=== PATIENT | female | born 1985 | race Caucasian/White ===

== ENCOUNTER 2023-06-02 03:29 | Emergency (ER) | payer OTHER, SELFPAY ==
[2023-06-02 03:35] VITALS: BP 127/88; PULSE 92; TEMP 36.4; O2SAT 99; BMI 33.3
--- NOTE | 2023-06-02 03:47 | ED_ITS ---
HPI HPI - General Adult General Chief complaint: Nausea/Vomiting/Diarrhea Stated complaint: VOMITING FLANK PAIN Time Seen by Provider: 06/02/23 03:42 Source: patient Mode of arrival: walk-in Limitations: no limitations History of Present Illness HPI narrative: Patient presents with flu-like illness that started about 30 hours ago. She developed nausea and vomiting followed by fatigue and muscle aches. Last emesis was around 7am but she has been dry heaving since - until about 3 hours ago when she was able to keep down crackers. Still feels achy and fatigued. No fever at home. No URI symptoms such as nasal congestion, ear pain, sore throat or cough. No chest pain or shortness of breath. She still has some nausea. She had some flank pain and abdominal cramping during the nausea and vomiting but non now. No urinary symptoms such as dysuria, urgency, frequency, hematuria or foul-smelling or discolored urine. She took some tylenol and ibuprofen earlier. Related Data Previous Rx's ?Medication ?Instructions ?Recorded ondansetron 4 mg disintegrating 4 mg PO Q6H PRN nausea and 06/02/23 tablet vomiting #14 tabs Allergies Allergy/AdvReac Type Severity Reaction Status Date / Time Unable to Assess Allergy Verified 06/02/23 03:40 Opioid HPI Opioid Management Most Recent Opioid Data: No Data to Display Exam Narrative Exam Narrative: Nurses notes and vital signs reviewed and patient is not hypoxic. afebrile General: Well-appearing and in no apparent distress. Skin: Warm, dry, no pallor noted. No rash. Head: Normocephalic, atraumatic. Neck: Supple, non-tender. No cervical lymphadenopathy. No meningismus. Eye: Pupils are equal, round and EOMI. No scleral icterus. Ears, Nose, Mouth, and Throat: TM are clear, no posterior oropharynx erythema or nasal mucosal hypertrophy, uvula is mid-line Oral mucosa is Slightly dry Cardiovascular: Regular Rate and Rhythm without murmur, gallop or rub. Respiratory: No accessory muscle use or respiratory distress. Lungs are clear to auscultation, no wheezing, rales or rhonchi Back: No CVA tenderness Musculoskeletal: normal ROM, no calf or popliteal tenderness, no lower extremity edema/swelling GI: Abdomen is soft, non-distended. Normal bowel sounds. No tenderness to palpation. No rebound, guarding, or rigidity noted. Neurological: A&O x4. No cranial nerve dysfunction observed. No truncal ataxia. Moves all extremities. Sensation intact. Psychiatric: Cooperative and interactive. Normal mood and affect. Constitutional Vital Signs, click to edit/add: Last Vital Signs Temp 97.5 F L 06/02/23 03:35 Pulse 92 H 06/02/23 03:35 Resp 20 06/02/23 03:35 BP 127/88 06/02/23 03:35 Pulse Ox 99 06/02/23 03:35 O2 Del Method Room Air 06/02/23 03:35 Course Vital Signs Vital signs: Vital Signs Temperature 97.5 F L 06/02/23 03:35 Pulse Rate 92 H 06/02/23 03:35 Respiratory Rate 20 06/02/23 03:35 Blood Pressure 127/88 06/02/23 03:35 Pulse Oximetry 99 06/02/23 03:35 Oxygen Delivery Method Room Air 06/02/23 03:35 Temperature 97.5 F L 06/02/23 03:35 Pulse Rate 92 H 06/02/23 03:35 Respiratory Rate 20 06/02/23 03:35 Blood Pressure 127/88 06/02/23 03:35 Pulse Oximetry 99 06/02/23 03:35 Oxygen Delivery Method Room Air 06/02/23 03:35 Medical Decision Making MDM Narrative Medical decision making narrative: Patient still with some residual nausea. She was given oral dissolvable Zofran. She was swabbed for both influenza and COVID. She did not want a wait for the results and we will call her if either of those are positive. She was discharged home with a prescription for Zofran oral dissolvable tablet And a work excuse to be off for the next 2 days. Patient advised to rest, stay at home, practice social distancing, take Motrin and Tylenol for pain and fever if not allergic, stay well hydrated with Gatorade or similar drinks if vomiting or eat as tolerated if not and take any meds as prescribed. Reviewed reasons to return including rapid increase in respiratory rate, shortness of breath, confusion, inability to keep down sips of swallowed liquids for more than 24 hours. Asked patient to encourage any ill contacts to stay home and practice similar advice. Discharge Plan Discharge Stand Alone Forms: Portal Instructions Chief Complaint: Nausea/Vomiting/Diarrhea Clinical Impression: Viral illness Patient Disposition: Home, Self-Care Time of Disposition Decision: 03:54 Prescriptions / Home Meds: New ondansetron 4 mg tablet,disintegrating 4 mg PO Q6H PRN (Reason: nausea and vomiting) Qty: 14 0RF Print Language: Zambian Instructions: Viral Syndrome (ED) Referrals: Physician,Non-Staff, MD [Primary Care Provider] - 1 week
[2023-06-02 04:04] LABS: Influenza Virus A Antigen Negative; Influenza Virus B Antigen Negative; Internal Control Within Normal Limits; SARS-CoV-2 Ag NEGATIVE (NEGATIVE)
[2023-06-02] MEDS: ONDANSETRON 4 MG RAPDIS TABLET SL (04:05)
[2023-06-02 04:08] VITALS: BP 131/79; PULSE 88; O2SAT 98
== END 2023-06-02 04:08 | disposition home or self-care (01) ==
PROVIDERS: Emergency Provider Emergency Medicine
DX: B34.9 Viral infection, unspecified (principal)
CPT/HCPCS: 87804; 87811; 99283

== ENCOUNTER 2023-07-29 18:40 | Emergency (ER) | payer OTHER, SELFPAY ==
[2023-07-29 19:02] VITALS: BP 154/87; PULSE 84; TEMP 37; O2SAT 100; BMI 31.9
--- NOTE | 2023-07-29 19:41 | PC.NURSE ---
pt felt lightheaded earlier today. pt states has had a period since may, heavy bleeding started tuesday. pt did not pass out, pt states eased herself to a sitting position
--- NOTE | 2023-07-29 19:44 | XR_ITS ---
The [address] [address] Patient Name: DEB WOODS MRN: [id number] date: 1985 Sex: F Assigned Patient Location: ER Current Patient Location: Accession/Order Number: [id number] Exam Date: 07/29/2023 20:22 Report Date: 07/29/2023 21:18 At the request of: CHRISTINA EVANS Procedure: XR chest 1V EXAM: XR chest 1V HISTORY: near syncope COMPARISON: None FINDINGS/IMPRESSION: 1. No pneumothorax. No pleural effusion. 2. Heart size and mediastinal contours are normal. 3. No acute osseous abnormality. 4. Upper abdominal bowel gas pattern is nonspecific. 5. Mild patchy atelectasis at the bilateral lung base. Lungs are otherwise clear. Electronically authenticated by: JUAN DANIEL ZAVALA Date: 07/29/2023 21:18
--- NOTE | 2023-07-29 19:47 | ECG_ITS ---
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
--- NOTE | 2023-07-29 19:51 | ED.GENADUL1 ---
HPI HPI - General Adult General Chief complaint: Syncope Stated complaint: Syncope Time Seen by Provider: 07/29/23 19:38 Source: patient Mode of arrival: walk-in Limitations: no limitations History of Present Illness HPI narrative: Patient is a 38-year-old female with a history of diabetes who presents to the ER with concerns of near syncopal episode x 2. Patient states Has been homeless in the recent months, off her medications. Patient states she has had a tubal ligation my tubes were removed. But has been experiencing heavier than normal periods for the past several months. Patient describes 8 to 12 days of heavy bleeding with frequent tampon changes. She denies bleeding at current time. States she was at home and felt some discomfort in the left side of her abdomen when she became really warm and nauseous, describing a near syncopal episode. Patient states she then went to work was eating some meat and cheese when she began to feel a similar sensation in the right side with a warm sensation At which patient laid down on the ground, and woke up by the trash can. Patient denies any vomiting or diarrhea. She denies any dysuria. She is sexually active and has taken home test which were negative to err on the side of caution. Patient denies any chest pain or shortness of breath. She denies any recent surgeries or long travels or flights. She denies any prior history of PE or DVT. 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 First episode occurred around 3 PM today Location: Denies head Radiation: Reports non-radiation Severity: moderate Quality: Denies burning Relieving factors: Reports none Exacerbating factors: Reports none Related Data Previous Rx's ?Medication ?Instructions ?Recorded ondansetron 4 mg disintegrating 4 mg PO Q6H PRN nausea and 06/02/23 tablet vomiting #14 tabs cephalexin 500 mg capsule 500 mg PO BID 7 days #14 caps 07/29/23 ferrous sulfate 325 mg (65 mg 325 mg PO DAILY #30 tabs 07/29/23 iron) tablet (iron) Allergies Allergy/AdvReac Type Severity Reaction Status Date / Time empagliflozin Allergy Nausea Verified 07/29/23 19:09 [From Jardiance] sitagliptin [From Januvia] Allergy Rash Verified 07/29/23 19:09 Opioid HPI Opioid Management Most Recent Opioid Data: No Data to Display Review of Systems ROS Constitutional Denies: fever or chills Eyes Reports: blurry vision (Preceding Near syncopal episodes, now resolved); Denies: change in vision Ears, nose, mouth, and throat Denies: throat pain Cardiovascular Denies: chest pain Respiratory Denies: shortness of breath or cough Gastrointestinal Denies: abdominal pain, nausea or vomiting Musculoskeletal Denies: back pain, neck pain or extremity pain Integumentary/Breast Denies: rash Neurological Denies: headache Psychiatric Denies: anxiety Hematologic/Lymphatic Denies: easy bruising Allergic/Immunologic Denies: hives Exam Narrative Exam Narrative: Nurses notes and vital signs reviewed and patient is not hypoxic. General: The patient appears well and in no apparent distress. Patient is resting comfortably on cart. Skin: Warm, dry, no pallor noted. Head: Normocephalic, atraumatic Neck: Supple, trachea mid-line, no tenderness, no lymphadenopathy Eye: Pupils are equal, round and reactive to light, EOMI Ears, Nose, Mouth, and Throat: TM are clear, normal light reflex, oral mucosa is moist, no posterior oropharynx erythema or hypertrophy, uvula is mid-line Cardiovascular: Regular Rate and Rhythm Respiratory: Patient is in no distress, no accessory muscle use, lungs are clear to auscultation, no wheezing, rales or rhonchi. Chest Wall: no tenderness Back: non-tender, no CVA tenderness Musculoskeletal: normal ROM, no tenderness, no swelling GI: Normal bowel sounds, no tenderness to palpation, no masses appreciated. No rebound, guarding, or rigidity noted. Neurological: A&O x4 Psychiatric: Cooperative Constitutional Vital Signs, click to edit/add: Last Vital Signs Temp 98.6 F 07/29/23 19:02 Pulse 80 07/29/23 19:52 Resp 17 07/29/23 19:52 BP 123/61 07/29/23 20:04 Pulse Ox 100 07/29/23 19:02 Course Vital Signs Vital signs: Vital Signs Temperature 98.6 F 07/29/23 19:02 Pulse Rate 84 07/29/23 19:02 Respiratory Rate 16 07/29/23 19:02 Blood Pressure 154/87 H 07/29/23 19:02 Pulse Oximetry 100 07/29/23 19:02 Temperature 98.6 F 07/29/23 19:02 Pulse Rate 80 07/29/23 19:52 Respiratory Rate 17 07/29/23 19:52 Blood Pressure 123/61 07/29/23 20:04 Pulse Oximetry 100 07/29/23 19:02 Medical Decision Making MDM Narrative Medical decision making narrative: Patient without any chest pain or shortness of breath.She describes 2 episodes of near syncopal behavior and believes she may have passed out during the second 1 while attempting to lay down on the floor at work. Patient admits to eating what she can. But has been off her diabetic medication for some time during period of homelessness. Patient has a verbalized plan to get back on her medications. Consistent with patient's intermittent heavy periods, she is anemic. We will start her on iron supplement. She will need to follow-up with director of billing to discuss treatment options. She may return to the ER if symptoms worsen. Patient noted for a urinary tract infection, culture pending will be prophylactically started on Keflex. was negative. Patient without chest pain or shortness of breath. Recommend to increase p.o. fluids, iron rich foods and establishing care with her family doctor. The patient is to followup with primary care physician in next 2-3 days or to return to the emergency department should any of the signs or symptoms worsen or new symptoms develop. Patient had questions answered. The patient agrees with the following Diagnosis and Treatment plan and the patient will be discharged home. Lab Data Labs: Lab Results 07/29/23 07/29/23 Range/Units 19:56 20:04 WBC 10.7 (4.0-11.0) 10^3/uL RBC 4.09 L (4.20-5.40) 10^6/uL Hgb 8.9 L (12.0-16.0) g/dL Hct 30.6 L (36.0-48.0) % MCV 74.8 L (81.0-99.0) fL MCH 21.8 L (26.7-34.0) pg MCHC 29.1 L (29.9-35.2) g/dL RDW 17.6 H (11.0-15.0) % Plt Count 345 (150-450) 10^3/uL MPV 8.8 L (9.5-13.5) fL Neut % (Auto) 69.1 (43.0-75.0) % Lymph % (Auto) 21.9 (20.5-60.0) % [place] % (Auto) 7.1 (1.7-12.0) % Eos % (Auto) 1.1 (0.9-7.0) % Baso % (Auto) 0.4 (0.2-2.0) % Neut # (Auto) 7.4 H (1.4-6.5) 10^3/uL Lymph # (Auto) 2.4 (1.2-3.8) 10^3/uL [place] # (Auto) 0.8 (0.3-0.8) 10^3/uL Eos # (Auto) 0.1 (0.0-0.7) 10^3/uL Baso # (Auto) 0.0 (0.0-0.1) 10^3/uL Abs Immat Gran (auto) 0.04 H (0.00-0.03) 10^3/uL Imm/Tot Granulo (auto) 0.4 (0.0-0.5) % PT 11.5 (9.0-11.6) sec INR 1.09 APTT 27.3 (22.3-36.2) sec Sodium 138 (136-145) mmol/L Potassium 4.0 (3.5-5.1) mmol/L Chloride 104 (98-107) mmol/L Carbon Dioxide 26.9 (21.0-32.0) mmol/L Anion Gap 11.1 BUN 11.0 (7.0-18.0) mg/dL Creatinine 0.75 (0.55-1.02) mg/dL Est GFR ( Amer) >60 (>=60) Est GFR (Non-Af Amer) >60 (>=60) BUN/Creatinine Ratio 14.7 Glucose 102 (74-106) mg/dL Calcium 8.9 (8.5-10.1) mg/dL Total Bilirubin 0.4 (0.2-1.0) mg/dL AST 7 L (15-37) U/L ALT 13 L (14-59) U/L Alkaline Phosphatase 61 (46-116) U/L Troponin I High Sens <4.0 L (4.0-51.3) pg/mL Total Protein 7.4 (6.4-8.2) g/dL Albumin 3.4 (3.4-5.0) g/dL Globulin 4.0 g/dL Albumin/Globulin Ratio 0.9 Serum HCG, Qual Negative (NEGATIVE) Urine Color Yellow (YELLOW) Urine Clarity Clear (CLEAR) Urine pH 6.0 (5.0-9.0) Ur Specific Miranda >=1.030 A (1.005-1.025) Urine Protein Negative (NEG/TRACE) mg/dL Urine Glucose (UA) Negative (NEGATIVE) mg/dL Urine Ketones Negative (NEGATIVE) mg/dL Urine Occult Blood Moderate A (NEGATIVE) Urine Nitrite Positive A (NEGATIVE) Urine Bilirubin Negative (NEGATIVE) Urine Urobilinogen 0.2 (0.2-1.0) EU/dL Ur Leukocyte Esterase Trace A (NEGATIVE) Urine RBC None seen (0-2) #/HPF Urine WBC 5-10 A (NONE SEEN) #/HPF Ur Squamous Epith Cells Rare (NONE/RARE) #/LPF Urine Crystals None seen (None Seen) #/HPF Urine Bacteria Large A (NONE SEEN) #/HPF Urine Casts None seen (NONE SEEN) #/LPF Urine Mucus Moderate A (NONE SEEN) Ur Culture Indicated? Yes Acetone, Qual Negative (NEGATIVE) Imaging Data Chest x-ray: My impression: No acute infiltrate, no cardiomegaly ECG Data Attestation: I personally reviewed and interpreted this ECG as follows: Interpretation: EKG interpretation: Emergency Department physician interpretation, normal sinus [id number], no ectopy, no ST segment elevation, normal axis. Discharge Plan Discharge Stand Alone Forms: Portal Instructions Chief Complaint: Syncope Clinical Impression: Anemia, Menometrorrhagia, Urinary tract infection, Near syncope Patient Disposition: Home, Self-Care Time of Disposition Decision: 20:40 Condition: Good Prescriptions / Home Meds: New cephalexin 500 mg capsule 500 mg PO BID 7 Days Qty: 14 0RF ferrous sulfate [iron] 325 mg (65 mg iron) tablet 325 mg PO DAILY Qty: 30 0RF No Action ondansetron 4 mg tablet,disintegrating 4 mg PO Q6H PRN (Reason: nausea and vomiting) Qty: 14 0RF Print Language: Romansh Instructions: Urinary Tract Infection in Women (DC), Menorrhagia (ED), Anemia (ED) Referrals: Chetan Valdes, [Physician] - As soon as possible Royer Ley MD [Physician] - As soon as possible Roverto Bustillos MD [Physician] - As soon as possible
[2023-07-29 19:52] VITALS: PULSE 80
[2023-07-29 20:04] VITALS: BP 123/61
[2023-07-29 20:08] LABS: Basophils Percent Auto 0.4 % (0.2-2.0); Eosinophils Absolute Auto 0.1 10^3/uL (0.0-0.7); Eosinophils Percent Auto 1.1 % (0.9-7.0); Hematocrit 30.6 % (36.0-48.0); Hemoglobin 8.9 g/dL (12.0-16.0); Immature Granulocytes Abs Auto 0.04 10^3/uL (0.00-0.03); Immature Granulocytes Pct Auto 0.4 % (0.0-0.5); Lymphocytes Absolute Auto 2.4 10^3/uL (1.2-3.8); Lymphocytes Percent Auto 21.9 % (20.5-60.0); Mean Corpuscular HGB Conc 29.1 g/dL (29.9-35.2); Mean Corpuscular Hemoglobin 21.8 pg (26.7-34.0); Mean Corpuscular Volume 74.8 fL (81.0-99.0); Mean Platelet Volume 8.8 fL (9.5-13.5); Monocytes Absolute Auto 0.8 10^3/uL (0.3-0.8); Monocytes Percent Auto 7.1 % (1.7-12.0); Neutrophils Absolute Auto 7.4 10^3/uL (1.4-6.5); Neutrophils Percent Auto 69.1 % (43.0-75.0); Platelet Count 345 10^3/uL (150-450); Red Blood Count 4.09 10^6/uL (4.20-5.40); Red Cell Distribution Width 17.6 % (11.0-15.0); White Blood Count 10.7 10^3/uL (4.0-11.0)
[2023-07-29 20:08] LABS: Bilirubin Urine NEGATIVE (NEGATIVE); Blood Urine MODERATE (NEGATIVE); Clarity Urine CLEAR (CLEAR); Color Urine YELLOW (YELLOW); Glucose Urine UA NEGATIVE (NEGATIVE); Ketones Urine NEGATIVE (NEGATIVE); Leukocyte Esterase Urine TRACE (NEGATIVE); Nitrite Urine POSITIVE (NEGATIVE); Protein Urine NEGATIVE (NEG/TRACE); Specific Gravity Urine >=1.030 (1.005-1.025); Urobilinogen Urine 0.2 EU/dL (0.2-1.0)
[2023-07-29] MEDS: ONDANSETRON PF 4 MG/2 ML VIAL IV (20:09)
[2023-07-29] MEDS: 0.9 % SODIUM CHLORIDE 1,000 ML 999 ML IV (20:09)
[2023-07-29 20:13] LABS: Urine Microscopic Indicated YES
[2023-07-29 20:17] LABS: HCG Qualitative NEGATIVE (NEGATIVE)
[2023-07-29 20:22] LABS: INR 1.09; Partial Thromboplastin Time 27.3 sec (22.3-36.2); Prothrombin Time 11.5 sec (9.0-11.6)
[2023-07-29 20:23] LABS: Acetone NEGATIVE (NEGATIVE)
[2023-07-29 20:24] LABS: Bacteria Urine LARGE #/HPF (NONE SEEN); Cast Seen? NONE SEEN #/LPF (NONE SEEN); Crystals Seen? None Seen #/HPF (None Seen); Mucus Urine MODERATE (NONE SEEN); RBC Urine NONE SEEN #/HPF (0-2); Squamous Epithelial Cell Urine RARE #/LPF (NONE/RARE); Urine Culture Indicated YES
[2023-07-29 20:25] LABS: Alanine Aminotransferase 13 U/L (14-59); Albumin Globulin Ratio 0.9; Albumin Level 3.4 g/dL (3.4-5.0); Alkaline Phosphatase 61 U/L (46-116); Anion Gap 11.1; Aspartate Amino Transferase 7 U/L (15-37); BUN Creatinine Ratio 14.7; Bilirubin Total 0.4 mg/dL (0.2-1.0); Calcium 8.9 mg/dL (8.5-10.1); Carbon Dioxide 26.9 mmol/L (21.0-32.0); Chloride 104 mmol/L (98-107); Estimated GFR (African America >60 (>=60); Estimated GFR (Non-African Ame >60 (>=60); Glucose 102 mg/dL (74-106); Sodium 138 mmol/L (136-145); Total Protein 7.4 g/dL (6.4-8.2)
[2023-07-29 20:28] LABS: Troponin I High Sensitivity <4.0 pg/mL (4.0-51.3)
[2023-07-29 20:30] VITALS: BP 122/59; PULSE 72; O2SAT 100
[2023-07-29] MEDS: CEPHALEXIN 500 MG CAPSULE PO (20:54)
== END 2023-07-29 21:07 | disposition home or self-care (01) ==
PROVIDERS: Personal Emergency Response Attendant; Emergency Provider Emergency Medicine
DX: R55 Syncope and collapse (principal); N39.0 Urinary tract infection, site not specified; N92.1 Excessive and frequent menstruation with irregular cycle; D64.9 Anemia, unspecified; E11.9 Type 2 diabetes mellitus without complications
CPT/HCPCS: 36415; 71045; 80053; 81001; 82009; 84484; 84703; 85025; 85610; 85730; 87086; 87150; 87186; 93005; 96361; 96374; 99285

== ENCOUNTER 2023-09-06 17:24 | Emergency (ER) | payer OTHER, SELFPAY ==
--- NOTE | 2023-09-06 | US_ITS ---
The [address] [address] Patient Name: DEB WOODS MRN: [id number] date: 1985 Sex: F Assigned Patient Location: ER Current Patient Location: ED.MAIN Accession/Order Number: [id number] Exam Date: 09/06/2023 17:55 Report Date: 09/06/2023 19:32 At the request of: LEIGHTON LION Procedure: US venous doppler UE RT ULTRASOUND OF THE UPPER EXTREMITY VENOUS RIGHT HISTORY: Extremity edema and pain. COMPARISON: None. TECHNIQUE: Multiple sonographic images are performed of the extremity venous system with both color Doppler and grayscale Doppler. Doppler spectral analysis and color flow were performed of the extremity. FINDINGS: There is no evidence of thrombus within the visualized veins. There is adequate phasic and spontaneous flow. There is adequate compression. There is adequate augmentation. No evidence of DVT within the visualized veins of the visualized extremity. US/US venous doppler UE RT IMPRESSION: No evidence of DVT within visualized veins. Electronically authenticated by: REYNALDO YOUSIF Date: 09/06/2023 19:32
[2023-09-06 17:34] VITALS: BP 120/62; PULSE 77; TEMP 36.8; O2SAT 97; BMI 31.0
--- NOTE | 2023-09-06 18:45 | XR_ITS ---
The [address] [address] Patient Name: DEB WOODS MRN: [id number] date: 1985 Sex: F Assigned Patient Location: ER Current Patient Location: ER Accession/Order Number: [id number] Exam Date: 09/06/2023 18:40 Report Date: 09/06/2023 20:01 At the request of: LEIGHTON LION Procedure: XR shoulder RT min 2V EXAM: XR shoulder RT min 2V HISTORY: Injury COMPARISON: None. TECHNIQUE: AP internal, external rotation Y-view right shoulder. FINDINGS: No fracture or dislocation. Minimal spurring AC joint. No soft tissue calcification. Visualized right clavicle, ribs and lung unremarkable. XR/XR shoulder RT min 2V IMPRESSION: Negative for fracture or dislocation right shoulder. Electronically authenticated by: MARCIAL HOFFMAN Date: 09/06/2023 20:01
--- NOTE | 2023-09-06 20:14 | ED.GENADUL1 ---
HPI HPI - General Adult General Chief complaint: Extremity Injury, Upper Stated complaint: UE INJURY Time Seen by Provider: 09/06/23 17:38 Source: patient Mode of arrival: walk-in Limitations: no limitations History of Present Illness HPI narrative: Patient is a 38-year-old female presents to the emergency department for the evaluation of right shoulder pain with radiation into the right arm. She states she ran her right shoulder into a door frame several days ago and has bruising to the right shoulder. She states she now has pain radiating into her right arm. She was concerned because she has a history of anemia and is worried she has a blood clot in her arm. No medications taken prior to arrival. She has no concern for Related Data Previous Rx's ?Medication ?Instructions ?Recorded ferrous sulfate 325 mg (65 mg 325 mg PO DAILY #30 tabs 07/29/23 iron) tablet (iron) hydrocodone 5 mg-acetaminophen 325 1 tab PO Q6H PRN pain 3 days #12 09/06/23 mg tablet tabs ketorolac 10 mg tablet 10 mg PO TID PRN pain #10 tabs 09/06/23 methocarbamol 750 mg tablet 750 mg PO TID PRN pain #20 tabs 09/06/23 Allergies Allergy/AdvReac Type Severity Reaction Status Date / Time empagliflozin Allergy Nausea Verified 07/29/23 19:09 [From Jardiance] sitagliptin [From Januvia] Allergy Rash Verified 07/29/23 19:09 Opioid HPI Opioid Management Most Recent Opioid Data: No Data to Display Review of Systems ROS Constitutional Denies: fever or chills Ears, nose, mouth, and throat Denies: throat pain or nasal congestion Cardiovascular Denies: chest pain Respiratory Denies: shortness of breath Gastrointestinal Denies: abdominal pain, nausea or vomiting Genitourinary Denies: painful urination Musculoskeletal Reports: extremity pain; Denies: back pain or neck pain Integumentary/Breast Denies: rash Hematologic/Lymphatic Denies: easy bruising or easy bleeding Exam Narrative Exam Narrative: Gen.: Awake, alert, in no distress Head: Normocephalic, atraumatic ENT: Moist mucous membranes, C-spine nontender Respiratory: No respiratory distress Extremities: Pain with range of motion at the right shoulder. Normal composite mechanic strength in the right hand with 2+ right radial pulse. Well-healing ecchymosis at the proximal humerus just distal to the glenohumeral joint Psych: Normal mood and affect Neuro: No focal neuro deficit Skin: Warm, dry, intact Constitutional Vital Signs, click to edit/add: Last Vital Signs Temp 98.3 F 09/06/23 17:34 Pulse 77 09/06/23 17:34 Resp 18 09/06/23 17:34 BP 120/62 09/06/23 17:34 Pulse Ox 97 09/06/23 17:34 O2 Del Method Room Air 09/06/23 17:34 Course Vital Signs Vital signs: Vital Signs Temperature 98.3 F 09/06/23 17:34 Pulse Rate 77 09/06/23 17:34 Respiratory Rate 18 09/06/23 17:34 Blood Pressure 120/62 09/06/23 17:34 Pulse Oximetry 97 09/06/23 17:34 Oxygen Delivery Method Room Air 09/06/23 17:34 Temperature 98.3 F 09/06/23 17:34 Pulse Rate 77 09/06/23 17:34 Respiratory Rate 18 09/06/23 17:34 Blood Pressure 120/62 09/06/23 17:34 Pulse Oximetry 97 09/06/23 17:34 Oxygen Delivery Method Room Air 09/06/23 17:34 Medical Decision Making MDM Narrative Medical decision making narrative: X-rays of the right shoulder and ultrasound of the right upper extremity were provided in the lobby, the studies are unremarkable and the patient is treated for shoulder contusion with radicular pain of the right arm. She is placed in a sling and is neurovascularly intact. Work note provided and a short course of analgesics, muscle relaxants and NSAIDs given for home. Rest, ice, gentle stretching. Follow-up with PCP in return to the ER if symptoms change or worsen. She is neurovascularly intact at discharge, sling 3 to 5 days only Medical Records Medical records reviewed: Yes I reviewed the patient's medical records Imaging Data XR shoulder: Attestation: I have reviewed the pertinent imaging results. Radiologist's impression: ITS Impressions Venous Doppler Study 09/06/23 00:00 IMPRESSION: No evidence of DVT within visualized veins. Electronically authenticated by: REYNALDO YOUSIF Date: 09/06/2023 19:32 Shoulder X-Ray 09/06/23 18:45 IMPRESSION: Negative for fracture or dislocation right shoulder. Electronically authenticated by: MARCIAL HOFFMAN Date: 09/06/2023 20:01 Discharge Plan Discharge Stand Alone Forms: Portal Instructions Chief Complaint: Extremity Injury, Upper Clinical Impression: Contusion of right shoulder, Radicular pain in right arm Patient Disposition: Home, Self-Care Time of Disposition Decision: 20:11 Condition: Good Prescriptions / Home Meds: New hydrocodone-acetaminophen 5-325 mg tablet 1 tab PO Q6H PRN (Reason: pain) 3 Days Qty: 12 0RF Rx Instructions: DX: M25.521 ketorolac 10 mg tablet 10 mg PO TID PRN (Reason: pain) Qty: 10 0RF methocarbamol 750 mg tablet 750 mg PO TID PRN (Reason: pain) Qty: 20 0RF No Action ferrous sulfate [iron] 325 mg (65 mg iron) tablet 325 mg PO DAILY Qty: 30 0RF Print Language: South African Instructions: Contusion in Adults (ED) Referrals: Physician,Non-Staff, MD [Primary Care Provider] - 1 week
--- NOTE | 2023-09-06 20:15 | PC.NURSE ---
sling placed. Pt given ice pack
== END 2023-09-06 20:17 | disposition home or self-care (01) ==
PROVIDERS: Emergency Provider Emergency Medicine
DX: S40.011A Contusion of right shoulder, initial encounter (principal); M79.601 Pain in right arm; W22.09XA Striking against other stationary object, initial encounter
CPT/HCPCS: 73030; 93971; 99284

== ENCOUNTER 2023-09-11 21:30 | Emergency (ER) | payer OTHER, SELFPAY ==
[2023-09-11 21:33] VITALS: BP 140/71; PULSE 76; TEMP 36.4; O2SAT 100; BMI 32.0
--- NOTE | 2023-09-11 21:47 | XR_ITS ---
The [address] [address] Patient Name: DEB WOODS MRN: [id number] date: 1985 Sex: F Assigned Patient Location: ER Current Patient Location: ER Accession/Order Number: [id number] Exam Date: 09/11/2023 22:47 Report Date: 09/11/2023 22:33 At the request of: EVELYNE MARKER Procedure: XR hand RT min 3V EXAM: XR hand RT min 3V, XR wrist RT 2V HISTORY: The patient is a 38-year-old female, hand injury COMPARISON: None. FINDINGS: The lateral view of the right wrist demonstrates a small cortical fracture fragment dorsal to the mid carpal row. This is the typical appearance of a triquetral avulsion fracture. I cannot determine from these radiographs if this is an acute or chronic fracture, and this should be correlated with tenderness at this site. 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 No other acute or ununited fractures are seen within the right hand and wrist. The widths and alignment of all the joints are maintained. XR/XR hand RT min 3V IMPRESSION: Triquetral avulsion fracture, age indeterminate. Electronically authenticated by: HILDA BULLARD Date: 09/11/2023 22:33
--- NOTE | 2023-09-11 21:47 | ED_ITS ---
HPI HPI - Extremity Injury (Upper) General Chief Complaint: Extremity Injury, Upper Stated Complaint: UPPER EXTREMITY INJURY Time Seen by Provider: 09/11/23 21:37 Source: patient Mode of arrival: walk-in History of Present Illness HPI narrative: This 38-year-old female who is right-hand dominant presents for evaluation of her right hand and wrist injury. The patient was seen here several days ago with right shoulder pain after striking her shoulder on something. She was placed in a splint and discharged home. She works at [employer]. She states she was changing something out earlier today and was bent down and lost her balance. She was wearing a wrist splint at the time and her second third fourth and fifth fingers were bent back when she lost her balance. She has pain in these fingers and metacarpals. The pain radiates into her wrist and forearm. Related Data Previous Rx's ?Medication ?Instructions ?Recorded ferrous sulfate 325 mg (65 mg 325 mg PO DAILY #30 tabs 07/29/23 iron) tablet (iron) hydrocodone 5 mg-acetaminophen 325 1 tab PO Q6H PRN pain 3 days #12 09/06/23 mg tablet tabs ketorolac 10 mg tablet 10 mg PO TID PRN pain #10 tabs 09/06/23 methocarbamol 750 mg tablet 750 mg PO TID PRN pain #20 tabs 09/06/23 Allergies Allergy/AdvReac Type Severity Reaction Status Date / Time empagliflozin Allergy Nausea Verified 07/29/23 19:09 [From Jardiance] sitagliptin [From Januvia] Allergy Rash Verified 07/29/23 19:09 Opioid HPI Opioid Management Most Recent Pain and Opioid Data: Last Pain Scale 9 09/11/23 22:28 Last ED Pain Assessment 09/06/23 20:15 Review of Systems ROS Status of ROS 10 or more systems reviewed and unremark able except as noted in h istory and below Exam Narrative Exam Narrative: Vital signs and Nursing Notes reviewed: Patient is afebrile with a normal pulse, normal blood pressure, she is not hypoxic with pulse ox of 100% on room air General: Awake, alert, oriented, no acute distress, lying comfortably on the stretcher HEENT: Normocephalic atraumatic, mucous membranes are moist and pink, eyes are clear, normal conjunctiva, vision is grossly intact Chest: Lungs are clear to auscultation with good air entry, there is no wheezing rhonchi or rales appreciated no accessory muscle use, patient is speaking in complete sentences-no chest wall tenderness to palpation CVS: Regular rate and rhythm S1-S2, no murmurs rubs or gallops, pulses are brisk and equal bilaterally ABD: Soft, nondistended, nontender, no rebound guarding or rigidity, bowel sounds are normal, no pulsatile masses appreciated Extremities: There is a resolving bruise on the right proximal humerus, there is tenderness to the right hand at the distal metacarpal of the index long ring and fifth finger. Patient resists his attempts to make a fist or approximate thumb and all fingers. There is no notable swelling, bruising or other abnormality. Fingers are warm and sensate. Capillary refill is less than 2 seconds. Radial pulses brisk. Patient winces with supination of the right hand. Skin: Normal in appearance without rash,pallor, petechiae or purpura Neuro: No focal deficits Constitutional Vital Signs, click to edit/add: Last Vital Signs Temp 97.6 F 09/11/23 21:33 Pulse 76 09/11/23 21:33 Resp 14 09/11/23 21:33 BP 140/71 09/11/23 21:33 Pulse Ox 100 09/11/23 21:33 Course Vital Signs Vital signs: Vital Signs Temperature 97.6 F 09/11/23 21:33 Pulse Rate 76 09/11/23 21:33 Respiratory Rate 09/11/23 21:33 Blood Pressure 140/71 09/11/23 21:33 Pulse Oximetry 100 09/11/23 21:33 Temperature 97.6 F 09/11/23 21:33 Pulse Rate 76 09/11/23 21:33 Respiratory Rate 09/11/23 21:33 Blood Pressure 140/71 09/11/23 21:33 Pulse Oximetry 100 09/11/23 21:33 MDM - Extremity Injury (Upper) MDM Narrative Medical decision making narrative: This 38-year-old female who is right-hand dominant presents for evaluation of a right hand and wrist injury. The patient states that her hand was hyperflexed when she was changing something out at her job, she slipped and fell onto the hand while she was wearing a wrist splint. She is tender across her distal metacarpals from the index, long, ring and fifth finger. I do not appreciate any bony deformity. She winced in pain with supination of the hand. 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 The results of the x-ray were discussed with the patient and she was placed in a hand splint and will be referred to [facility] for further evaluation and treatment. Procedure note: The right hand was placed in a volar splint with slight wrist extension to immobilize the hand and possible triquetral fracture. She will be referred to [facility]. Medical Records Medical records narrative: [place] [address] XRay Report Signed Patient: DEB WOODS MR#: [id number] : 1985 Acct:[id number] Age/Sex: 38 / F ADM Date: 09/11/23 Loc: ER Attending Dr: Ordering Physician: Evelyne Thornton Date of Service: 09/11/23 Procedure(s): XR wrist RT 2V Accession Number(s): [id number] cc: Evelyne Thornton; Physician,Non-Staff M.D.~ The [address] [address] Patient Name: DEB WOODS MRN: [id number] date: 1985 Sex: F Assigned Patient Location: ER Current Patient Location: ER Accession/Order Number: [id number] Exam Date: 09/11/2023 22:47 Report Date: 09/11/2023 22:33 At the request of: EVELYNE THORNTON Procedure: XR wrist RT 2V EXAM: XR hand RT min 3V, XR wrist RT 2V HISTORY: The patient is a 38-year-old female, hand injury COMPARISON: None. FINDINGS: The lateral view of the right wrist demonstrates a small cortical fracture fragment dorsal to the mid carpal row. This is the typical appearance of a triquetral avulsion fracture. I cannot determine from these radiographs if this is an acute or chronic fracture, and this should be correlated with tenderness at this site. 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 No other acute or ununited fractures are seen within the right hand and wrist. The widths and alignment of all the joints are maintained. XR/XR wrist RT 2V IMPRESSION: Triquetral avulsion fracture, age indeterminate. Discharge Plan Discharge Stand Alone Forms: Portal Instructions Chief Complaint: Extremity Injury, Upper Clinical Impression: Triquetral chip fracture Patient Disposition: Home, Self-Care Time of Disposition Decision: 23:01 Condition: Good Prescriptions / Home Meds: No Action hydrocodone-acetaminophen 5-325 mg tablet 1 tab PO Q6H PRN (Reason: pain) 3 Days Qty: 12 0RF Rx Instructions: DX: M25.521 ketorolac 10 mg tablet 10 mg PO TID PRN (Reason: pain) Qty: 10 0RF methocarbamol 750 mg tablet 750 mg PO TID PRN (Reason: pain) Qty: 20 0RF ferrous sulfate [iron] 325 mg (65 mg iron) tablet 325 mg PO DAILY Qty: 30 0RF Print Language: Syrian Instructions: Wrist Fracture in Adults (ED) Referrals: Physician,Non-Staff, MD [Primary Care Provider] - 1 week
--- NOTE | 2023-09-11 21:47 | XR_ITS ---
The [address] [address] Patient Name: DEB WOODS MRN: [id number] date: 1985 Sex: F Assigned Patient Location: ER Current Patient Location: ER Accession/Order Number: [id number] Exam Date: 09/11/2023 22:47 Report Date: 09/11/2023 22:33 At the request of: EVELYNE MARKER Procedure: XR wrist RT 2V EXAM: XR hand RT min 3V, XR wrist RT 2V HISTORY: The patient is a 38-year-old female, hand injury COMPARISON: None. FINDINGS: The lateral view of the right wrist demonstrates a small cortical fracture fragment dorsal to the mid carpal row. This is the typical appearance of a triquetral avulsion fracture. I cannot determine from these radiographs if this is an acute or chronic fracture, and this should be correlated with tenderness at this site. 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 No other acute or ununited fractures are seen within the right hand and wrist. The widths and alignment of all the joints are maintained. XR/XR wrist RT 2V IMPRESSION: Triquetral avulsion fracture, age indeterminate. Electronically authenticated by: HILDA BULLARD Date: 09/11/2023 22:33
[2023-09-11] MEDS: ACETAMINOPHEN 325 MG TABLET 650 MG PO (22:28)
[2023-09-11] MEDS: HYDROCODONE/ACET 5-325 MG TABLET 2 TAB PO (23:13)
[2023-09-11 23:20] VITALS: BP 134/88; PULSE 88; O2SAT 98
== END 2023-09-11 23:20 | disposition home or self-care (01) ==
PROVIDERS: Emergency Provider Emergency Medicine
DX: S62.111A Displaced fracture of triquetrum [cuneiform] bone, right wrist, initial encounter for closed fracture (principal); W19.XXXA Unspecified fall, initial encounter
CPT/HCPCS: 29125; 73100; 73130; 99283

== ENCOUNTER 2023-10-03 21:11 | Outpatient (REF) | payer OTHER, SELFPAY ==
--- OUTSIDE RECORDS SUMMARY | 2023-10-03 21:28 | XMS_ITS | CCD ---
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 [facility] Care Team Providers Care Performance Improvement Specialist Name Role Phone Patricia Pollock Primary Care Physician [phone] Srikanth WALTON Primary Care Physician NONE, XXXX Primary Care Physician Susieab tia BORJA, GENERIC Primary Care Physician Unavailab FUENTES Pollard Attending Unavailable Aditi Vargas Attending Unavailable Winsome Andino Attending Unavailable Adrian Potter Attending Unavailable Allergies Allergy Classification Reported Allergen(s) Allergy Type Date of Onset Reaction(s) Facility (9 sources) empagliflozin; Translations: [empagliflozin] Drug Allergy Nausea (finding) [facility] (9 sources) glipiZIDE; Translations: [glipizide] Drug Allergy Diarrhea (finding) [facility] (9 sources) SITagliptin; Translations: [sitagliptin] Drug Allergy Mycosis (disorder) [facility] Medications Current Medications Medication Drug Class(es) Dates Sig (Normalized) Sig (Original) acetaminophen 325 mg / HYDROcodone bitartrate 5 mg oral tablet (8 sources) Opioid Agonist Start: 09-06-2021 take 1 tablet by mouth every four hours for pain [place] 325 mg-5 mg oral tablet 1 tab(s), Oral, q4hr for pain, 3 tab(s), Refill(s) 0, [facility], 162, cm, 09/06/21 16:13:00 EDT, Height/Length Dosing, 95, kg, 09/06/21 16:13:00 EDT, Weight Dosing Start Date: 09/06/21 Status: Ordered acetaminophen 325 mg / oxyCODONE hydrochloride 5 mg oral tablet (3 sources) Opioid Agonist Start: 07-27-2022 take 1 tablet by mouth every four hours for pain acetaminophen-ox ycodone 325 mg-5 mg Tab 1 tab(s), Oral, q4hr for pain, 8 tab(s), Refill(s) 0, [facility], 162, cm, 07/27/22 22:23:00 EDT, Height/Length Dosing, 91.6, kg, 07/27/22 22:23:00 EDT, Weight Dosing Start Date: 07/27/22 Status: Ordered brompheniramine maleate 0.4 mg/ml / dextromethorphan hydrobromide 2 mg/ml / pseudoephedrine hydrochloride 6 mg/ml oral solution (6 sources) alpha-Adrenergic Agonist, Uncompetitive Z-yibwsx-U-aspartat e Receptor Antagonist, Sigma-1 Agonist Start: 10-29-2021 take 5 mL by mouth four times daily Bromfed DM oral syrup 5 mL, Oral, QID for cold symptoms, 200 mL, Refill(s) 0, [facility], 163, cm, 10/29/21 18:48:00 EDT, Height/Length Dosing, 93, kg, 10/29/21 18:48:00 EDT, Weight Dosing Start Date: 10/29/21 Status: Ordered 12 hr buPROPion hydrochloride 150 mg extended release oral tablet (8 sources) Aminoketone Start: 01-30-2020 take 1 tablet by mouth twice daily Wellbutrin SR 150 mg Tab-ER 150 mg = 1 tab(s), Oral, BID, # 30 tab(s), Refills(s) 5, Pharmacy: [facility], 163, cm, 01/30/20 10:40:00 EST, Height/Length Dosing, 105, kg, 01/30/20 10:40:00 EST, Weight Dosing Start Date: 01/30/20 Status: Ordered cephalexin 500 mg oral capsule (1 source) Cephalosporin Antibacterial Start: 12-19-2022 End: 12-26-2022 take 1 capsule by mouth every six hours Keflex 500 mg Cap 500 mg = 1 cap(s), Oral, q6hr, X 7 day(s), # 28 cap(s), Refills(s) 0, Pharmacy: [facility], 162, cm, 12/19/22 7:51:00 EDT, Height/Length Dosing, 85, kg, 12/19/22 7:51:00 EDT, Weight Dosing Start Date: 12/19/22 Stop Date: 12/26/22 Status: Ordered esomeprazole 20 mg delayed release oral capsule (8 sources) Proton Pump Inhibitor Start: 01-30-2020 take 1 capsule by mouth once daily Nexium 20 mg Cap-DR 20 mg = 1 cap(s), Oral, Daily, # 30 cap(s), Refills(s) 5, Pharmacy: [facility], 163, cm, 01/30/20 10:40:00 EST, Height/Length Dosing, 105, kg, 01/30/20 10:40:00 EST, Weight Dosing Start Date: 01/30/20 Status: Ordered fexofenadine hydrochloride 180 mg oral tablet (16 sources) Histamine-1 Receptor Antagonist Start: 01-30-2020 take 1 tablet by mouth once daily fexofenadine 180 mg Tab 180 mg = 1 tab(s), Oral, Daily, # 30 tab(s), Refills(s) 0 Start Date: 06/22/20 Status: Ordered FLUoxetine 40 mg oral capsule (8 sources) Serotonin Reuptake Inhibitor Start: 01-30-2020 take 1 capsule by mouth twice daily FLUoxetine 40 mg Cap 40 mg = 1 cap(s), Oral, BID, # 30 cap(s), Refills(s) 5, Pharmacy: [facility], 163, cm, 01/30/20 10:40:00 EST, Height/Length Dosing, 105, kg, 01/30/20 10:40:00 EST, Weight Dosing Start Date: 01/30/20 Status: Ordered fluticasone propionate 0.05 mg/actuat metered dose nasal spray (3 sources) Corticosteroid Start: 01-30-2020 fluticasone 0.05 mg/inh Nasal [place] 100 mcg, 2 spray(s), Nasal, Daily Allergy symptoms, 16 gm, Refill(s) 5, [facility], 163, cm, 01/30/20 10:40:00 EST, Height/Length Dosing, 105, kg, 01/30/20 10:40:00 EST, Weight Dosing Start Date: 01/30/20 Status: Ordered fluticasone 0.05 mg/inh Nasal [place] (5 sources) Start: 01-30-2020 fluticasone 0.05 mg/inh Nasal [place] 100 mcg, 2 spray(s), Nasal, Daily Allergy symptoms, 16 gm, Refill(s) 5, [facility], 163, cm, 01/30/20 10:40:00 EST, Height/Length Dosing, 105, kg, 01/30/20 10:40:00 EST, Weight Dosing Start Date: 01/30/20 Status: Ordered Hydrocortisone (8 sources) Corticosteroid Start: 03-05-2020 apply 30 g rectal route twice daily Proctosol HC 2.5% Cream See Instructions, 30 gm, Refill(s) 0, Rectal BID, [facility], 163, cm, 03/05/20 10:32:00 EST, Height/Length Dosing, 107.6, kg, 03/05/20 10:32:00 EST, Weight Dosing Start Date: 03/05/20 Status: Ordered metFORMIN hydrochloride 1000 mg oral tablet (8 sources) Biguanide Start: 06-22-2020 take 1 tablet by mouth twice daily METFORMIN 1000MG TAB TAKE 1 TABLET BY MOUTH TWICE DAILY Start Date: 06/22/20 Status: Ordered methylPREDNISolone 4 mg oral tablet (2 sources) Corticosteroid Start: 03-27-2023 End: 04-02-2023 Medrol 4 mg Tab = 1 packet(s), Oral, As Directed, as directed on package labeling, X 6 day(s), # 21 tab(s), Refills(s) 0, Pharmacy: [facility], 162, cm, 03/27/23 18:39:00 EST, Height/Length Dosing, 85, kg, 03/27/23 18:39:00 EST, Weight Dosing Start Date: 03/27/23 Stop Date: 04/02/23 Status: Ordered Start: 10-29-2021 End: 11-04-2021 Medrol 4 mg Tab = 1 packet(s ), Oral, As Directed, as directed on package labeling, X 6 day(s), # 21 tab(s), Refills(s) 0, Pharmacy: [facility], 163, cm, 10/29/21 18:48:00 EDT, Height/Length Dosing, 93, kg, 10/29/21 18:48:00 EDT, Weight Dosing Start Date: 10/29/21 Stop Date: 11/04/21 Status: Ordered naproxen 500 mg oral tablet (2 sources) Nonsteroidal Anti-inflammatory Drug Start: 12-19-2022 take 1 tablet by mouth twice daily as needed for pain naproxen 500 mg Tab 500 mg = 1 tab(s), Oral, BID, PRN for pain, # 20 tab(s), Refills(s) 0, Pharmacy: [facility], 162, cm, 12/19/22 7:51:00 EDT, Height/Length Dosing, 85, kg, 12/19/22 7:51:00 EDT, Weight Dosing Start Date: 12/19/22 Status: Ordered nystatin [id number] unt/ml topical cream (3 sources) Polyene Antifungal Start: 03-05-2020 Nystatin Topical Cream 100,000 units/g Cream 1 deb, Topical, BID, 30 gram, Refill(s) 0, [facility], 163, cm, 03/05/20 10:32:00 EST, Height/Length Dosing, 107.6, kg, 03/05/20 10:32:00 EST, Weight Dosing Start Date: 03/05/20 Status: Ordered traMADol hydrochloride 50 mg oral tablet (1 source) Opioid Agonist Start: 03-27-2023 End: 03-30-2023 traMADOL 50 mg Tab 50 mg = 1 tab(s), Oral, q4hr, PRN Pain 8-10, X 3 day(s), # 18 tab(s), Refills(s) 0, Pharmacy: [facility], 162, cm, 03/27/23 18:39:00 EST, Height/Length Dosing, 85, kg, 03/27/23 18:39:00 EST, Weight Dosing Start Date: 03/27/23 Stop Date: 03/30/23 Status: Ordered Zofran ODT 4 mg Tab-Dis (6 sources) Start: 10-29-2021 take 1 tablet by mouth every eight hours as needed for nausea Zofran ODT 4 mg Tab-Dis 4 mg = 1 tab(s), Oral, q8hr, PRN Nausea/Vomiting, # 12 tab(s), Refills(s) 0, Pharmacy: [facility], 163, cm, 10/29/21 18:48:00 EDT, Height/Length Dosing, 93, kg, 10/29/21 18:48:00 EDT, Weight Dosing Start Date: 10/29/21 Status: Ordered Completed/Discontinued Medications Medication Drug Class(es) Dates Sig (Normalized) Sig (Original) fluconazole 150 mg oral tablet (8 sources) Azole Antifungal Start: 03-05-2020 Diflucan 150 mg Tab 150 mg = 1 tab(s), Oral, Once, Take one tablet and repeat in 72 hours if s/s remain, # 2 tab(s), Refills(s) 0, Pharmacy: [facility], 163, cm, 03/05/20 10:32:00 EST, Height/Length Dosing, 107.6, kg, 03/05/20 10:32:00 EST, Weight Dosing Start Date: 03/05/20 Status: Ordered Vitamin D3 400 intl units oral capsule (8 sources) Start: 09-04-2018 take 1 capsule by mouth once daily Vitamin D3 400 intl units oral capsule 400 [employer]i t = 1 cap(s), Oral, Daily, # 100 cap(s), Refills(s) 0, other reason (Rx) Start Date: 09/04/18 Status: Ordered Problems Active Problems Problem Classification Problem Date Documented Date Episodic/Chronic Abdominal pain (1 source) Abdominal pain; Translations: [Unspecified abdominal pain] Onset: 12-19-2022 Episodic Anxiety disorders (8 sources) Generalized anxiety disorder 08-23-2018 Chronic Asthma (8 sources) Asthma 08-16-2013 Chronic Disorders of lipid metabolism (8 sources) 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 Fracture of upper limb (1 source) Closed fracture of styloid process of ulna; Translations: [Displaced fracture of unspecified ulna styloid process, initial encounter for closed fracture] Onset: 07-27-2022 Episodic Mood disorders (16 sources) Depressive disorder; Translations: [Mild major depression] Resolved: 08-23-2018 11-30-2018 Chronic Nutritional deficiencies (8 sources) Vitamin D deficiency 08-23-2018 Chronic Osteoarthritis (8 sources) Arthritis 08-16-2013 Chronic Other connective tissue disease (1 source) Pain in upper limb; Translations: [Pain in arm, unspecified] Onset: 03-27-2023 Episodic Other female genital disorders (8 sources) Abnormal uterine bleeding 08-20-2019 Chronic Other injuries and conditions due to external causes (1 source) Traumatic AND/OR non-traumatic injury; Translations: [Other injury of unspecified body region, initial encounter] Onset: 02-01-2022 Episodic Other nutritional; endocrine; and metabolic disorders (8 sources) Obesity 08-23-2018 Chronic Other upper respiratory infections (1 source) Acute upper respiratory infection; Translations: [Acute upper respiratory infection, unspecified] Onset: 10-29-2021 Episodic Sprains and strains (2 sources) Sprain of wrist 08-05-2022 Episodic Superficial injury; contusion (3 sources) Contusion of elbow; Translations: [Contusion of unspecified elbow, initial encounter] Onset: 09-06-2021 Episodic Urinary tract infections (1 source) Urinary tract infectious disease; Translations: [Urinary tract infection, site not specified] Onset: 12-19-2022 Episodic Viral infection (8 sources) Disease caused by 2019-nCoV 01-30-2020 Past or Other Problems Problem Classification Problem Date Documented Da te Episodic/Chronic Other connective tissue disease (8 sources) Plantar fasciitis Onset: 02-13-2013 05-11-2013 Episodic Unclassified (20 sources) Onset: 11-08-2001 Resolved: 06-18-2009 05-08-2019 Results Test Name Value Interpretation Reference Range Facility C Urineon 03-29-2023 Bacteria identified Cx Nom (U) Microbiology PROCEDURE: Urine Culture [R1] SOURCE: U CleanCatch BODY SITE: COLLECTED DATE/TIME: 03/27/2023 19:37 EST RECEIVED DATE/TIME: 03/27/2023 20:21 EST START DATE/TIME: 03/27/2023 20:21 EST FREE TEXT SOURCE: Adrian Potter DO, DO, Kevin M. FINAL REPORTS Final Report [] Verified Date/Time: 03/29/2023 10:28 EST 50,000 cfu/ml Escherichia coli 3,000 cfu/ml Mixed skin contaminants SUSCEPTIBILITY RESULTS LEGEND: S=Susceptible, N/R=Not Reported, Blank=Data not available, or drug not advisable or tested, I=Intermediate, ESBL=Extended spectrum beta-lactamase, R=Resistant, TFG=Thymidine-depende nt strain, MAURICE=Beta-lactamase positive, EVA=mcg/m;(mg/L), S*=Predicted susceptible interp, R*=Predicted resistant interp EC Antibiotic EVA Dilutn EVA Interp Amikacin <=16 S Ampicillin >16 R Ampicillin/ >16/8 R Sulbactam Aztreonam <=4 S Cefazolin <=2 S Cefepime <=2 S Cefoxitin <=8 S Ceftazidime <=1 S Ceftazidime/ <=8 S Avibactam Ceftriaxone <=1 S Ciprofloxacin <=1 S Ertapenem <=0.5 S Gentamicin <=4 S Levofloxacin <=2 S Meropenem <=1 S Nitrofurantoin <=32 S Piperacillin/ <=16 S Tazobactam Tetracycline <=4 S Tigecycline <=2 S Tobramycin <=4 S Trimethoprim/ <=2/38 S Sulfa Performing Locations R1: This test was performed at: [facility], [address] [place] [address], [address] , , [facility] Comment on above: Performed By: #### 1 [id number], [id number] ####[id number] [place] [address] CT Head or Brain w/o Contras ton 03-28-2023 CT Head or Brain w/o Contrast Exam Date/Time: 03/27/2023 18:55 EST Reason for Exam: Neuro deficit, acute, stroke suspected Report IMPRESSION: No acute intracranial process. COMMUNICATION: Communicated by statrad radiologist Dr. Hinton with: Dr. Potter on 03/27/2023 at 1909. EXAMINATION: CT Head or Brain w/o Contrast HISTORY: Neuro deficit, acute, stroke suspected. Rapid response stroke. Right arm symptoms with numbness. TECHNIQUE: Serial axial images without IV contrast were obtained from the vertex to the foramen magnum, with sagittal and coronal reconstructions. All CT scans at this facility use dose modulation, iterative reconstruction, and/or weight based dosing when appropriate to reduce radiation dose to as low as reasonably achievable. COMPARISON: 08/21/2016. RESULT: Acute change: No evidence of an acute infarct or other acute parenchymal process. Hemorrhage: No evidence of acute intracranial hemorrhage. Mass Lesion / Mass Effect: There is no evidence of an intracranial mass or extraaxial fluid collection. No significant mass effect. Chronic change: None apparent. Parenchyma: There is no significant volume loss. Ventricles: The ventricles are within normal limits of size and configuration for age. Paranasal sinuses and skull base: The visualized paranasal sinuses are grossly clear. Mastoid air cells clear. The skull base is unremarkable. Soft tissues unremarkable. Report Ordering Provider: Adrian Potter FINAL REPORT Dictated: 03/28/2023 8:27 am Johnny Singh MD Signed (Electronic Signature): 03/28/2023 8:27 am Signed by: Johnny Singh MD Transcribed by: SIERRA Technologist: CRISTOFER Normal [facility] Discharge Instructionson Discharge Instructions [id number]# 1.00TIFF Normal [facility] ED Note-Physicianon 03-28-19 ED Note-Physician Basic Information Time Seen: Adrian Potter DO 03/27/2023 18:44 Chief Complaint pt states 1030 this am right arm went limp, then at 1130 shooting pain and numbness started. nauseated and dizzy t/o the day today History of Present Illness 38-year-old female to the emergency department with chief complaint of right arm going limp . Patient reports that sometime this morning she developed severe pain in her arm and then reports that she could not move her arm. She denies any vision changes, numbness, weakness, tingling. She denies any fever, sweats, chills. There is no injury. She denies any difficulty walking or speaking. She reports that she felt a little nauseous at one point today however this resolved. Review of Systems A 10 point review of systems is negative except as noted above. Medical and Surgical History: Reviewed and noted Social history: Lives at home Tobacco: Denies Physical Exam Vitals & Measurements T: 36.8 ?C(Oral) HR: 61(Monitored) RR: 15 BP: 140/86 SpO2: 100% HT: 162 cm WT: 85 kg BMI: 32.39 VITALS: I have reviewed the triage vital signs. GENERAL: Well developed, well appearing adult in no acute distress. NEURO: Alert and oriented. Moves all extremities. Face is symmetric and expressive. She will not move the right arm but is holding it with increased tone to her body. Otherwise no focal deficits. Her NIH score is a 2 for the arm however there is not a objective deficit. EYES: PERRL. No scleral icterus or conjunctival injection. No discharge. HENT: Normocephalic, atraumatic. Hearing is grossly intact. Nares grossly patent and without discharge. Mucous membranes moist. NECK: No JVD. Patient moves neck without restriction. CARDIO: Rhythm regular. Normal rate. No murmur, rub, or gallop. Pulses equal bilaterally in the upper and lower extremity. No lower extremity edema. PULM: Lungs clear to auscultation in all fr[place]. No wheezes, rales, or rhonchi. No conversational dyspnea. No splinting, stridor, or accessory muscle use. GI/: Abdomen is soft and non-tender. Normoactive bowel sounds. EXTREMITIES: Symmetric muscle bulk. No joint swelling. No clubbing, cyanosis, or deformity. SKIN: Warm and dry. Normal turgor. No rash or lesions appreciated. PSYCH: Mood, affect, and interaction is appropriate to the setting. Medical Decision Making 38-year-old female to the emergency department with chief complaint of arm pain. Vital stable, the patient is afebrile. Stroke alert was called in triage as she was saying that her arm was limp. CT head is negative. Glucose is normal. Upon my evaluation of the patient she does not have motor weakness. She is holding her arm with increased tone to her body. She has full strength in the arm. She is reporting pain down the arm and that is why she will not move it. This does not appear to be a stroke. Will treat her pain, obtain basic labs. Patient agrees with this plan. Lab work reviewed and noted. There are no major abnormalities. Her urine does look infected however she denies any symptoms and does not want to be treated. Will allow urine culture. her symptoms near completely resolved after pain treatment. She feels much improved. She would like to be discharged home which I believe is reasonable. She is given a short course of tramadol. She is instructed follow-up with her orthopedic doctor whom she follows with for her previous injuries in this arm. Patient was discharged home. Assessment/Plan Arm pain (M79.603: Pain in arm, unspecified) Ordered: tramadol, 50 mg = 1 tab(s), Oral, q4hr, PRN Pain 8-10, X 3 day(s), # 18 tab(s), Refills(s) 0, [facility], 162, cm, 03/27/23 18:39:00 EST, Height/Length Dosing, 85, kg, 03/27/23 18:39:00 EST, Weight Dosing Orders: methylPREDNISolone, = 1 packet(s), Oral, As Directed, as directed on package labeling, X 6 day(s), # 21 tab(s), Refills(s) 0, [facility], 162, cm, 03/27/23 18:39:00 EST, Height/Length Dosing, 85, kg, 03/27/23 18:39:00 EST, Weight Dosing morphine, 4 mg = 1 mL, Injection, IV Push, Once, Stop date 03/27/23 19:05:00 EST, STAT, Start date 03/27/23 19:05:00 EST, 03/27/23 19:05:00 EST ondansetron, 4 mg = 2 mL, Injection, IV Push, Once, Stop date 03/27/23 19:05:00 EST, STAT, Start date 03/27/23 19:05:00 EST, 03/27/23 19:05:00 EST tramadol, 50 mg = 1 tab(s), Tab, Oral, Once, Stop date 03/27/23 21:08:00 EST, STAT, Start date 03/27/23 21:08:00 EST, 03/27/23 21:08:00 EST Basic Metabolic Panel Beta hCG Qual CBC w/ Auto Diff [place] Stroke Scale CT Head or Brain w/o Contrast eGFR PT & PTT Routine Capillary Glucose POC Saline Lock Insert Stroke Quality Measures Troponin 0 Hr. UA With Cult Reflex Urine Culture XR Chest Single View Medications Administered Given morphine 4 mg/mL Inj, 4 mg, IV Push traMADOL 50 mg Tab, 50 mg, Oral Zofran 4 mg/2 mL Injection, 4 mg, IV Push Disposition Plan Patient Discharge Condition Stable Discharge Disposition Home Discha (more content not included)... Normal [facility] Comment on above: Result Comment: Elec tronically Signed By: Adrian Potter DO\.br\Date and Time Signed: 03/28/23 03:33 EST XR Chest Single Viewon 03-28 XR Chest Single View Exam Date/Time: 03/27/2023 20:12 EST Reason for Exam: Chest pain Report IMPRESSION: No acute findings by portable radiography. EXAMINATION: XR Chest Single View Clinical History: Chest pain Comparison: 06/22/2020. RESULT: No consolidation. No pleural effusion. No pneumothorax. Normal cardiomediastinal silhouette. No acute osseous findings. Ordering Provider: Adrian Potter FINAL REPORT Dictated: 03/28/2023 8:38 am Johnny Singh MD Signed (Electronic Signature): 03/28/2023 8:38 am Signed by: Johnny Singh MD Transcribed by: SIERRA Technologist: CRISTOFER Technical Comments Radiation Dose: Ka,r in mGy = na DAP = na Normal [facility] B hCG [place] 03-27-2023 Beta HCG ( test) Ql Negative Normal [facility] Comment on above: Performed By: #### 2 [id number] ####[facility] [id number] [place] [address] BMPon 03-27-2023 Anion gap [Moles/Vol] 10 mmol/L Normal 6-16 [facility] Comment on above: Performed By: #### 2 [id number], [id number], [id number], [id number], [id number] ####[facility] [address] [place] [address] BUN/Creat Ratio 20 No Units Normal 10-20 [facility] Comment on above: Performed By: #### 2 [id number], [id number], [id number], [id number], [id number] ####[facility] [address] [place] [address] Calcium [Mass/Vol] 9.1 mg/dL Normal 8.9-11.1 [facility] Comment on above: Performed By: #### 2 775409, [id number], [id number], [id number], [id number] ####[facility] [address] [place] [address] Chloride [Moles/Vol] 105 mmol/L Normal 101-111 [facility] Comment on above: Performed By: #### 2 [id number], [id number], [id number], [id number], [id number] ####[facility] [address] [place] [address] CO2 [Moles/Vol] 28 mmol/L Normal 21-31 [facility] Comment on above: Performed By: #### 2 118195, [id number], [id number], [id number], [id number] ####[facility] [address] [place] [address] Creatinine [Mass/Vol] 0.8 mg/dL Normal 0.5-1.3 [facility] Comment on above: Performed By: #### 2 284078, [id number], [id number], [id number], [id number] ####[facility] [address] [place] [address] Glucose [Mass/Vol] 106 mg/dL Normal 55-199 [facility] Comment on above: Performed By: #### 2 348975, [id number], [id number], [id number], [id number] ####[facility] [address] [place] [address] Potassium [Moles/Vol] 3.6 mmol/L Normal 3.5-5.3 [facility] Comment on above: Performed By: #### 2 964228, [id number], [id number], 3546072, [id number] ####[facility] [address] [place] [address] Sodium [Moles/Vol] 139 mmol/L Normal 135-145 [facility] Comment on above: Performed By: #### 2 447119, [id number], [id number], 2051517, [id number] ####[address] [address] Urea nitrogen [Mass/Vol] 16 mg/dL Normal 5-21 [facility] Comment on above: Performed By: #### 2 887286, [id number], [id number], 5196469, [id number] ####[address] [address] CBC w/ Auto Diffon 4 Basophil Absolute 0.1 E9/L Normal 0.0-0.2 [facility] Comment on above: Performed By: #### 2 632751, [id number], [id number], [id number], [id number] ####[address] [place] [address] Basophils/100 WBC (Bld) 0.6 % Normal 0.0-2.0 [facility] Comment on above: Performed By: #### 2 198124, [id number], [id number], 2358573, [id number] ####[address] [place] [address] Eos Absolute 0.2 E9/L Normal 0.0-0.5 [facility] Comment on above: Performed By: #### 2 525303, [id number], [id number], 0008115, [id number] ####[address] [place] [address] Eosinophils/100 WBC (Bld) 1.8 % Normal 0.0-8.0 [facility] Comment on above: Performed By: #### 2 945677, [id number], [id number], [id number], [id number] ####[address] [place] [address] Erythrocyte distribution width (RBC) [Ratio] 17.0 % High 10.9-14.2 [facility] Comment on above: Performed By: #### 2 102887, [id number], [id number], 0615429, [id number] ####[address] [address] Hematocrit (Bld) [Volume fraction] 34.0 % Normal 34.0-46.0 [facility] Comment on above: Performed By: #### 2 537407, [id number], [id number], [id number], [id number] ####[address] [address] Hemoglobin (Bld) [Mass/Vol] 10.9 g/dL Low 12.0-16.0 [facility] Comment on above: Performed By: #### 2 466689, [id number], [id number], 3075900, [id number] ####[address] [address] Lymph Absolute 3.1 E9/L Normal 1.0-4.0 [facility] Comment on above: Performed By: #### 2 446940, [id number], 01650938, 9813566, [id number] ####[address] [place] [address] Lymphocytes/100 WBC (Bld) 36.1 % Normal 14.0-50.0 [facility] Comment on above: Performed By: #### 2 629413, 14704381, 58490100, 9372366, 95036397 ####[address] [address] MCH (RBC) [Entitic mass] 26.1 pg Low 27.0-34.0 [facility] Comment on above: Performed By: #### 2 401739, 70663001, 12217292, 7392762, 50002788 ####[facility] [address] [place] [address] MCHC (RBC) [Mass/Vol] 32.1 g/dL Normal 31.4-36.0 [facility] Comment on above: Performed By: #### 2 408386, [id number], 29756028, 6408012, 03025903 ####[address] [place] [address] MCV (RBC) [Entitic vol] 81.3 fL Normal 80.0-100.0 [facility] Comment on above: Performed By: #### 2 674483, 85364274, 73239117, 8544292, 65915897 ####[facility] [address] [place] [address] [place] Absolute 0.8 E9/L Normal 0.2-1.0 [facility] Comment on above: Performed By: #### 2 343967, 33987991, 49856805, 4001175, 36273130 ####[address] [place] [address] Monocytes/100 WBC (Bld) 8.7 % Normal 4.0-14.0 [facility] Comment on above: Performed By: #### 2 117125, 01933964, 26487185, 2757986, 78537762 ####[facility] [address] [place] [address] Neutro Absolute 4.6 E9/L Normal 2.0-7.5 [facility] Comment on above: Performed By: #### 2 050289, 24557066, 97748936, 9184217, 62918163 ####[facility] [address] [place] [address] Neutro Auto 52.8 % Normal 36.0-75.0 [facility] Comment on above: Performed By: #### 2 896274, 03842130, 49603104, 2015340, 10100167 ####[facility] [address] [place] [address] Platelet 333.0 E9/L Normal 150.0-500.0 [facility] Comment on above: Performed By: #### 2 367721, 61441859, 02028567, 7344443, 01052466 ####[facility] [address] [place] [address] Platelet mean volume (Bld) [Entitic vol] 7.0 fL Normal 6.4-10.8 [facility] Comment on above: Performed By: #### 2 705729, 46538861, 03085426, 8452401, 33187377 ####[facility] [address] [place] [address] RBC 4.2 E12/L Low 4.3-5.9 [facility] Comment on above: Performed By: #### 2 948305, 92256836, 08907095, 5609306, 14757406 ####[facility] [address] [place] [address] WBC 8.7 E9/L Normal 4.0-11.0 [facility] Comment on above: Performed By: #### 2 847786, 44503827, 41769650, 5691894, 98757360 ####[facility] [address] [place] [address] CHEMISTRYOrdered By: SYSTEM SYSTEM on 03-27-2023 Anion gap [Moles/Vol] 10 mmol/L Normal 6 - 16 mEq/L R emisol Chem Calcium [Mass/Vol] 9.1 mg/dL Normal 8.9 - 11. 1 mg/dL Remisol Chem Chloride [Moles/Vol] 105 mmol/L Normal 101 - 1 11 mmol/L Remisol Chem CO2 [Moles/Vol] 28 mmol/L Normal 21 - 31 mmol/L Remisol Chem Creatinine [Mass/Vol] 0.8 mg/dL Normal 0.5 - 1.3 mg/dL Remisol Chem eGFR 96 mL/min/1.73 m2 Normal >=59mL/min /1 .73 m2 Remisol Chem Glucose [Mass/Vol] 106 mg/dL Normal 55 - 199 mg/dL Remisol Chem Potassium [Moles/Vol] 3.6 mmol/L Normal 3.5 - 5.3 mmol/L Remisol Chem Sodium [Moles/Vol] 139 mmol/L Normal 135 - 145 mmol/L Remisol Chem Troponin pg/mL Low 10.10 - 27.10 pg/mL Remisol Chem Comment on above: Interpretive Data: T he 95% CI (Confidence Interval) PPV (Positive Predictive Value) for myocardial infarction in females is 38 pg/mL, in males 51 pg/mL. The results should be used in conjunction with clinical conditions of myocardial infarction. (Access High Sensitivity Troponin I Instructions For Use, Chriss Humphreys, September 2017) Urea nitrogen [Mass/Vol] 16 mg/dL Normal 5 - 21 mg/dL Remisol Chem Urea nitrogen/Creatinine [Mass ratio] 20 mg/mg Normal 10 - 20 Remisol Chem CHEMISTRYOrdered By: Lab ROP User on 03-27-2023 Glucose [Mass/Vol] 120 mg/dL High 55 - 99 mg/dL [facility] POC Subsection POC Device SN [id number] Invalid Interpretation Code [facility] POC Subsection POC User ID [id number] 1 Invalid Interpretation Code [facility] POC Subsection POC Username HERMANN VALENZUELA Invalid Interpretation Code [facility] POC Subsection COAGULATIONOrdered By: Jose Diallo on 03-27-2023 aPTT Coag (PPP) [Time] 34.7 s Normal 25.1 - 36.5 second(s) [facility] Auto Coag Comment on above: Interpretive Data: P arameter 15 days - 4 weeks 1 - 5 months 6 - 11 months 1 - 5 years 6 - 10 years 11 - 17 years PTT Mean: 35.4 (27.6-45.6) Mean: 33.5 (24.8-40.7) Mean: 32.4 (25.1-40.7) Mean: 31.6 (24.0-39.2) Mean: 31.6 (26.9-38.7) Mean: 31.0 (24.6-38.4) Pediatric Reference ranges were obtained from a study by rekha Moore alAnselmo prepared from 1437 samples obtained at 7 different centers using the same coagulation reagent and instrumentation as [facility]. Currently there are no coagulation studies available worldwide for children to 14 days, and no normal ranges. Heparin therapeutic range (represented by Anti-Factor Xa activity of 0.2 - 0.4 U/mL) corresponds to PTT of 56.6 - 109.0 sec. INR Coag (PPP) [Relative time] 1.1 {INR} Invalid Interpretation Code [facility] Auto [facility]ag Comment on above: Interpretive Data: I NR results are specifically intended to assess patients stabilized on long-term Anticoagulation therapy suggested INR s Less Intensive Anticoagulation 2.0 3.0 Conventional Range 3.0 4.5 PT Coag (PPP) [Time] 12.4 s Normal 9.4 - 1 2.5 second(s) [facility] Comment on above: Interpretive Data: 1 5 days - 4 weeks 1 - 5 months 6 -11 months 1 5 years 6 10 years 11 -17 years Mean: 11.2 (9.5 12.6) Mean: 11.0 (9.7 12.8) Mean: 11.0 (9.8 13.0) Mean: 11.3 (9.9 13.4) Mean: 11.7 (10.0 14.6) Mean: 11.8 (10.0 - 14.1) Pediatric Reference ranges were obtained from a study by rekha Moore alAnselmo prepared from 1437 samples obtained at 7 different centers using the same coagulation reagent and instrumentation as [facility]. Currently there are no coagulation studies available worldwide for children to 14 days, and no normal ranges. Capillary Glucose POCon 03-01 Glucose [Mass/Vol] 120 mg/dL High 55-99 [facility] Comment on above: Performed By: #### 2 [id number] ####[facility] [address] [place] [address] Consent for Treatmenton 03-01 Consent for Treatment [id number] .00TIFF Normal [facility] ED Clinical Summaryon 2023 ED Clinical Summary [id number] ED Clinical Summary Person Information Name: DEB WOODS/Will Age: 38 Years : 1985 Sex: Female Language: [place] PCP: MELA BORJA Marital Status: Single Visit Id: Visit Reason: Dizziness; Nausea; Paresthesia; RIGHT ARM NUMBNESS AND PAIN, NAUSEA Speciality: Acuity: 3 Enc Type: Emergency Med Service: Emergency Arrival: 03/27/2023 18:27:29 Discharge: 03/27/2023 21:28:19 LOS: 000 03:01 Checkin: 03/27/2023 18:27:29 Checkout: 03/27/2023 21:28:19 Dispo Type: Home (Routine DC) EVENTS: Event Name Event Status Request Date/Time Start Date/Time Complete Date/Time Arrive Complete 03/27/2023 18:27:29 03/27/2023 18:27:29 03/27/2023 18:27:29 Document Home Meds Request 03/27/2023 18:27:29 Triage Complete 03/27/2023 18:27:29 03/27/2023 18:39:24 03/27/2023 18:39:24 Registration Complete 03/27/2023 18:32:24 03/27/2023 18:32:24 03/27/2023 18:32:24 Reg Complete Request 03/27/2023 18:32:24 Reg Bed Request Complete 03/27/2023 18:32:24 03/27/2023 18:32:24 03/27/2023 18:32:24 EKG Complete 03/27/2023 18:39:15 03/27/2023 19:06:44 Bed Assign Complete 03/27/2023 18:39:40 03/27/2023 18:39:40 03/27/2023 18:39:40 Dr Exam Complete 03/27/2023 18:39:40 03/27/2023 18:44:43 03/27/2023 18:44:43 RN Exam Complete 03/27/2023 18:39:40 03/27/2023 19:04:47 03/27/2023 19:04:47 Registration Request 03/27/2023 18:44:43 NPO Request 03/27/2023 18:45:25 Pending Labs Complete 03/27/2023 18:45:25 03/27/2023 19:59:38 Lab Complete 03/27/2023 18:45:25 03/27/2023 19:59:38 Urine Collect Complete 03/27/2023 18:45:25 03/27/2023 19:59:38 Patient Care Request 03/27/2023 18:45:25 X-Ray Complete 03/27/2023 18:45:25 03/27/2023 19:02:24 03/27/2023 20:12:23 RT Request 03/27/2023 18:45:25 CT Complete 03/27/2023 18:45:25 03/27/2023 18:50:53 03/27/2023 18:55:43 Pending Labs Complete 03/27/2023 18:45:35 03/27/2023 19:25:14 Pending Labs Complete 03/27/2023 18:46:52 03/27/2023 18:46:52 03/27/2023 18:46:53 Pending Labs Complete 03/27/2023 18:59:08 03/27/2023 18:59:08 03/27/2023 19:22:01 Lab Complete 03/27/2023 18:59:08 03/27/2023 18:59:08 03/27/2023 19:22:01 RR Stroke Request 03/27/2023 19:04:47 Meds Admin Complete 03/27/2023 19:05:32 03/27/2023 19:11:36 RR Stroke Request 03/27/2023 19:15:59 Pending Labs Inlab 03/27/2023 19:45:17 03/27/2023 19:45:17 Lab Inlab 03/27/2023 19:45:17 03/27/2023 19:45:17 Wet Read Request 03/27/2023 20:12:23 Meds Admin Complete 03/27/2023 21:08:54 03/27/2023 21:21:50 Discharge Complete 03/27/2023 21:10:39 03/27/2023 21:28:23 03/27/2023 21:28:23 Transfer Complete 03/27/2023 21:28:23 03/27/2023 21:28:23 03/27/2023 21:28:23 ADDRESS: [address] [place] [address] [place] [id number] PHYS DOC NOTES: MEDICAL INFORMATION: Prescriptions Given: New Medications [facility] 1986, [address] [facility] [place], [place] [id number], [phone] methylPREDNISolone (Medrol 4 mg Tab) 1 Packets By Mouth As Directed for 6 Days. as directed on package labeling. Refills: 0. tramadol (traMADOL 50 mg Tab) 1 Tablets By Mouth every 4 hours as needed Pain 8-10 for 3 Days. Refills: 0. Medications to Continue with No Changes Other Medications acetaminophen-hydroco done ([place] 325 mg-5 mg oral tablet) 1 Tablets By Mouth every 4 hours as needed for pain. Refills: 0. acetaminophen-oxycodo ne (acetaminophen-oxycod one 325 mg-5 mg Tab) 1 Tablets By Mouth every 4 hours as needed for pain. Refills: 0. brompheniramine/dextr omethorphan/PSE (Bromfed DM oral syrup) 5 Milliliter By Mouth 4 times a day as needed for cold symptoms. Refills: 0. buPROPion (Wellbutrin SR 150 mg Tab-ER) 1 Tablets By Mouth 2 times a day. Refills: 5. cholecalciferol (Vitamin D3 400 intl units oral capsule) 1 Capsules By Mouth every day. Refills: 0. esomeprazole (Nexium 20 mg Cap-DR) 1 Capsules By Mouth every day. Refills: 5. fexofenadine (Abi 24 Hour Allergy oral tablet) 1 Tablets By Mouth every day. Refills: 5. fexofenadine (fexofenadine 180 mg Tab) 1 Tablets By Mouth every day. fluconazole (Diflucan 150 mg Tab) 1 Tablets By Mouth Once. Take one tablet and repeat in 72 hours if s/s remain. Refills: 0. fluoxetine (FLUoxetine 40 mg Cap) 1 Capsules By Mouth 2 times a day. Refills: 5. fluticasone nasal (fluticasone 0.05 mg/inh Nasal [place]) 2 Sprays Nasal Inhalation every day as needed Allergy symptoms. Refills: 5. hydrocortisone topical (Proctosol HC 2.5% Cream) Rectal BID. Refills: 0. Misc Prescription (METFORMIN 1000MG TAB) TAKE 1 TABLET BY MOUTH TWICE DAILY. naproxen (naproxen 500 mg Tab) 1 Tablets By Mouth 2 times a day as needed for pain. Refills: 0. nystatin topical (Nystatin Topical Cream 100,000 units/g Cream) 1 Application Topical 2 times a day. Refills: 0. ondansetron (Zofran ODT 4 mg Tab-Dis) 1 Tablets By Mouth every 8 hours as needed Nausea/Vomiting. Refills: 0. PATIENT EDUCATION INFORMATION: Instructions: Musculoskeletal Pain Follow up: With (more content not included)... Normal [facility] ED Patient Education Noteon 03-27-2023 ED Patient Education Note Orthopedics Musculoskeletal Pain Musculoskeletal pain refers to aches and pains in your bones, joints, muscles, and the tissues that surround them. This pain can occur in any part of the body. It can last for a short time (acute) or a long time (chronic). A physical exam, lab tests, and imaging studies may be done to find the cause of your musculoskeletal pain. Follow these instructions at home: Lifestyle ? Try to control or lower your stress levels. Stress increases muscle tension and can worsen musculoskeletal pain. It is important to recognize when you are anxious or stressed and learn ways to manage it. This may include: ? Meditation or yoga. ? Cognitive or behavioral therapy. ? Acupuncture or massage therapy. ? You may continue all activities unless the activities cause more pain. When the pain gets better, slowly resume your normal activities. Gradually increase the intensity and duration of your activities or exercise. Managing pain, stiffness, and swelling ? Treatment may include medicines for pain and inflammation that are taken by mouth or applied to the skin. Take cybn-ids-xqwfgod and prescription medicines only as told by your health care provider. ? When your pain is severe, bed rest may be helpful. Lie or sit in any position that is comfortable, but get out of bed and walk around at least every couple of hours. ? If directed, apply heat to the affected area as often as told by your health care provider. Use the heat source that your health care provider recommends, such as a moist heat pack or a heating pad. ? Place a towel between your skin and the heat source. ? Leave the heat on for 20?30 minutes. ? Remove the heat if your skin turns bright red. This is especially important if you are unable to feel pain, heat, or cold. You may have a greater risk of getting burned. ? If directed, put ice on the painful area. To do this: ? Put ice in a plastic bag. ? Place a towel between your skin and the bag. ? Leave the ice on for 20 minutes, 2?3 times a day. ? Remove the ice if your skin turns bright red. This is very important. If you cannot feel pain, heat, or cold, you have a greater risk of damage to the area. General instructions ? Your health care provider may recommend that you see a physical therapist. This person can help you come up with a safe exercise program. ? If told by your health care provider, do physical therapy exercises to improve movement and strength in the affected area. ? Keep all follow-up visits. This is important. This includes any physical therapy visits. Contact a health care provider if: ? Your pain gets worse. ? Medicines do not help ease your pain. ? You cannot use the part of your body that hurts, such as your arm, leg, or neck. ? You have trouble sleeping. ? You have trouble doing your normal activities. Get help right away if: ? You have a new injury and your pain is worse or different. ? You feel numb or you have tingling in the painful area. Summary ? Musculoskeletal pain refers to aches and pains in your bones, joints, muscles, and the tissues that surround them. ? This pain can occur in any part of the body. ? Your health care provider may recommend that you see a physical therapist. This person can help you come up with a safe exercise program. Do any exercises as told by your physical therapist. ? Lower your stress level. Stress can worsen musculoskeletal pain. Ways to lower stress may include meditation, yoga, cognitive or behavioral therapy, acupuncture, and massage therapy. This information is not intended to replace advice given to you by your health care provider. Make sure you discuss any questions you have with your health care provider. Document Revised: 06/19/2020 Document Reviewed: 05/28/2020 Elsevier Patient Education ? 2022 [employer] Normal [facility] ED Patient Summaryon 024 ED Patient Summary [facility] [address], [place] [address] Patient Discharge Instructions Person Information Name: DEB WOODS Age: 38 Years Arrival Date: 03/27/2023 18:27:29 Discharge Diagnosis: Arm pain Primary Care Physician: HUONG, GENERIC Provider Information Primary Provider: Adrian Potter DO [employer] Equipment Technician:[facility] The exam and treatment you received in the Emergency Department were for an urgent problem and are not intended as complete care. It is important that you follow up with a doctor, nurse practitioner, or physician?s processing assistant for ongoing care. If your symptoms become worse or you do not improve as expected and you are unable to reach your usual health care provider, you should return to the Emergency Department. We are available 24 hours a day. DEB WOODS has been given the following list of patient education materials, prescriptions and follow-up instructions: Follow-up Instructions: With: Address: When: [address] [place] [address] Business (1) In 3 days 03/30/2023 Comments: Call the office of your primary care doctor to arrange for follow-up within the above-stated timeframe. Follow-up with your primary care doctor about this ED visit. You should review your labs, imaging, and diagnoses from this ED visit with your primary care physician. There are occasionally non-emergent findings that require additional follow-up after your ED visit. If you were prescribed medications you should discuss possible side-effects and drug interactions with your pharmacist. Call 911 or go to the nearest Emergency Department if you develop any new or worsening symptoms. In the event that this physician does not participate in your insurance network, please consult with your insurance company to find a nearby participating provider. Patient Education Materials: Musculoskeletal Pain A MESSAGE TO ALL PATIENTS REGARDING OPIOIDS PRESCRIPTION OPIOIDS: WHAT YOU NEED TO KNOW Prescription opioids can be used to help relieve ejlfoyiu-mf-pesdpz pain and are often prescribed following a surgery or injury, or for certain health conditions. These medications can be an important part of the treatment but also come with serious risks. It is important to work with your healthcare provider to make sure you are getting the safest, most effective care. WHAT ARE THE RISKS AND SIDE EFFECTS OF OPIOID USE? Prescription opioids carry serious risks of addiction and overdose, especially with prolonged use. An opioid overdose, often marked by slowed breathing, can cause sudden . The use of prescription opioids can have a number of side effects as well, even when taken as directed: ? Tolerance?meaning you might need to take more of the medication for the same pain relief ? Physical dependence?meaning you have symptoms of withdrawal when a medication is stopped ? Increased sensitivity to pain ? Constipation ? Nausea, vomiting, and dry mouth ? Sleepiness and dizziness ? Confusion ? Depression ? Low levels of testosterone that can result in lower sex drive, energy, and strength ? Itching and sweating RISKS ARE GREATER WITH: ? History of drug misuse, substance use disorder, or overdose ? Mental health conditions (such as depression or anxiety) ? Sleep apnea ? Older age (65 years and older) ? Avoid alcohol while taking prescription opioids. Also, unless specifically advised by your health care provider, medications to avoid include: ? Benzodiazepines (such as Xanax or Valium) ? Muscle relaxants (such as Soma or Flexeril) ? Hypnotics (such as Ambien or Lunesta) ? Other prescription opioids KNOW YOUR OPTIONS Talk to your health care provider about ways to manage your pain that don?t involve prescription opioids. Some of these options may actually work better and have fewer risks and side effects. Options may include: ? Pain relievers such as acetaminophen, ibuprofen, and naproxen ? Some medication that are also used for depression or seizures ? Physical therapy and exercise ? Cognitive behavioral therapy, a psychological, goal-directed approach, in which patients learn how to modify physical, behavioral, and emotional triggers of pain and stress. IF YOU ARE PRESCRIBED OPIOIDS FOR PAIN: ? Never take opioids in greater amounts or more often than prescribed. ? Follow up with your primary health care provider. o Work together to create a plan on how to manage your pain. o Talk about ways to help manage your pain that don?t involve prescription opioids. o Talk about any and all concerns and side effects. ? Help prevent misuse and abuse o Never sell or share prescription opioids. o Never use another person?s prescription opioids. ? Store prescription opioids in a secure place and out of reach of others (this may include visitors, (more content not included)... Normal [facility] HEMATOLOGYOrdered By: SYSTEM SYSTEM on 03-27-2023 Basophil Absolute 0.1 E9/L Normal 0.0 - 0.2 E9/L Remisol Heme Basophils/100 WBC (Bld) 0.6 % Normal 0.0 - 2.0 % Remisol Heme Eos Absolute 0.2 E9/L Normal 0.0 - 0.5 E9/L Remisol Heme Eosinophils/100 WBC (Bld) 1.8 % Normal 0.0 - 8.0 % Remisol Heme Erythrocyte distribution width (RBC) [Ratio] 17.0 % High 10.9 - 14.2 % Remisol Heme Hematocrit (Bld) [Volume fraction] 34.0 % Normal 34.0 - 46.0 % Remisol Heme Hemoglobin (Bld) [Mass/Vol] 10.9 g/dL Low 12.0 - 16.0 gm/dL Remisol Heme Lymph Absolute 3.1 E9/L Normal 1.0 - 4.0 E9/L Remisol Heme Lymphocytes/100 WBC (Bld) 36.1 % Normal 14.0 - 50.0 % Remisol Heme MCH (RBC) [Entitic mass] 26.1 pg Low 27.0 - 34.0 pg Remisol Heme MCHC (RBC) [Mass/Vol] 32.1 g/dL Normal 31.4 - 36.0 gm/dL Remisol Heme MCV (RBC) [Entitic vol] 81.3 fL Normal 80.0 - 100.0 fL Remisol Heme [place] Absolute 0.8 E9/L Normal 0.2 - 1.0 E9/L Remisol Heme Monocytes/100 WBC (Bld) 8.7 % Normal 4.0 - 14.0 % Remisol Heme Neutro Absolute 4.6 E9/L Normal 2.0 - 7.5 E9/L Remisol Heme Neutro Auto 52.8 % Normal 36.0 - 75.0 % Remisol Heme Platelet 333.0 E9/L Normal 150.0 - 500.0 E9/L Remisol Heme Platelet mean volume (Bld) [Entitic vol] 7.0 fL Normal 6.4 - 10.8 fL Remisol Heme RBC 4.2 E12/L Low 4.3 - 5.9 E12/L Remisol Heme WBC 8.7 E9/L Normal 4.0 - 11.0 E9/L Remisol Heme Monitor Recordon 03-27-2023 Monitor Record [id number]# 1.00TIFF Normal [facility] Monitor Record [id number]# 1.00TIFF Normal [facility] PT & PTTon 03-27-2023 aPTT Coag (PPP) [Time] 34.7 second(s) Normal 25.1-36.5 [facility] Comment on above: Result Comment: Para meter 15 days - 4 weeks 1 - 5 months 6 - 11 months 1 - 5 years 6 - 10 years 11 - 17 years PTT Mean: 35.4 (27.6-45.6) Mean: 33.5 (24.8-40.7) Mean: 32.4 (25.1-40.7) Mean: 31.6 (24.0-39.2) Mean: 31.6 (26.9-38.7) Mean: 31.0 (24.6-38.4) Pediatric Reference ranges were obtained from a study by Emery Wallace et al. prepared from 1437 samples obtained at 7 different centers using the same coagulation reagent and instrumentation as [facility]. Currently there are no coagulation studies available worldwide for children to 14 days, and no normal ranges. Heparin therapeutic range (represented by Anti-Factor Xa activity of 0.2 - 0.4 U/mL) corresponds to PTT of 56.6 - 109.0 sec. Performed By: #### 2 [id number], [id number], [id number], [id number], [id number] ####[facility] [address] [place] [address] INR Coag (PPP) [Relative time] 1.1 {INR} Invalid Interpretation Code [facility] Comment on above: Result Comment: INR results are specifically intended to assess patients stabilized on long-term Anticoagulation therapy suggested INR?s ?Less Intensive Anticoagulation? 2.0 ? 3.0 Conventional Range 3.0 ? 4.5 Performed By: #### 2 [id number], [id number], [id number], [id number], [id number] ####[facility] [address] [place] [address] PT Coag (PPP) [Time] 12.4 second(s) Normal 9.4-12.5 [facility] Comment on above: Result Comment: 15 d ays - 4 weeks 1 - 5 months 6 -11 months 1 ? 5 years 6 ? 10 years 11 -17 years Mean: 11.2 (9.5 ? 12.6) Mean: 11.0 (9.7 ? 12.8) Mean: 11.0 (9.8 ? 13.0) Mean: 11.3 (9.9 ? 13.4) Mean: 11.7 (10.0 ? 14.6) Mean: 11.8 (10.0 - 14.1) Pediatric Reference ranges were obtained from a study by Emery Wallace et al. prepared from 1437 samples obtained at 7 different centers using the same coagulation reagent and instrumentation as [facility]. Currently there are no coagulation studies available worldwide for children to 14 days, and no normal ranges. Performed By: #### 2 568507, [id number], 68193795, 4191411, [id number] ####[facility] [address] [place] [address] RAD - Preliminary Cat Scan R eporton 03-27-2023 RAD - Preliminary Cat Scan Report [id number]# 1.00TIFF Normal [facility] SEROLOGYOrdered By: Jose olivera on 03-27-2023 Beta HCG ( test) Ql Negative (03/27/23 6:55 PM) Normal [facility] Man Sero Troponin 0 Hr.on 03-27-2023 Troponin I.cardiac [Mass/Vol] ng/mL Low 10.10-27.10 [facility] Comment on above: Result Comment: The 95% CI (Confidence Interval) PPV (Positive Predictive Value) for myocardial infarction in females is 38 pg/mL, in males 51 pg/mL. The results should be used in conjunction with clinical conditions of myocardial infarction. (Access High Sensitivity Troponin I Instructions For Use, Chriss Humphreys, September 2017) Performed By: #### 2 199190, [id number], 53412604, 4810651, 54127267 ####[facility] [address] [place] [address] UA With Cult Reflexon 2023 Bacteria LM Ql (Urine sed) 1+ /HPF Abnormal Trace [facility] Comment on above: Performed By: #### 1 0461768, 8175357 ####[address] [address] Bilirubin Ql (U) Negative Normal Negative [facility] Comment on above: Performed By: #### 1 0337262, 6763378 ####[address] [address] Clarity (U) CLOUDY Abnormal Clear [facility] Comment on above: Performed By: #### 1 4169198, 4943979 ####[address] [address] Color (U) YELLOW Normal Yellow [facility] Comment on above: Performed By: #### 1 5017261, 1758552 ####[address] [address] Crystals LM Ql (Urine sed) Present Normal [facility] Comment on above: Performed By: #### 1 7743841, 7567603 ####[address] [address] Epithelial cells.squamous LM.HPF (Urine sed) [#/Area] 5-8 Normal 0-2 [facility] Comment on above: Performed By: #### 1 3960083, 3774606 ####[facility] [address] [place] [address] Glucose Test strip (U) [Mass/Vol] Negative Normal Negative [facility] Comment on above: Performed By: #### 1 5048731, 5642835 ####[address] [address] Hemoglobin Ql (U) 1+ Abnormal Negative [facility] Comment on above: Performed By: #### 1 0355288, 8042175 ####[facility] [address] [place] [address] Ketones (U) [Mass/Vol] Negative Normal Negative [facility] Comment on above: Performed By: #### 1 8622658, 8129671 ####[facility] [address] [place] [address] Glouster.plasma/Glouster .RBC (Bld) [Mass ratio] 0-3 Normal 0-3 [facility] Comment on above: Performed By: #### 1 5358637, 6095951 ####[facility] [address] [place] [address] Mucus Ql (Urine sed) 3+ Normal Fish [facility] Comment on above: Performed By: #### 1 1126457, 4581957 ####[address] [address] Nitrite Ql (U) Positive Abnormal Negative [facility] Comment on above: Performed By: #### 1 2825934, 1888753 ####[facility] [address] [place] [address] pH (U) 6.0 [pH] Invalid Interpretation Code 5.0-9.0 [facility] Comment on above: Performed By: #### 1 3392823, 8402543 ####[address] [address] Protein (U) [Mass/Vol] Negative Normal Negative [facility] Comment on above: Performed By: #### 1 4264325, 0974136 ####[facility] [address] [place] [address] Specific gravity (U) [Rel density] >=1.030 Invalid Interpretation Code 1.005-1.030 [facility] Comment on above: Performed By: #### 1 3976967, 2357875 ####[facility] [address] [place] [address] Type of Urine collection method Clean Catch Normal [facility] Comment on above: Performed By: #### 1 3857580, 7035658 ####[facility] [address] [place] [address] Urobilinogen Qn (U) 0.2 {Qiana'U}/dL Normal 0.0-1.0 [facility] Comment on above: Performed By: #### 1 8091020, 1533121 ####[facility] [address] [place] [address] WBC Auto Ql (U) Negative Normal Negative [facility] Comment on above: Performed By: #### 1 8900280, 1981030 ####[facility] [address] [place] [address] WBC LM.HPF (Urine sed) [#/Area] 0-5 Normal 0-5 [facility] Comment on above: Performed By: #### 1 1080389, 7571820 ####[facility] [address] [place] [address] URINALYSISOrdered By: Jose Diallo on 03-27-2023 Bacteria LM Ql (Urine sed) 1+ /HPF Invalid Interpretation Code Trace/HPF [facility] UA Auto SS Bilirubin Ql (U) Negative (03/27/23 7:37 PM) Normal Negative [facility] UA Auto SS Clarity (U) Cloudy *ABN* (03/27/23 7:37 PM) Invalid Interpretation Code Clear [facility] UA Auto SS Color (U) Yellow (03/27/23 7:37 PM) Normal Yellow [facility] UA Auto SS Crystals LM Ql (Urine sed) Present (03/27/23 7:37 PM) Normal [facility] UA Auto SS Epithelial cells.squamous LM.HPF (Urine sed) [#/Area] 5-8 /HPF Normal 0-2/HPF [facility] UA Aut o SS Glucose Test strip (U) [Mass/Vol] Negative (03/27/23 7:37 PM) Normal Negative [facility] UA Auto SS Hemoglobin Ql (U) 1+ *ABN* (03/27/23 7:37 PM) Invalid Interpretation Code Negative [facility] UA Auto SS Ketones (U) [Mass/Vol] Negative (03/27/23 7:37 PM) Normal Negative [facility] UA Auto SS Glouster.plasma/Glouster .RBC (Bld) [Mass ratio] 0-3 /HPF Normal 0-3/HPF [facility] UA Auto SS Mucus Ql (Urine sed) 3+ (03/27/23 7:37 PM) Normal [facility] UA Auto SS Nitrite Ql (U) Positive *ABN* (03/27/23 7:37 PM) Invalid Interpretation Code Negative [facility] UA Auto SS pH (U) 6.0 *NA* (03/27/23 7:37 PM) Invalid Interpretation Code 5.0 - 9.0 [facility] UA Auto SS Protein (U) [Mass/Vol] Negative (03/27/23 7:37 PM) Normal Negative [facility] UA Auto SS Specific gravity (U) [Rel density] >=1.030 *NA* (03/27/23 7:37 PM) Invalid Interpretation Code 1.005 - 1.030 [facility] UA Auto SS UA Spec Desc Clean Catch (03/27/23 7:37 PM) Normal FT UA Auto SS Urobilinogen Qn (U) 0.5977435 {Qiana'U}/dL Normal 0.0 - 1.0 EU/dL [facility] UA Auto SS WBC Auto Ql (U) Negative (03/27/23 7:37 PM) Normal Negative [facility] UA Auto SS WBC LM.HPF (Urine sed) [#/Area] 0-5 /HPF Normal 0-5/HPF [facility] UA Auto SS eGFRon 03-27-2023 eGFR 96 mL/min/1.73 m2 Normal >=59 [facility] Comment on above: Order Comment: Order added by Discern Expert. Performed By: #### 2 201110, 71954717, 88781904, 1972583, 88370749 ####[facility] [address] [place] [address] C Urineon 12-21-2022 Bacteria identified Cx Nom (U) Microbiology PROCEDURE: Urine Culture [R1] SOURCE: U CleanCatch BODY SITE: COLLECTED DATE/TIME: 12/19/2022 08:15 EDT RECEIVED DATE/TIME: 12/19/2022 16:15 EDT START DATE/TIME: 12/19/2022 16:15 EDT FREE TEXT SOURCE: Noel COLORADO, Zana Cohen PA-C, Zana Esqueda FINAL REPORTS Final Report [] Verified Date/Time: 12/21/2022 10:43 EDT >100,000 cfu/ml Escherichia coli SUSCEPTIBILITY RESULTS LEGEND: S=Susceptible, N/R=Not Reported, Blank=Data not available, or drug not advisable or tested, I=Intermediate, ESBL=Extended spectrum beta-lactamase, R=Resistant, TFG=Thymidine-depende nt strain, MAURICE=Beta-lactamase positive, EVA=mcg/m;(mg/L), S*=Predicted susceptible interp, R*=Predicted resistant interp EC Antibiotic EVA Dilutn EVA Interp Amikacin <=16 S Ampicillin <=8 S Ampicillin/ <=8/4 S Sulbactam Aztreonam <=4 S Cefazolin <=2 S Cefepime <=2 S Cefoxitin <=8 S Ceftazidime <=1 S Ceftazidime/ <=8 S Avibactam Ceftriaxone <=1 S Ciprofloxacin <=1 S Ertapenem <=0.5 S Gentamicin <=4 S Levofloxacin <=2 S Meropenem <=1 S Nitrofurantoin <=32 S Piperacillin/ <=16 S Tazobactam Tetracycline <=4 S Tigecycline <=2 S Tobramycin <=4 S Trimethoprim/ <=2/38 S Sulfa Performing Locations R1: This test was performed at: [facility], [address] [place] [address], [address] , , Normal [facility] Comment on above: Performed By: #### 1 6046075, 0131008 ####[address] [address] Auto Diffon 12-19-2022 Basophils/100 WBC (Bld) 1.0 % Normal 0.0-2.0 [facility] Comment on above: Order Comment: Order Added by Discern Expert. Performed By: #### 2 416998, 7920696, 9415176, 2921943, 3510423, 24330884 ####[address] [address] Basophils/Leukocytes Auto (Bld) [Pure # fraction] 0.1 E9/L Normal 0.0-0.2 [facility] Comment on above: Order Comment: Order Added by Discern Expert. Performed By: #### 2 470329, 2813527, 6303646, 1390927, 1005887, 09147723 ####[address] [address] Eosinophils/100 WBC (Bld) 2.6 % Normal 0.0-8.0 [facility] Comment on above: Order Comment: Order Added by Discern Expert. Performed By: #### 2 534058, 1640995, 9903502, 2881046, 9081696, 27493433 ####[address] [address] Eosinophils/Leukocytes Auto (Bld) [Pure # fraction] 0.3 E9/L Normal 0.0-0.5 [facility] Comment on above: Order Comment: Order Added by Discern Expert. Performed By: #### 2 138664, 6757665, 4838893, 9543752, 9924489, 47138337 ####[address] [address] Lymphocytes/100 WBC (Bld) 31.2 % Normal 14.0-50.0 [facility] Comment on above: Order Comment: Order Added by Discern Expert. Performed By: #### 2 078936, 9521072, 1330507, 1490467, 9348047, 41731293 ####[facility] [address] [place] [address] Lymphocytes/Leukocytes Auto (Bld) [Pure # fraction] 3.5 E9/L Normal 1.0-4.0 [facility] Comment on above: Order Comment: Order Added by Discern Expert. Performed By: #### 2 152538, 1325498, 9459728, 4853567, 6230905, 91826728 ####[address] [place] [address] Monocytes/100 WBC (Bld) 8.1 % Normal 4.0-14.0 [facility] Comment on above: Order Comment: Order Added by Matilde Expert. Performed By: #### 2 548542, 6084590, 9627640, 4078317, 7215284, 23461977 ####[facility] [address] [place] [address] Monocytes/Leukocytes Auto (Bld) [Pure # fraction] 0.9 E9/L Normal 0.2-1.0 [facility] Comment on above: Order Comment: Order Added by Matilde Expert. Performed By: #### 2 692721, 0331488, 5572611, 3170994, 9399704, 16669615 ####[facility] [address] [place] [address] Neutrophils/100 WBC (Bld) 57.1 % Normal 36.0-75.0 [facility] Comment on above: Order Comment: Order Added by Matilde Expert. Performed By: #### 2 423972, 2919429, 2880095, 1724410, 4136213, 08823003 ####[facility] [address] [place] [address] Neutrophils/Leukocytes Auto (Bld) [Pure # fraction] 6.4 E9/L Normal 2.0-7.5 [facility] Comment on above: Order Comment: Order Added by Discern Expert. Performed By: #### 2 119804, 2845091, 1210334, 0580325, 1997153, 96334259 ####[facility] [address] [place] [address] BMPon 12-19-2022 Creatinine [Mass/Vol] 0.6 mg/dL Normal 0.5-1.3 [facility] Comment on above: Performed By: #### 2 850978, 4489442, 0116525, 5725337, 0196906, 63655474 ####[facility] [address] [place] [address] Urea nitrogen [Mass/Vol] 15 mg/dL Normal 5-21 [facility] Comment on above: Performed By: #### 2 795993, 0786005, 7650651, 3329119, 0740023, 02645583 ####[facility] [address] [place] [address] Urea nitrogen/Creatinine [Mass ratio] 25 No Units High 10-20 [facility] Comment on above: Performed By: #### 2 250408, 8711755, 9785488, 3873726, 2729959, 42974294 ####[facility] [address] [place] [address] Anion gap [Moles/Vol] 9 mmol/L Normal 6-16 [facility] Comment on above: Performed By: #### 2 136315, 3749167, 7482676, 1297698, 1992464, 29235002 ####[facility] [address] [place] [address] Calcium [Mass/Vol] 8.6 mg/dL Low 8.9-11.1 [facility] Comment on above: Performed By: #### 2 738084, 2976307, 8517459, 4290361, 0021887, 71512840 ####[facility] [address] [place] [address] Chloride [Moles/Vol] 106 mmol/L Normal 101-111 [facility] Comment on above: Performed By: #### 2 999242, 5441220, 2678465, 6750975, 9007099, 36352588 ####[facility] [address] [place] [address] CO2 [Moles/Vol] 25 mmol/L Normal 21-31 [facility] Comment on above: Performed By: #### 2 970672, 4247761, 4026817, 1788817, 2052852, 21783060 ####[facility] [address] [place] [address] Glucose [Mass/Vol] 123 mg/dL Normal 55-199 [facility] Comment on above: Result Comment: If t his glucose result represents a fasting glucose, interpretation should refer to the following reference range: 55-99 mg/dL Performed By: #### 2 034842, 0103415, 3286386, 2355693, 1929592, 74751322 ####[facility] [address] [place] [address] Potassium [Moles/Vol] 4.4 mmol/L Normal 3.5-5.3 [facility] Comment on above: Performed By: #### 2 855931, 8932109, 6571812, 3563487, 6178220, 35927074 ####[facility] [address] [place] [address] Sodium [Moles/Vol] 136 mmol/L Normal 135-145 [facility] Comment on above: Performed By: #### 2 065597, 5858506, 1254187, 5970569, 5314583, 90138671 ####[facility] [address] [place] [address] CBC w/ Auto Diffon 3 Erythrocyte distribution width (RBC) [Ratio] 16.2 % High 10.9-14.2 [facility] Comment on above: Performed By: #### 2 703720, 7615744, 7504429, 2664003, 0844850, 70603268 ####[facility] [address] [place] [address] Hematocrit (Bld) [Volume fraction] 36.5 % Normal 34.0-46.0 [facility] Comment on above: Performed By: #### 2 792918, 9553131, 9380620, 9392931, 2153798, 00162889 ####[facility] [address] [place] [address] Hemoglobin (Bld) [Mass/Vol] 11.5 g/dL Low 12.0-16.0 [facility] Comment on above: Performed By: #### 2 450758, 1219298, 1300848, 8285166, 1578886, 24746141 ####[address] [address] MCH (RBC) [Entitic mass] 26.3 pg Low 27.0-34.0 [facility] Comment on above: Performed By: #### 2 757903, 8249330, 5168330, 1275766, 6340944, 38400162 ####[address] [address] MCHC (RBC) [Mass/Vol] 31.5 g/dL Normal 31.4-36.0 [facility] Comment on above: Performed By: #### 2 466363, 3970624, 3347195, 0849301, 4576114, 38797127 ####[address] [address] MCV (RBC) [Entitic vol] 83.5 fL Normal 80.0-100.0 [facility] Comment on above: Performed By: #### 2 855296, 8169171, 7398549, 2688041, 4367843, 52611720 ####[address] [place] [address] Platelet mean volume (Bld) [Entitic vol] 7.4 fL Normal 6.4-10.8 [facility] Comment on above: Performed By: #### 2 340673, 0395752, 3978585, 4283284, 0638574, 83031843 ####[facility] [address] [place] [address] Platelets (Bld) [#/Vol] 294.0 E9/L Normal 150.0-500.0 [facility] Comment on above: Performed By: #### 2 364425, 7105258, 6588440, 5163429, 5719664, 92958548 ####[facility] [address] [place] [address] RBC (Bld) [#/Vol] 4.4 E12/L Normal 4.3-5.9 [facility] Comment on above: Performed By: #### 2 707432, 9946691, 5955056, 4057832, 3405115, 03852779 ####[facility] [address] [place] [address] WBC corrected for nucl RBC Auto (Bld) [#/Vol] 11.1 E9/L High 4.0-11.0 [facility] Comment on above: Performed By: #### 2 903325, 9976042, 8917318, 3002179, 3653344, 54383196 ####[facility] [address] [place] [address] CHEMISTRYOrdered By: SYSTEM SYSTEM on 12-19-2022 Albumin [Mass/Vol] 3.5 g/dL Normal 3.3 - 5.0 gm/dL FT [facility] Albumin/Globulin [Mass ratio] 1.1 {ratio} Normal 1.1 - 2.2 [facility] Remisol ALP [Catalytic activity/Vol] 49 [iU]/d Normal 21 - 98 Int._Unit/L [facility] Remisol ALT No additional P-5'-P [Catalytic activity/Vol] 12 [iU]/d Normal 6 - 46 Int._Unit/L [facility] Remisol Anion gap [Moles/Vol] 9 mmol/L Normal 6 - 16 mEq/L F [facility] Remisol AST [Catalytic activity/Vol] 16 [iU]/d Normal 5 - 43 Int._Unit/L [facility] Remisol Bilirubin [Mass/Vol] 0.3 mg/dL Normal 0.0 - 1 .1 mg/dL [facility] Remisol Bilirubin.direct [Mass/Vol] 0.1 mg/dL Normal 0.1 - 0.4 mg/dL [facility] Remisol Bilirubin.indirect [Mass or moles/Vol] 0.2 mg/dL Normal 0.1 - 0.9 mg/dL [facility]isol Calcium [Mass/Vol] 8.6 mg/dL Low 8.9 - 11. 1 mg/dL [facility] Chloride [Moles/Vol] 106 mmol/L Normal 101 - 1 11 mmol/L [facility] CO2 [Moles/Vol] 25 mmol/L Normal 21 - 31 mmol/L [facility]isol Creatinine [Mass/Vol] 0.6 mg/dL Normal 0.5 - 1.3 mg/dL [facility] GFR/1.73 sq M.predicted among non-blacks MDRD (S/P/Bld) [Vol rate/Area] 118 mL/min/1.73 m2 Normal >=59mL/min/1 .73 m2 [facility] Chem S Comment on above: Interpretive Data: C hronic kidney disease could be indicated at eGFR's of less than 60 mL/min/1.73m2. Kidney failure is indicated at less than 15 mL/min/1.73m2. Globulin (S) [Mass/Vol] 3.3 g/dL Normal 1.4 - 4.0 gm/dL [facility] Remisol Glucose [Mass/Vol] 123 mg/dL Normal 55 - 199 mg/dL [facility] Comment on above: Interpretive Data: I f this glucose result represents a fasting glucose, interpretation should refer to the following reference range: 55-99 mg/dL Lipase [Catalytic activity/Vol] 38 U/L Normal 13 - 58 unit/L [facility] Remisol Potassium [Moles/Vol] 4.4 mmol/L Normal 3.5 - 5.3 mmol/L [facility] Remisol Protein [Mass/Vol] 6.8 g/dL Normal 6.0 - 7.8 gm/dL [facility] Sodium [Moles/Vol] 136 mmol/L Normal 135 - 145 mmol/L [facility] Urea nitrogen [Mass/Vol] 15 mg/dL Normal 5 - 21 mg/dL [facility]isol Urea nitrogen/Creatinine [Mass ratio] 25 mg/mg High 10 - 20 [facility] Remisol CT Abdomen/Pelvis w/ Contras ton 12-19-2022 CT Abdomen/Pelvis w/ Contrast Exam Date/Time: 12/19/2022 08:43 EDT Reason for Exam: Abdominal pain, acute, nonlocalized;Other (please specify) Report IMPRESSION: NO ACUTE INTRA-ABDOMINAL PROCESS IDENTIFIED. Nonspecific hypodensity/thickenin g of the central endometrial complex. Further evaluation with ELECTIVE pelvic ultrasound is suggested. EXAM: CT Abdomen/Pelvis w/ Contrast DATE: 12/19/2022 8:24 AM CLINICAL HISTORY: Abdominal pain, acute, nonlocalized. COMPARISON: 10/04/2015. TECHNIQUE: Spiral imaging was obtained of the abdomen and pelvis after the uneventful infusion of approximately 100 mL of Isovue [address] scans at this facility use dose modulation, iterative reconstruction, and/or weight based dosing when appropriate to reduce radiation dose to as low as reasonably achievable. FINDINGS: Liver: Mildly enlarged with fatty infiltration, similar. No mass or lesion. Biliary: The gallbladder is unremarkable. No bile duct dilation. Pancreas: Unremarkable. No mass or duct dilation. Spleen: Small stable probable hemangioma superolaterally. No splenomegaly. Adrenals: Unremarkable. Kidneys: Unremarkable. No mass or significant urinary tract calculi. GI tract: No abnormal dilation or wall thickening. Lymph nodes: No suspicious lymphadenopathy. Mesentery/peritoneum: No ascites or mass. Retroperitoneum: No mass. Vasculature: Unremarkable. Pelvis: Interval removal of an IUD with nonspecific hypodensity/thickenin g central endometrial complex to approximately 2.8 cm. The adnexa and urinary bladder are unremarkable. Bones/soft tissue: No acute osseous findings. Very small fat-containing periumbilical hernia. Lower thorax: Unremarkable. Report Ordering Provider: Zana Cohen FINAL REPORT Dictated: 12/19/2022 8:51 am Jose Hooks MD Signed (Electronic Signature): 12/19/2022 8:51 am Signed by: Jose Hooks MD Transcribed by: SIERRA Technologist: COURTNEY Technical Comments GFR (mL/min/1/73m2) n/a Contrast: Isovue 300 Contrast amount in ml's: 100 Normal [facility] Consent for Treatmenton 11-29 Consent for Treatment [id number]#1 .00TIFF Normal [facility] Discharge Instructionson Discharge Instructions [id number]# 1.00TIFF Normal [facility] ED Clinical Summaryon 2022 ED Clinical Summary [address] [address] ED Clinical Summary Person Information Name: DEB WOODS [facility] Age: 37 Years : 1985 Sex: Female Language: [place] PCP: NONE, XXXX Marital Status: Single Visit Id: Visit Reason: Abdominal pain; LEFT SIDE ABD PAIN Speciality: Acuity: 3 Enc Type: Emergency Med Service: Emergency Arrival: 12/19/2022 07:39:34 Discharge: 12/19/2022 09:51:03 LOS: 000 02:12 Checkin: 12/19/2022 07:39:34 Checkout: 12/19/2022 09:51:03 Dispo Type: Home (Routine DC) EVENTS: Event Name Event Status Request Date/Time Start Date/Time Complete Date/Time Arrive Complete 12/19/2022 07:39:34 12/19/2022 07:39:34 12/19/2022 07:39:34 Document Home Meds Request 12/19/2022 07:39:34 Triage Complete 12/19/2022 07:39:34 12/19/2022 07:51:50 12/19/2022 07:51:50 Bed Assign Complete 12/19/2022 07:42:22 12/19/2022 07:42:22 12/19/2022 07:42:22 Dr Exam Complete 12/19/2022 07:42:22 12/19/2022 08:05:06 12/19/2022 08:05:06 RN Exam Complete 12/19/2022 07:42:22 12/19/2022 08:02:50 12/19/2022 08:02:50 Registration Complete 12/19/2022 07:49:25 12/19/2022 07:49:25 12/19/2022 07:49:25 Reg Complete Request 12/19/2022 07:49:25 Reg Bed Request Complete 12/19/2022 07:49:25 12/19/2022 07:49:25 12/19/2022 07:49:25 Pending Labs Cancel 12/19/2022 08:03:28 12/19/2022 08:42:08 Urine Collect Cancel 12/19/2022 08:03:28 12/19/2022 08:42:08 Registration Request 12/19/2022 08:05:06 Pending Labs Complete 12/19/2022 08:05:32 12/19/2022 09:09:58 Lab Complete 12/19/2022 08:05:32 12/19/2022 09:09:58 Urine Collect Complete 12/19/2022 08:05:32 12/19/2022 09:09:58 Dr Exam Complete 12/19/2022 08:06:00 12/19/2022 08:06:00 12/19/2022 08:06:00 Pending Labs Complete 12/19/2022 08:16:20 12/19/2022 08:16:20 12/19/2022 08:37:36 Lab Complete 12/19/2022 08:16:20 12/19/2022 08:16:20 12/19/2022 08:37:36 CT Complete 12/19/2022 08:19:26 12/19/2022 08:24:41 12/19/2022 08:43:34 Meds Admin Complete 12/19/2022 08:20:08 12/19/2022 08:28:02 Pending Labs Complete 12/19/2022 08:38:31 12/19/2022 08:38:31 12/19/2022 08:38:39 Lab Complete 12/19/2022 08:38:31 12/19/2022 08:38:31 12/19/2022 08:38:39 Pending Labs Collected 12/19/2022 08:45:46 12/19/2022 08:45:46 Lab Collected 12/19/2022 08:45:46 12/19/2022 08:45:46 Discharge Complete 12/19/2022 09:15:58 12/19/2022 09:51:09 12/19/2022 09:51:09 Pending Labs Complete 12/19/2022 09:34:27 12/19/2022 09:34:27 12/19/2022 09:34:27 Pending Labs Complete 12/19/2022 09:36:19 12/19/2022 09:36:19 12/19/2022 09:36:20 Transfer Complete 12/19/2022 09:51:09 12/19/2022 09:51:09 12/19/2022 09:51:09 ADDRESS: [address] [place] [address] [facility] [phone] PHYS DOC NOTES: MEDICAL INFORMATION: Prescriptions Given: New Medications [facility] 1986, [address] [place], [place] [id number], [phone] cephalexin (Keflex 500 mg Cap) 1 Capsules By Mouth every 6 hours for 7 Days. Refills: 0. naproxen (naproxen 500 mg Tab) 1 Tablets By Mouth 2 times a day as needed for pain. Refills: 0. Medications to Continue with No Changes Other Medications acetaminophen-hydroco done ([place] 325 mg-5 mg oral tablet) 1 Tablets By Mouth every 4 hours as needed for pain. Refills: 0. acetaminophen-oxycodo ne (acetaminophen-oxycod one 325 mg-5 mg Tab) 1 Tablets By Mouth every 4 hours as needed for pain. Refills: 0. brompheniramine/dextr omethorphan/PSE (Bromfed DM oral syrup) 5 Milliliter By Mouth 4 times a day as needed for cold symptoms. Refills: 0. buPROPion (Wellbutrin SR 150 mg Tab-ER) 1 Tablets By Mouth 2 times a day. Refills: 5. cholecalciferol (Vitamin D3 400 intl units oral capsule) 1 Capsules By Mouth every day. Refills: 0. esomeprazole (Nexium 20 mg Cap-DR) 1 Capsules By Mouth every day. Refills: 5. fexofenadine (Abi 24 Hour Allergy oral tablet) 1 Tablets By Mouth every day. Refills: 5. fexofenadine (fexofenadine 180 mg Tab) 1 Tablets By Mouth every day. fluconazole (Diflucan 150 mg Tab) 1 Tablets By Mouth Once. Take one tablet and repeat in 72 hours if s/s remain. Refills: 0. fluoxetine (FLUoxetine 40 mg Cap) 1 Capsules By Mouth 2 times a day. Refills: 5. fluticasone nasal (fluticasone 0.05 mg/inh Nasal [place]) 2 Sprays Nasal Inhalation every day as needed Allergy symptoms. Refills: 5. hydrocortisone topical (Proctosol HC 2.5% Cream) Rectal BID. Refills: 0. Misc Prescription (METFORMIN 1000MG TAB) TAKE 1 TABLET BY MOUTH TWICE DAILY. nystatin topical (Nystatin Topical Cream 100,000 units/g Cream) 1 Application Topical 2 times a day. Refills: 0. ondansetron (Zofran ODT 4 mg Tab-Dis) 1 Tablets By Mouth every 8 hours as needed Nausea/Vomiting. Refills: 0. PATIENT EDUCATION INFORMATION: Instructions: Urinary Tract Infection, Adult, Hiqp-va-Svnc; Abdominal Pain, Adult, Jlbm-fq-Efth Follow up: With: Address: When: Carlitos Baird [address] [place] [address], [facility] [address], [place], [place] (more content not included)... Normal [facility] ED Note-Physicianon 12-20-19 ED Note-Physician Basic Information Time Seen: Noel COLORADO, Zana Valencia. 12/19/2022 08:05 Chief Complaint pt to ed for mid to left sided abd pain that also radiates to her back. pt denies n/v/d/urinary symptoms. pt reports worsening pain when she walks or coughs. History of Present Illness A 37-year-old female reports emerged department with chief complaint of left side abdominal pain, that radiates slightly to her back, as well as to her [facility]. Reports that this been going on since yesterday. She states that at times the pain can it comes and goes, and cannot bend her over because it hurts so bad. Reports that she has not taken anything for pain. Reports it hurts when she walks, moves, or coughs. She denies any injury or trauma to this area. She states that she has no history of kidney stones. She denies any nausea, vomiting, diarrhea, constipation or urinary symptoms. She states that she has never had anything like this before. Denies any fevers or chills. She reports that she has had a tubal ligation, does not have her tubes. Reports that she still has her uterus. Review of Systems A 10 point review of systems is negative except as noted above. Medical and Surgical History: Reviewed and noted Social history: Lives at home Family History: Reviewed. Tobacco: denies, former Physical Exam Vitals & Measurements T: 36.8 ?C(Oral) HR: 89(Peripheral) RR: 18 BP: 127/71 SpO2: 99% HT: 162 cm WT: 85 kg BMI: 32.39 General: The patient appears well and in no apparent distress. Patient is resting comfortably on bed. afebrile Skin: Warm, dry, no pallor noted. Head: Normocephalic, atraumatic Neck: No JVD Eye: PERRLA, EOMI ENT: Moist mucus membranes Cardiovascular: Regular rate normal peripheral perfusion. radial pulses +2 bilaterally Respiratory: No respiratory distress no accessory muscle use no obvious audible wheezing. Lung sounds clear to auscultation Chest Wall: no deformity Musculoskeletal: normal ROM, no deformity, no swelling GI: No obvious distention soft. There is mild tenderness over the umbilicus area that extends laterally to the left side of the abdomen. No guarding or rebound tenderness noted. No signs of peritonitis. No CVA tenderness bilaterally. Neurological: A&O moves all extremities equal strength and symmetry Psychiatric: Cooperative and appropriate Medical Decision Making MEDICAL DECISION MAKING Number and Complexity of Problems Differential Diagnosis: [] [facility] Data External documents reviewed: [] My EKG interpretation: [] My CT interpretation: reviewed My X-ray interpretation: [] My Ultrasound interpretation: [] Decision rules/scores evaluated: [] Discussed with: [] Treatment and Disposition ED Course: 37-year-old female reports emergency department with a chief complaint of abdominal pain, and some left-sided flank pain. Reports going on for since yesterday. Denies any fevers or chills. Denies any nausea or vomiting. Denies any urinary symptoms. Physical exam is relatively benign, with some mild tenderness throughout her abdomen 3. No signs of peritonitis. Due to her concerns, we did do lab work. Lab reviewed and noted. No acute changes seen. She was nitrate positive UTI. We did do a CT of her abdomen that was essentially benign, but did show thickened endometrial complex. Patient believes that she does have endometriosis as it does run in her family. Due to her symptoms, she will be started on naproxen as well as Keflex. Discussed follow-up with [facility] for ultrasound. Discussed return precautions. Follow-up with your primary care provider in 3 to 5 days. If symptoms worsen, do not improve, or new symptoms arise please report back to emergency department for further evaluation. The patient was understanding and agreeable to plan moving forward. Shared decision making: [] Code status: [] Assessment/Plan Abdominal pain (R10.9: Unspecified abdominal pain) UTI (urinary tract infection) (N39.0: Urinary tract infection, site not specified) Orders: cephalexin, 500 mg = 1 cap(s), Oral, q6hr, X 7 day(s), # 28 cap(s), Refills(s) 0, Pharmacy: [facility], 162, cm, 12/19/22 7:51:00 EDT, Height/Length Dosing, 85, kg, 12/19/22 7:51:00 EDT, Weight Dosing ketorolac, 30 mg = 1 mL, Injection, IV Push, Once, Stop date 12/19/22 8:19:00 EDT, STAT, Start date 12/19/22 8:19:00 EDT, 12/19/22 8:19:00 EDT naproxen, 500 mg = 1 tab(s), Oral, BID, PRN for pain, # 20 tab(s), Refills(s) 0, Pharmacy: [facility], 162, cm, 12/19/22 7:51:00 EDT, Height/Length Dosing, 85, kg, 12/19/22 7:51:00 EDT, Weight Dosing Sodium Chloride 0.9% intravenous solution, 1,000 mL, Soln-IV, IV, Once, Stop date 12/19/22 8:19:00 EDT, STAT, Start date 12/19/22 8:19:00 EDT, Infuse over 61, minute(s) Automated Diff Basic Metabolic Panel CBC w/ Auto Diff CT Abdomen/Pelvis w/ Contrast eGFR Hepatic Function Panel Lipase Level UA With Cult Reflex Urine Culture Medications Administered Given (more content not included)... Normal [facility] Comment on above: Result Comment: Elec tronically Signed By: Noel COLORADO, Zana Esqueda\.br\Date and Time Signed: 12/19/22 09:29 EDT\.br\Electronically Co-Signed By: Adrian Potter DO\.br\Date and Time Co-Signed: 12/19/22 13:24 EDT ED Patient Education Noteon 12-19-2022 ED Patient Education Note Gastroenterology Abdominal Pain, Adult Many things can cause belly (abdominal) pain. Most times, belly pain is not dangerous. Many cases of belly pain can be watched and treated at home. Sometimes, though, belly pain is serious. Your doctor will try to find the cause of your belly pain. Follow these instructions at home: Medicines ? Take pgmk-hxv-jbrpdta and prescription medicines only as told by your doctor. ? Do not take medicines that help you poop (laxatives) unless told by your doctor. General instructions ? Watch your belly pain for any changes. ? Drink enough fluid to keep your pee (urine) pale yellow. ? Keep all follow-up visits as told by your doctor. This is important. Contact a doctor if: ? Your belly pain changes or gets worse. ? You are not hungry, or you lose weight without trying. ? You are having trouble pooping (constipated) or have watery poop (diarrhea) for more than 2?3 days. ? You have pain when you pee or poop. ? Your belly pain wakes you up at night. ? Your pain gets worse with meals, after eating, or with certain foods. ? You are vomiting and cannot keep anything down. ? You have a fever. ? You have blood in your pee. Get help right away if: ? Your pain does not go away as soon as your doctor says it should. ? You cannot stop vomiting. ? Your pain is only in areas of your belly, such as the right side or the left lower part of the belly. ? You have bloody or black poop, or poop that looks like tar. ? You have very bad pain, cramping, or bloating in your belly. ? You have signs of not having enough fluid or water in your body (dehydration), such as: ? Dark pee, very little pee, or no pee. ? Cracked lips. ? Dry mouth. ? Sunken eyes. ? Sleepiness. ? Weakness. ? You have trouble breathing or chest pain. Summary ? Many cases of belly pain can be watched and treated at home. ? Watch your belly pain for any changes. ? Take rkca-oph-xnhqsxh and prescription medicines only as told by your doctor. ? Contact a doctor if your belly pain changes or gets worse. ? Get help right away if you have very bad pain, cramping, or bloating in your belly. This information is not intended to replace advice given to you by your health care provider. Make sure you discuss any questions you have with your health care provider. Document Revised: 06/25/2019 Document Reviewed: 06/25/2019 [employer] Patient Education ? 2022 [employer]MEDIA. Obstetrics and Gynecology Urinary Tract Infection, Adult A urinary tract infection (UTI) is an infection of any part of the urinary tract. The urinary tract includes: ? The kidneys. ? The ureters. ? The bladder. ? The urethra. These organs make, store, and get rid of pee (urine) in the body. What are the causes? This infection is caused by germs (bacteria) in your genital area. These germs grow and cause swelling (inflammation) of your urinary tract. What increases the risk? The following factors may make you more likely to develop this condition: ? Using a small, thin tube (catheter) to drain pee. ? Not being able to control when you pee or poop (incontinence). ? Being female. If you are female, these things can increase the risk: ? Using these methods to prevent : ? A medicine that kills sperm (spermicide). ? A device that blocks sperm (diaphragm). ? Having low levels of a female hormone (estrogen). ? Being . You are more likely to develop this condition if: ? You have genes that add to your risk. ? You are sexually active. ? You take antibiotic medicines. ? You have trouble peeing because of: ? A prostate that is bigger than normal, if you are male. ? A blockage in the part of your body that drains pee from the bladder. ? A kidney stone. ? A nerve condition that affects your bladder. ? Not getting enough to drink. ? Not peeing often enough. ? You have other conditions, such as: ? Diabetes. ? A weak disease-fighting system (immune system). ? Sickle cell disease. ? Gout. ? Injury of the spine. What are the signs or symptoms? Symptoms of this condition include: ? Needing to pee right away. ? Peeing small amounts often. ? Pain or burning when peeing. ? Blood in the pee. ? Pee that smells bad or not like normal. ? Trouble peeing. ? Pee that is cloudy. ? Fluid coming from the vagina, if you are female. ? Pain in the belly or lower back. Other symptoms include: ? Vomiting. ? Not feeling hungry. ? Feeling mixed up (confused). This may be the first symptom in older adults. ? Being tired and grouchy (irritable). ? A fever. ? Watery poop (diarrhea). How is this treated? ? Taking antibiotic medicine. ? Taking other medicines. ? Drinking enough water. In some cases, you may need to see a specialist. Follow these instructions at home: Medicines ? Take over-the (more content not included)... Normal [facility] ED Patient Summaryon 023 ED Patient Summary [place] [id number] Patient Discharge Instructions Person Information Name: DEB WOODS Age: 37 Years Arrival Date: 12/19/2022 07:39:34 Discharge Diagnosis: Abdominal pain; UTI (urinary tract infection) Primary Care Physician: NONE, XXXX Provider Information Primary Provider: Adrian Potter DO Advanced Oxygen Equipment Technician:None The exam and treatment you received in the Emergency Department were for an urgent problem and are not intended as complete care. It is important that you follow up with a doctor, nurse practitioner, or physician?s processing assistant for ongoing care. If your symptoms become worse or you do not improve as expected and you are unable to reach your usual health care provider, you should return to the Emergency Department. We are available 24 hours a day. DEB WOODS has been given the following list of patient education materials, prescriptions and follow-up instructions: Follow-up Instructions: With: Address: When: Carlitos Baird [address], [address], [place] [address] Business (1) In 3 days 12/22/2022 Comments: Follow-up with your [facility]ILLET [facility]ER for further evaluation of your thickening of your endometrial complex. If you not have a BILLET SHEARER, you may follow-up with Dr. Baird for further evaluation. With: Address: When: Johannypaige Harmon [address] [place] [address] Business (1) In 3 days 12/22/2022 Comments: Follow-up with your primary care provider in 3 to 5 days. If symptoms worsen, do not improve, or new symptoms arise please report back to emergency department for further evaluation. In the event that this physician does not participate in your insurance network, please consult with your insurance company to find a nearby participating provider. Patient Education Materials: Urinary Tract Infection, Adult, Gmwa-xp-Vrad; Abdominal Pain, Adult, Iorl-cq-Albj A MESSAGE TO ALL PATIENTS REGARDING OPIOIDS PRESCRIPTION OPIOIDS: WHAT YOU NEED TO KNOW Prescription opioids can be used to help relieve jmpdfwqw-iw-mtltav pain and are often prescribed following a surgery or injury, or for certain health conditions. These medications can be an important part of the treatment but also come with serious risks. It is important to work with your healthcare provider to make sure you are getting the safest, most effective care. WHAT ARE THE RISKS AND SIDE EFFECTS OF OPIOID USE? Prescription opioids carry serious risks of addiction and overdose, especially with prolonged use. An opioid overdose, often marked by slowed breathing, can cause sudden . The use of prescription opioids can have a number of side effects as well, even when taken as directed: ? Tolerance?meaning you might need to take more of the medication for the same pain relief ? Physical dependence?meaning you have symptoms of withdrawal when a medication is stopped ? Increased sensitivity to pain ? Constipation ? Nausea, vomiting, and dry mouth ? Sleepiness and dizziness ? Confusion ? Depression ? Low levels of testosterone that can result in lower sex drive, energy, and strength ? Itching and sweating RISKS ARE GREATER WITH: ? History of drug misuse, substance use disorder, or overdose ? Mental health conditions (such as depression or anxiety) ? Sleep apnea ? Older age (65 years and older) ? Avoid alcohol while taking prescription opioids. Also, unless specifically advised by your health care provider, medications to avoid include: ? Benzodiazepines (such as Xanax or Valium) ? Muscle relaxants (such as Soma or Flexeril) ? Hypnotics (such as Ambien or Lunesta) ? Other prescription opioids KNOW YOUR OPTIONS Talk to your health care provider about ways to manage your pain that don?t involve prescription opioids. Some of these options may actually work better and have fewer risks and side effects. Options may include: ? Pain relievers such as acetaminophen, ibuprofen, and naproxen ? Some medication that are also used for depression or seizures ? Physical therapy and exercise ? Cognitive behavioral therapy, a psychological, goal-directed approach, in which patients learn how to modify physical, behavioral, and emotional triggers of pain and stress. IF YOU ARE PRESCRIBED OPIOIDS FOR PAIN: ? Never take opioids in greater amounts or more often than prescribed. ? Follow up with your primary health care provider. o Work together to create a plan on how to manage your pain. o Talk about ways to help manage your pain that don?t involve prescription opioids. o Talk about any and all concerns and side effects. ? Help prevent misuse and abuse o Never sell or share prescription opioids. o Never use another person?s prescription opioids. ? Store prescription opioids in a secure place and out of r (more content not included)... Normal [facility] HEMATOLOGYOrdered By: SYSTEM SYSTEM on 12-19-2022 Basophils/100 WBC (Bld) 1.0 % Normal 0.0 - 2.0 % [facility] HemeAutoSS Basophils/Leukocytes Auto (Bld) [Pure # fraction] 0.1 E9/L Normal 0.0 - 0.2 E9/L [facility] HemeAutoSS Eosinophils/100 WBC (Bld) 2.6 % Normal 0.0 - 8.0 % [facility] HemeAutoSS Eosinophils/Leukocytes Auto (Bld) [Pure # fraction] 0.3 E9/L Normal 0.0 - 0.5 E9/L [facility] HemeAutoSS Lymphocytes/100 WBC (Bld) 31.2 % Normal 14.0 - 50.0 % [facility] HemeAutoSS Lymphocytes/Leukocytes Auto (Bld) [Pure # fraction] 3.5 E9/L Normal 1.0 - 4.0 E9/L [facility] HemeAutoSS Monocytes/100 WBC (Bld) 8.1 % Normal 4.0 - 14.0 % [facility] HemeAutoSS Monocytes/Leukocytes Auto (Bld) [Pure # fraction] 0.9 E9/L Normal 0.2 - 1.0 E9/L [facility] HemeAutoSS Neutrophils/100 WBC (Bld) 57.1 % Normal 36.0 - 75.0 % [facility] HemeAutoSS Neutrophils/Leukocytes Auto (Bld) [Pure # fraction] 6.4 E9/L Normal 2.0 - 7.5 E9/L [facility] HemeAutoSS HEMATOLOGYOrdered By: Georgette Turner on 12-19-2022 Erythrocyte distribution width (RBC) [Ratio] 16.2 % High 10.9 - 14.2 % [facility] HemeAutoSS Hematocrit (Bld) [Volume fraction] 36.5 % Normal 34.0 - 46.0 % [facility] HemeAutoSS Hemoglobin (Bld) [Mass/Vol] 11.5 g/dL Low 12.0 - 16.0 gm/dL [facility] HemeAutoSS MCH (RBC) [Entitic mass] 26.3 pg Low 27.0 - 34.0 pg [facility] HemeAutoSS MCHC (RBC) [Mass/Vol] 31.5 g/dL Normal 31.4 - 36.0 gm/dL [facility] HemeAutoSS MCV (RBC) [Entitic vol] 83.5 fL Normal 80.0 - 100.0 fL [facility] HemeAutoSS Platelet mean volume (Bld) [Entitic vol] 7.4 fL Normal 6.4 - 10.8 fL [facility] HemeAutoSS Platelets (Bld) [#/Vol] 294.0 E9/L Normal 150.0 - 500.0 E9/L [facility] HemeAutoSS RBC (Bld) [#/Vol] 4.4 E12/L Normal 4.3 - 5.9 E12/L [facility] HemeAutoSS WBC corrected for nucl RBC Auto (Bld) [#/Vol] 11.1 E9/L High 4.0 - 11.0 E9/L [facility] HemeAutoSS Hep Func Panelon 12-19-2022 Albumin [Mass/Vol] 3.5 g/dL Normal 3.3-5.0 [facility] Comment on above: Performed By: #### 2 [id number], 5015576, 6364283, 2863834, 5135108, [id number] ####[facility] [id number] [place] [address] Albumin/Globulin (S) [Mass conc ratio] 1.1 Normal 1.1-2.2 [facility] Comment on above: Performed By: #### 2 644588, 1187555, 1550306, 1596245, 4208592, 72577145 ####[place] [address] [place] [address] ALP [Catalytic activity/Vol] 49 Int._Unit/L Normal 21-98 [facility] Comment on above: Performed By: #### 2 538210, 2452821, 3358335, 6282158, 3160848, [id number] ####[address] [address] ALT No additional P-5'-P [Catalytic activity/Vol] 12 Int._Unit/L Normal 6-46 [facility] Comment on above: Performed By: #### 2 674243, 7612189, 6376687, 0852060, 7354679, 87419634 ####[address] [address] AST [Catalytic activity/Vol] 16 Int._Unit/L Normal 5-43 [facility] Comment on above: Performed By: #### 2 847494, 7049831, 9121684, 6962982, 7795353, 23426113 ####[place] [address] [place] [address] Bilirubin [Mass/Vol] 0.3 mg/dL Normal 0.0-1.1 [facility] Comment on above: Performed By: #### 2 103208, 2071150, 7534265, 3155089, 3807665, 84802948 ####[place] [address] [place] [address] Bilirubin.direct [Mass/Vol] 0.1 mg/dL Normal 0.1-0.4 [facility] Comment on above: Performed By: #### 2 556484, 4523154, 2673009, 4740802, 7150929, 38020098 ####[address] [address] Bilirubin.indirect [Mass or moles/Vol] 0.2 mg/dL Normal 0.1-0.9 [facility] Comment on above: Performed By: #### 2 297360, 2139059, 7734182, 7681787, 9864499, 24397944 ####[address] [address] Globulin (S) [Mass/Vol] 3.3 g/dL Normal 1.4-4.0 [facility] Comment on above: Performed By: #### 2 969802, 6648331, 8287092, 2737804, 6555466, 64412894 ####[address] [address] Protein [Mass/Vol] 6.8 g/dL Normal 6.0-7.8 [facility] Comment on above: Performed By: #### 2 349364, 5684568, 3431114, 0969064, 5525539, 22611931 ####[address] [address] Lipase Levelon 12-19-2022 Lipase [Catalytic activity/Vol] 38 U/L Normal 13-58 [facility] Comment on above: Performed By: #### 2 681633, 4776429, 1694585, 9730252, 1406836, 16303554 ####[address] [address] UA With Cult Reflexon 2022 Bacteria LM Ql (Urine sed) 3+ /HPF Abnormal Trace [facility] Comment on above: Performed By: #### 1 [id number], 6880001 ####[place] [address] [address] Bilirubin Ql (U) Negative Normal Negative [facility] Comment on above: Performed By: #### 1 8721115, 8015474 ####[address] [address] Clarity (U) CLEAR Normal Clear [facility] Comment on above: Performed By: #### 1 5211452, 7400780 ####[address] [address] Color (U) YELLOW Normal Yellow [facility] Comment on above: Performed By: #### 1 8521753, 6426005 ####[address] [address] Epithelial cells.squamous LM.HPF (Urine sed) [#/Area] /[HPF] Normal 0-2 [facility] Comment on above: Performed By: #### 1 0570793, 2633468 ####[address] [address] Glucose Test strip (U) [Mass/Vol] Negative Normal Negative [facility] Comment on above: Performed By: #### 1 8399746, 7817565 ####[address] [address] Hemoglobin Ql (U) Negative Normal Negative [facility] Comment on above: Performed By: #### 1 6980930, 9504829 ####[address] [address] Ketones (U) [Mass/Vol] Negative Normal Negative [facility] Comment on above: Performed By: #### 1 5126775, 7787383 ####[address] [address] Glouster.plasma/Glouster .RBC (Bld) [Mass ratio] 0-3 Normal 0-3 [facility] Comment on above: Performed By: #### 1 1472291, 7160938 ####[address] [address] Nitrite Ql (U) Positive Abnormal Negative [facility] Comment on above: Performed By: #### 1 6470658, 4573981 ####[place] [address] pH (U) 6.0 [pH] Invalid Interpretation Code 5.0-9.0 [facility] Comment on above: Performed By: #### 1 0437372, 0599534 ####[place] [address] Protein (U) [Mass/Vol] Negative Normal Negative [facility] Comment on above: Performed By: #### 1 8694233, 3432998 ####[place] [address] Specific gravity (U) [Rel density] >=1.030 Invalid Interpretation Code 1.005-1.030 [facility] Comment on above: Performed By: #### 1 2030998, 7500231 ####[place] [address] Trichomonas sp LM.HPF (Urine sed) [#/Area] Present Normal [facility] Comment on above: Performed By: #### 1 6523448, 9079700 ####[place] [address] Type of Urine collection method Clean Catch Normal [facility] Comment on above: Performed By: #### 1 4964389, 2355685 ####[place] [address] Urobilinogen Qn (U) 0.2 {Qiana'U}/dL Normal 0.0-1.0 [facility] Comment on above: Performed By: #### 1 2234040, 2423780 ####[place] [address] WBC Auto Ql (U) 1+ Abnormal Negative [facility] Comment on above: Performed By: #### 1 2242222, 5223840 ####[place] [address] WBC LM.HPF (Urine sed) [#/Area] 6-15 Abnormal 0-5 [facility] Comment on above: Performed By: #### 1 2976639, 3638792 ####[facility] [address] [place] [address] URINALYSISOrdered By: Mehdi Friend on 12-19-2022 Bacteria LM Ql (Urine sed) 3+ /HPF Invalid Interpretation Code Trace/HPF [facility] UA Auto SS Bilirubin Ql (U) Negative (12/19/22 8:15 AM) Normal Negative [facility] UA Auto SS Clarity (U) Clear (12/19/22 8:15 AM) Normal Clear [facility] UA Auto SS Color (U) Yellow (12/19/22 8:15 AM) Normal Yellow [facility] UA Auto SS Epithelial cells.squamous LM.HPF (Urine sed) [#/Area] /[HPF] Normal 0-2/HPF [facility] UA Aut o SS Glucose Test strip (U) [Mass/Vol] Negative (12/19/22 8:15 AM) Normal Negative [facility] UA Auto SS Hemoglobin Ql (U) Negative (12/19/22 8:15 AM) Normal Negative [facility] UA Auto SS Ketones (U) [Mass/Vol] Negative (12/19/22 8:15 AM) Normal Negative [facility] UA Auto SS Glouster.plasma/Glouster .RBC (Bld) [Mass ratio] 0-3 /HPF Normal 0-3/HPF [facility] UA Auto SS Nitrite Ql (U) Positive *ABN* (12/19/22 8:15 AM) Invalid Interpretation Code Negative [facility] UA Auto SS pH (U) 6.0 *NA* (12/19/22 8:15 AM) Invalid Interpretation Code 5.0 - 9.0 [facility] UA Auto SS Protein (U) [Mass/Vol] Negative (12/19/22 8:15 AM) Normal Negative [facility] UA Auto SS Specific gravity (U) [Rel density] >=1.030 *NA* (12/19/22 8:15 AM) Invalid Interpretation Code 1.005 - 1.030 [facility] UA Auto SS Trichomonas sp LM.HPF (Urine sed) [#/Area] Present (12/19/22 8:15 AM) Normal [facility] UA Auto SS UA Spec Desc Clean Catch (12/19/22 8:15 AM) Normal [facility] UA Auto SS Urobilinogen Qn (U) [id number] {Qiana'U}/dL Normal 0.0 - 1.0 EU/dL [facility] UA Auto SS WBC Auto Ql (U) 1+ *ABN* (12/19/22 8:15 AM) Invalid Interpretation Code Negative [facility] UA Auto SS WBC LM.HPF (Urine sed) [#/Area] 6-15 /HPF Invalid Interpretation Code 0-5/HPF [facility] UA Auto SS eGFRon 12-19-2022 GFR/1.73 sq M.predicted among non-blacks MDRD (S/P/Bld) [Vol rate/Area] 118 mL/min/1.73 m2 Normal >=59 [facility] Comment on above: Order Comment: Order added by Discern Expert. Result Comment: [employer]ward[employer] kidney disease could be indicated at eGFR's of less than 60 mL/min/1.73m2. Kidney failure is indicated at less than 15 mL/min/1.73m2. Performed By: #### 2 [id number] ####[facility] [id number] [place] [address] Vital Signs Date Time Vital Sign Value Performing Clinician Mari pimentel 03-27-2023 21:16-0500 Diastolic blood pressure 86 mm[Hg] [facility] 03-27-2023 21:16-0500 Heart rate 61 /min [facility] 03-27-2023 21:16-0500 Mean blood pressure 104 mm[Hg] [facility] 03-27-2023 21:16-0500 Respiratory rate 15 /min [facility] 03-27-2023 21:16-0500 SaO2% (BldA) [Mass fraction] 100 % [facility] 03-27-2023 21:16-0500 Systolic blood pressure 140 mm[Hg] [facility] 03-27-2023 20:35-0500 Diastolic blood pressure 80 mm[Hg] [facility] 03-27-2023 20:35-0500 Heart rate 56 /min [facility] 03-27-2023 20:35-0500 Mean blood pressure 100 mm[Hg] [facility] 03-27-2023 20:35-0500 Respiratory rate 16 /min [facility] 03-27-2023 20:35-0500 SaO2% (BldA) [Mass fraction] 100 % [facility] 03-27-2023 20:35-0500 Systolic blood pressure 140 mm[Hg] [facility] 03-27-2023 19:39-0500 Diastolic blood pressure 80 mm[Hg] [facility] 03-27-2023 19:39-0500 Heart rate 67 /min [facility] 03-27-2023 19:39-0500 Mean blood pressure 90 mm[Hg] [facility] 03-27-2023 19:39-0500 Respiratory rate 18 /min [facility] 03-27-2023 19:39-0500 SaO2% (BldA) [Mass fraction] 97 % [facility] 03-27-2023 19:39-0500 Systolic blood pressure 109 mm[Hg] [facility] 03-27-2023 18:59-0500 gluc 120 mg/dL [facility] 03-27-2023 18:59-0500 gluc [facility] 03-27-2023 18:35-0500 Body temperature 98.24 [degF] [facility] 03-27-2023 18:35-0500 Heart rate 56 /min [facility] 03-27-2023 18:35-0500 Respiratory rate 16 /min [facility] 10-22-2023 09:00-0400 Heart rate 76 /min Adrian Tariq [facility] 12-19-2022 09:00-0400 Systolic blood pressure 117 mm[Hg] Adrian Tariq [facility] 12-19-2022 08:00-0400 Diastolic blood pressure 78 mm[Hg] Adrian Tariq [facility] 12-19-2022 08:00-0400 Heart rate 73 /min Adrian Tariq [facility] 12-19-2022 08:00-0400 Respiratory rate 20 /min Adrian Tariq [facility] 12-19-2022 08:00-0400 SaO2% (BldA) [Mass fraction] 98 % Adrian Tariq [facility] 12-19-2022 08:00-0400 Systolic blood pressure 123 mm[Hg] Adrian Tariq [facility] 12-19-2022 07:46-0400 Body temperature 98.24 [degF] Adrian Tariq [facility] 12-19-2022 07:46-0400 Diastolic blood pressure 71 mm[Hg] Adrian Tariq [facility] 12-19-2022 07:46-0400 Heart rate 89 /min Adrian Tariq [facility] 12-19-2022 07:46-0400 Respiratory rate 18 /min Adrian Tariq [facility] 12-19-2022 07:46-0400 SaO2% (BldA) [Mass fraction] 99 % Adrian Tariq [facility] 12-19-2022 07:46-0400 Systolic blood pressure 127 mm[Hg] Adrian Tariq [facility] 07-27-2022 22:20-0400 Body temperature 98.06 [degF] Nelsonylinn Dokken [facility] 07-27-2022 22:20-0400 Diastolic blood pressure 83 mm[Hg] Kaylinn Dokken [facility] 07-27-2022 22:20-0400 Heart rate 88 /min Kaylinn Dokken [facility] 07-27-2022 22:20-0400 Respiratory rate 16 /min Nelsonylinn Dokken [facility] 07-27-2022 22:20-0400 SaO2% (BldA) [Mass fraction] 99 % Juanitoinn Dokken [facility] 07-27-2022 22:20-0400 Systolic blood pressure 124 mm[Hg] Nelsonylinn Dokken [facility] 07-25-2022 20:35-0400 Body temperature 97.7 [degF] Kenneth Nava [facility] 07-25-2022 20:35-0400 Diastolic blood pressure 77 mm[Hg] Kenneth Nava [facility] 07-25-2022 20:35-0400 Heart rate 87 /min Kenneth Nava [facility] 07-25-2022 20:35-0400 Mean blood pressure 98 mm[Hg] Kenneth Nava [facility] 07-25-2022 20:35-0400 Respiratory rate 17 /min Kenneth Nava [facility] 07-25-2022 20:35-0400 SaO2% (BldA) [Mass fraction] 100 % Kenneth Nava [facility] 07-25-2022 20:35-0400 Systolic blood pressure 140 mm[Hg] Kenneth Nava [facility] 07-25-2022 20:00-0400 Diastolic blood pressure 82 mm[Hg] Kenneth Nava [facility] 07-25-2022 20:00-0400 Heart rate 82 /min Kenneth Nava [facility] 07-25-2022 20:00-0400 Mean blood pressure 100 mm[Hg] Kenneth Nava [facility] 07-25-2022 20:00-0400 SaO2% (BldA) [Mass fraction] 99 % Kenneth Nava [facility] 07-25-2022 20:00-0400 Systolic blood pressure 135 mm[Hg] Kenneth Nava [facility] 07-25-2022 19:40-0400 Body temperature 96.98 [degF] Kenneth Nava [facility] 07-25-2022 19:40-0400 Diastolic blood pressure 83 mm[Hg] Kenneth Nava [facility] 07-25-2022 19:40-0400 Heart rate 88 /min Kenneth Nava [facility] 07-25-2022 19:40-0400 Respiratory rate 16 /min Kenneth Nava [facility] 07-25-2022 19:40-0400 SaO2% (BldA) [Mass fraction] 100 % Kenneth Nava [facility] 07-25-2022 19:40-0400 Systolic blood pressure 136 mm[Hg] Kenneth Nava [facility] 02-01-2022 03:06-0500 Body temperature 98.42 [degF] Kenneth Nava [facility] 02-01-2022 03:06-0500 Diastolic blood pressure 78 mm[Hg] Kenneth Nava [facility] 02-01-2022 03:06-0500 Heart rate 89 /min Kenneth Nava [facility] 02-01-2022 03:06-0500 Respiratory rate 18 /min Kenneth Nava [facility] 02-01-2022 03:06-0500 SaO2% (BldA) [Mass fraction] 99 % Kenneth Nava [facility] 02-01-2022 03:06-0500 Systolic blood pressure 131 mm[Hg] Kenneth Nava [facility] 10-29-2021 18:44-0400 Body temperature 97.7 [degF] Adrian Potter [facility] 10-29-2021 18:44-0400 Diastolic blood pressure 92 mm[Hg] Adrian Tariq [facility] 10-29-2021 18:44-0400 Heart rate 90 /min Adrian Tariq [facility] 10-29-2021 18:44-0400 Respiratory rate 16 /min Adrian Tariq [facility] 10-29-2021 18:44-0400 SaO2% (BldA) [Mass fraction] 95 % Adrian Tariq [facility] 10-29-2021 18:44-0400 Systolic blood pressure 137 mm[Hg] Adrian Tariq [facility] 10-11-2021 15:54-0400 Diastolic blood pressure 75 mm[Hg] Abdi Lauro [facility] 10-11-2021 15:54-0400 Heart rate 77 /min Abdi Lauro [facility] 10-11-2021 15:54-0400 Respiratory rate 20 /min Abdi Lauro [facility] 10-11-2021 15:54-0400 SaO2% (BldA) [Mass fraction] 100 % Abdi Lauro [facility] 10-11-2021 15:54-0400 Systolic blood pressure 116 mm[Hg] Abdi Lauro [facility] 10-11-2021 13:08-0400 Body temperature 98.06 [degF] Abdi Lauro [facility] 10-11-2021 13:08-0400 Diastolic blood pressure 75 mm[Hg] Abdi Lauro [facility] 10-11-2021 13:08-0400 Heart rate 94 /min Abdi Lauro [facility] 10-11-2021 13:08-0400 Respiratory rate 16 /min Abdi Lauro [facility] 10-11-2021 13:08-0400 SaO2% (BldA) [Mass fraction] 99 % Abdi Lauro [facility] 10-11-2021 13:08-0400 Systolic blood pressure 113 mm[Hg] Abdi Lauro [facility] 09-06-2021 16:11-0400 Body temperature 98.06 [degF] Adrian Potter [facility] 09-06-2021 16:11-0400 Diastolic blood pressure 81 mm[Hg] Adrian Potter [facility] 09-06-2021 16:11-0400 Heart rate 78 /min Adrian Tariq [facility] 09-06-2021 16:11-0400 Respiratory rate 14 /min Adrian Potter [facility] 09-06-2021 16:11-0400 SaO2% (BldA) [Mass fraction] 99 % Adrian Potter [facility] 09-06-2021 16:11-0400 Systolic blood pressure 135 mm[Hg] Adrian Potter [facility] Encounters Encounter Date Encounter Type Care Provider Facility Start: 11-02-2023 ambulatory Aditi Lai ity:[facility] Start: 09-19-2023 ambulatory Aditi Vargas Facilit y:[facility] Start: 09-12-2023 End: 09-12-2023 ambulatory FUENTES WRAY Not Available Start: 03-27-2023 End: 03-27-2023 Emergency department patient visit Winsome Schmidtpilarhunter [facility] Start: 12-19-2022 End: 12-19-2022 Emergency department patient visit Adrian Potter [facility] Start: 07-27-2022 End: 07-28-2022 Emergency department patient visit Blanca Garza [facility] Start: 07-25-2022 End: 07-25-2022 Emergency department patient visit Kenneth Vick [facility] Start: 02-01-2022 End: 02-01-2022 Emergency department patient visit Kenneth Vick [facility] Start: 10-29-2021 End: 10-29-2021 Emergency department patient visit Adrian Potter [facility] Start: 10-11-2021 End: 10-11-2021 Emergency department patient visit Abdi Restrepo [facility] Start: 09-06-2021 End: 09-06-2021 Emergency department patient visit Adrian Potter [facility] Procedures Date Procedure Procedure Detail Performing Clinician Start: 08-20-2019 Dilation and curettage Adrian Potter Start: 08-20-2019 Hysteroscopy Adrian valdivia Start: 08-20-2019 Ligation of fallopia n tube Adrian Potter section Adrian Potter H/O: section ( Confirmed ) Adrian Potter wrist surgery Adrian Potter Immunizations Immunization Date Immunization Notes Care Provider Fa bety NEGATED: Highlighted row has not occurred!05-08-2019 influenza virus vaccine, live, attenuated, for intranasal use Adrian Potter [facility] Payers Date Payer Category Payer [employer]er's Compensation [id number] 2022 Medicaid [id number] 1985 Unknown [id number] 1984 Unknown [id number] 1984 Unknown [id number] 1984 Unknown [id number] 1984 Unknown [id number] [id number] 1984 Unknown [id number] Social History Date Type Detail Facility Start: 07-22-2020 Tobacco smoking status Ex-smoker (fi nding) [facility] Tobacco smoking status Never [facility] Sex Assigned At Female [facility] Medical Equipment Procedure Code Equipment Code Equipment Origin al Text Equipment Identifier Dates 1 deb, Topical, BID, 30 gram, [facility], cm, 03/05/20 10:32:00 EST, Height/Length Dosing, 107.6, kg, 03/05/20 10:32:00 EST, Weight Dosing Start: 03-05-2020 1 deb, Topical, BID, 30 gram, Refill(s) 0, [facility] 1985, 163, cm, 03/05/20 10:32:00 EST, Height/Length Dosing, 107.6, kg, 03/05/20 10:32:00 EST, Weight Dosing Start: 03-05-2020 1 deb, Topical, BID, 30 gram, Refill(s) 0, [facility], 163, cm, 03/05/20 10:32:00 EST, Height/Length Dosing, 107.6, kg, 03/05/20 10:32:00 EST, Weight Dosing Start: 03-05-2020 1 deb, Topical, BID, 30 gram, Refill(s) 0, [facility] 1985, 163, cm, 03/05/20 10:32:00 EST, Height/Length Dosing, 107.6, kg, 03/05/20 10:32:00 EST, Weight Dosing Start: 03-05-2020 1 deb, Topical, BID, 30 gram, Refill(s) 0, [facility] 1985, 163, cm, 03/05/20 10:32:00 EST, Height/Length Dosing, 107.6, kg, 03/05/20 10:32:00 EST, Weight Dosing Start: 03-05-2020 Functional Status Date Assessment Result Facility 03-27-2023 Functional Status N/A [facility] 12-19-2022 Functional Status N/A [facility] 07-27-2022 Functional Status N/A [facility] 07-25-2022 Functional Status N/A [facility] 02-01-2022 Functional Status N/A [facility] 10-29-2021 Functional Status N/A [facility] 10-11-2021 Functional Status N/A [facility] 09-06-2021 Functional Status N/A [facility] Clinical Notes 09-06-2021 to 03-27-2023 Note Date & Type Note Facility 03-27-2023 Hospital Discharg e instructions Patient Education 03/27/2023 21:11:55 Musculoskeletal Pain Musculoskeletal Pain Musculoskeletal pain refers to aches and pains in your bones, joints, muscles, and the tissues that surround them. This pain can occur in any part of the body. It can last for a short time (acute) or a long time (chronic). A physical exam, lab tests, and imaging studies may be done to find the cause of your musculoskeletal pain. Follow these instructions at home: Lifestyle Try to control or lower your stress levels. Stress increases muscle tension and can worsen musculoskeletal pain. It is important to recognize when you are anxious or stressed and learn ways to manage it. This may include: ?Meditation or yoga. ?Cognitive or behavioral therapy. ?Acupuncture or massage therapy. You may continue all activities unless the activities cause more pain. When the pain gets better, slowly resume your normal activities. Gradually increase the intensity and duration of your activities or exercise. Managing pain, stiffness, and swelling Treatment may include medicines for pain and inflammation that are taken by mouth or applied to the skin. Take zvyf-tef-dnyjbkz and prescription medicines only as told by your health care provider. When your pain is severe, bed rest may be helpful. Lie or sit in any position that is comfortable, but get out of bed and walk around at least every couple of hours. If directed, apply heat to the affected area as often as told by your health care provider. Use the heat source that your health care provider recommends, such as a moist heat pack or a heating pad. ?Place a towel between your skin and the heat source. ?Leave the heat on for 20 30 minutes. ?Remove the heat if your skin turns bright red. This is especially important if you are unable to feel pain, heat, or cold. You may have a greater risk of getting burned. If directed, put ice on the painful area. To do this: ?Put ice in a plastic bag. ?Place a towel between your skin and the bag. ?Leave the ice on for 20 minutes, 2 3 times a day. ?Remove the ice if your skin turns bright red. This is very important. If you cannot feel pain, heat, or cold, you have a greater risk of damage to the area. General instructions Your health care provider may recommend that you see a physical therapist. This person can help you come up with a safe exercise program. If told by your health care provider, do physical therapy exercises to improve movement and strength in the affected area. Keep all follow-up visits. This is important. This includes any physical therapy visits. Contact a health care provider if: Your pain gets worse. Medicines do not help ease your pain. You cannot use the part of your body that hurts, such as your arm, leg, or neck. You have trouble sleeping. You have trouble doing your normal activities. Get help right away if: You have a new injury and your pain is worse or different. You feel numb or you have tingling in the painful area. Summary Musculoskeletal pain refers to aches and pains in your bones, joints, muscles, and the tissues that surround them. This pain can occur in any part of the body. Your health care provider may recommend that you see a physical therapist. This person can help you come up with a safe exercise program. Do any exercises as told by your physical therapist. Lower your stress level. Stress can worsen musculoskeletal pain. Ways to lower stress may include meditation, yoga, cognitive or behavioral therapy, acupuncture, and massage therapy. This information is not intended to replace advice given to you by your health care provider. Make sure you discuss any questions you have with your health care provider. Document Revised: 06/19/2020 Document Reviewed: 05/28/2020 [employer] Patient Education 2022 [employer]. Follow Up Care 03/27/2023 18:29:44 With:Amandeep Cuellar Address: [address] [place] [address] [place] [address]- Business (1) When:03/30/2023 21:10:33 Comments:Call the office of your primary care doctor to arrange for follow-up within the above-stated timeframe. Follow-up with your primary care doctor about this ED visit. You should review your labs, imaging, and diagnoses from this ED visit with your primary care physician. There are occasionally non-emergent findings that require additional follow-up after your ED visit. If you were prescribed medications you should discuss possible side-effects and drug interactions with your pharmacist. Call 911 or go to the nearest Emergency Department if you develop any new or worsening symptoms. [facility] 03-27-2023 Evaluation + Plan note Diagnostic Tests PendingUrine Culture 03/27/23 [facility] 12-19-2022 Evaluation + Plan note Extrac maggie from: Title:ED Note Author:Zana Cohen PA-C te:12/19/22 Abdominal pain (R10.9: Unspe cified abdominal pain) UTI (urinary tract infection) (N39.0: Urinary tract infection, site not specified) Orders: cephalexin, 500 mg = 1 cap(s), Oral, q6hr, X 7 day(s), # 28 cap(s), Refills(s) 0, Pharmacy: [facility] 1985, 162, cm, 12/19/22 7:51:00 EDT, Height/Length Dosing, 85, kg, 12/19/22 7:51:00 EDT, Weight Dosing ketorolac, 30 mg = 1 mL, Injection, IV Push, Once, Stop date 12/19/22 8:19:00 EDT, STAT, Start date 12/19/22 8:19:00 EDT, 12/19/22 8:19:00 EDT naproxen, 500 mg = 1 tab(s), Oral, BID, PRN for pain, # 20 tab(s), Refills(s) 0, Pharmacy: [facility] 1985, 162, cm, 12/19/22 7:51:00 EDT, Height/Length Dosing, 85, kg, 12/19/22 7:51:00 EDT, Weight Dosing Sodium Chloride 0.9% intravenous solution, 1,000 mL, Soln-IV, IV, Once, Stop date 12/19/22 8:19:00 EDT, STAT, Start date 12/19/22 8:19:00 EDT, Infuse over 61, minute(s) Automated Diff Basic Metabolic Panel CBC w/ Auto Diff CT Abdomen/Pelvis w/ Contrast eGFR Hepatic Function Panel Lipase Level UA With Cult Reflex Urine Culture Diagnostic Tests Pending * Urine Culture 12/19/22 [facility]10-22-2023 Hospital Discharge instructions Patient Education 12/19/2022 09:51:09 Urinary Tract Infection, Adult, Nhnw-yw-Xczl Urinary Tract Infection, Adult A urinary tract infection (UTI) is an infection of any part of the urinary tract. The urinary tractincludes: The kidneys. The ureters. The bladder. The urethra. These organs make, store, and get rid of pee (urine) in the body. What are the causes? This infection is caused by germs (bacteria) in your genital area. These germs grow and cause swelling (inflammation) of your urinary tract. What increases the risk? The following factors may make you more likely to develop this condition: Using a small, thin tube (catheter) to drain pee. Not being able to control when you pee or poop (incontinence). Being female. If you are female, these things can increase the risk: ?Using these methods to prevent : ?A medicine that kills sperm (spermicide). ?A device that blocks sperm (diaphragm). ?Having low levels of a female hormone (estrogen). ?Being . You are more likely to develop this condition if: You have genes that add to your risk. You are sexually active. You take antibiotic medicines. You have trouble peeing because of: ?A prostate that is bigger than normal, if you are male. ?A blockage in the part of your body that drains pee from the bladder. ?A kidney stone. ?A nerve condition that affects your bladder. ?Not getting enough to drink. ?Not peeing often enough. You have other conditions, such as: ?Diabetes. ?A weak disease-fighting system (immune system). ?Sickle cell disease. ?Gout. ?Injury of the spine. What are the signs or symptoms? Symptoms of this condition include: Needing to pee right away. Peeing small amounts often. Pain or burning when peeing. Blood in the pee. Pee that smells bad or not like normal. Trouble peeing. Pee that is cloudy. Fluid coming from the vagina, if you are female. Pain in the belly or lower back. Other symptoms include: Vomiting. Not feeling hungry. Feeling mixed up (confused). This may be the first symptom in older adults. Being tired and grouchy (irritable). A fever. Watery poop (diarrhea). How is this treated? Taking antibiotic medicine. Taking other medicines. Drinking enough water. In some cases, you may need to see a specialist. Follow these instructions at home: Medicines Take dqla-wtl-lpwoouo and prescription medicines only as told by your doctor. If you were prescribed an antibiotic medicine, take it as told by your doctor. Do not stop taking it even if you start to feel better. General instructions Make sure you: ?Pee until your bladder is empty. ?Do not hold pee for a long time. ?Empty your bladder after sex. ?Wipe from front to back after peeing or pooping if you are a female. Use each tissue one time whenyou wipe. Drink enough fluid to keep your pee pale yellow. Keep all follow-up visits. Contact a doctor if: You do not get better after 1 2 days. Your symptoms go away and then come back. Get help right away if: You have very bad back pain. You have very bad pain in your lower belly. You have a fever. You have chills. You feeling like you will vomit or you vomit. Summary A urinary tract infection (UTI) is an infection of any part of the urinary tract. This condition is caused by germs in your genital area. There are many risk factors for a UTI. Treatment includes antibiotic medicines. Drink enough fluid to keep your pee pale yellow. This information is not intended to replace advice given to you by your health care provider. Make sure you discuss any questions you have with your health care provider. Document Revised: 09/26/2020 Document Reviewed: 09/26/2020 [employer] Patient Education 2022 hdtMEDIA. 12/19/2022 09:51:09 Abdominal Pain, Adult, Zmbx-rx-Edez Abdominal Pain, Adult Many things can cause belly (abdominal) pain. Most times, belly pain is not dangerous. Many cases of belly pain can be watched and treated at home. Sometimes, though, belly pain is serious. Your doctor will try to find the cause of your belly pain. Follow these instructions at home: Medicines Take xpyj-ite-taiwxop and prescription medicines only as told by your doctor. Do not take medicines that help you poop (laxatives) unless told by your doctor. General instructions Watch your belly pain for any changes. Drink enough fluid to keep your pee (urine) pale yellow. Keep all follow-up visits as told by your doctor. This is important. Contact a doctor if: Your belly pain changes or gets worse. You are not hungry, or you lose weight without trying. You are having trouble pooping (constipated) or have watery poop (diarrhea) for more than 2 3 days. You have pain when you pee or poop. Your belly pain wakes you up at night. Your pain gets worse with meals, after eating, or with certain foods. You are vomiting and cannot keep anything down. You have a fever. You have blood in your pee. Get help right away if: Your pain does not go away as soon as your doctor says it should. You cannot stop vomiting. Your pain is only in areas of your belly, such as the right side or the left lower part of the belly. You have bloody or black poop, or poop that looks like tar. You have very bad pain, cramping, or bloating in your belly. You have signs of not having enough fluid or water in your body (dehydration), such as: ?Dark pee, very little pee, or no pee. ?Cracked lips. ?Dry mouth. ?Sunken eyes. ?Sleepiness. ?Weakness. You have trouble breathing or chest pain. Summary Many cases of belly pain can be watched and treated at home. Watch your belly pain for any changes. Take bits-qpn-kvotnno and prescription medicines only as told by your doctor. Contact a doctor if your belly pain changes or gets worse. Get help right away if you have very bad pain, cramping, or bloating in your belly. This information is not intended to replace advice given to you by your health care provider. Make sure you discuss any questions you have with your health care provider. Document Revised: 06/25/2019 Document Reviewed: 06/25/2019 [employer] Patient Education 2022 hdtMEDIA. Follow Up Care 12/19/2022 07:41:07 With:Carlitos Baird Address: [address], [address] [place] [address]- Business (1) When:12/22/2022 09:15:26 Comments:Follow-up with your BILLET SHEARER for further evaluation of your thickening of your endometrial complex. If you not have a BILLET SHEARER, you may follow-up with Dr. Baird for further evaluation. With:Johanny Harmon Address: [address] [place] [address] Business (1) When:12/22/2022 09:15:16 Comments:Follow-up with your primary care provider in 3 to 5 days. If symptoms worsen, do not improve, or new symptoms arise please report back to emergency department for further evaluation. [facility]05-31-2023 Evaluation + Plan noteExtracted from: Title:ED Note Author:Rishi Toro PA-C Keron e:07/28/22 Fracture of ulnar styloid (S 52.613A: Displaced fracture of unspecified ulna styloid process, initial encounter for closed fracture) Orders: acetaminophen-oxycodone, 1 EA, Tab, Oral, Once, Stop date 07/27/22 23:04:00 EDT, STAT, Start date 07/27/22 23:04:00 EDT acetaminophen-oxycodone, 1 tab(s), Oral, q4hr for pain, 8 tab(s), Refill(s) 0, [facility], 162, cm, 07/27/22 22:23:00 EDT, Height/Length Dosing, 91.6, kg, 07/27/22 22:23:00 EDT, Weight Dosing [facility]05-31-2023 Hospital Discharge instructions Patient Education 07/27/2022 23:06:21 Wrist Fracture Treated With Immobilization Wrist Fracture Treated With Immobilization A wrist fracture is a break or crack in one of the bones of the wrist. The wrist is made up of eight small bones at the palm of the hand (carpal bones) and two long bones that make up the forearm (radius and ulna). If the joint is stable and the bones are still in their normal position (nondisplaced), the injury may be treated with immobilization. This involves the use of a cast, splint, or sling to hold the wrist in place. Immobilization ensures that the bones continue to stay in the correct position while the wrist is healing. What are the causes? This condition may be caused by: A direct force to the wrist. Trauma, such as a car crash or falling on an outstretched hand. What increases the risk? The following factors may make you more likely to develop this condition: Doing contact sports or high-risk sports such as skiing, biking, and ice skating. Taking steroid medicines. Smoking. Being female. Being . Drinking more than three alcoholic beverages a day. Having a condition that weakens the bones (osteoporosis). Being older. Having a history of previous fractures. What are the signs or symptoms? Symptoms of this condition include: Pain. Swelling. Bruising. Not being able to move the wrist normally. The wrist may also hang in an odd position or appear deformed. How is this diagnosed? This condition may be diagnosed based on a physical exam and X-rays. You may also have a CT scan orMRI. How is this treated? Treatment for this condition involves wearing a cast, splint, or sling until the injured area is stable enough for you to begin kcdgz-gn-cofkis exercises. You may also be prescribed pain medicine. Follow these instructions at home: If you have a cast: Do not stick anything inside the cast to scratch your skin. Doing that increases your risk of infection. Check the skin around the cast every day. Tell your health care provider about any concerns. You may put lotion on dry skin around the edges of the cast. Do not put lotion on the skin underneath the cast. Keep the cast clean and dry. If you have a splint or sling: Wear the splint or sling as told by your health care provider. Remove it only as told by your health care provider. Loosen the splint or sling if your fingers tingle, become numb, or turn cold and blue. Keep the splint or sling clean and dry. Bathing Do not take baths, swim, or use a hot tub until your health care provider approves. Ask your healthcare provider if you may take showers. You may only be allowed to take sponge baths. If your cast, splint, or sling is not waterproof: ?Do not let it get wet. ?Cover it with a watertight covering when you take a bath or a shower. If you have a sling, remove it for bathing only if your health care provider tells you it is safe to do that. Managing pain, stiffness, and swelling If directed, put ice on the injured area. To do this: ?If you have a removable splint or sling, remove it as told by your health care provider. ?Put ice in a plastic bag. ?Place a towel between your skin and the bag or between your cast and the bag. ?Leave the ice on for 20 minutes, 2 3 times a day. ?Remove the ice if your skin turns bright red. This is very important. If you cannot feel pain, heat, or cold, you have a greater risk of damage to the area. Move your fingers often to reduce stiffness and swelling. Raise (elevate) the injured area above the level of your heart while you are sitting or lying down. Activity Return to your normal activities as told by your health care provider. Ask your health care provider what activities are safe for you. Do not lift with or put weight on your injured wrist until your health care provider approves. Ask your health care provider when it is safe to drive if you have a cast, splint, or sling on yourwrist. Do vejnw-pv-fdcfft exercises only as told by your health care provider or physical therapist. Medicines Take ycfc-loe-tcxavcy and prescription medicines only as told by your health care provider. Ask your health care provider if the medicine prescribed to you: ?Requires you to avoid driving or using machinery. ?Can cause constipation. You may need to take these actions to prevent or treat constipation: ?Drink enough fluid to keep your urine pale yellow. ?Take pllm-ogp-kujnaug or prescription medicines. ?Eat foods that are high in fiber, such as beans, whole grains, and fresh fruits and vegetables. ?Limit foods that are high in fat and processed sugars, such as fried or sweet foods. General instructions Do not put pressure on any part of the cast or splint until it is fully hardened. This may take several hours. Do not use any products that contain nicotine or tobacco, such as cigarettes, e- cigarettes, and chewing tobacco. These can delay bone healing. If you need help quitting, ask your health care provider. Keep all follow-up visits. This is important. Contact a health care provider if: Your cast, splint, or sling is damaged or loose. You have any new pain, swelling, or bruising. Your pain, swelling, and bruising do not improve. You have a fever. You have chills. Get help right away if: Your skin or fingers on your injured arm turn blue or sanchez. Your arm feels cold or numb. You have severe pain in your injured wrist. Summary A wrist fracture is a break or crack in one of the bones of the wrist. If the joint is stable and the bones are still in their normal position, the injury may be treated by wearing a cast, splint, or sling. If you have a cast, check the skin around the cast every day. Tell your health care provider about any concerns. If you have a splint or sling, wear it as told by your health care provider. Remove it only as toldby your health care provider. This information is not intended to replace advice given to you by your health care provider. Make sure you discuss any questions you have with your health care provider. Document Revised: 05/27/2020 Document Reviewed: 05/27/2020 [employer] Patient Education 2022 hdtMEDIA. Follow Up Care 07/27/2022 22:19:07 With:Amandeep Cuellar Address: [address] [place] [address]- [facility] (1) When:07/30/2022 Comments:Follow-up for evaluation and management of ulnar styloid fracture of indeterminate age With:XXXX NONE Address: [place] When:Within 3 Day(s) [facility]05-28-2023 Hospital Discharge instructions Patient Education 07/25/2022 20:19:04 Contusion, Xsly-nl-Hggv Contusion A contusion is a deep bruise. This is a result of an injury that causes bleeding under the skin. Symptoms of bruising include pain, swelling, and discolored skin. The skin may turn blue, purple, or yellow. Follow these instructions at home: Managing pain, stiffness, and swelling You may use RICE. This stands for: Resting. Icing. Compression, or putting pressure. Elevating, or raising the injured area. To follow this method, do these actions: Rest the injured area. If told, put ice on the injured area. ?Put ice in a plastic bag. ?Place a towel between your skin and the bag. ?Leave the ice on for 20 minutes, 2 3 times per day. If told, put light pressure (compression) on the injured area using an elastic bandage. Make sure the bandage is not too tight. If the area tingles or becomes numb, remove it and put it back on as told by your doctor. If possible, raise (elevate) the injured area above the level of your heart while you are sitting or lying down. General instructions Take otze-yzq-dhjvemg and prescription medicines only as told by your doctor. Keep all follow-up visits as told by your doctor. This is important. Contact a doctor if: Your symptoms do not get better after several days of treatment. Your symptoms get worse. You have trouble moving the injured area. Get help right away if: You have very bad pain. You have a loss of feeling (numbness) in a hand or foot. Your hand or foot turns pale or cold. Summary A contusion is a deep bruise. This is a result of an injury that causes bleeding under the skin. Symptoms of bruising include pain, swelling, and discolored skin. The skin may turn blue, purple, or yellow. This condition is treated with rest, ice, compression, and elevation. This is also called RICE. Youmay be given fogr-oqx-llpbpvs medicines for pain. Contact a doctor if you do not feel better, or you feel worse. Get help right away if you have verybad pain, have lost feeling in a hand or foot, or the area turns pale or cold. This information is not intended to replace advice given to you by your health care provider. Make sure you discuss any questions you have with your health care provider. Document Revised: 12/10/2021 Document Reviewed: 12/10/2021 [employer] Patient Education 2022 hdtMEDIA. Follow Up Care 07/25/2022 19:36:42 With:Angel Luis SEWELL DO, Len Dominguez [facility] Address: [address] [place] [address]- When:2 to 4 days [facility]05-28-2023 Evaluation + Plan noteExtracted from: Title:ED Note Author:Juliana Gibson PA-C Date :07/25/22 1. Contusion of right wrist, initial encounter (S60.211A: Contusion of right wrist, initial encounter) Orders: acetaminophen-hydrocodone, 1 tab(s), Tab, Oral, Once, Stop date 07/25/22 20:13:00 EDT, STAT, Start date 07/25/22 20:13:00 EDT ketorolac, 15 mg = 0.5 mL, Injection, IntraMuscular, Once, Stop date 07/25/22 20:14:00 EDT, STAT, Start date 07/25/22 20:14:00 EDT, 07/25/22 20:14:00 EDT Splint Application Wrist [facility]12-05-2022 Evaluation + Plan noteExtracted from: Title:ED Note Author:Kenneth Vick DO Date :02/01/22 Hematoma (T14.8XXA: Other in jury of unspecified body region, initial encounter) [facility]12-05-2022 Hospital Discharge instructions Patient Education 02/01/2022 03:27:26 Hematoma Hematoma A hematoma is a collection of blood under the skin, in an organ, in a body space, in a joint space,or in other tissue. The blood can thicken (clot) to form a lump that you can see and feel. The lumpis often firm and may become sore and tender. Most hematomas get better in a few days to weeks. However, some hematomas may be serious and require medical care. Hematomas can range from very small tovery large. What are the causes? This condition is caused by: A blunt or penetrating injury. A leakage from a blood vessel under the skin. Some medical procedures, including surgeries, such as oral surgery, face lifts, and surgeries on the joints. Some medical conditions that cause bleeding or bruising. There may be multiple hematomas that appear in different areas of the body. What increases the risk? You are more likely to develop this condition if: You are an older adult. You use blood thinners. What are the signs or symptoms? Symptoms of this condition depend on where the hematoma is located. Common symptoms of a hematoma that is under the skin include: A firm lump on the body. Pain and tenderness in the area. Bruising. Blue, dark blue, purple-red, or yellowish skin (discoloration) may appear at the site of the hematoma if the hematoma is close to the surface of the skin. Common symptoms of a hematoma that is deep in the tissues or body spaces may be less obvious. They include: A collection of blood in the stomach (intra-abdominal hematoma). This may cause pain in the abdomen, weakness, fainting, and shortness of breath. A collection of blood in the head (intracranial hematoma). This may cause a headache or symptoms such as weakness, trouble speaking or understanding, or a change in consciousness. How is this diagnosed? This condition is diagnosed based on: Your medical history. A physical exam. Imaging tests, such as an ultrasound or CT scan. These may be needed if your health care provider suspects a hematoma in deeper tissues or body spaces. Blood tests. These may be needed if your health care provider believes that the hematoma is caused by a medical condition. How is this treated? Treatment for this condition depends on the cause, size, and location of the hematoma. Treatment may include: Doing nothing. The majority of hematomas do not need treatment as many of them go away on their ownover time. Surgery or close monitoring. This may be needed for large hematomas or hematomas that affect vital organs. Medicines. Medicines may be given if there is an underlying medical cause for the hematoma. Follow these instructions at home: Managing pain, stiffness, and swelling If directed, put ice on the affected area. ?Put ice in a plastic bag. ?Place a towel between your skin and the bag. ?Leave the ice on for 20 minutes, 2 3 times a day for the first couple of days. If directed, apply heat to the affected area after applying ice for a couple of days. Use the heat source that your health care provider recommends, such as a moist heat pack or a heating pad. ?Place a towel between your skin and the heat source. ?Leave the heat on for 20 30 minutes. ?Remove the heat if your skin turns bright red. This is especially important if you are unable to feel pain, heat, or cold. You may have a greater risk of getting burned. Raise (elevate) the affected area above the level of your heart while you are sitting or lying down. If told, wrap the affected area with an elastic bandage. The bandage applies pressure (compression)to the area, which may help to reduce swelling and promote healing. Do not wrap the bandage too tightly around the affected area. If your hematoma is on a leg or foot (lower extremity) and is painful, your health care provider may recommend crutches. Use them as told by your health care provider. General instructions Take xhzx-bpx-pigtuqh and prescription medicines only as told by your health care provider. Keep all follow-up visits as told by your health care provider. This is important. Contact a health care provider if: You have a fever. The swelling or discoloration gets worse. You develop more hematomas. Get help right away if: Your pain is worse or your pain is not controlled with medicine. Your skin over the hematoma breaks or starts bleeding. Your hematoma is in your chest or abdomen and you have weakness, shortness of breath, or a change in consciousness. You have a hematoma on your scalp that is caused by a fall or injury, and you also have: ?A headache that gets worse. ?Trouble speaking or understanding speech. ?Weakness. ?Change in alertness or consciousness. Summary A hematoma is a collection of blood under the skin, in an organ, in a body space, in a joint space,or in other tissue. This condition usually does not need treatment because many hematomas go away on their own over time. Large hematomas, or those that may affect vital organs, may need surgical drainage or monitoring. If the hematoma is caused by a medical condition, medicines may be prescribed. Get help right away if your hematoma breaks or starts to bleed, you have shortness of breath, or you have a headache or trouble speaking after a fall. This information is not intended to replace advice given to you by your health care provider. Make sure you discuss any questions you have with your health care provider. Document Released: 09/28/2004 Document Revised: 07/11/2019 Document Reviewed: 07/20/2018 [employer] Patient Education 2020 [employer] Follow Up Care 02/01/2022 03:06:07 With:Srikanth WALTON Address: [address] [place], [place] [id number] Business (1) When:02/08/2022 only if needed [facility]09-01-2022 Hospital Discharge instructions Patient Education 10/29/2021 19:49:17 Upper Respiratory Infection, Adult Upper Respiratory Infection, Adult An upper respiratory infection (URI) is a common viral infection of the nose, throat, and upper airpassages that lead to the lungs. The most common type of URI is the common cold. URIs usually get better on their own, without medical treatment. What are the causes? A URI is caused by a virus. You may catch a virus by: Breathing in droplets from an infected person's cough or sneeze. Touching something that has been exposed to the virus (contaminated) and then touching your mouth, nose, or eyes. What increases the risk? You are more likely to get a URI if: You are very young or very old. It is roberth or winter. You have close contact with others, such as at a daycare, school, or health care facility. You smoke. You have long-term (chronic) heart or lung disease. You have a weakened disease-fighting (immune) system. You have nasal allergies or asthma. You are experiencing a lot of stress. You work in an area that has poor air circulation. You have poor nutrition. What are the signs or symptoms? A URI usually involves some of the following symptoms: Runny or stuffy (congested) nose. Sneezing. Cough. Sore throat. Headache. Fatigue. Fever. Loss of appetite. Pain in your forehead, behind your eyes, and over your cheekbones (sinus pain). Muscle aches. Redness or irritation of the eyes. Pressure in the ears or face. How is this diagnosed? This condition may be diagnosed based on your medical history and symptoms, and a physical exam. Your health care provider may use a cotton swab to take a mucus sample from your nose (nasal swab). This sample can be tested to determine what virus is causing the illness. How is this treated? URIs usually get better on their own within 7 10 days. You can take steps at home to relieve your symptoms. Medicines cannot cure URIs, but your health care provider may recommend certain medicines to help relieve symptoms, such as: Gaye-flt-ulnfnxy cold medicines. Cough suppressants. Coughing is a type of defense against infection that helps to clear the respiratory system, so take these medicines only as recommended by your health care provider. Fever-reducing medicines. Follow these instructions at home: Activity Rest as needed. If you have a fever, stay home from work or school until your fever is gone or until your health care provider says you are no longer contagious. Your health care provider may have you wear a face mask to prevent your infection from spreading. Relieving symptoms Gargle with a salt-water mixture 3 4 times a day or as needed. To make a salt- water mixture, completely dissolve 1 tsp of salt in 1 cup of warm water. Use a cool-mist humidifier to add moisture to the air. This can help you breathe more easily. Eating and drinking Drink enough fluid to keep your urine pale yellow. Eat soups and other clear broths. General instructions Take oxen-iqp-wzjwelr and prescription medicines only as told by your health care provider. These include cold medicines, fever reducers, and cough suppressants. Do not use any products that contain nicotine or tobacco, such as cigarettes and e-cigarettes. If you need help quitting, ask your health care provider. Stay away from secondhand smoke. Stay up to date on all immunizations, including the yearly (annual) flu vaccine. Keep all follow-up visits as told by your health care provider. This is important. How to prevent the spread of infection to others URIs can be passed from person to person (are contagious). To prevent the infection from spreading: ?Wash your hands often with soap and water. If soap and water are not available, use hand director of global marketing. ?Avoid touching your mouth, face, eyes, or nose. ?Cough or sneeze into a tissue or your sleeve or elbow instead of into your hand or into the air. Contact a health care provider if: You are getting worse instead of better. You have a fever or chills. Your mucus is brown or red. You have yellow or brown discharge coming from your nose. You have pain in your face, especially when you bend forward. You have swollen neck glands. You have pain while swallowing. You have white areas in the back of your throat. Get help right away if: You have shortness of breath that gets worse. You have severe or persistent: ?Headache. ?Ear pain. ?Sinus pain. ?Chest pain. You have chronic lung disease along with any of the following: ?Wheezing. ?Prolonged cough. ?Coughing up blood. ?A change in your usual mucus. You have a stiff neck. You have changes in your: ?Vision. ?Hearing. ?Thinking. ?Mood. Summary An upper respiratory infection (URI) is a common infection of the nose, throat, and upper air passages that lead to the lungs. A URI is caused by a virus. URIs usually get better on their own within 7 10 days. Medicines cannot cure URIs, but your health care provider may recommend certain medicines to help relieve symptoms. This information is not intended to replace advice given to you by your health care provider. Make sure you discuss any questions you have with your health care provider. Document Released: 08/10/2001 Document Revised: 02/22/2019 Document Reviewed: 09/30/2017 [employer] Patient Education [employer] Follow Up Care 10/29/2021 18:40:12 With:Srikanth ISABELLE Address: [address] [place] [address] [facility] (1) When:11/01/2021 19:47:53 Comments:Call the office of your primary care doctor to arrange for follow-up within the above-stated timeframe. Follow-up with your primary care doctor about this ED visit. You should review your labs, imaging, and diagnoses from this ED visit with your primary care physician. If you were prescribed medications you should discuss possible side-effects and drug interactions with your pharmacist. Call 911 or go to the nearest Emergency Department if you develop any new or worsening symptoms. [facility]09-01-2022 Evaluation + Plan noteExtracted from: Title:ED Note Author:Adrian Potter DO Date: Acute upper respiratory infe ction (J06.9: Acute upper respiratory infection, unspecified) Orders: brompheniramine/dextromethorphan/PSE, 5 mL, Oral, QID for cold symptoms, 200 mL, Refill(s) 0, [facility], 163, cm, 10/29/21 18:48:00 EDT, Height/Length Dosing, 93, kg, 10/29/21 18:48:00 EDT, Weight Dosing methylPREDNISolone, = 1 packet(s), Oral, As Directed, as directed on package labeling, X 6 day(s), # 21 tab(s), Refills(s) 0, Pharmacy: [facility] 1985, 163, cm, 10/29/21 18:48:00 EDT, Height/Length Dosing, 93, kg, 10/29/21 18:48:00 EDT, Weight Dosing ondansetron, 4 mg = 1 tab(s), Oral, q8hr, PRN Nausea/Vomiting, # 12 tab(s), Refills(s) 0, Pharmacy: [facility] 1985, 163, cm, 10/29/21 18:48:00 EDT, Height/Length Dosing, 93, kg, 10/29/21 18:48:00 EDT, Weight Dosing COVID-19 ([facility]) Diagnostic Tests Pending * COVID-19 ([facility]) 10/29/21 [facility]08-14-2022 Hospital Discharge instructions Patient Education 10/11/2021 16:09:43 Contusion, Lusf-jq-Krwj Contusion A contusion is a deep bruise. This is a result of an injury that causes bleeding under the skin. Symptoms of bruising include pain, swelling, and discolored skin. The skin may turn blue, purple, or yellow. Follow these instructions at home: Managing pain, stiffness, and swelling You may use RICE. This stands for: Resting. Icing. Compression, or putting pressure. Elevating, or raising the injured area. To follow this method, do these actions: Rest the injured area. If told, put ice on the injured area. ?Put ice in a plastic bag. ?Place a towel between your skin and the bag. ?Leave the ice on for 20 minutes, 2 3 times per day. If told, put light pressure (compression) on the injured area using an elastic bandage. Make sure the bandage is not too tight. If the area tingles or becomes numb, remove it and put it back on as told by your doctor. If possible, raise (elevate) the injured area above the level of your heart while you are sitting or lying down. General instructions Take kdoy-kzk-scogude and prescription medicines only as told by your doctor. Keep all follow-up visits as told by your doctor. This is important. Contact a doctor if: Your symptoms do not get better after several days of treatment. Your symptoms get worse. You have trouble moving the injured area. Get help right away if: You have very bad pain. You have a loss of feeling (numbness) in a hand or foot. Your hand or foot turns pale or cold. Summary A contusion is a deep bruise. This is a result of an injury that causes bleeding under the skin. Symptoms of bruising include pain, swelling, and discolored skin. The skin may turn blue, purple, or yellow. This condition is treated with rest, ice, compression, and elevation. This is also called RICE. Youmay be given dyta-ugl-guqfcyg medicines for pain. Contact a doctor if you do not feel better, or you feel worse. Get help right away if you have verybad pain, have lost feeling in a hand or foot, or the area turns pale or cold. This information is not intended to replace advice given to you by your health care provider. Make sure you discuss any questions you have with your health care provider. Document Released: 08/02/2008 Document Revised: 10/06/2018 Document Reviewed: 10/06/2018 [employer] Patient Education 2020 [employer]. Follow Up Care 10/11/2021 13:05:01 With:Amandeep Cuellar Address: [address] [place] [phone] (1) When:10/14/2021 15:44:52 With:Patricia Pollock Address: [address] [place] [phone] Business (1) When:Within 3 Day(s) [facility]07-10-2022 Hospital Discharge instructions Patient Education 09/06/2021 17:08:26 Elbow Contusion Elbow Contusion An elbow contusion is a deep bruise of the elbow. Contusions are the result of a blunt injury to tissues and muscle fibers under the skin. The injury causes bleeding under the skin. The skin overlying the contusion may turn blue, purple, or yellow. Minor injuries will give you a painless contusion,but more severe contusions may stay painful and swollen for a few weeks. What are the causes? Common causes of this condition include: A hard hit to the elbow. An injury (trauma) to the elbow. Direct force on the elbow, such as from a fall. What increases the risk? You are more likely to develop this condition if you: Play sports or do other physical activities. Use blood thinners. What are the signs or symptoms? Symptoms of this condition include: Swelling of the elbow. Pain and tenderness of the elbow. Discoloration of the elbow. The area may have redness and then turn blue, purple, or yellow. How is this diagnosed? This condition is diagnosed based on: Your symptoms and medical history. A physical exam. You may also need an X-ray to determine if there are any associated injuries, such as broken bones (fractures). An MRI might be done if the swelling and pain do not go away in a few weeks. How is this treated? This condition may be treated with: Rest, ice, pressure (compression), and elevation. This is often called RICE therapy. In general, this is considered the best treatment for this condition. A sling or splint to support your injury. Bcja-yeh-tdqomyq anti-inflammatory medicines, such as ibuprofen, for pain control. Jwrfm-uq-xklpam exercises. Follow these instructions at home: RICE therapy Rest the injured area. If directed, put ice on the injured area: ?If you have a removable sling or splint, remove it as told by your health care provider. ?Put ice in a plastic bag. ?Place a towel between your skin and the bag. ?Leave the ice on for 20 minutes, 2 3 times a day. If directed, apply light compression to the injured area using an elastic bandage. Make sure the bandage is not wrapped too tightly. Remove and reapply the bandage as directed by your health care provider. Raise (elevate) the injured area above the level of your heart while you are sitting or lying down. If you have a sling or splint: Wear the sling or splint as told by your health care provider. Remove it only as told by your health care provider. Loosen the sling or splint if your fingers tingle, become numb, or turn cold and blue. Keep the sling or splint clean. If the sling or splint is not waterproof: ?Do not let it get wet. ?Cover it with a watertight covering when you take a bath or a shower. General instructions Take ovel-zev-fhhffxp and prescription medicines only as told by your health care provider. Return to your normal activities as told by your health care provider. Ask your health care provider what activities are safe for you. Do bfhdv-ql-nsrcwx exercises only as told by your health care provider. Ask your health care provider when it is safe to drive if you have a sling or splint on your arm. Wear elbow pads as told by your health care provider. Keep all follow-up visits as told by your health care provider. This is important. Contact a health care provider if: Your symptoms do not improve after several days of treatment. You have more redness, swelling, or pain in your elbow. You have difficulty moving the injured area. Your swelling or pain is not relieved with medicines. Get help right away if: Your skin over the contusion breaks and starts bleeding. You have severe pain. You have numbness in your hand or fingers. Your hand or fingers turn pale or cold. You have swelling of your hand and fingers. You cannot move your fingers or wrist. Summary An elbow contusion is a deep bruise of the elbow. Symptoms include pain, swelling, and discoloration of the elbow. Rest the injured area and apply ice to the area as told by your health care provider. If directed, apply light compression to the injured area using an elastic bandage. Raise (elevate) the injured area above the level of your heart while you are sitting or lying down. This information is not intended to replace advice given to you by your health care provider. Make sure you discuss any questions you have with your health care provider. Document Released: 01/23/2007 Document Revised: 08/17/2018 Document Reviewed: 08/17/2018 [employer] Patient Education 2020 [employer]IA. Follow Up Care 09/06/2021 16:10:00 With:Luan Sellers Address: [address] [place], [place] [id number] [facility] (1) When:09/09/2021 17:07:08 Comments:Call the office of your primary care doctor to arrange for follow-up within the above-stated timeframe. Follow-up with your primary care doctor about this ED visit. You should review your labs, imaging, and diagnoses from this ED visit with your primary care physician. If you were prescribed medications you should discuss possible side-effects and drug interactions with your pharmacist. Call 911 or go to the nearest Emergency Department if you develop any new or worsening symptoms.Tylenol or ibuprofen for pain. Use stronger pain medicine for pain not controlled. [facility]07-10-2022 Evaluation + Plan noteExtracted from: Title:ED Note Author:Adrian Potter DO Date: Contusion of elbow (S50.00XA : Contusion of unspecified elbow, initial encounter) Ordered: acetaminophen-hydrocodone, 1 tab(s), Oral, q4hr for pain, 3 tab(s), Refill(s) 0, [facility], 162, cm, 09/06/21 16:13:00 EDT, Height/Length Dosing, 95, kg, 09/06/21 16:13:00 EDT, Weight Dosing Orders: Sling Apply XR Elbow 3+ Views Right [facility] Narrative No data available for this section [facility] No data available for this section [facility] Summary Purpose Family History No Family History Records Found Advance Directives No Advanced Directives Records FoundNo Advanced Directives Records Found Additional Source Comments Care Team (unrecognized sect ion and content) Personnel Name: Patricia Pollock NP Address: [address] [place] [phone] Personnel Name: Srikanth [place]TON MD Address: [address] [place] [address] Personnel Name: Srikanth [place] MD Address: Address: [address] [place] [address] Personnel Name: NONE, XXXX Address: Address: [facility] Personnel Name: NONE, XXXX Address: Address: [facility] Personnel Name: NONE, XXXX Address: Address: [facility] Personnel Name: LLC, GENERIC INFORMATION SOURCE (unrecogn ized section and content) DATE CREATED AUTHOR 09/16/2023 [facility] DATE CREATED AUTHOR AUTHOR'S ORGANIZ ATION 09/21/2023 [facility] FOR RECORDS PERTAINING TO PATIENTS WHO ARE OR HAVE BEEN ENROLLED IN A CHEMICAL DEPENDENCY/SUBSTANCEABUSE PROGRAM, SOME INFORMATION MAY BE OMITTED. This clinical summary was aggregated from multiple sources. Caution should be exercised in using it in the provision of clinical care. This summary normalizes information from multiple sources, and as a consequence, information in this document may materially change the coding, format and clinical context of patient data. In addition, data may be omitted in some cases. CLINICAL DECISIONS SHOULD BE BASED ON THE PRIMARY CLINICAL RECORDS. [facility] [employer] [facility]. provides no warranty or guarantee of the accuracy or completeness of information in this document.
== END 2023-10-03 21:12 | disposition home or self-care (01) ==
LOC: LAB 21:11
PROVIDERS: Visit Provider Obstetrics & Gynecology
DX: Z01.419 Encounter for gynecological examination (general) (routine) without abnormal findings (principal)
CPT/HCPCS: 87624; 88175

== ENCOUNTER 2023-11-04 08:46 | Outpatient (OUT) | payer OTHER, SELFPAY ==
--- OUTSIDE RECORDS SUMMARY | 2023-11-04 09:12 | XMS_ITS | CCD ---
Author Organization [facility] Care Team Providers Care Salesperson Books Name Role Phone Patricia Pollock Primary Care Physician Srikanth WALTON Primary Care Physician NONE, XXXX Primary Care Physician Nataliya Mitchell, GENERIC Primary Care Physician Adrian James Attending Unavailable Aditi Vargas Attending Unavailable Aditi Vargas Attending Unavailable Pocos, aMlu Lacy Attending Unavailable Pocos, Malu Lacy Referring Unavailable Winsome Andino Attending Unavailable KEISHAFUENTES Dick Attending Unavailable POCOS, MALU Lacy Referring Unavailable POCOS, MALU Lacy Attending Unavailable MICHEL FOX Referring Unavailable KEISHAFUENTES Dick Attending Unavailable POCOS, MALU Lacy Referring Unavailable POCOS, MALU Lacy Attending Unavailable KEISHAFUENTES Dick Attending Unavailable KEISHAFUENTES Dick Attending Unavailable Allergies Allergy Classification Reported Allergen(s) Allergy Type Date of Onset Reaction(s) Facility (10 sources) empagliflozin; Translations: [empagliflozin] Drug Allergy Nausea (finding), Weal (disorder) [facility] (10 sources) glipiZIDE; Translations: [glipizide] Drug Allergy Diarrhea (finding) [facility] (10 sources) SITagliptin; Translations: [sitagliptin] Drug Allergy Mycosis (disorder), Vomiting (disorder) [facility] Medications Current Medications Medication Drug Class(es) Dates Sig (Normalized) Sig (Original) acetaminophen 325 mg / HYDROcodone bitartrate 5 mg oral tablet (8 sources) Opioid Agonist Start: 09-06-2021 take 1 tablet by mouth every four hours for pain Cocoa 325 mg-5 mg oral tablet 1 tab(s), Oral, q4hr for pain, 3 tab(s), Refill(s) 0, [facility], 162, cm, 09/06/21 16:13:00 EDT, Height/Length Dosing, 95, kg, 09/06/21 16:13:00 EDT, Weight Dosing Start Date: 09/06/21 Status: Ordered acetaminophen 325 mg / oxyCODONE hydrochloride 5 mg oral tablet (3 sources) Opioid Agonist Start: 07-27-2022 take 1 tablet by mouth every four hours for pain acetaminophen-oxy codone 325 mg-5 mg Tab 1 tab(s), Oral, q4hr for pain, 8 tab(s), Refill(s) 0, [facility], 162, cm, 07/27/22 22:23:00 EDT, Height/Length Dosing, 91.6, kg, 07/27/22 22:23:00 EDT, Weight Dosing Start Date: 07/27/22 Status: Ordered Ascorbic Acid (1 source) Vitamin C Start: 11-02-2023 Vitamin C Refills(s) 0 Start Date: 11/02/23 Status: Ordered brompheniramine maleate 0.4 mg/ml / dextromethorphan hydrobromide 2 mg/ml / pseudoephedrine hydrochloride 6 mg/ml oral solution (6 sources) alpha-Adrenergic Agonist, Uncompetitive Q-zltxvo-G-aspartat e Receptor Antagonist, Sigma-1 Agonist Start: 10-29-2021 take 5 mL by mouth four times daily Bromfed DM oral syrup 5 mL, Oral, QID for cold symptoms, 200 mL, Refill(s) 0, [facility], 163, cm, 10/29/21 18:48:00 EDT, Height/Length Dosing, 93, kg, 10/29/21 18:48:00 EDT, Weight Dosing Start Date: 10/29/21 Status: Ordered 12 hr buPROPion hydrochloride 150 mg extended release oral tablet (8 sources) Aminoketone Start: 01-30-2020 take 1 tablet by mouth twice daily Wellbutrin SR 150 mg Tab-ER 150 mg = 1 tab(s), Oral, BID, # 30 tab(s), Refills(s) 5, Pharmacy: [facility], 163, cm, 01/30/20 10:40:00 EST, Height/Length Dosing, 105, kg, 01/30/20 10:40:00 EST, Weight Dosing Start Date: 01/30/20 Status: Ordered cephalexin 500 mg oral capsule (1 source) Cephalosporin Antibacterial Start: 12-19-2022 End: 12-26-2022 take 1 capsule by mouth every six hours Keflex 500 mg Cap 500 mg = 1 cap(s), Oral, q6hr, X 7 day(s), # 28 cap(s), Refills(s) 0, Pharmacy: [facility], 162, cm, 12/19/22 7:51:00 EDT, Height/Length Dosing, 85, kg, 12/19/22 7:51:00 EDT, Weight Dosing Start Date: 12/19/22 Stop Date: 12/26/22 Status: Ordered esomeprazole 20 mg delayed release oral capsule (8 sources) Proton Pump Inhibitor Start: 01-30-2020 take 1 capsule by mouth once daily Nexium 20 mg Cap-DR 20 mg = 1 cap(s), Oral, Daily, # 30 cap(s), Refills(s) 5, Pharmacy: [facility], 163, cm, 01/30/20 10:40:00 EST, Height/Length Dosing, 105, kg, 01/30/20 10:40:00 EST, Weight Dosing Start Date: 01/30/20 Status: Ordered fexofenadine hydrochloride 180 mg oral tablet (16 sources) Histamine-1 Receptor Antagonist Start: 01-30-2020 take 1 tablet by mouth once daily fexofenadine 180 mg Tab 180 mg = 1 tab(s), Oral, Daily, # 30 tab(s), Refills(s) 0 Start Date: 06/22/20 Status: Ordered FLUoxetine 10 mg oral capsule (9 sources) Serotonin Reuptake Inhibitor Start: 11-02-2023 take 1 capsule by mouth once daily FLUoxetine 10 mg Cap 10 mg = 1 cap(s), Oral, Daily, # 90 cap(s), Refills(s) 0, Pharmacy: [facility], 162, cm, 11/02/23 8:04:00 EDT, Height/Length Dosing, 83.6, kg, 11/02/23 8:04:00 EDT, Weight Dosing Start Date: 11/02/23 Status: Ordered Start: 01-30-2020 [facility] 1 capsule by [facility] FLUoxetine 40 mg Cap 40 mg = 1 cap(s), Oral, BID, # 30 cap(s), Refills(s) 5, Pharmacy: [facility], 163, cm, 01/30/20 10:40:00 EST, Height/Length Dosing, 105, kg, 01/30/20 10:40:00 EST, Weight Dosing Start Date: 01/30/20 Status: Ordered fluticasone propionate 0.05 mg/actuat metered dose nasal spray (3 sources) Corticosteroid Start: 01-30-2020 fluticasone 0.05 mg/inh Nasal [place] 100 mcg, 2 spray(s), Nasal, Daily Allergy symptoms, 16 gm, Refill(s) 5, [facility], 163, cm, 01/30/20 10:40:00 EST, Height/Length Dosing, 105, kg, 01/30/20 10:40:00 EST, Weight Dosing Start Date: 01/30/20 Status: Ordered fluticasone 0.05 mg/inh Nasal [place] (5 sources) Start: 01-30-2020 fluticasone 0.05 mg/inh Nasal [place] 100 mcg, 2 spray(s), Nasal, Daily Allergy symptoms, 16 gm, Refill(s) 5, [facility], 163, cm, 01/30/20 10:40:00 EST, Height/Length Dosing, 105, kg, 01/30/20 10:40:00 EST, Weight Dosing Start Date: 01/30/20 Status: Ordered Hydrocortisone (8 sources) Corticosteroid Start: 03-05-2020 apply 30 g rectal route twice daily Proctosol HC 2.5% Cream See Instructions, 30 gm, Refill(s) 0, Rectal BID, [facility], 163, cm, 03/05/20 10:32:00 EST, Height/Length Dosing, 107.6, kg, 03/05/20 10:32:00 EST, Weight Dosing Start Date: 03/05/20 Status: Ordered Iron Chews (1 source) Start: 11-02-2023 Iron Chews Refills(s) 0 Start Date: 11/02/23 Status: Ordered metFORMIN hydrochloride 1000 mg oral [...] day(s), # 21 tab(s), Refills(s) 0, Pharmacy: [facility] 1985, 162, cm, 03/27/23 18:39:00 EST, Height/Length Dosing, 85, kg, 03/27/23 18:39:00 EST, Weight Dosing Start Date: 03/27/23 Stop Date: 04/02/23 Status: Ordered Start: 10-29-2021 End: 11-04-2021 Medrol 4 mg Tab = 1 packet(s ), Oral, As Directed, as directed on package labeling, X 6 day(s), # 21 tab(s), Refills(s) 0, Pharmacy: [facility] 1985, 163, cm, 10/29/21 18:48:00 EDT, Height/Length [...] pain, # 20 tab(s), Refills(s) 0, Pharmacy: [facility] 1985, 162, cm, 12/19/22 7:51:00 EDT, Height/Length Dosing, 85, kg, 12/19/22 7:51:00 EDT, Weight Dosing Start Date: 12/19/22 Status: Ordered nystatin 158932 unt/ml topical cream (3 sources) Polyene Antifungal Start: 03-05-2020 Nystatin Topical Cream 100,000 units/g Cream 1 deb, Topical, BID, 30 gram, Refill(s) 0, [facility], 163, cm, 03/05/20 10:32:00 EST, Height/Length Dosing, 107.6, kg, 03/05/20 10:32:00 EST, Weight Dosing Start Date: 03/05/20 Status: Ordered traMADol hydrochloride 50 mg oral tablet (1 source) Opioid Agonist Start: 03-27-2023 End: 03-30-2023 traMADOL 50 mg Tab 50 mg = 1 tab(s), Oral, q4hr, PRN Pain 8-10, X 3 day(s), # 18 tab(s), Refills(s) 0, Pharmacy: [facility], 162, cm, 03/27/23 18:39:00 EST, [...] Nausea/Vomiting, # 12 tab(s), Refills(s) 0, Pharmacy: [facility], 163, cm, 10/29/21 18:48:00 EDT, [...] remain, # 2 tab(s), Refills(s) 0, Pharmacy: [facility], 163, cm, 03/05/20 10:32:00 EST, Height/Length Dosing, 107.6, kg, 03/05/20 10:32:00 EST, Weight Dosing Start Date: 03/05/20 Status: Ordered Vitamin D3 400 intl units oral capsule (9 sources) Start: 09-04-2018 take 1 capsule by mouth once daily Vitamin D3 400 intl units oral capsule 400 [employer]i t = 1 cap(s), Oral, Daily, # 100 cap(s), Refills(s) 0, other reason (Rx) Start Date: 09/04/18 Status: Ordered Problems Active Problems Problem Classification Problem Date Documented Da te Episodic/Chronic Abdominal pain (1 source) Abdominal pain; Translations: [Unspecified abdominal pain] Onset: 12-19-2022 Episodic Administrative/social admission (1 source) Patient encounter status; Translations: [Persons encountering health services in other specified circumstances] Onset: 11-02-2023 Episodic Anxiety disorders (10 sources) Generalized anxiety disorder; Translations: [Generalized anxiety disorder] Onset: 11-02-2023 08-23-2018 Chronic Asthma (9 sources) Asthma 08-16-2013 Chronic Deficiency and other anemia (2 sources) Anemia; Translations: [Anemia, unspecified] Onset: 11-02-2023 Episodic Diabetes mellitus without complication (2 sources) Type 2 diabetes mellitus without complication; Translations: [Type 2 diabetes mellitus without complications] Onset: 11-02-2023 Chronic Diabetes mellitus without complication (2 sources) Impaired fasting glycemia; Translations: [Impaired fasting glucose] Onset: 11-02-2023 Episodic Disorders of lipid metabolism (10 sources) Endogenous hyperlipidemia; Translations: [Pure hyperglyceridemia] Onset: 11-02-2023 08-23-2018 Chronic Fracture of upper limb (1 source) Closed fracture of styloid process of ulna; Translations: [Displaced fracture of unspecified ulna styloid process, initial encounter for closed fracture] Onset: 07-27-2022 Episodic Mood disorders (20 sources) Depressive disorder; Translations: [Mild major depression] Onset: 11-02-2023 Resolved: 08-23-2018 11-30-2018 Chronic Nutritional deficiencies (10 sources) Vitamin D deficiency; Translations: [Vitamin D deficiency, unspecified] Onset: 11-02-2023 08-23-2018 Chronic Osteoarthritis (9 sources) Arthritis 08-16-2013 Chronic Other connective tissue disease (1 source) Pain in upper limb; Translations: [Pain in arm, unspecified] Onset: 03-27-2023 Episodic Other female genital disorders (9 sources) Abnormal uterine bleeding 08-20-2019 Chronic Other injuries and conditions due to external causes (1 source) Traumatic AND/OR non-traumatic injury; Translations: [Other injury of unspecified body region, initial encounter] Onset: 02-01-2022 Episodic Other nutritional; endocrine; and metabolic disorders (11 sources) Obesity; Translations: [Obesity, unspecified] Onset: 11-02-2023 08-23-2018 Chronic Other nutritional; endocrine; and metabolic disorders (1 source) Obese class I; Translations: [Body mass index (BMI) 32.0-32.9, adult] Onset: 11-02-2023 Chronic Other upper respiratory infections (1 source) Acute upper respiratory infection; Translations: [Acute upper respiratory infection, unspecified] Onset: 10-29-2021 Episodic Residual codes; unclassified (1 source) Tobacco user; Translations: [Tobacco use] Onset: 11-02-2023 Episodic Residual codes; unclassified (1 source) Family history of mental disorder; Translations: [Family history of other mental and behavioral disorders] Onset: 11-02-2023 Episodic Residual codes; unclassified (1 source) FH: Manic-depressive state 11-02-2023 Episodic Sprains and strains (3 sources) Sprain of wrist 08-05-2022 Episodic Substance-related disorders (2 sources) Cannabis misuse; Translations: [Cannabis use, unspecified, uncomplicated] Onset: 11-02-2023 Episodic Superficial injury; contusion (3 sources) Contusion of elbow; Translations: [Contusion of unspecified elbow, initial encounter] Onset: 09-06-2021 Episodic Unclassified (1 source) First encounter by subject 11-02-2023 Unclassified (1 source) Patient encounter status 11-02-2023 Urinary tract infections (1 source) Urinary tract infectious disease; Translations: [Urinary tract infection, site not specified] Onset: 12-19-2022 Episodic Viral infection (9 sources) Disease caused by 2019-nCoV 01-30-2020 Past or Other Problems Problem Classification Problem Date Documented Da te Episodic/Chronic Other connective tissue disease (9 sources) Plantar fasciitis Onset: 02-13-2013 05-11-2013 Episodic Unclassified (20 sources) Onset: 11-08-2001 Resolved: 06-18-2009 05-08-2019 Results Test Name Value Interpretation Reference Range Facility Ambulatory Visit Summaryon 0 11-02-2023 Ambulatory Visit Summary Ambulatory Visit Summary DEB WOODS :1985 Visit Date:11/02/2023 Ambulatory Visit Instructions Your Diagnosis Encounter to establish care with new doctor Obesity Generalized anxiety disorder Vitamin D deficiency Endogenous hyperlipidemia Wellness examination Elevated fasting glucose Anemia Type 2 diabetes mellitus Family history of bipolar disorder Mild recurrent major depression Marijuana use Vapes nicotine containing substance BMI 32.0-32.9,adult Obesity due to excess calories Your Care Team Attending Physician - Aditi Patten Primary Care Physician - HUONG, GENERIC This Is Your Medications List fluoxetine (FLUoxetine 10 mg Cap) Contact prescribing physician if questions or concerns ascorbic acid (Vitamin C) carbonyl iron (Iron Chews) cholecalciferol (Vitamin D3 400 intl units oral capsule) Procedures Performed Dilation and curettage (08/20/2019), Hysteroscopy (08/20/2019), Tubal ligation (08/20/2019), C section 06/18/09, wrist surgery. Discharge Vitals Heart Rate (Peripheral) 80 Respiratory Rate 16 Blood Pressure 106/72 Height 162 cm Height 64 in Weight 83.6 kg Weight 183.92 lb BMI 31.85 What to do next You Need to Schedule the Following Appointments Follow Up with Aditi Patten FAM, MED When: In 6 months 05/04/2023 EST Comments: for f/u Where: [address] [place] [phone]- Business (1) Follow Up with Aditi Patten FAM, MED When: In 3 months Comments: 3 mo f/u for DM Where: [address] [place] [phone]- Business (1) Someone Will Contact You Regarding These Appointments [facility] External Ambulatory Referral, Psychiatry, 11/02/23 8:40:00 EDT, Generalized anxiety disorder Mild recurrent major depression Family history of bipolar disorder Medications What How Much When Why Instructions New fluoxetine (FLUoxetine 10 mg Cap) 1 Capsules By Mouth Every day Generalized anxiety disorder Pickup at [facility] Unchanged ascorbic acid (Vitamin C) Contact prescribing physician if questions or concerns Unchanged carbonyl iron (Iron Chews) Contact prescribing physician if questions or concerns Unchanged cholecalciferol (Vitamin D3 400 intl units oral capsule) 1 Capsules By Mouth Every day Contact prescribing physician if questions or concerns Pharmacy Information [facility]: [address] [place] [id number] [phone] Medications and Immunizations Administered Not Given influenza virus vaccine, inactivated, Patient Refuses Allergies Januvia (Vomiting, Yeast infection) Jardiance (Hives, Nausea) glipiZIDE (Diarrhea) Problems Ongoing - Any problem that you are currently receiving treatment for. Abnormal uterine bleeding (AUB) Anemia COVID-19 Elevated fasting glucose Encounter to establish care with new doctor Endogenous hyperlipidemia Family history of bipolar disorder Generalized anxiety disorder Marijuana use Mild recurrent major depression Obesity Plantar fasciitis Type 2 diabetes mellitus Vitamin D deficiency Wellness examination Wrist sprain Historical - Any problem that you are no longer receiving treatment for. arthritis asthma Depression Mild major depression Patient Survey You may receive a survey via text or e-mail asking about your office visit. Please share your experience with us by completing your survey. We appreciate your feedback and thank you for choosing us for your care. Education Materials Heart Disease Prevention Heart disease is the leading cause of in the world. Coronary artery disease is the most common cause of heart disease. This condition results when cholesterol and other substances (plaque) build up inside the gabriel of the blood vessels that supply your heart muscle (arteries). This buildup in arteries is called atherosclerosis. You can take actions to lower your risk of heart disease. How can heart disease affect me? Heart disease can cause many unpleasant symptoms and complications, such as: ? Chest pain (angina). ? Reduced or blocked blood flow to your heart. This can cause: ? Irregular heartbeats (arrhythmias). ? Heart attack. ? Heart failure. What can increase my risk? The following factors may make you more likely to develop this condition: ? High blood pressure (hypertension). ? High cholesterol. ? A diet high in saturated fats or trans fats. ? Obesity. ? Diabetes. ? Having a family history of heart disease. ? Certain lifestyle factors, including: ? Smoking. ? Lack of physical activity. ? Drinking too much alcohol. What actions can I take to prevent heart disease? Nutrition ? Follow a heart-healthy eating plan (more content not included)... Normal [facility] Family Medicine Office/Clini c Noteon 11-02-2023 Family Medicine Office/Clinic Note Family Medicine Office/Clinic Note Chief Complaint Est Care HPI Staff Patient is a 38 y.o. female presenting to Establish Care- lost her home, now she has a stable place to live and is working on getting back to seeing Drs, getting her meds and health conditions under control. [facility] Care: History: Last provider: KEVIN Buchanan Office Any recent labs: 03/27/23 Health Conditions: Anxiety, Arthritis, DM II, Depression, PTSD Health Maintenance UTD: Colonoscopy: 2006 [place], [place] per patient Mammogram: AGE Pelvic/Pap: Dr. Valdes a week and a half ago- no previous abnormals but states this last PAP as abnormal one of th elevels was high. Flu: Medicaid ALEXANDER-14 positive PHQ9-10 positive Care Team: OBGYN- Dr. Valdes Acute: Current issues/complaints: Nothing Specific. Patient is here for follow up on Diabetes. How often are you checking your blood sugars? _ times per day-Meter works but she can't find her lancets, hasn't checked since april or may What are your average readings? _ n/a Do you have any of the following symptoms? Foot Exam: DUE Eye Exam: Hasn't had one in two years Microalbumin: DUE Last A1C: DUE Last Chronic Labs: 02/2023 History of Present Illness -I have reviewed and discussed the HPI (staff) with the patient today. -Information was verified and is correct. -Additional information provided if needed. Patient is new to [place] Patient is here today for evaluation and overall feeling- pretty good Medical History: Allergic rhinitis?Abi 24 hours/fexofenadine Anxiety depression?, Fluoxetine 40 mg twice daily dosing- has been off meds for years- Of Wellbutrin 150 twice daily- no counseling in the past school was a struggle for her- her children had ADHD and mental health issues. Very fidgetty- dance alot TEARFUL TODAY Diabetes/obesity/PCOS ?, Metformin 1000 mg- has been out of medication for years- 3 years Allergies to glipizide Jardiance and Januvia Recurrent yeast infections GERD? Nexium 20 mg- it is much better, used to be bad., Zofran 4 mg as needed Hemorrhoids, Proctosol cream has been prescribed in the past ED visit for neck pain and arm pain, tramadol and Medrol pack ED visit for UTI-was prescribed Keflex 500 ED visit for right wrist sprain followed by [facility] claim and Ortho follow-up Past Surgical History: In 2019 patient had bilateral salpingectomy and D&C Past family History: Mother and father with asthma Mother with diabetes, many allergies, ROSC, arrest Father- cancer, lung kidney, colon grandmother with cancer, lung kidney Mother and grandparent with endometriosis Her children with ADHD, bipolar History (0,0,0,5) Found a lump- endometriosis- [employer]- Keisha Abnormal Pap- getting more testing and biopsies done. 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 Diet: has cut down on pop- has lost 100 lbs- watching what she was eating- Caffeine: coffee and tea Exercise: workout- cardio- cleaning, dancing, fidgeting Alcohol use: Socially 1-2 times per month- very rare Drug use: Denies Smoking status: Former smoker, quit in 2019- 2 packs a day 2 years Health Maintenance: Routine labs: done in ER feb 2023 Pap (21-64yo): up to date colonoscopy/cologuard (45-75yo): not due yet Mammogram (qyr 45-54, q2yrs 55-85): not due yet Lung CA LDCT (55-74 yo + 30 PYH): Specialists: Golf Technician: eddy, 11 yr old, had an updated eye exam in the last 1 year Dentist: needs a dentist [employer] - Keisha Constitutional: no fever, no chills, no sweats, no weakness Skin: no Jaundice, no rash, no lesions, nopetechiae ENMT: no ear pain, no sore throat, no congestion, no hoarseness Respiratory: no shortness of breath, no cough, no orthopnea, no wheezing Cardiovascular: no chest pain, no palpitations, no edema Gastrointestinal: no nausea, no vomiting, no diarrhea, no GI bleeding Genitourinary: no dysuria, no hematuria, no discharge, no pain Musculoskeletal: no back pain, no trauma Neurologic: no headache, no dizziness, no numbness, no weakness Psychiatric: no sleeping problems, no irritability, no mood swings/depression. Heme/Lymph: no bleeding tendency, no bruising tendency, no petechiae, no swollen nodes Allergy/Immunologic: no seasonal allergies, no food allergies, no recurrent infections, no impaired immunity Additional ROS info: Except as noted in the above Review of Systems and in the History of Present Illness all other systems have been reviewed and are negative or noncontributory. Review of Systems PHQ Score Initial Depression Screen Score: 2 SCORE Physical Exam Vitals & Tammie (more content not included)... Normal [facility] Comment on above: Result Comment: Elec tronically Signed By: Aditi Patten\.paulina\Date and Time Signed: 11/02/23 09:00 EDT Nonvisit Note - OTon 024 Nonvisit Note - OT Nonvisit Note - OT Pt cancelled today and re-scheduled for tomorrow 10/18/2023 [facility] C Urineon 03-29-2023 Bacteria identified Cx Nom (U) Microbiology PROCEDURE: Urine Culture [R1] SOURCE: U CleanCatch BODY SITE: COLLECTED DATE/TIME: 03/27/2023 19:37 EST RECEIVED DATE/TIME: 03/27/2023 20:21 EST START DATE/TIME: 03/27/2023 20:21 EST FREE TEXT SOURCE: Adrian Potter DO, DO, Adrian Salmeron FINAL REPORTS Final Report [] Verified Date/Time: [...] Locations R1: This test was performed at: [facility], [address] [place] [address], [facility]- , , [facility] Comment on above: Performed By: #### 1 [id number] ####[place] [address] CT Head or Brain w/o Rhoda schmitt 03-28-2023 CT Head or Brain w/o Contrast [...] MD Transcribed by: SIERRA Technologist: CRISTOFER Normal [facility] Discharge Instructionson Discharge Instructions [id number] 1.00TIFF Normal [facility] ED Note-Physicianon 03-28-19 24 ED Note-Physician Basic Information Time Seen: Adrian [...] day(s), # 18 tab(s), Refills(s) 0, Pharmacy: [facility], 162, cm, 03/27/23 18:39:00 EST, Height/Length Dosing, 85, kg, 03/27/23 18:39:00 EST, Weight Dosing Orders: methylPREDNISolone, = 1 packet(s), Oral, As Directed, as directed on package labeling, X 6 day(s), # 21 tab(s), Refills(s) 0, Pharmacy: [facility], 162, cm, 03/27/23 18:39:00 EST, [...] Beta hCG Qual CBC w/ Auto Diff Jbph[facility] Stroke Scale CT Head or Brain w/o [...] Home Discha (more content not included)... Normal [facility] Comment on above: Result Comment: Elec tronically [...] mGy = na DAP = na Normal [facility] B hCG Qualon 03-27-2023 Beta HCG ( test) Ql Negative Normal [facility] Comment on above: Performed By: #### 2 [id number] ####[facility] [address] [place] [address] BMPon 03-27-2023 Anion gap [Moles/Vol] 10 mmol/L Normal 6-16 [facility] Comment on above: Performed By: #### 2 215693, 27024799, 25338585, 9119790, 13805109 ####[facility] [address] [facility] [place] [address] BUN/Creat Ratio 20 No Units Normal 10-20 [facility] Comment on above: Performed By: #### 2 084954, 90817057, 23849899, 7280950, 42572596 ####[facility] [address] [place] [address] Calcium [Mass/Vol] 9.1 mg/dL Normal 8.9-11.1 [facility] Comment on above: Performed By: #### 2 971697, 06350194, 75361932, 6315283, 49977665 ####[facility] [address] [place] [address] Chloride [Moles/Vol] 105 mmol/L Normal 101-111 [facility] Comment on above: Performed By: #### 2 330111, 17237731, 21074388, 6910953, 22230548 ####[facility] [address] [place] [address] CO2 [Moles/Vol] 28 mmol/L Normal 21-31 [facility] Comment on above: Performed By: #### 2 510518, 71586611, 11004952, 0045634, 38356744 ####[facility] [address] [place] [address] Creatinine [Mass/Vol] 0.8 mg/dL Normal 0.5-1.3 [facility] Comment on above: Performed By: #### 2 862156, 92420683, 13097012, 4719726, 74431654 ####[facility] [address] [facility] [place] [address] Glucose [Mass/Vol] 106 mg/dL Normal 55-199 [facility] Comment on above: Performed By: #### 2 903897, 64507936, 91923239, 5565432, 78296985 ####[facility] [address] [place] [address] Potassium [Moles/Vol] 3.6 mmol/L Normal 3.5-5.3 [facility] Comment on above: Performed By: #### 2 164261, 47778249, 14294265, 8783602, 84952005 ####[facility] [address] [place] [address] Sodium [Moles/Vol] 139 mmol/L Normal 135-145 [facility] Comment on above: Performed By: #### 2 483283, 27781071, 30769317, 2186396, 38011464 ####[address] [address] Urea nitrogen [Mass/Vol] 16 mg/dL Normal 5-21 [facility] Comment on above: Performed By: #### 2 614370, 17458232, 43511078, 1152937, 22252764 ####[address] [address] CBC w/ Auto Diffon 4 Basophil Absolute 0.1 E9/L Normal 0.0-0.2 [facility] Comment on above: Performed By: #### 2 180342, 68097229, 33456595, 4034438, 25383167 ####[address] [place] [address] Basophils/100 WBC (Bld) 0.6 % Normal 0.0-2.0 [facility] Comment on above: Performed By: #### 2 052981, 28077216, 90727705, 7158751, 90764201 ####[address] [address] Eos Absolute 0.2 E9/L Normal 0.0-0.5 [facility] Comment on above: Performed By: #### 2 447676, 62088127, 18973102, 2325058, 36871693 ####[address] [place] [address] Eosinophils/100 WBC (Bld) 1.8 % Normal 0.0-8.0 [facility] Comment on above: Performed By: #### 2 224247, 27343858, 29064794, 4983276, 97550095 ####[address] [place] [address] Erythrocyte distribution width (RBC) [Ratio] 17.0 % High 10.9-14.2 [facility] Comment on above: Performed By: #### 2 450584, 13009296, 71518258, 9439789, 69094079 ####[address] [address] Hematocrit (Bld) [Volume fraction] 34.0 % Normal 34.0-46.0 [facility] Comment on above: Performed By: #### 2 851035, 22845619, 93836368, 9789168, 46006221 ####[address] [address] Hemoglobin (Bld) [Mass/Vol] 10.9 g/dL Low 12.0-16.0 [facility] Comment on above: Performed By: #### 2 983757, 50339666, 62376733, 0367774, 85218133 ####[address] [address] Lymph Absolute 3.1 E9/L Normal 1.0-4.0 [facility] Comment on above: Performed By: #### 2 619725, 29842484, 54442764, 1197116, 21356927 ####[address] [address] Lymphocytes/100 WBC (Bld) 36.1 % Normal 14.0-50.0 [facility] Comment on above: Performed By: #### 2 219990, 62342365, 77140572, 9965204, 52397790 ####[address] [place] [address] MCH (RBC) [Entitic mass] 26.1 pg Low 27.0-34.0 [facility] Comment on above: Performed By: #### 2 741953, 60427665, 02730888, 3472657, 42248465 ####[address] [place] [address] MCHC (RBC) [Mass/Vol] 32.1 g/dL Normal 31.4-36.0 [facility] Comment on above: Performed By: #### 2 607190, 75245945, 40690730, 4949589, 68170509 ####[address] [address] MCV (RBC) [Entitic vol] 81.3 fL Normal 80.0-100.0 [facility] Comment on above: Performed By: #### 2 885090, 98116017, 01135400, 9518266, 76136310 ####[address] [address] [place] Absolute 0.8 E9/L Normal 0.2-1.0 [facility] Comment on above: Performed By: #### 2 498817, 00694408, 01912511, 8296012, 45432715 ####[place] [address] Monocytes/100 WBC (Bld) 8.7 % Normal 4.0-14.0 [facility] Comment on above: Performed By: #### 2 741094, 69752519, 67144849, 5155816, 30573581 ####[address] [address] Neutro Absolute 4.6 E9/L Normal 2.0-7.5 [facility] Comment on above: Performed By: #### 2 819548, 08747049, 17531643, 7314467, 35169762 ####[address] [address] Neutro Auto 52.8 % Normal 36.0-75.0 [facility] Comment on above: Performed By: #### 2 107319, 46023725, 56655592, 8332287, 46623714 ####[facility] [address] [place] [address] Platelet 333.0 E9/L Normal 150.0-500.0 [facility] Comment on above: Performed By: #### 2 655952, 73036069, 68242951, 4927352, 64204725 ####[facility] [address] [place] [address] Platelet mean volume (Bld) [Entitic vol] 7.0 fL Normal 6.4-10.8 [facility] Comment on above: Performed By: #### 2 606336, 45265949, 46335017, 7729031, 73851408 ####[facility] [address] [place] [address] RBC 4.2 E12/L Low 4.3-5.9 [facility] Comment on above: Performed By: #### 2 267991, 30732077, 27447546, 6617311, 57430756 ####[facility] [address] [place] [address] WBC 8.7 E9/L Normal 4.0-11.0 [facility] Comment on above: Performed By: #### 2 321038, 34253118, 67957530, 6877293, 20881318 ####[facility] [address] [place] [address] CHEMISTRYOrdered By: SYSTEM SYSTEM on 03-27-2023 Anion [...] Sensitivity Troponin I Instructions For Use, Chriss [place], September 2017) Urea nitrogen [Mass/Vol] 16 mg/dL Normal 5 - 21 mg/dL Remisol Chem Urea nitrogen/Creatinine [Mass ratio] 20 mg/mg Normal 10 - 20 Remisol Chem CHEMISTRYOrdered By: Lab ROP User on 03-27-2023 Glucose [Mass/Vol] 120 mg/dL High 55 - 99 mg/dL [facility] POC Subsection POC Device SN [id number] Invalid Interpretation Code [facility] POC Subsection POC User ID [id number] Invalid Interpretation Code [facility] POC Subsection POC Username HERMANN VALENZUELA Invalid Interpretation Code [facility] POC Subsection COAGULATIONOrdered By: Jose Diallo on 03-27-2023 aPTT Coag (PPP) [Time] 34.7 s Normal 25.1 - 36.5 second(s) [facility] Auto Coag Comment on above: Interpretive Data: Carmen johnson 15 days - 4 weeks 1 - 5 months 6 - 11 months 1 - 5 years 6 - 10 years 11 - 17 years PTT Mean: 35.4 (27.6-45.6) Mean: 33.5 (24.8-40.7) Mean: 32.4 (25.1-40.7) Mean: 31.6 (24.0-39.2) Mean: 31.6 (26.9-38.7) Mean: 31.0 (24.6-38.4) Pediatric Reference ranges were obtained from a study by rekha Moore al. prepared from 1437 samples obtained at 7 different centers using the same coagulation reagent and instrumentation as [facility]. Currently there are no coagulation studies available worldwide for children to 14 days, and no normal ranges. Heparin therapeutic range (represented by Anti-Factor Xa activity of 0.2 - 0.4 U/mL) corresponds to PTT of 56.6 - 109.0 sec. INR Coag (PPP) [Relative time] 1.1 {INR} Invalid Interpretation Code [facility] Auto Coag Comment on above: Interpretive Data: I NR results are specifically intended to assess patients stabilized on long-term Anticoagulation therapy suggested INR s Less Intensive Anticoagulation 2.0 3.0 Conventional Range 3.0 4.5 PT Coag (PPP) [Time] 12.4 s Normal 9.4 - 1 2.5 second(s) [facility] Auto Coag Comment on [...] the same coagulation reagent and instrumentation as [facility]. Currently there are no coagulation studies available worldwide for children to 14 days, and no normal ranges. Capillary Glucose POCon 03-01 Glucose [Mass/Vol] 120 mg/dL High 55-99 [facility] Comment on above: Performed By: #### 2 [id number] ####[facility] [address] [place] [address] Consent for Treatmenton 03-01 Consent for Treatment [id number]#1 .00TIFF Normal [facility] ED Clinical Summaryon 2023 ED Clinical Summary [address] [address] ED Clinical Summary Person Information Name: EDB WOODS/[facility] Age: 38 Years : 1985 Sex: Female Language: Slovak PCP: MELA BORJA Marital Status: Single Visit [...] 03/27/2023 21:28:23 03/27/2023 21:28:23 03/27/2023 21:28:23 ADDRESS: [place] [id number] PHYS DOC NOTES: MEDICAL INFORMATION: Prescriptions Given: New Medications [facility] 1987, [address] [place], [place] [id number], [phone] methylPREDNISolone (Medrol 4 mg Tab) 1 Packets By Mouth As Directed for 6 Days. as directed on package labeling. Refills: 0. tramadol (traMADOL 50 mg Tab) 1 Tablets By Mouth every 4 hours as needed Pain 8-10 for 3 Days. Refills: 0. Medications to Continue with No Changes Other Medications acetaminophen-hydroco done (Cocoa 325 mg-5 mg oral tablet) 1 Tablets [...] 5. fluticasone nasal (fluticasone 0.05 mg/inh Nasal [place]) 2 Sprays Nasal Inhalation every day as [...] up: With (more content not included)... Normal [facility] ED Patient Education Noteon 03-27-2023 ED Patient [...] mouth or applied to the skin. Take dccz-sfy-brxovaa and prescription medicines only as told by [...] Reviewed: 05/28/2020 Elsevier Patient Education ? 2022 [employer] Normal [facility] ED Patient Summaryon 01-28-2 024 ED Patient Summary [facility] [address] [place], [place] [address] Patient Discharge Instructions Person Information Name: DEB WOODS Age: 38 Years Arrival Date: 03/27/2023 18:27:29 Discharge Diagnosis: Arm pain Primary Care Physician: MELA BORJA Provider Information Primary Provider: Adrian Potter DO Advanced Integration Architect:[employer] The exam and treatment you received in the Emergency Department were for an urgent problem and are not intended as complete care. It is important that you follow up with a doctor, nurse practitioner, or physician?s assistant director of nursing for ongoing care. If your symptoms become worse or you do not improve as expected and you are unable to reach your usual health care provider, you should return to the Emergency Department. We are available 24 hours a day. DEB WOODS has been given the following list of patient education materials, prescriptions and follow-up instructions: Follow-up Instructions: With: Address: When: [address] [place] [address] Business (1) In 3 days [...] opioids can be used to help relieve pvyowpln-wq-ciihnq pain and are often prescribed following a [...] include visitors, (more content not included)... Normal [facility] HEMATOLOGYOrdered By: SYSTEM SYSTEM on 03-27-2023 Basophil [...] Normal 80.0 - 100.0 fL Remisol Heme [place] Absolute 0.8 E9/L Normal 0.2 - 1.0 [...] Remisol Heme Monitor Recordon 03-27-2023 Monitor Record [id number]# 1.00TIFF Normal [facility] Monitor Record [id number]# 1.00TIFF Normal [facility] PT & PTTon 03-27-2023 aPTT Coag (PPP) [Time] 34.7 second(s) Normal 25.1-36.5 [facility] Comment on above: Result Comment: Para meter 15 days - 4 weeks 1 - 5 months 6 - 11 months 1 - 5 years 6 - 10 years 11 - 17 years PTT Mean: 35.4 (27.6-45.6) Mean: 33.5 (24.8-40.7) Mean: 32.4 (25.1-40.7) Mean: 31.6 (24.0-39.2) Mean: 31.6 (26.9-38.7) Mean: 31.0 (24.6-38.4) Pediatric Reference ranges were obtained from a study by rekha Moore al. prepared from 1437 samples obtained at 7 different centers using the same coagulation reagent and instrumentation as [facility]. Currently there are no coagulation studies available worldwide for children to 14 days, and no normal ranges. Heparin therapeutic range (represented by Anti-Factor Xa activity of 0.2 - 0.4 U/mL) corresponds to PTT of 56.6 - 109.0 sec. Performed By: #### 2 215534, 56896079, 30788510, 7626874, 34457589 ####[facility] [address] [place] [address] INR Coag (PPP) [Relative time] 1.1 {INR} Invalid Interpretation Code [facility] Comment on above: Result Comment: INR results are specifically intended to assess patients stabilized on long-term Anticoagulation therapy suggested INR?s ?Less Intensive Anticoagulation? 2.0 ? 3.0 Conventional Range 3.0 ? 4.5 Performed By: #### 2 390983, 01672193, 92603166, 4019693, 30963484 ####[facility] [address] [place] [address] PT Coag (PPP) [Time] 12.4 second(s) Normal 9.4-12.5 [facility] Comment on above: Result Comment: 15 d [...] the same coagulation reagent and instrumentation as [facility]. Currently there are no coagulation studies available worldwide for children to 14 days, and no normal ranges. Performed By: #### 2 804886, 82232863, 84555099, 7761726, 51570291 ####[facility] [address] [place] [address] RAD - Preliminary Cat Scan R eporton 03-27-2023 RAD - Preliminary Cat Scan Report [id number]# 1.00TIFF Normal [facility] SEROLOGYOrdered By: Jose olivera on 03-27-2023 Beta HCG ( test) Ql Negative (03/27/23 6:55 PM) Normal [facility] Man Sero Troponin 0 Hr.on 03-27-2023 Troponin I.cardiac [Mass/Vol] ng/mL Low 10.10-27.10 [facility] Comment on above: Result Comment: The 95% CI (Confidence Interval) PPV (Positive Predictive Value) for myocardial infarction in females is 38 pg/mL, in males 51 pg/mL. The results should be used in conjunction with clinical conditions of myocardial infarction. (Access High Sensitivity Troponin I Instructions For Use, Chriss [place], September 2017) Performed By: #### 2 990798, 13785023, 38334403, 6595913, 32226522 ####[facility] [address] [place] [address] UA With Cult Reflexon 2023 Bacteria LM Ql (Urine sed) 1+ /HPF Abnormal Trace [facility] Comment on above: Performed By: #### 1 4768723, 1497122 ####[facility] [address] [place] [address] Bilirubin Ql (U) Negative Normal Negative [facility] Comment on above: Performed By: #### 1 3277869, 1961933 ####[address] [address] Clarity (U) CLOUDY Abnormal Clear [facility] Comment on above: Performed By: #### 1 6683018, 2106293 ####[address] [address] Color (U) YELLOW Normal Yellow [facility] Comment on above: Performed By: #### 1 8984800, 2673157 ####[address] [address] Crystals LM Ql (Urine sed) Present Normal [facility] Comment on above: Performed By: #### 1 6904894, 8508049 ####[address] [address] Epithelial cells.squamous LM.HPF (Urine sed) [#/Area] 5-8 Normal 0-2 [facility] Comment on above: Performed By: #### 1 4579305, 5648239 ####[facility] [address] [place] [address] Glucose Test strip (U) [Mass/Vol] Negative Normal Negative [facility] Comment on above: Performed By: #### 1 2688894, 0402620 ####[address] [address] Hemoglobin Ql (U) 1+ Abnormal Negative [facility] Comment on above: Performed By: #### 1 7143925, 1391232 ####[address] [address] Ketones (U) [Mass/Vol] Negative Normal Negative [facility] Comment on above: Performed By: #### 1 5958299, 7062923 ####[place] [address] [place].plasma/[place] .RBC (Bld) [Mass ratio] 0-3 Normal 0-3 [facility] Comment on above: Performed By: #### 1 7564446, 6736846 ####[place] [address] Mucus Ql (Urine sed) 3+ Normal Fish [facility] Comment on above: Performed By: #### 1 5450782, 1911643 ####[place] [address] Nitrite Ql (U) Positive Abnormal Negative [facility] Comment on above: Performed By: #### 1 1310232, 8282478 ####[place] [address] pH (U) 6.0 [pH] Invalid Interpretation Code 5.0-9.0 [facility] Comment on above: Performed By: #### 1 5573193, 1527126 ####[place] [address] Protein (U) [Mass/Vol] Negative Normal Negative [facility] Comment on above: Performed By: #### 1 7000564, 4972538 ####[place] [address] Specific gravity (U) [Rel density] >=1.030 Invalid Interpretation Code 1.005-1.030 [facility] Comment on above: Performed By: #### 1 5051142, 0233070 ####[place] [address] Type of Urine collection method Clean Catch Normal [facility] Comment on above: Performed By: #### 1 4958850, 5442717 ####[place] [address] Urobilinogen Qn (U) 0.2 {Qiana'U}/dL Normal 0.0-1.0 [facility] Comment on above: Performed By: #### 1 0704805, 1999451 ####[facility] [address] [place] [address] WBC Auto Ql (U) Negative Normal Negative [facility] Comment on above: Performed By: #### 1 0718004, 8664093 ####[facility] [address] [place] [address] WBC LM.HPF (Urine sed) [#/Area] 0-5 Normal 0-5 [facility] Comment on above: Performed By: #### 1 1293990, 4007760 ####[facility] [address] [place] [address] URINALYSISOrdered By: Jose Diallo on 03-27-2023 Bacteria [...] PM) Normal Negative [facility] UA Auto SS [place].plasma/[place] .RBC (Bld) [Mass ratio] 0-3 /HPF Normal 0-3/HPF [facility] UA Auto SS Mucus Ql (Urine sed) 3+ (03/27/23 7:37 PM) Normal [facility] UA Auto SS Nitrite Ql (U) Positive *ABN* (03/27/23 7:37 PM) Invalid Interpretation Code Negative [facility] UA Auto SS pH (U) 6.0 *NA* (03/27/23 7:37 PM) Invalid Interpretation Code 5.0 - 9.0 FT UA Auto SS Protein (U) [Mass/Vol] Negative (03/27/23 7:37 PM) Normal Negative [facility] UA Auto SS Specific gravity (U) [Rel density] >=1.030 *NA* (03/27/23 7:37 PM) Invalid Interpretation Code 1.005 - 1.030 [facility] UA Auto SS UA Spec Desc Clean Catch (03/27/23 7:37 PM) Normal [facility] UA Auto SS Urobilinogen Qn (U) 0.5965056 {Qiana'U}/dL Normal 0.0 - 1.0 EU/dL FT UA Auto SS WBC Auto Ql (U) Negative (03/27/23 7:37 PM) Normal Negative [facility] UA Auto SS WBC LM.HPF (Urine sed) [#/Area] 0-5 /HPF Normal 0-5/HPF [facility] UA Auto SS eGFRon 03-27-2023 eGFR 96 mL/min/1.73 m2 Normal >=59 [facility] Comment on above: Order Comment: Order added by Discern Expert. Performed By: #### 2 585639, 46202136, 04894857, 0596473, 06094166 ####[facility] [address] [place] [address] C Urineon 12-21-2022 Bacteria identified Cx Nom (U) Microbiology PROCEDURE: Urine Culture [R1] SOURCE: U CleanCatch BODY SITE: COLLECTED DATE/TIME: 12/19/2022 08:15 EDT RECEIVED DATE/TIME: 12/19/2022 16:15 EDT START DATE/TIME: 12/19/2022 16:15 EDT FREE TEXT SOURCE: Noel [place]OR[place], Zana Valencia. Noel [place], Zana Valencia. FINAL REPORTS Final Report [] Verified Date/Time: [...] Locations R1: This test was performed at: [facility], [address] [place] [address], [address] , , [facility] on above: Performed By: #### 1 7043006, 6040429 ####[facility] [address] [place] [address] Auto Diffon 12-19-2022 Basophils/100 WBC (Bld) 1.0 % Normal 0.0-2.0 [facility] Comment on above: Order Comment: Order Added by Discern Expert. Performed By: #### 2 503985, 3171853, 9935299, 9802788, 5844210, 18200156 ####[address] [address] Basophils/Leukocytes Auto (Bld) [Pure # fraction] 0.1 E9/L Normal 0.0-0.2 [facility] Comment on above: Order Comment: Order Added by Discern Expert. Performed By: #### 2 641459, 1035097, 7587057, 5167555, 3714807, 53592326 ####[address] [address] Eosinophils/100 WBC (Bld) 2.6 % Normal 0.0-8.0 [facility] Comment on above: Order Comment: Order Added by Discern Expert. Performed By: #### 2 328438, 6532864, 8821139, 2428517, 4779987, 77931965 ####[address] [address] Eosinophils/Leukocytes Auto (Bld) [Pure # fraction] 0.3 E9/L Normal 0.0-0.5 [facility] Comment on above: Order Comment: Order Added by Discern Expert. Performed By: #### 2 142930, 2179954, 8211301, 4492905, 9955766, 71341316 ####[address] [address] Lymphocytes/100 WBC (Bld) 31.2 % Normal 14.0-50.0 [facility] Comment on above: Order Comment: Order Added by Discern Expert. Performed By: #### 2 147686, 9210888, 1070077, 0782022, 0663856, 32790593 ####[facility] [address] [place] [address] Lymphocytes/Leukocytes Auto (Bld) [Pure # fraction] 3.5 E9/L Normal 1.0-4.0 [facility] Comment on above: Order Comment: Order Added by Discern Expert. Performed By: #### 2 613257, 1930484, 6137843, 3259203, 4776858, 42936751 ####[address] [place] [place] [address] Monocytes/100 WBC (Bld) 8.1 % Normal 4.0-14.0 [facility] Comment on above: Order Comment: Order Added by Discern Expert. Performed By: #### 2 392242, 9722366, 0357613, 2367780, 5215618, 95320573 ####[address] [address] Monocytes/Leukocytes Auto (Bld) [Pure # fraction] 0.9 E9/L Normal 0.2-1.0 [facility] Comment on above: Order Comment: Order Added by Discern Expert. Performed By: #### 2 796198, 2277349, 8058888, 5066090, 3332026, 68373694 ####[address] [place] [place] [address] Neutrophils/100 WBC (Bld) 57.1 % Normal 36.0-75.0 [facility] Comment on above: Order Comment: Order Added by Discern Expert. Performed By: #### 2 712884, 8287168, 1677328, 9198377, 7991948, 79235210 ####[address] [place] [place] [address] Neutrophils/Leukocytes Auto (Bld) [Pure # fraction] 6.4 E9/L Normal 2.0-7.5 [facility] Comment on above: Order Comment: Order Added by Discern Expert. Performed By: #### 2 774145, 5793258, 2254793, 4539492, 4259269, 62805173 ####[facility] [address] [place] [address] BMPon 12-19-2022 Creatinine [Mass/Vol] 0.6 mg/dL Normal 0.5-1.3 [facility] Comment on above: Performed By: #### 2 300790, 5599047, 0153647, 3932032, 7556257, 65218960 ####[facility] [address] [place] [address] Urea nitrogen [Mass/Vol] 15 mg/dL Normal 5-21 [facility] Comment on above: Performed By: #### 2 846504, 2059273, 7275008, 0765335, 5818198, 94748062 ####[facility] [address] [place] [address] Urea nitrogen/Creatinine [Mass ratio] 25 No Units High 10-20 [facility] Comment on above: Performed By: #### 2 277174, 8095407, 7371028, 0389749, 6080029, 80914774 ####[facility] [facility] [address] [place] [address] Anion gap [Moles/Vol] 9 mmol/L Normal 6-16 [facility] Comment on above: Performed By: #### 2 642702, 1870981, 3549013, 3231099, 0512820, 44033136 ####[facility] [address] [place] [address] Calcium [Mass/Vol] 8.6 mg/dL Low 8.9-11.1 [facility] Comment on above: Performed By: #### 2 108307, 7420715, 8319986, 3747884, 3221448, 77169670 ####[facility] [address] [place] [address] Chloride [Moles/Vol] 106 mmol/L Normal 101-111 [facility] Comment on above: Performed By: #### 2 402391, 9272945, 4799492, 6889459, 2317562, 25192516 ####[facility] [address] [place] [address] CO2 [Moles/Vol] 25 mmol/L Normal 21-31 [facility] Comment on above: Performed By: #### 2 719595, 0648470, 4505714, 2266824, 9856113, 30141710 ####[facility] [address] [place] [address] Glucose [Mass/Vol] 123 mg/dL Normal 55-199 [facility] Comment on above: Result Comment: If t his glucose result represents a fasting glucose, interpretation should refer to the following reference range: 55-99 mg/dL Performed By: #### 2 512751, 1949611, 7813972, 4448223, 7218426, 21480884 ####[facility] [address] [place] [address] Potassium [Moles/Vol] 4.4 mmol/L Normal 3.5-5.3 [facility] Comment on above: Performed By: #### 2 466903, 0268882, 0459138, 6948598, 1500932, 38997790 ####[facility] [address] [place] [address] Sodium [Moles/Vol] 136 mmol/L Normal 135-145 [facility] Comment on above: Performed By: #### 2 704769, 3366697, 4485458, 6091942, 4333992, 88450496 ####[facility] [address] [place] [address] CBC w/ Auto Diffon 3 Erythrocyte distribution width (RBC) [Ratio] 16.2 % High 10.9-14.2 [facility] Comment on above: Performed By: #### 2 755060, 9812558, 1691456, 3133312, 1600693, 06383011 ####[facility] [address] [place] [address] Hematocrit (Bld) [Volume fraction] 36.5 % Normal 34.0-46.0 [facility] Comment on above: Performed By: #### 2 987693, 4444424, 8790217, 4615775, 7969432, 92149168 ####[address] [address] Hemoglobin (Bld) [Mass/Vol] 11.5 g/dL Low 12.0-16.0 [facility] Comment on above: Performed By: #### 2 604190, 2819891, 1204554, 1062200, 1924375, 00160688 ####[address] [address] MCH (RBC) [Entitic mass] 26.3 pg Low 27.0-34.0 [facility] Comment on above: Performed By: #### 2 232348, 9378006, 0242250, 8285768, 7688058, 69394797 ####[address] [address] MCHC (RBC) [Mass/Vol] 31.5 g/dL Normal 31.4-36.0 [facility] Comment on above: Performed By: #### 2 361416, 6810126, 6285200, 3132251, 6568821, 85084888 ####[address] [address] MCV (RBC) [Entitic vol] 83.5 fL Normal 80.0-100.0 [facility] Comment on above: Performed By: #### 2 085199, 6631240, 4146005, 7410075, 6420202, 08421830 ####[address] [address] Platelet mean volume (Bld) [Entitic vol] 7.4 fL Normal 6.4-10.8 [facility] Comment on above: Performed By: #### 2 211598, 8288913, 8747560, 6048565, 0767689, 11048907 ####[address] [address] Platelets (Bld) [#/Vol] 294.0 E9/L Normal 150.0-500.0 [facility] Comment on above: Performed By: #### 2 488365, 7595422, 2268411, 0664264, 4381931, 82935136 ####[facility] [address] [place] [address] RBC (Bld) [#/Vol] 4.4 E12/L Normal 4.3-5.9 [facility] Comment on above: Performed By: #### 2 042756, 8541264, 6783172, 7848332, 2826972, 89340428 ####[facility] [address] [place] [address] WBC corrected for nucl RBC Auto (Bld) [#/Vol] 11.1 E9/L High 4.0-11.0 [facility] Comment on above: Performed By: #### 2 721601, 1468278, 1602323, 3482364, 9409860, 08188555 ####[facility] [address] [place] [address] CHEMISTRYOrdered By: SYSTEM SYSTEM on 12-19-2022 Albumin [Mass/Vol] 3.5 g/dL Normal 3.3 - 5.0 gm/dL [facility] Albumin/Globulin [Mass ratio] 1.1 {ratio} Normal [...] mmol/L Normal 101 - 1 11 mmol/L [facility] CO2 [Moles/Vol] 25 mmol/L Normal 21 - 31 mmol/L [facility] Creatinine [Mass/Vol] 0.6 mg/dL Normal 0.5 - 1.3 mg/dL [facility] GFR/1.73 sq M.predicted among non-blacks MDRD (S/P/Bld) [Vol rate/Area] 118 mL/min/1.73 m2 Normal >=59mL/min/1 .73 m2 [facility] S Comment on above: Interpretive Data: C hronic kidney disease could be indicated at eGFR's of less than 60 mL/min/1.73m2. Kidney failure is indicated at less than 15 mL/min/1.73m2. Globulin (S) [Mass/Vol] 3.3 g/dL Normal 1.4 - 4.0 gm/dL [facility] Glucose [Mass/Vol] 123 mg/dL Normal 55 - 199 mg/dL [facility] Comment on above: Interpretive Data: I f this glucose result represents a fasting glucose, interpretation should refer to the following reference range: 55-99 mg/dL Lipase [Catalytic activity/Vol] 38 U/L Normal 13 - 58 unit/L [facility] Potassium [Moles/Vol] 4.4 mmol/L Normal 3.5 - 5.3 mmol/L [facility] Protein [Mass/Vol] 6.8 g/dL Normal 6.0 - 7.8 gm/dL [facility] Sodium [Moles/Vol] 136 mmol/L Normal 135 - 145 mmol/L [facility] Urea nitrogen [Mass/Vol] 15 mg/dL Normal 5 - 21 mg/dL [facility] Urea nitrogen/Creatinine [Mass ratio] 25 mg/mg High 10 - [address] Abdomen/Pelvis w/ Contras ton 12-19-2022 [...] 300 Contrast amount in ml's: 100 Normal [facility] Consent for Treatmenton 11-29 Consent for Treatment [id number] .00TIFF Normal [facility] Discharge Instructionson Discharge Instructions [id number] 1.00TIFF Normal [facility] ED Clinical Summaryon 2022 ED Clinical Summary [place] [id number] ED Clinical Summary Person Information Name: DEB WOODS/[facility] Age: 37 Years : 1985 Sex: Female Language: Slovak PCP: NONE, XXXX Marital Status: Single Visit [...] 12/19/2022 09:51:09 12/19/2022 09:51:09 12/19/2022 09:51:09 ADDRESS: [address] [place] [id number] PHYS DOC NOTES: MEDICAL INFORMATION: Prescriptions Given: New Medications [facility], [address] [facility] [facility] [address] [place], [place] [id number], [phone] cephalexin (Keflex 500 mg Cap) 1 Capsules By Mouth every 6 hours for 7 Days. Refills: 0. naproxen (naproxen 500 mg Tab) 1 Tablets By Mouth 2 times a day as needed for pain. Refills: 0. Medications to Continue with No Changes Other Medications acetaminophen-hydroco done (Cocoa 325 mg-5 mg oral tablet) 1 Tablets [...] 5. fluticasone nasal (fluticasone 0.05 mg/inh Nasal [place]) 2 Sprays Nasal Inhalation every day as [...] EDUCATION INFORMATION: Instructions: Urinary Tract Infection, Adult, Ksog-ko-Kyof; Abdominal Pain, Adult, Kbxn-yh-Kjpu Follow up: With: Address: When: Carlitos Loya [facility] [place] [address], [place], [place] (more content not included)... Normal [facility] ED Note-Physicianon 12-20-19 ED Note-Physician Basic Information [...] her back, as well as to her bellybutvirtua [facility]. Reports that this been going on [...] and Complexity of Problems Differential Diagnosis: [] [facility] Data External documents reviewed: [] My [...] as well as Keflex. Discussed follow-up with INDUSTRIAL MAINTENANCE MECHANIC for ultrasound. Discussed return precautions. Follow-up with [...] day(s), # 28 cap(s), Refills(s) 0, [facility], 162, cm, 12/19/22 7:51:00 EDT, Height/Length Dosing, 85, kg, 12/19/22 7:51:00 EDT, Weight Dosing ketorolac, 30 mg = 1 mL, Injection, IV Push, Once, Stop date 12/19/22 8:19:00 EDT, STAT, Start date 12/19/22 8:19:00 EDT, 12/19/22 8:19:00 EDT naproxen, 500 mg = 1 tab(s), Oral, BID, PRN for pain, # 20 tab(s), Refills(s) 0, Pharmacy: [facility] 1985, 162, cm, 12/19/22 7:51:00 EDT, [...] Administered Given (more content not included)... Normal [facility] Comment on above: Result Comment: Elec tronically Signed By: Zana Cohen PA-C\.br\Date and Time Signed: 12/19/22 09:29 EDT\.br\Electronically Co-Signed [...] these instructions at home: Medicines ? Take yajc-zvb-oaozwhp and prescription medicines only as told by [...] belly pain for any changes. ? Take grzn-akj-tivbkpo and prescription medicines only as told by [...] provider. Document Revised: 06/25/2019 Document Reviewed: 06/25/2019 [employer] Patient Education ? 2022 [employer]. Obstetrics and Gynecology Urinary Tract Infection, Adult [...] Take over-the (more content not included)... Normal [facility] ED Patient Summaryon 023 ED Patient Summary [place] [id number] Patient Discharge Instructions Person Information Name: DEB WOODS Age: 37 Years Arrival Date: 12/19/2022 07:39:34 Discharge Diagnosis: Abdominal pain; UTI (urinary tract infection) Primary Care Physician: NONE, XXXX Provider Information Primary Provider: Adrian Potter DO Advanced Integration Architect:None The exam and treatment you received in the Emergency Department were for an urgent problem and are not intended as complete care. It is important that you follow up with a doctor, nurse practitioner, or physician?s assistant director of nursing for ongoing care. If your symptoms become [...] Instructions: With: Address: When: Carlitos Baird [address], [place] [address] Business (1) In 3 days 12/22/2022 Comments: Follow-up with your INDUSTRIAL MAINTENANCE MECHANIC for further evaluation of your thickening of your endometrial complex. If you not have a INDUSTRIAL MAINTENANCE MECHANIC, you may follow-up with Dr. Baird for further evaluation. With: Address: When: Johanny Harmon [address] [place] [address] Business (1) In 3 days 12/22/2022 Comments: [...] Patient Education Materials: Urinary Tract Infection, Adult, Wpmh-tv-Jnqt; Abdominal Pain, Adult, Nhfo-in-Udka A MESSAGE TO ALL PATIENTS REGARDING OPIOIDS PRESCRIPTION OPIOIDS: WHAT YOU NEED TO KNOW Prescription opioids can be used to help relieve qyguqjez-kc-mqjuzr pain and are often prescribed following a [...] of r (more content not included)... Normal [facility] HEMATOLOGYOrdered By: SYSTEM SYSTEM on 12-19-2022 Basophils/100 WBC (Bld) 1.0 % Normal 0.0 - 2.0 % [facility] HemeAutoSS Basophils/Leukocytes Auto (Bld) [Pure # fraction] 0.1 E9/L Normal 0.0 - 0.2 E9/L [facility] HemeAutoSS Eosinophils/100 WBC (Bld) 2.6 % Normal 0.0 - 8.0 % [facility] HemeAutoSS Eosinophils/Leukocytes Auto (Bld) [Pure # fraction] 0.3 E9/L Normal 0.0 - 0.5 E9/L [facility] HemeAutoSS Lymphocytes/100 WBC (Bld) 31.2 % Normal [...] 12-19-2022 Albumin [Mass/Vol] 3.5 g/dL Normal 3.3-5.0 [facility] Comment on above: Performed By: #### 2 352096, 5062260, 8902463, 4587768, 0116550, 94660836 ####[address] [address] Albumin/Globulin (S) [Mass conc ratio] 1.1 Normal 1.1-2.2 [facility] Comment on above: Performed By: #### 2 491328, 8779779, 3993210, 5081485, 5414306, 57615693 ####[address] [address] ALP [Catalytic activity/Vol] 49 Int._Unit/L Normal 21-98 [facility] Comment on above: Performed By: #### 2 543603, 9125131, 3722453, 3474637, 7606318, 82041784 ####[address] [address] ALT No additional P-5'-P [Catalytic activity/Vol] 12 Int._Unit/L Normal 6-46 [facility] Comment on above: Performed By: #### 2 660136, 3558377, 7913451, 7548061, 3218971, 72923490 ####[address] [address] AST [Catalytic activity/Vol] 16 Int._Unit/L Normal 5-43 [facility] Comment on above: Performed By: #### 2 687025, 2807752, 8996239, 5369048, 2383344, 59189995 ####[address] [address] Bilirubin [Mass/Vol] 0.3 mg/dL Normal 0.0-1.1 [facility] Comment on above: Performed By: #### 2 258169, 3259787, 2173363, 2992996, 3866173, 90303521 ####[address] [address] Bilirubin.direct [Mass/Vol] 0.1 mg/dL Normal 0.1-0.4 [facility] Comment on above: Performed By: #### 2 628760, 1677040, 4167471, 8021013, 8822025, 19071739 ####[facility] [address] [place] [address] Bilirubin.indirect [Mass or moles/Vol] 0.2 mg/dL Normal 0.1-0.9 [facility] Comment on above: Performed By: #### 2 451841, 3305192, 0037003, 4932876, 2589149, 62680928 ####[facility] [address] [place] [address] Globulin (S) [Mass/Vol] 3.3 g/dL Normal 1.4-4.0 [facility] Comment on above: Performed By: #### 2 795510, 9519904, 0212355, 0539628, 8581096, 11254191 ####[address] [address] Protein [Mass/Vol] 6.8 g/dL Normal 6.0-7.8 [facility] Comment on above: Performed By: #### 2 975129, 3089202, 5203700, 7757840, 5462611, 24657673 ####[address] [address] Lipase Levelon 12-19-2022 Lipase [Catalytic activity/Vol] 38 U/L Normal 13-58 [facility] Comment on above: Performed By: #### 2 485563, 1778201, 7667158, 9147199, 4648320, 37059791 ####[facility] [address] [place] [address] UA With Cult Reflexon 2022 Bacteria LM Ql (Urine sed) 3+ /HPF Abnormal Trace [facility] Comment on above: Performed By: #### 1 0794646, 2243994 ####[facility] [address] [place] [address] Bilirubin Ql (U) Negative Normal Negative [facility] Comment on above: Performed By: #### 1 2927426, 4985188 ####[facility] [address] [place] [address] Clarity (U) CLEAR Normal Clear [facility] Comment on above: Performed By: #### 1 7079690, 9433391 ####[address] [address] Color (U) YELLOW Normal Yellow [facility] Comment on above: Performed By: #### 1 3528075, 1280255 ####[address] [address] Epithelial cells.squamous LM.HPF (Urine sed) [#/Area] /[HPF] Normal 0-2 [facility] Comment on above: Performed By: #### 1 5613877, 8453104 ####[address] [address] Glucose Test strip (U) [Mass/Vol] Negative Normal Negative [facility] Comment on above: Performed By: #### 1 3512580, 3115918 ####[address] [address] Hemoglobin Ql (U) Negative Normal Negative [facility] Comment on above: Performed By: #### 1 9380132, 6542181 ####[address] [address] Ketones (U) [Mass/Vol] Negative Normal Negative [facility] Comment on above: Performed By: #### 1 8075983, 8423383 ####[address] [address] [place].plasma/[place] .RBC (Bld) [Mass ratio] 0-3 Normal 0-3 [facility] Comment on above: Performed By: #### 1 7393548, 7817312 ####[address] [address] Nitrite Ql (U) Positive Abnormal Negative [facility] Comment on above: Performed By: #### 1 6764073, 6479086 ####[address] [place] [address] pH (U) 6.0 [pH] Invalid Interpretation Code 5.0-9.0 [facility] Comment on above: Performed By: #### 1 3071732, 6644402 ####[address] [address] Protein (U) [Mass/Vol] Negative Normal Negative [facility] Comment on above: Performed By: #### 1 0317160, 9195079 ####[address] [address] Specific gravity (U) [Rel density] >=1.030 Invalid Interpretation Code 1.005-1.030 [facility] Comment on above: Performed By: #### 1 8970880, 2238734 ####[address] [address] Trichomonas sp LM.HPF (Urine sed) [#/Area] Present Normal [facility] Comment on above: Performed By: #### 1 5700460, 0622259 ####[address] [address] Type of Urine collection method Clean Catch Normal [facility] Comment on above: Performed By: #### 1 8789567, 3257953 ####[address] [address] Urobilinogen Qn (U) 0.2 {Qiana'U}/dL Normal 0.0-1.0 [facility] Comment on above: Performed By: #### 1 8875691, 0528873 ####[address] [address] WBC Auto Ql (U) 1+ Abnormal Negative [facility] Comment on above: Performed By: #### 1 0873728, 1961561 ####[address] [address] WBC LM.HPF (Urine sed) [#/Area] 6-15 Abnormal 0-5 [facility] Comment on above: Performed By: #### 1 5302677, 2101130 ####[facility] [address] [place] [address] URINALYSISOrdered By: Mehdi Friend on 12-19-2022 Bacteria [...] AM) Normal Negative [facility] UA Auto SS [place].plasma/[place] .RBC (Bld) [Mass ratio] 0-3 /HPF Normal [...] Desc Clean Catch (12/19/22 8:15 AM) Normal [facility] UA Auto SS Urobilinogen Qn (U) 0.8947198 {Qiana'U}/dL Normal 0.0 - 1.0 EU/dL [facility] UA Auto SS WBC Auto Ql (U) 1+ *ABN* (12/19/22 8:15 AM) Invalid Interpretation Code Negative [facility] UA Auto SS WBC LM.HPF (Urine sed) [#/Area] 6-15 /HPF Invalid Interpretation Code 0-5/HPF [facility] UA Auto SS eGFRon 12-19-2022 GFR/1.73 sq M.predicted among non-blacks MDRD (S/P/Bld) [Vol rate/Area] 118 mL/min/1.73 m2 Normal >=59 [facility] Comment on above: Order Comment: Order added by Discern Expert. Result Comment: Respiratory Therapist jewel kidney disease could be indicated at eGFR's of less than 60 mL/min/1.73m2. Kidney failure is indicated at less than 15 mL/min/1.73m2. Performed By: #### 2 417086, 6934826, 8952933, 0904438, 7699081, 93772827 ####[facility] [address] [place] [address] Vital Signs Date Time Vital Sign Value Performing Clinician Mari pimentel 11-02-2023 07:41-0400 Blood Pressure Location Aditi Vargas [facility] 11-02-2023 07:41-0400 Diastolic blood pressure 72 mm[Hg] Aditi Vargas [facility] 11-02-2023 07:41-0400 Heart rate 80 /min Aditi Vargas [facility] 11-02-2023 07:41-0400 Respiratory rate 16 /min Aditi Vargas [facility] 11-02-2023 07:41-0400 SaO2% (BldA) [Mass fraction] 99 % Aditi Vargas [facility] 11-02-2023 07:41-0400 Systolic blood pressure 106 mm[Hg] Aditi Vargas [facility] 03-27-2023 21:16-0500 Diastolic blood pressure 86 mm[Hg] [facility] 03-27-2023 21:16-0500 Heart rate 61 /min [facility] 03-27-2023 21:16-0500 Mean blood pressure 104 mm[Hg] [facility] 03-27-2023 21:16-0500 Respiratory rate 15 /min [facility] 03-27-2023 21:16-0500 SaO2% (BldA) [Mass fraction] 100 % [facility] 03-27-2023 21:16-0500 Systolic blood pressure 140 mm[Hg] [facility] 03-27-2023 20:35-0500 Diastolic blood pressure 80 mm[Hg] [facility] 03-27-2023 20:35-0500 Heart rate 56 /min [facility] 03-27-2023 20:35-0500 Mean blood pressure 100 mm[Hg] [facility] 03-27-2023 20:35-0500 Respiratory rate 16 /min [facility] 03-27-2023 20:35-0500 SaO2% (BldA) [Mass fraction] 100 % [facility] 03-27-2023 20:35-0500 Systolic blood pressure 140 mm[Hg] [facility] 03-27-2023 19:39-0500 Diastolic blood pressure 80 mm[Hg] [facility] 03-27-2023 19:39-0500 Heart rate 67 /min [facility] 03-27-2023 19:39-0500 Mean blood pressure 90 mm[Hg] [facility] 03-27-2023 19:39-0500 Respiratory rate 18 /min [facility] 03-27-2023 19:39-0500 SaO2% (BldA) [Mass fraction] 97 % [facility] 03-27-2023 19:39-0500 Systolic blood pressure 109 mm[Hg] [facility] 03-27-2023 18:59-0500 gluc 120 mg/dL [facility] 03-27-2023 18:59-0500 gluc [facility] 03-27-2023 18:35-0500 Body temperature 98.24 [degF] [facility] 03-27-2023 18:35-0500 Heart rate 56 /min [facility] 03-27-2023 18:35-0500 Respiratory rate 16 /min [facility] 12-19-2022 09:00-0400 Heart rate 76 /min Adrian Potter [facility] 12-19-2022 09:00-0400 Systolic blood pressure 117 mm[Hg] Adrian Potter [facility] 12-19-2022 08:00-0400 Diastolic blood pressure 78 mm[Hg] Adrian Potter [facility] 12-19-2022 08:00-0400 Heart rate 73 /min Adrian Potter [facility] 12-19-2022 08:00-0400 Respiratory rate 20 /min Adrian Potter [facility] 12-19-2022 08:00-0400 SaO2% (BldA) [Mass fraction] 98 % Adrian Potter [facility] 12-19-2022 08:00-0400 Systolic blood pressure 123 mm[Hg] Adrian Potter [facility] 12-19-2022 07:46-0400 Body temperature 98.24 [degF] Adrian Potter [facility] 12-19-2022 07:46-0400 Diastolic blood pressure 71 mm[Hg] Adrian Potter [facility] 12-19-2022 07:46-0400 Heart rate 89 /min Adrian Potter [facility] 12-19-2022 07:46-0400 Respiratory rate 18 /min Adrian Potter [facility] 12-19-2022 07:46-0400 SaO2% (BldA) [Mass fraction] 99 % Adrian Potter [facility] 12-19-2022 07:46-0400 Systolic blood pressure 127 mm[Hg] Adrian Potter [facility] 07-27-2022 22:20-0400 Body temperature 98.06 [degF] Kaylinn Dokken [facility] 07-27-2022 22:20-0400 Diastolic blood pressure 83 mm[Hg] Kaylinn Dokken [facility] 07-27-2022 22:20-0400 Heart rate 88 /min Nelsonylinn Dokken [facility] 07-27-2022 22:20-0400 Respiratory rate 16 /min Kaylinn Dokken [facility] 07-27-2022 22:20-0400 SaO2% (BldA) [Mass fraction] 99 % Kaylinn Dokken [facility] 07-27-2022 22:20-0400 Systolic blood pressure 124 mm[Hg] Kaylinn Dokken [facility] 07-25-2022 20:35-0400 Body temperature 97.7 [degF] Kenneth Nava [facility] 07-25-2022 20:35-0400 Diastolic blood pressure 77 mm[Hg] Kenneth Nava [facility] 07-25-2022 20:35-0400 Heart rate 87 /min Kenneth Nava [facility] 07-25-2022 20:35-0400 Mean blood pressure 98 mm[Hg] Kenneth Nava [facility] 07-25-2022 20:35-0400 Respiratory rate 17 /min Kenneth Nava [facility] 07-25-2022 20:35-0400 SaO2% (BldA) [Mass fraction] 100 % Kenneth Nava [facility] 07-25-2022 20:35-0400 Systolic blood pressure 140 mm[Hg] Kenneth Nava [facility] 07-25-2022 20:00-0400 Diastolic blood pressure 82 mm[Hg] Kenneth Nava [facility] 07-25-2022 20:00-0400 Heart rate 82 /min Kenneth Nava [facility] 07-25-2022 20:00-0400 Mean blood pressure 100 mm[Hg] Kenneth Nava [facility] 07-25-2022 20:00-0400 SaO2% (BldA) [Mass fraction] 99 % Kenneth Nava [facility] 07-25-2022 20:00-0400 Systolic blood pressure 135 mm[Hg] Kenneth Nava [facility] 07-25-2022 19:40-0400 Body temperature 96.98 [degF] Kenneth Nava [facility] 07-25-2022 19:40-0400 Diastolic blood pressure 83 mm[Hg] Kenneth Nava [facility] 07-25-2022 19:40-0400 Heart rate 88 /min Kenneth Nava [facility] 07-25-2022 19:40-0400 Respiratory rate 16 /min Kenneth Nava [facility] 07-25-2022 19:40-0400 SaO2% (BldA) [Mass fraction] 100 % Kenneth Nava [facility] 07-25-2022 19:40-0400 Systolic blood pressure 136 mm[Hg] Kenneth Nava [facility] 02-01-2022 03:06-0500 Body temperature 98.42 [degF] Eknneth Nava [facility] 02-01-2022 03:06-0500 Diastolic blood pressure 78 mm[Hg] Kenneth Nava [facility] 02-01-2022 03:06-0500 Heart rate 89 /min Kenneth Nava [facility] 02-01-2022 03:06-0500 Respiratory rate 18 /min Kenneth Nava [facility] 02-01-2022 03:06-0500 SaO2% (BldA) [Mass fraction] 99 % Kenneth Nava [facility] 02-01-2022 03:06-0500 Systolic blood pressure 131 mm[Hg] Kenneth Nava [facility] 10-29-2021 18:44-0400 Body temperature 97.7 [degF] Adrian Potter [facility] 10-29-2021 18:44-0400 Diastolic blood pressure 92 mm[Hg] Adrian Potter [facility] 10-29-2021 18:44-0400 Heart rate 90 /min Adrian Potter [facility] 10-29-2021 18:44-0400 Respiratory rate 16 /min Adrian Potter [facility] 10-29-2021 18:44-0400 SaO2% (BldA) [Mass fraction] 95 % Adrian Potter [facility] 10-29-2021 18:44-0400 Systolic blood pressure 137 mm[Hg] Adrian Potter [facility] 10-11-2021 15:54-0400 Diastolic blood pressure 75 mm[Hg] Abdi Lauro [facility] 10-11-2021 15:54-0400 Heart rate 77 /min Abdi Lauro [facility] 10-11-2021 15:54-0400 Respiratory rate 20 /min Abdi Lauro [facility] 10-11-2021 15:54-0400 SaO2% (BldA) [Mass fraction] 100 % Abdi Lauro [facility] 10-11-2021 15:54-0400 Systolic blood pressure 116 mm[Hg] Abdi Lauro [facility] 10-11-2021 13:08-0400 Body temperature 98.06 [degF] Abdi Lauro [facility] 10-11-2021 13:08-0400 Diastolic blood pressure 75 mm[Hg] Abdi Lauro [facility] 10-11-2021 13:08-0400 Heart rate 94 /min Abdi Lauro [facility] 10-11-2021 13:08-0400 Respiratory rate 16 /min Abdi Restrepo [facility] 10-11-2021 13:08-0400 SaO2% (BldA) [Mass fraction] 99 % Abdi Restrepo [facility] 10-11-2021 13:08-0400 Systolic blood pressure 113 mm[Hg] Abdi Restrepo [facility] 09-06-2021 16:11-0400 Body temperature 98.06 [degF] Adrian Potter [facility] 09-06-2021 16:11-0400 Diastolic blood pressure 81 mm[Hg] Adrianbeverley Potter [facility] 09-06-2021 16:11-0400 Heart rate 78 /min Adrian Potter [facility] 09-06-2021 16:11-0400 Respiratory rate 14 /min Adrian Potter [facility] 09-06-2021 16:11-0400 SaO2% (BldA) [Mass fraction] 99 % Adrian Potter [facility] 09-06-2021 16:11-0400 Systolic blood pressure 135 mm[Hg] Adrian Potter [facility] Encounters Encounter Date Encounter Type Care Provider Facility Start: 12-07-2023 ambulatory Aditi Vargas Facil ity:[facility] Start: 11-02-2023 End: 11-02-2023 ambulatory FUENTES VALDES Not Available Start: 11-02-2023 End: 11-02-2023 ambulatory Aditi Vargas Facility:[facility]ie Start: 11-02-2023 End: 11-02-2023 Patient encounter procedure Aditi Vargas [facility] Start: 11-02-2023 End: 11-02-2023 Well adult monitoring check done Aditi Vargas [facility] Start: 10-12-2023 ambulatory Ernie Pocos Facility: [facility] Start: 10-10-2023 End: 10-10-2023 ambulatory FUENTES KEISHA Not Available Start: 10-05-2023 End: 10-05-2023 ambulatory ERNIE POCOS Not Available Start: 10-05-2023 End: 10-05-2023 ambulatory ERNIE POCOS Not Available Start: 10-03-2023 End: 10-03-2023 ambulatory FUENTES KEISHA Not Available Start: 09-21-2023 End: 09-21-2023 ambulatory ERNIE POCOS Not Available Start: 09-19-2023 [facility]ulatory [facility] Start: 09-12-2023 End: 09-12-2023 ambulatory FUENTES KEISHA Not Available Start: 03-27-2023 End: 03-27-2023 Emergency department patient visit Winsome Martínez Sina [facility] Start: 12-19-2022 End: 12-19-2022 Emergency department patient visit Adrian Potter [facility] Start: 07-27-2022 End: 07-28-2022 Emergency department patient visit Blanca Garza [facility] Start: 07-25-2022 End: 07-25-2022 Emergency department patient visit Kenneth Vick [facility] Start: 02-01-2022 End: 02-01-2022 Emergency department patient visit Kenneth Vick [facility] Start: 10-29-2021 End: 10-29-2021 Emergency department patient visit Adrian Potter [facility] Start: 10-11-2021 End: 10-11-2021 Emergency department patient visit Abdi Restrepo [facility] Start: 09-06-2021 End: 09-06-2021 Emergency department patient visit Adrian Potter [facility] Procedures Date Procedure Procedure Detail Performing Clinician Start: 08-20-2019 Dilation and curettage Adrian Potter Start: 08-20-2019 Hysteroscopy Adrian valdivia Start: 08-20-2019 Ligation of fallopia n tube Adrian Potter section Adrian Potter H/O: section ( Confirmed ) Adrian Potter wrist surgery Adrian Potter Immunizations Immunization Date Immunization Notes Care Provider Pia albert 04-30-2021 SARS-CoV-2 (COVID-19 ) Ad26 vaccine, recombinant Aditi Vargas [facility] NEGATED: Highlighted row has not occurred!11-02-2023 influenza virus vaccine, unspecified formulation Aditi Vargas [facility] NEGATED: Highlighted row has not occurred!05-08-2019 influenza virus vaccine, live, attenuated, for intranasal use Adrian Potter [facility] Payers Date Payer Category Payer Unknown [id number] 2022 Worker's Compensation [id number] 2022 Unknown [id number] 1984 Unknown [id number] 2.16.8 [id number] 1984 Unknown [id number] 2.16.8 40.1.920063.3.579.2.727 1984 Unknown [id number] 2.16.8 40.1.793315.3.579.2.727 1984 Unknown [id number] 2.16.8 40.1.034446.3.579.2.727 1984 Unknown [id number] 2.16.8 40.1.905055.3.579.2.727 1984 Unknown [id number] 2.16.8 40.1.516281.3.579.2.727 1984 Unknown [id number] 2.16.84 0.1.683237.3.579.2.9 1984 Unknown [id number] 2.16.84 0.1.160850.3.579.2.9 1984 Unknown [id number] 2.16.84 0.1.013179.3.579.2.9 1984 Unknown [id number] 2.16.84 0.1.551053.3.579.2.9 1984 Unknown [id number] 2.16.84 0.1.075365.3.579.2.9 1984 Unknown [id number] 2.16.84 0.1.627471.3.579.2.9 1984 Unknown [id number] 2.16.84 0.1.470958.3.579.2.1258 1984 Unknown [id number] 2.16.84 0.1.395436.3.579.2.9 1984 Unknown [id number] 2.16.84 0.1.719864.3.579.2.1258 1984 Unknown [id number] 2.16.84 0.1.869930.3.579.2.1259 1984 Unknown [id number] 2.16.84 0.1.269772.3.579.2.1259 1984 Unknown [id number] 2.16.84 0.1.076974.3.579.2.1259 1984 Unknown [id number] 2.16.84 0.1.099081.3.579.2.1259 1984 Unknown [id number] 2.16.84 0.1.540719.3.579.2.1259 1984 Unknown [id number] 2.16.84 0.1.168450.3.579.2.1259 1984 Unknown [id number] 2.16.84 0.1.898584.3.579.2.1259 Social History Date Type Detail Facility Start: 07-22-2020 End: 11-02-2023 Tobacco smoking status Ex-smoker (finding) [facility] Comment on above: States she smoked ci garettes 2 PPD from about 15 y.o. to 21 y.o. Now Vapes nicotine. Tobacco smoking status Never [facility] Sex Assigned At Female [facility] Medical Equipment Procedure Code Equipment Code Equipment Origin al Text Equipment Identifier Dates 1 deb, Topical, BID, 30 gram, Refill(s) 0, [facility], 163, cm, 03/05/20 10:32:00 EST, Height/Length Dosing, 107.6, kg, 03/05/20 10:32:00 EST, Weight Dosing Start: 03-05-2020 1 deb, Topical, BID, 30 gram, Refill(s) 0, [facility], [facility], cm, 03/05/20 10:32:00 EST, Height/Length Dosing, 107.6, kg, 03/05/20 10:32:00 EST, Weight Dosing Start: 03-05-2020 1 deb, Topical, BID, 30 gram, Refill(s) 0, [facility], [facility], cm, 03/05/20 10:32:00 EST, Height/Length Dosing, 107.6, kg, 03/05/20 10:32:00 EST, Weight Dosing Start: 03-05-2020 1 deb, Topical, BID, 30 gram, Refill(s) 0, [facility], [facility], cm, 03/05/20 10:32:00 EST, Height/Length Dosing, 107.6, kg, 03/05/20 10:32:00 EST, Weight Dosing Start: 03-05-2020 1 deb, Topical, BID, 30 gram, Refill(s) 0, [facility] 1985, 163, cm, 03/05/20 10:32:00 EST, Height/Length Dosing, 107.6, kg, 03/05/20 10:32:00 EST, Weight Dosing Start: 03-05-2020 lancets, See Instructions, 100 lancet(s), 1, Check BSS daily and prn., [facility], Supply, 162, cm, 11/02/23 8:04:00 EDT, Height/Length Dosing, 83.6, kg, 11/02/23 8:04:00 EDT, Weight Dosing Start: 11-02-2023 Functional Status Date Assessment Result Facility 11-02-2023 Functional Status N/A [facility] 03-27-2023 Functional Status N/A [facility] 12-19-2022 Functional Status N/A [facility] 07-27-2022 Functional Status N/A [facility] 07-25-2022 Functional Status N/A [facility] 02-01-2022 Functional Status N/A [facility] 10-29-2021 Functional Status N/A [facility] 10-11-2021 Functional Status N/A [facility] 09-06-2021 Functional Status N/A [facility] Clinical Notes 09-06-2021 to 11-02-2023 Note Date & Type Note Facility 11-02-2023 Hospital Discharg e instructions Patient Education 11/02/2023 08:59:05 Diabetes Mellitus and Foot Care Diabetes Mellitus and Foot Care Diabetes, also called diabetes mellitus, may cause problems with your feet and legs because of poor blood flow (circulation). Poor circulation may make your skin: Become thinner and platen drier operator. Break more easily. Heal more slowly. Peel and crack. You may also have nerve damage (neuropathy). This can cause decreased feeling in your legs and feet. This means that you may not notice minor injuries to your feet that could lead to more serious problems. Finding and treating problems early is the best way to prevent future foot problems. How to care for your feet Foot hygiene Wash your feet daily with warm water and mild soap. Do not use hot water. Then, pat your feet and the areas between your toes until they are fully dry. Do not soak your feet. This can dry your skin. Trim your toenails straight across. Do not dig under them or around the cuticle. File the edges of your nails with an emery board or nail file. Apply a moisturizing lotion or petroleum jelly to the skin on your feet and to dry, brittle toenails. Use lotion that does not contain alcohol and is unscented. Do not apply lotion between your toes. Shoes and socks Wear clean socks or stockings every day. Make sure they are not too tight. Do not wear knee-high stockings. These may decrease blood flow to your legs. Wear shoes that fit well and have enough cushioning. Always look in your shoes before you put them on to be sure there are no objects inside. To break in new shoes, wear them for just a few hours a day. This prevents injuries on your feet. Wounds, scrapes, corns, and calluses Check your feet daily for blisters, cuts, bruises, sores, and redness. If you cannot see the bottom of your feet, use a mirror or ask someone for help. Do not cut off corns or calluses or try to remove them with medicine. If you find a minor scrape, cut, or break in the skin on your feet, keep it and the skin around it clean and dry. You may clean these areas with mild soap and water. Do not clean the area with peroxide, alcohol, or iodine. If you have a wound, scrape, corn, or callus on your foot, look at it several times a day to make sure it is healing and not infected. Check for: ?Redness, swelling, or pain. ?Fluid or blood. ?Warmth. ?Pus or a bad smell. General tips Do not cross your legs. This may decrease blood flow to your feet. Do not use heating pads or hot water bottles on your feet. They may burn your skin. If you have lost feeling in your feet or legs, you may not know this is happening until it is too late. Protect your feet from hot and cold by wearing shoes, such as at the beach or on hot pavement. Schedule a complete foot exam at least once a year or more often if you have foot problems. Report any cuts, sores, or bruises to your health care provider right away. Where to find more information [place] Diabetes Association: diabetes.org Association of Diabetes Care & Education Specialists: diabeteseducator.org Contact a health care provider if: You have a condition that increases your risk of infection, and you have any cuts, sores, or bruises on your feet. You have an injury that is not healing. You have redness on your legs or feet. You feel burning or tingling in your legs or feet. You have pain or cramps in your legs and feet. Your legs or feet are numb. Your feet always feel cold. You have pain around any toenails. Get help right away if: You have a wound, scrape, corn, or callus on your foot and: ?You have signs of infection. ?You have a fever. ?You have a red line going up your leg. This information is not intended to replace advice given to you by your health care provider. Make sure you discuss any questions you have with your health care provider. Document Revised: 08/18/2022 Document Reviewed: 08/18/2022 [employer] Patient Education 2023 [employer]. 11/02/2023 08:59:04 Diabetes Mellitus and Exercise Diabetes Mellitus and Exercise Regular exercise is important for your health, especially if you have diabetes mellitus. Exercise is not just about losing weight. It can also help you increase muscle strength and bone density and reduce body fat and stress. This can help your level of endurance and make you more fit and flexible. Why should I exercise if I have diabetes? Exercise has many benefits for people with diabetes. It can: Help lower and control your blood sugar (glucose). Help your body respond better and become more sensitive to the hormone insulin. Reduce how much insulin your body needs. Lower your risk for heart disease by: ?Lowering how much bad cholesterol and triglycerides you have in your body. ?Increasing how much good cholesterol you have in your body. ?Lowering your blood pressure. ?Lowering your blood glucose levels. What is my activity plan? Your health care provider or an expert trained in diabetes care (master certified rv technician) can help you make an activity plan. This plan can help you find the type of exercise that works for you. It may also tell you how often to exercise and for how long. Be sure to: Get at least 150 minutes of medium-intensity or high-intensity exercise each week. This may involve brisk walking, biking, or water aerobics. Do stretching and strengthening exercises at least 2 times a week. This may involve yoga or weight lifting. Spread out your activity over at least 3 days of the week. Get some form of physical activity each day. ?Do not go more than 2 days in a row without some kind of activity. ?Avoid being inactive for more than 30 minutes at a time. Take frequent breaks to walk or stretch. Choose activities that you enjoy. Set goals that you know you can accomplish. Start slowly and increase the intensity of your exercise over time. How do I manage my diabetes during exercise? Monitor your blood glucose Check your blood glucose before and after you exercise. ?If your blood glucose is 240 mg/dL (13.3 mmol/L) or higher before you exercise, check your urine for ketones. These are chemicals created by the liver. If you have ketones in your urine, do not exercise until your blood glucose returns to normal. ?If your blood glucose is 100 mg/dL (5.6 mmol/L) or lower, eat a snack that has 15 20 grams of carbohydrate in it. Check your blood glucose 15 minutes after the snack to make sure that your level is above 100 mg/dL (5.6 mmol/L) before you start to exercise. Your risk for low blood glucose (hypoglycemia) goes up during and after exercise. Know the symptoms of this condition and how to treat it. Follow these instructions at home: Keep a carbohydrate snack on hand for use before, during, and after exercise. This can help prevent or treat hypoglycemia. Avoid injecting insulin into parts of your body that are going to be used during exercise. This may include: ?Your arms, when you are going to play tennis. ?Your legs, when you are about to go jogging. Keep track of your exercise habits. This can help you and your health care provider watch and adjust your activity plan. Write down: ?What you eat before and after you exercise. ?Blood glucose levels before and after you exercise. ?The type and amount of exercise you do. Talk to your health care provider before you start a new activity. They may need to: ?Make sure that the activity is safe for you. ?Adjust your insulin, other medicines, and food that you eat. Drink water while you exercise. This can stop you from losing too much water (dehydration). It can also prevent problems caused by having a lot of heat in your body (heat stroke). Where to find more information [place] [employer] Association: diabetes.org Association of Diabetes Care & Education Specialists: diabeteseducator.org This information is not intended to replace advice given to you by your health care provider. Make sure you discuss any questions you have with your health care provider. Document Revised: 08/04/2022 Document Reviewed: 08/04/2022 [employer] Patient Education 2023 Blog[employer]. 11/02/2023 08:59:03 Carbohydrate Counting for Diabetes Mellitus, Adult Carbohydrate Counting for Diabetes Mellitus, Adult Carbohydrate counting is a method of keeping track of how many carbohydrates you eat. Eating carbohydrates increases the amount of sugar (glucose) in the blood. Counting how many carbohydrates you eat improves how well you manage your blood glucose. This, in turn, helps you manage your diabetes. Carbohydrates are measured in grams (g) per serving. It is important to know how many carbohydrates (in grams or by serving size) you can have in each meal. This is different for every person. A dietitian can help you make a meal plan and calculate how many carbohydrates you should have at each meal and snack. What foods contain carbohydrates? Carbohydrates are found in the following foods: Grains, such as breads and cereals. Dried beans and soy products. Starchy vegetables, such as potatoes, peas, and corn. Fruit and fruit juices. Milk and yogurt. Sweets and snack foods, such as cake, cookies, candy, chips, and soft drinks. How do I count carbohydrates in foods? There are two ways to count carbohydrates in food. You can read food labels or learn standard serving sizes of foods. You can use either of these methods or a combination of both. Using the Nutrition Facts label The Nutrition Facts list is included on the labels of almost all packaged foods and beverages in the [place]. It includes: The serving size. Information about nutrients in each serving, including the grams of carbohydrate per serving. To use the Nutrition Facts, decide how many servings you will have. Then, multiply the number of servings by the number of carbohydrates per serving. The resulting number is the total grams of carbohydrates that you will be having. Learning the standard serving sizes of foods When you eat carbohydrate foods that are not packaged or do not include Nutrition Facts on the label, you need to measure the servings in order to count the grams of carbohydrates. Measure the foods that you will eat with a food scale or measuring cup, if needed. Decide how many standard-size servings you will eat. Multiply the number of servings by 15. For foods that contain carbohydrates, one serving equals 15 g of carbohydrates. ?For example, if you eat 2 cups or 10 oz (300 g) of strawberries, you will have eaten 2 servings and 30 g of carbohydrates (2 servings x 15 g = 30 g). For foods that have more than one food mixed, such as soups and casseroles, you must count the carbohydrates in each food that is included. The following list contains standard serving sizes of common carbohydrate-rich foods. Each of these servings has about 15 g of carbohydrates: 1 slice of bread. 1 six-inch (15 cm) tortilla. ? cup or 2 oz (53 g) cooked rice or pasta. cup or 3 oz (85 g) cooked or canned, drained and rinsed beans or lentils. cup or 3 oz (85 g) starchy vegetable, such as peas, corn, or squash. cup or 4 oz (120 g) hot cereal. cup or 3 oz (85 g) boiled or mashed potatoes, or or 3 oz (85 g) of a large baked potato. cup or 4 fl oz (118 mL) fruit juice. 1 cup or 8 fl oz (237 mL) milk. 1 small or 4 oz (106 g) apple. or 2 oz (63 g) of a medium banana. 1 cup or 5 oz (150 g) strawberries. 3 cups or 1 oz (28.3 g) popped popcorn. What is an example of carbohydrate counting? To calculate the grams of carbohydrates in this sample meal, follow the steps shown below. Sample meal 3 oz (85 g) chicken breast. ? cup or 4 oz (106 g) brown rice. cup or 3 oz (85 g) corn. 1 cup or 8 fl oz (237 mL) milk. 1 cup or 5 oz (150 g) strawberries with sugar-free whipped topping. Carbohydrate calculation 1.Identify the foods that contain carbohydrates: Rice. Ruffin. Milk. Strawberries. 2.Calculate how many servings you have of each food: 2 servings rice. 1 serving corn. 1 serving milk. 1 serving strawberries. 3.Multiply each number of servings by 15 servings rice x 15 g = 30 g. 1 serving corn x 15 g = 15 g. 1 serving milk x 15 g = 15 g. 1 serving strawberries x 15 g = 15 g. 4.Add together all of the amounts to find the total grams of carbohydrates eaten: 30 g + 15 g + 15 g + 15 g = 75 g of carbohydrates total. What are tips for following this plan? Shopping Develop a meal plan and then make a shopping list. Buy fresh and frozen vegetables, fresh and frozen fruit, dairy, eggs, beans, lentils, and whole grains. Look at food labels. Choose foods that have more fiber and less sugar. Avoid processed foods and foods with added sugars. Meal planning Aim to have the same number of grams of carbohydrates at each meal and for each snack time. Plan to have regular, balanced meals and snacks. Where to find more information [place] Diabetes Association: diabetes.org Centers for Disease Control and Prevention: cdc.gov Academy of Nutrition and Dietetics: eatright.org Association of Diabetes Care & Education Specialists: diabeteseducator.org Summary Carbohydrate counting is a method of keeping track of how many carbohydrates you eat. Eating carbohydrates increases the amount of sugar (glucose) in your blood. Counting how many carbohydrates you eat improves how well you manage your blood glucose. This helps you manage your diabetes. A dietitian can help you make a meal plan and calculate how many carbohydrates you should have at each meal and snack. This information is not intended to replace advice given to you by your health care provider. Make sure you discuss any questions you have with your health care provider. Document Revised: 09/17/2020 Document Reviewed: 09/17/2020 [employer] Patient Education 2023 Blog[employer]. 11/02/2023 06:08:32 Heart Disease Prevention Heart Disease Prevention Heart disease is the leading cause of in the world. Coronary artery disease is the most common cause of heart disease. This condition results when cholesterol and other substances (plaque) build up inside the gabriel of the blood vessels that supply your heart muscle (arteries). This buildup in arteries is called atherosclerosis. You can take actions to lower your risk of heart disease. How can heart disease affect me? Heart disease can cause many unpleasant symptoms and complications, such as: Chest pain (angina). Reduced or blocked blood flow to your heart. This can cause: ?Irregular heartbeats (arrhythmias). ?Heart attack. ?Heart failure. What can increase my risk? The following factors may make you more likely to develop this condition: High blood pressure (hypertension). High cholesterol. A diet high in saturated fats or trans fats. Obesity. Diabetes. Having a family history of heart disease. Certain lifestyle factors, including: ?Smoking. ?Lack of physical activity. ?Drinking too much alcohol. What actions can I take to prevent heart disease? Nutrition Follow a heart-healthy eating plan as told by your health care provider. Examples include the DASH eating plan. DASH stands for Dietary Approaches to Stop Hypertension. Generally, it is recommended that you: ?Eat less salt (sodium). Ask your health care provider how much sodium is safe for you. Most people should have less than 2,300 mg each day. ?Limit unhealthy fats, such as saturated and trans fats, in your diet. You can do this by eating low-fat dairy products, eating less red meat, and avoiding processed foods. ?Eat healthy fats (omega-3 fatty acids). These are found in fish, such as mackerel or salmon. ?Eat more fruits and vegetables. You should try to fill one-half of your plate with fruits and vegetables at each meal. ?Eat more whole grains. ?Avoid foods and drinks that have added sugars. Try to limit how much added sugar you have to: ?Less than 25 grams a day for women. ?Less than 36 grams a day for men. Lifestyle Get regular exercise. This is one of the most important things you can do for your health. Generally, it is recommended that you: ?Exercise for at least 30 minutes on most days of the week (150 minutes each week). This should be exercise that causes your heart to beat faster (aerobic exercise). ?Add strength exercises on at least 2 days each week. Do not use any products that contain nicotine or tobacco. These products include cigarettes, chewing tobacco, and vaping devices, such as e-cigarettes. These can damage your heart and blood vessels. If you need help quitting, ask your health care provider. Alcohol use Do not drink alcohol if: ?Your health care provider tells you not to drink. ?You are , may be , or are planning to become . If you drink alcohol: ?Limit how much you have to: ?0 1 drink a day for women. ?0 2 drinks a day for men. ?Know how much alcohol is in your drink. In the [place] one drink equals one 12 oz bottle of beer (355 mL), one 5 oz glass of wine (148 mL), or one 1 oz glass of hard liquor (44 mL). Medicines Take mvrh-srq-kputbcu and prescription medicines only as told by your health care provider. Work with your health care provider to find out whether it is safe and beneficial for you to take aspirin daily. Make sure that you understand how much to take and what form to take. Depending on your risk factors, your health care provider may prescribe medicines to lower your risk of heart disease or to control related conditions. You may take medicine to: ?Lower cholesterol. ?Control blood pressure. ?Control diabetes. General information Keep your blood pressure under control, as recommended by your health care provider. For most healthy people, the upper number of their blood pressure (systolic) should be no higher than 120, and the lower number (diastolic) no higher than 80. Treatment may be needed if your blood pressure is higher than 130/80. Have your blood pressure checked at least every 2 years. Your health care provider may check your blood pressure more often if you have high blood pressure. After age 20, have your cholesterol checked every 4 6 years. If you have risk factors for heart disease, you may need to have it checked more often. Treatment may be needed if your cholesterol is high. Have your body mass index (BMI) checked every year. Your health care provider can calculate your BMI from your height and weight. Check your waist circumference. It should be: ?No more than 35 inches (89 cm) for women who are not . ?No more than 40 inches (102 cm) for men. Work with your health care provider to lose weight, if needed, or to maintain a healthy weight. Where to find more information: Centers for Disease Control and Prevention: www.cdc.gov/heartdisease [place] [employer]: www.heart.org Summary Heart disease is the leading cause of in the world. Heart disease can cause chest pain, abnormal heart rhythms, heart attack, and heart failure. Some of the risk factors for heart disease include high blood pressure, high cholesterol, and smoking. You can take actions to lower your chances of developing heart disease. Work with your health care provider to reduce your risk by following a heart-healthy diet, being physically active, and controlling your weight, blood pressure, and cholesterol level. This information is not intended to replace advice given to you by your health care provider. Make sure you discuss any questions you have with your health care provider. Document Revised: 10/14/2021 Document Reviewed: 10/14/2021 [employer] Patient Education 2023 [employer]. 11/02/2023 06:08:29 Dyslipidemia Dyslipidemia Dyslipidemia is an imbalance of waxy, fat-like substances (lipids) in the blood. The body needs lipids in small amounts. Dyslipidemia often involves a high level of cholesterol or triglycerides, which are types of lipids. Common forms of dyslipidemia include: High levels of LDL cholesterol. LDL is the type of cholesterol that causes fatty deposits (plaques) to build up in the blood vessels that carry blood away from the heart (arteries). Low levels of HDL cholesterol. HDL cholesterol is the type of cholesterol that protects against heart disease. High levels of HDL remove the LDL buildup from arteries. High levels of triglycerides. Triglycerides are a fatty substance in the blood that is linked to a buildup of plaques in the arteries. What are the causes? There are two main types of dyslipidemia: primary and secondary. Primary dyslipidemia is caused by changes (mutations) in genes that are passed down through families (inherited). These mutations cause several types of dyslipidemia. Secondary dyslipidemia may be caused by various risk factors that can lead to the disease, such as lifestyle choices and certain medical conditions. What increases the risk? You are more likely to develop this condition if you are an older man or if you are a woman who has gone through menopause. Other risk factors include: Having a family history of dyslipidemia. Taking certain medicines, including control pills, steroids, some diuretics, and beta-blockers. Eating a diet high in saturated fat. Smoking cigarettes or excessive alcohol intake. Having certain medical conditions such as diabetes, polycystic ovary syndrome (PCOS), kidney disease, liver disease, or hypothyroidism. Not exercising regularly. Being overweight or obese with too much belly fat. What are the signs or symptoms? In most cases, dyslipidemia does not usually cause any symptoms. In severe cases, very high lipid levels can cause: Fatty bumps under the skin (xanthomas). A white or sanchez ring around the black center (pupil) of the eye. Very high triglyceride levels can cause inflammation of the pancreas (pancreatitis). How is this diagnosed? Your health care provider may diagnose dyslipidemia based on a routine blood test (fasting blood test). Because most people do not have symptoms of the condition, this blood testing (lipid profile) is done on adults age 20 and older and is repeated every 4-6 years. This test checks: Total cholesterol. This measures the total amount of cholesterol in your blood, including LDL cholesterol, HDL cholesterol, and triglycerides. A healthy number is below 200 mg/dL (5.17 mmol/L). LDL cholesterol. The target number for LDL cholesterol is different for each person, depending on individual risk factors. A healthy number is usually below 100 mg/dL (2.59 mmol/L). Ask your health care provider what your LDL cholesterol should be. HDL cholesterol. An HDL level of 60 mg/dL (1.55 mmol/L) or higher is best because it helps to protect against heart disease. A number below 40 mg/dL (1.03 mmol/L) for men or below 50 mg/dL (1.29 mmol/L) for women increases the risk for heart disease. Triglycerides. A healthy triglyceride number is below 150 mg/dL (1.69 mmol/L). If your lipid profile is abnormal, your health care provider may do other blood tests. How is this treated? Treatment depends on the type of dyslipidemia that you have and your other risk factors for heart disease and stroke. Your health care provider will have a target range for your lipid levels based on this information. Treatment for dyslipidemia starts with lifestyle changes, such as diet and exercise. Your health care provider may recommend that you: Get regular exercise. Make changes to your diet. Quit smoking if you smoke. Limit your alcohol intake. If diet changes and exercise do not help you reach your goals, your health care provider may also prescribe medicine to lower lipids. The most commonly prescribed type of medicine lowers your LDL cholesterol (statin drug). If you have a high triglyceride level, your provider may prescribe another type of drug (fibrate) or an omega-3 fish oil supplement, or both. Follow these instructions at home: Eating and drinking Follow instructions from your health care provider or dietitian about eating or drinking restrictions. Eat a healthy diet as told by your health care provider. This can help you reach and maintain a healthy weight, lower your LDL cholesterol, and raise your HDL cholesterol. This may include: ?Limiting your calories, if you are overweight. ?Eating more fruits, vegetables, whole grains, fish, and lean meats. ?Limiting saturated fat, trans fat, and cholesterol. Do not drink alcohol if: ?Your health care provider tells you not to drink. ?You are , may be , or are planning to become . If you drink alcohol: ?Limit how much you have to: ?0 1 drink a day for women. ? 0 2 drinks a day for men. ?Know how much alcohol is in your drink. In the [place] one drink equals one 12 oz bottle of beer (355 mL), one 5 oz glass of wine (148 mL), or one 1 oz glass of hard liquor (44 mL). Activity Get regular exercise. Start an exercise and strength training program as told by your health care provider. Ask your health care provider what activities are safe for you. Your health care provider may recommend: ?30 minutes of aerobic activity 4 6 days a week. Brisk walking is an example of aerobic activity. ?Strength training 2 days a week. General instructions Do not use any products that contain nicotine or tobacco. These products include cigarettes, chewing tobacco, and vaping devices, such as e-cigarettes. If you need help quitting, ask your health care provider. Take cpsf-jjl-dbmfdfs and prescription medicines only as told by your health care provider. This includes supplements. Keep all follow-up visits. This is important. Contact a health care provider if: You are having trouble sticking to your exercise or diet plan. You are struggling to quit smoking or to control your use of alcohol. Summary Dyslipidemia often involves a high level of cholesterol or triglycerides, which are types of lipids. Treatment depends on the type of dyslipidemia that you have and your other risk factors for heart disease and stroke. Treatment for dyslipidemia starts with lifestyle changes, such as diet and exercise. Your health care provider may prescribe medicine to lower lipids. This information is not intended to replace advice given to you by your health care provider. Make sure you discuss any questions you have with your health care provider. Document Revised: 09/17/2022 Document Reviewed: 04/20/2021 [employer] Patient Education 2023 [employer]. 11/02/2023 06:08:26 BMI for Adults BMI for Adults Body mass index (BMI) is a number found using a person's weight and height. BMI can help tell how much of a person's weight is made up of fat. BMI does not measure body fat directly. It is used instead of tests that directly measure body fat, which can be difficult and expensive. What are BMI measurements used for? BMI is useful to: Find out if your weight puts you at higher risk for medical problems. Help recommend changes, such as in diet and exercise. This can help you reach a healthy weight. BMI screening can be done again to see if these changes are working. How is BMI calculated? Your height and weight are measured. The BMI is found from those numbers. This can be done with [place] or metric measurements. Note that charts and online BMI calculators are available to help you find your BMI quickly and easily without doing these calculations. To calculate your BMI in [place] measurements: 1.Measure your weight in pounds (lb). 2.Multiply the number of pounds by 703. So, for an adult who weighs 150 lb, multiply that number by 703: 150 x 703, which equals 105,450. 3.Measure your height in inches. Then multiply that number by itself to get a measurement called inches squared. So, for an adult who is 70 inches tall, the inches squared measurement is 70 inches x 70 inches, which equals 4,900 inches squared. 4.Divide the total from step 2 (number of lb x 703) by the total from step 3 (inches squared): 105,450 4,900 = 21.5. This is your BMI. To calculate your BMI in metric measurements: 1.Measure your weight in kilograms (kg). For this example, the weight is 70 kg. 2.Measure your height in meters (m). Then multiply that number by itself to get a measurement called meters squared. So, for an adult who is 1.75 m tall, the meters squared measurement is 1.75 m x 1.75 m, which equals 3.1 meters squared. 3.Divide the number of kilograms (your weight) by the meters squared number. In this example: 70 3.1 = 22.6. This is your BMI. What do the results mean? BMI charts are used to see if you are underweight, normal weight, overweight, or obese. The following guidelines will be used: Underweight: BMI less than 18.5. Normal weight: BMI between 18.5 and 24.9. Overweight: BMI between 25 and 29.9. Obese: BMI of 30 or above. BMI is a tool and cannot diagnose a condition. Talk with your health care provider about what your BMI means for you. Keep these notes in mind: Weight includes fat and muscle. Someone with a muscular build, such as an athlete, may have a BMI that is higher than 24.9. In cases like these, BMI is not a correct measure of body fat. If you have a BMI of 25 or higher, your provider may need to do more testing to find out if excess body fat is the cause. BMI is measured the same way for males and females. Females usually have more body fat than males of the same height and weight. Where to find more information For more information about BMI, including tools to quickly find your BMI, go to: Centers for Disease Control and Prevention: cdc.gov [place] [employer]: heart.org National Heart, Lung, and Blood [place]: nhlbi.nih.gov This information is not intended to replace advice given to you by your health care provider. Make sure you discuss any questions you have with your health care provider. Document Revised: 11/04/2022 Document Reviewed: 10/28/2022 [employer] Patient Education 2023 [employer]. 11/02/2023 06:08:24 Preventing Vitamin D Deficiency Preventing Vitamin D Deficiency Vitamin D deficiency is when your body does not have enough vitamin D. Vitamin D is important because it helps your body maintain calcium and phosphorus levels. It plays a gale role in the health of bones and teeth, reduces inflammation, and improves the body's defense system (immune system). Our bodies make vitamin D when our skin is exposed to direct sunlight. However, for many people, this may not be enough vitamin D to meet the body's needs. How can this condition affect me? If vitamin D deficiency is severe, it can cause a condition in which a person's bones become softer than normal. In adults, this condition is called osteomalacia. In children, this condition is called rickets. Vitamin D deficiency can also cause weak or thin bones (osteoporosis) in adults. What can increase my risk? You may be at risk for a vitamin D deficiency if you: Are . Are obese. Are an older adult. Have dark skin. Take certain medicines that affect the way vitamin D is absorbed. Have had a surgery in which a part of the stomach or a part of the small intestine was removed. Other risk factors include: Having a condition that limits your ability to absorb fat, such as Crohn's disease, long-term (chronic) pancreatitis, or cystic fibrosis. Having certain conditions that are passed from parent to child (inherited). Not having access to foods rich in vitamin D. Having limited ability to move and go outside safely. Living in areas that have fewer hours of sunlight. Spending most of your day indoors, or covering your skin all the time when you are outdoors. What actions can I take to reduce my risk of a vitamin D deficiency? Knowing the best sources of vitamin D You can meet your daily vitamin D needs from: Foods. Dietary supplements. Direct exposure to natural sunlight. formula, for infants. Knowing how much vitamin D you need General recommendations for daily vitamin D intake vary by these categories: Infants: 400 international units (IU). Children older than 1 year: 600 international units. Adults: 600 international units. and women: 600 international units. Adults older than 70 years: 800 international units. These are minimum levels of recommended amounts. Your health care provider may recommend a different amount of vitamin D intake based on your specific needs and your overall health. Getting sun exposure Get regular, safe exposure to natural sunlight. Expose your skin to direct sunlight for at least 15 minutes every day. If you have dark skin, you may need to expose your skin for a longer period of time. Protect your skin from too much sun exposure. This helps to prevent skin cancer. Ask your health care provider if regular sun exposure is safe for you. Do not use a tanning bed. Eating and drinking Eat foods that naturally contain vitamin D. These include: ?Beef liver. ?Eggs. The vitamin D is in the yolk. ?Fish, such as salmon or trout. ?Mushrooms that were treated with UV light. Eat or drink products that have vitamin D added to them (are fortified). These may include: ?Cereals. ?Milk, including plant-based alternatives such as almond, soy, or oat milks. ?Alexander juice. ?Margarine. When choosing foods, check the food label on the package to see: ?How much vitamin D is in the item. ?If the food is fortified with vitamin D. The items listed above may not be a complete list of foods and beverages you can eat and drink. Contact a dietitian for more information. Taking supplements and medicines If you are at risk for vitamin D deficiency, or if you have certain diseases, your health care provider may recommend that you take a vitamin D supplement. Make sure you: Talk with your health care provider before you start taking any vitamin D supplements. You may be more sensitive to the side effects of vitamin D supplements if you are on certain medicines or have certain medical conditions. Tell your health care provider about all medicines you are taking, including vitamins, herbs, eye drops, creams, and gkiw-nxs-bfivsni medicines. Take zrsz-khd-kfiidpk and prescription medicines only as told by your health care provider. Take supplements only as told by your health care provider. To increase absorption of your supplement, take it with a meal or snack. Summary Vitamin D plays a gale role in the health of bones and teeth, reduces inflammation, and improves the body's defense system (immune system). A vitamin D deficiency can put you at risk of developing conditions such as rickets or osteoporosis. Our bodies make vitamin D when our skin is exposed to direct sunlight. However, for many people, this may not be enough vitamin D to meet the body's needs. Some foods naturally contain vitamin D, including beef liver, egg yolk, and fish. Eat or drink products that have vitamin D added to them (are fortified). This information is not intended to replace advice given to you by your health care provider. Make sure you discuss any questions you have with your health care provider. Document Revised: 11/20/2021 Document Reviewed: 11/20/2021 [employer] Patient Education 2023 [employer]. 11/02/2023 06:08:22 Managing Anxiety, Adult Managing Anxiety, Adult After being diagnosed with anxiety, you may be relieved to know why you have felt or behaved a certain way. You may also feel overwhelmed about the treatment ahead and what it will mean for your life. With care and support, you can manage your anxiety. How to manage lifestyle changes Understanding the difference between stress and anxiety Although stress can play a role in anxiety, it is not the same as anxiety. Stress is your body's reaction to life changes and events, both good and bad. Stress is often caused by something external, such as a deadline, test, or competition. It normally goes away after the event has ended and will last just a few hours. But, stress can be ongoing and can lead to more than just stress. Anxiety is caused by something internal, such as imagining a terrible outcome or worrying that something will go wrong that will greatly upset you. Anxiety often does not go away even after the event is over, and it can become a long-term (chronic) worry. Lowering stress and anxiety Talk with your health care provider or a counselor to learn more about lowering anxiety and stress. They may suggest tension-reduction techniques, such as: Music. Spend time creating or listening to music that you enjoy and that inspires you. Mindfulness-based meditation. Practice being aware of your normal breaths while not trying to control your breathing. It can be done while sitting or walking. Centering prayer. Focus on a word, phrase, or sacred image that means something to you and brings you peace. Deep breathing. Expand your stomach and inhale slowly through your nose. Hold your breath for 3 5 seconds. Then breathe out slowly, letting your stomach muscles relax. Self-talk. Learn to notice and spot thought patterns that lead to anxiety reactions. Change those patterns to thoughts that feel peaceful. Muscle relaxation. Take time to tense muscles and then relax them. Choose a tension-reduction technique that fits your lifestyle and personality. These techniques take time and practice. Set aside 5 15 minutes a day to do them. Specialized therapists can offer counseling and training in these techniques. The training to help with anxiety may be covered by some insurance plans. Other things you can do to manage stress and anxiety include: Keeping a stress diary. This can help you learn what triggers your reaction and then learn ways to manage your response. Thinking about how you react to certain situations. You may not be able to control everything, but you can control your response. Making time for activities that help you relax and not feeling guilty about spending your time in this way. Doing visual imagery. This involves imagining or creating mental pictures to help you relax. Practicing yoga. Through yoga poses, you can lower tension and relax. Medicines Medicines for anxiety include: Antidepressant medicines. These are usually prescribed for long-term daily control. Anti-anxiety medicines. These may be added in severe cases, especially when panic attacks occur. When used together, medicines, psychotherapy, and tension-reduction techniques may be the most effective treatment. Relationships Relationships can play a big part in helping you recover. Spend more time connecting with trusted friends and family members. Think about going to couples counseling if you have a partner, taking family education classes, or going to family therapy. Therapy can help you and others better understand your anxiety. How to recognize changes in your anxiety Everyone responds differently to treatment for anxiety. Recovery from anxiety happens when symptoms lessen and stop interfering with your daily life at home or work. This may mean that you will start to: Have better concentration and focus. Worry will interfere less in your daily thinking. Sleep better. Be less irritable. Have more energy. Have improved memory. Try to recognize when your condition is getting worse. Contact your provider if your symptoms interfere with home or work and you feel like your condition is not improving. Follow these instructions at home: Activity Exercise. Adults should: ?Exercise for at least 150 minutes each week. The exercise should increase your heart rate and make you sweat (moderate-intensity exercise). ?Do strengthening exercises at least twice a week. Get the right amount and quality of sleep. Most adults need 7 9 hours of sleep each night. Lifestyle Eat a healthy diet that includes plenty of vegetables, fruits, whole grains, low-fat dairy products, and lean protein. ?Do not eat a lot of foods that are high in fats, added sugars, or salt (sodium). Make choices that simplify your life. Do not use any products that contain nicotine or tobacco. These products include cigarettes, chewing tobacco, and vaping devices, such as e-cigarettes. If you need help quitting, ask your provider. Avoid caffeine, alcohol, and certain carl-roi-ivjlzge cold medicines. These may make you feel worse. Ask your pharmacist which medicines to avoid. General instructions Take uxqp-zsl-pnqacrf and prescription medicines only as told by your provider. Keep all follow-up visits. This is to make sure you are managing your anxiety well or if you need more support. Where to find support You can get help and support from: Self-help groups. Online and community organizations. A trusted spiritual leader. Couples counseling. Family education classes. Family therapy. Where to find more information You may find that joining a support group helps you deal with your anxiety. The following sources can help you find counselors or support groups near you: Mental Health [place]: mentalhealthamerica.net Anxiety and Depression Association of [place] (ADAA): adaa.org National [place] [employer] Mental Illness (LUPE): lupe.org Contact a health care provider if: You have a hard time staying focused or finishing tasks. You spend many hours a day feeling worried about everyday life. You are very tired because you cannot stop worrying. You start to have headaches or often feel tense. You have chronic nausea or diarrhea. Get help right away if: Your heart feels like it is racing. You have shortness of breath. You have thoughts of hurting yourself or others. Get help right away if you feel like you may hurt yourself or others, or have thoughts about taking your own life. Go to your nearest emergency room or: Call 911. Call the National Suicide Prevention Lifeline at or 518. This is open 24 hours a day. Text the Crisis Text Line at 202661. This information is not intended to replace advice given to you by your health care provider. Make sure you discuss any questions you have with your health care provider. Document Revised: 11/23/2022 Document Reviewed: 06/07/2021 [employer] Patient Education 2023 BlogRadio. 11/02/2023 06:08:20 Preventive Care 21-39 Years Old, Female Preventive Care 21 39 Years Old, Female Preventive care refers to lifestyle choices and visits with your health care provider that can promote health and wellness. Preventive care visits are also called wellness exams. What can I expect for my preventive care visit? Counseling During your preventive care visit, your health care provider may ask about your: Medical history, including: ?Past medical problems. ?Family medical history. ? history. Current health, including: ?Menstrual cycle. ?Method of control. ?Emotional well-being. ?Home life and relationship well-being. ?Sexual activity and sexual health. Lifestyle, including: ?Alcohol, nicotine or tobacco, and drug use. ?Access to firearms. ?Diet, exercise, and sleep habits. ?Work and work environment. ?Sunscreen use. ?Safety issues such as seatbelt and bike helmet use. Physical exam Your health care provider may check your: Height and weight. These may be used to calculate your BMI (body mass index). BMI is a measurement that tells if you are at a healthy weight. Waist circumference. This measures the distance around your waistline. This measurement also tells if you are at a healthy weight and may help predict your risk of certain diseases, such as type 2 diabetes and high blood pressure. Heart rate and blood pressure. Body temperature. Skin for abnormal spots. What immunizations do I need? Vaccines are usually given at various ages, according to a schedule. Your health care provider will recommend vaccines for you based on your age, medical history, and lifestyle or other factors, such as travel or where you work. What tests do I need? Screening Your health care provider may recommend screening tests for certain conditions. This may include: Pelvic exam and Pap test. Lipid and cholesterol levels. Diabetes screening. This is done by checking your blood sugar (glucose) after you have not eaten for a while (fasting). Hepatitis B test. Hepatitis C test. HIV (human immunodeficiency virus) test. STI (sexually transmitted infection) testing, if you are at risk. BRCA-related cancer screening. This may be done if you have a family history of breast, ovarian, tubal, or peritoneal cancers. Talk with your health care provider about your test results, treatment options, and if necessary, the need for more tests. Follow these instructions at home: Eating and drinking Eat a healthy diet that includes fresh fruits and vegetables, whole grains, lean protein, and low-fat dairy products. Take vitamin and mineral supplements as recommended by your health care provider. Do not drink alcohol if: ?Your health care provider tells you not to drink. ?You are , may be , or are planning to become . If you drink alcohol: ?Limit how much you have to 0 1 drink a day. ?Know how much alcohol is in your drink. In the [place] one drink equals one 12 oz bottle of beer (355 mL), one 5 oz glass of wine (148 mL), or one 1 oz glass of hard liquor (44 mL). Lifestyle Sarah your teeth every morning and night with fluoride toothpaste. Floss one time each day. Exercise for at least 30 minutes 5 or more days each week. Do not use any products that contain nicotine or tobacco. These products include cigarettes, chewing tobacco, and vaping devices, such as e-cigarettes. If you need help quitting, ask your health care provider. Do not use drugs. If you are sexually active, practice safe sex. Use a condom or other form of protection to prevent STIs. If you do not wish to become , use a form of control. If you plan to become , see your health care provider for a prepregnancy visit. Find healthy ways to manage stress, such as: ?Meditation, yoga, or listening to music. ?Journaling. ?Talking to a trusted person. ?Spending time with friends and family. Minimize exposure to UV radiation to reduce your risk of skin cancer. Safety Always wear your seat belt while driving or riding in a vehicle. Do not drive: ?If you have been drinking alcohol. Do not ride with someone who has been drinking. ?If you have been using any mind-altering substances or drugs. ?While texting. ?When you are tired or distracted. Wear a helmet and other protective equipment during sports activities. If you have firearms in your house, make sure you follow all gun safety procedures. Seek help if you have been physically or sexually abused. What's next? Go to your health care provider once a year for an annual wellness visit. Ask your health care provider how often you should have your eyes and teeth checked. Stay up to date on all vaccines. This information is not intended to replace advice given to you by your health care provider. Make sure you discuss any questions you have with your health care provider. Document Revised: 08/12/2021 Document Reviewed: 08/12/2021 [employer] Patient Education 2023 BlogRadio. 11/02/2023 06:08:10 Health Maintenance, Female Health Maintenance, Female Adopting a healthy lifestyle and getting preventive care are important in promoting health and wellness. Ask your health care provider about: The right schedule for you to have regular tests and exams. Things you can do on your own to prevent diseases and keep yourself healthy. What should I know about diet, weight, and exercise? Eat a healthy diet Eat a diet that includes plenty of vegetables, fruits, low-fat dairy products, and lean protein. Do not eat a lot of foods that are high in solid fats, added sugars, or sodium. Maintain a healthy weight Body mass index (BMI) is used to identify weight problems. It estimates body fat based on height and weight. Your health care provider can help determine your BMI and help you achieve or maintain a healthy weight. Get regular exercise Get regular exercise. This is one of the most important things you can do for your health. Most adults should: Exercise for at least 150 minutes each week. The exercise should increase your heart rate and make you sweat (moderate-intensity exercise). Do strengthening exercises at least twice a week. This is in addition to the moderate-intensity exercise. Spend less time sitting. Even light physical activity can be beneficial. Watch cholesterol and blood lipids Have your blood tested for lipids and cholesterol at 20 years of age, then have this test every 5 years. Have your cholesterol levels checked more often if: Your lipid or cholesterol levels are high. You are older than 40 years of age. You are at high risk for heart disease. What should I know about cancer screening? Depending on your health history and family history, you may need to have cancer screening at various ages. This may include screening for: Breast cancer. Cervical cancer. Colorectal cancer. Skin cancer. Lung cancer. What should I know about heart disease, diabetes, and high blood pressure? Blood pressure and heart disease High blood pressure causes heart disease and increases the risk of stroke. This is more likely to develop in people who have high blood pressure readings or are overweight. Have your blood pressure checked: ?Every 3 5 years if you are 18 39 years of age. ?Every year if you are 40 years old or older. Diabetes Have regular diabetes screenings. This checks your fasting blood sugar level. Have the screening done: Once every three years after age 40 if you are at a normal weight and have a low risk for diabetes. More often and at a younger age if you are overweight or have a high risk for diabetes. What should I know about preventing infection? Hepatitis B If you have a higher risk for hepatitis B, you should be screened for this virus. Talk with your health care provider to find out if you are at risk for hepatitis B infection. Hepatitis C Testing is recommended for: Everyone born from 1945 through 1965. Anyone with known risk factors for hepatitis C. Sexually transmitted infections (STIs) Get screened for STIs, including gonorrhea and chlamydia, if: ?You are sexually active and are younger than 24 years of age. ?You are older than 24 years of age and your health care provider tells you that you are at risk for this type of infection. ?Your sexual activity has changed since you were last screened, and you are at increased risk for chlamydia or gonorrhea. Ask your health care provider if you are at risk. Ask your health care provider about whether you are at high risk for HIV. Your health care provider may recommend a prescription medicine to help prevent HIV infection. If you choose to take medicine to prevent HIV, you should first get tested for HIV. You should then be tested every 3 months for as long as you are taking the medicine. If you are about to stop having your period (premenopausal) and you may become , seek counseling before you get . Take 400 to 800 micrograms (mcg) of folic acid every day if you become . Ask for control (contraception) if you want to prevent . Osteoporosis and menopause Osteoporosis is a disease in which the bones lose minerals and strength with aging. This can result in bone fractures. If you are 65 years old or older, or if you are at risk for osteoporosis and fractures, ask your health care provider if you should: Be screened for bone loss. Take a calcium or vitamin D supplement to lower your risk of fractures. Be given hormone replacement therapy (HRT) to treat symptoms of menopause. Follow these instructions at home: Alcohol use Do not drink alcohol if: ?Your health care provider tells you not to drink. ?You are , may be , or are planning to become . If you drink alcohol: ?Limit how much you have to: ?0 1 drink a day. ?Know how much alcohol is in your drink. In the [place] one drink equals one 12 oz bottle of beer (355 mL), one 5 oz glass of wine (148 mL), or one 1 oz glass of hard liquor (44 mL). Lifestyle Do not use any products that contain nicotine or tobacco. These products include cigarettes, chewing tobacco, and vaping devices, such as e-cigarettes. If you need help quitting, ask your health care provider. Do not use street drugs. Do not share needles. Ask your health care provider for help if you need support or information about quitting drugs. General instructions Schedule regular health, dental, and eye exams. Stay current with your vaccines. Tell your health care provider if: ?You often feel depressed. ?You have ever been abused or do not feel safe at home. Summary Adopting a healthy lifestyle and getting preventive care are important in promoting health and wellness. Follow your health care provider's instructions about healthy diet, exercising, and getting tested or screened for diseases. Follow your health care provider's instructions on monitoring your cholesterol and blood pressure. This information is not intended to replace advice given to you by your health care provider. Make sure you discuss any questions you have with your health care provider. Document Revised: 07/06/2021 Document Reviewed: 07/06/2021 [employer] Patient Education 2023 BlogRadio. Follow Up Care 09/19/2023 11:51:32 With:Aditi Patten FAM, [facility] Address: [address], [facility] [employer] [address] [address]- When:Within 1 Month(s) Comments:f/u labs, HTN, With:Aditi Patten FAM, [facility] Address: [address], [facility] [employer] [address] [phone]- Business (1) When:05/04/2023 Comments:for f/u With:Aditi Patten FAM, [facility] Address: [address], [facility] [employer] [address] [address]- Business (1) When:Within 3 Month(s) Comments:3 mo f/u for DM [facility] 11-02-2023 Note Patient Education Endocrinology Diabetes Mellitus and Foot Care Diabetes, also called diabetes mellitus, may cause problems with your feet and legs because of poor blood flow (circulation). 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 Become thinner and platen drier operator. ? Break more easily. ? Heal more slowly. ? Peel and crack. You may also have nerve damage (neuropathy). This can cause decreased feeling in your legs and feet. This means that you may not notice minor injuries to your feet that could lead to more serious problems. Finding and treating problems early is the best way to prevent future foot problems. How to care for your feet Foot hygiene ? Wash your feet daily with warm water and mild soap. Do not use hot water. Then, pat your feet and the areas between your toes until they are fully dry. Do not soak your feet. This can dry your skin. ? Trim your toenails straight across. Do not dig under them or around the cuticle. File the edges of your nails with an emery board or nail file. ? Apply a moisturizing lotion or petroleum jelly to the skin on your feet and to dry, brittle toenails. Use lotion that does not contain alcohol and is unscented. Do not apply lotion between your toes. Shoes and socks ? Wear clean socks or stockings every day. Make sure they are not too tight. Do not wear knee-high stockings. These may decrease blood flow to your legs. ? Wear shoes that fit well and have enough cushioning. Always look in your shoes before you put them on to be sure there are no objects inside. ? To break in new shoes, wear them for just a few hours a day. This prevents injuries on your feet. Wounds, scrapes, corns, and calluses ? Check your feet daily for blisters, cuts, bruises, sores, and redness. If you cannot see the bottom of your feet, use a mirror or ask someone for help. ? Do not cut off corns or calluses or try to remove them with medicine. ? If you find a minor scrape, cut, or break in the skin on your feet, keep it and the skin around it clean and dry. You may clean these areas with mild soap and water. Do not clean the area with peroxide, alcohol, or iodine. ? If you have a wound, scrape, corn, or callus on your foot, look at it several times a day to make sure it is healing and not infected. Check for: ? Redness, swelling, or pain. ? Fluid or blood. ? Warmth. ? Pus or a bad smell. General tips ? Do not cross your legs. This may decrease blood flow to your feet. ? Do not use heating pads or hot water bottles on your feet. They may burn your skin. If you have lost feeling in your feet or legs, you may not know this is happening until it is too late. ? Protect your feet from hot and cold by wearing shoes, such as at the beach or on hot pavement. ? Schedule a complete foot exam at least once a year or more often if you have foot problems. Report any cuts, sores, or bruises to your health care provider right away. Where to find more information ? [place] Diabetes Association: diabetes.org ? Association of Diabetes Care & Education Specialists: diabeteseducator.org Contact a health care provider if: ? You have a condition that increases your risk of infection, and you have any cuts, sores, or bruises on your feet. ? You have an injury that is not healing. ? You have redness on your legs or feet. ? You feel burning or tingling in your legs or feet. ? You have pain or cramps in your legs and feet. ? Your legs or feet are numb. ? Your feet always feel cold. ? You have pain around any toenails. Get help right away if: ? You have a wound, scrape, corn, or callus on your foot and: ? You have signs of infection. ? You have a fever. ? You have a red line going up your leg. This information is not intended to replace advice given to you by your health care provider. Make sure you discuss any questions you have with your health care provider. Document Revised: 08/18/2022 Document Reviewed: 08/18/2022 [employer] Patient Education ? 2023 BlogRadio. Diabetes Mellitus and Exercise Regular exercise is important for your health, especially if you have diabetes mellitus. Exercise is not just about losing weight. It can also help you increase muscle strength and bone density and reduce body fat and stress. This can help your level of endurance and make you more fit and flexible. Why should I exercise if I have diabetes? Exercise has many benefits for people with diabetes. It can: ? Help lower and control your blood sugar (glucose). ? Help your body respond better and become more sensitive to the hormone insulin. ? Reduce how much insulin your body needs. ? Lower your risk for heart disease by: ? Lowering how much bad cholesterol and triglycerides you have in your body. ? Increasing how much good cholesterol you have in your body. ? Lowering your blood pressure. ? Lowering your blood glucose levels. What is my activity plan? (more content not included)... [facility] 03-27-2023 Hospital Discharg e instructions Patient Education [...] mouth or applied to the skin. Take modk-zuz-jajwmai and prescription medicines only as told by [...] provider. Document Revised: 06/19/2020 Document Reviewed: 05/28/2020 [employer] Patient Education 2022 BlogRadio. Follow Up Care 03/27/2023 18:29:44 With:Malu Cuellar Address: [address] [place], [place] [id number] [facility] (1) When:03/30/2023 21:10:33 Comments:Call the office of [...] you develop any new or worsening symptoms. [facility] 03-27-2023 Evaluation + Plan note Diagnostic Tests PendingUrine Culture 03/27/23 [facility] 12-19-2022 Evaluation + Plan note Extrac maggie from: Title:ED Note Author:Zana Cohen PA-C te:12/19/22 Abdominal pain (R10.9: Unspe cified abdominal pain) UTI (urinary tract infection) (N39.0: Urinary tract infection, site not specified) Orders: cephalexin, 500 mg = 1 cap(s), Oral, q6hr, X 7 day(s), # 28 cap(s), Refills(s) 0, [facility], [facility], cm, 12/19/22 7:51:00 EDT, Height/Length Dosing, 85, kg, 12/19/22 7:51:00 EDT, Weight Dosing ketorolac, 30 mg = 1 mL, Injection, IV Push, Once, Stop date 12/19/22 8:19:00 EDT, STAT, Start date 12/19/22 8:19:00 EDT, 12/19/22 8:19:00 EDT naproxen, 500 mg = 1 tab(s), Oral, BID, PRN for pain, # 20 tab(s), Refills(s) 0, [facility], 162, cm, 12/19/22 7:51:00 EDT, [...] Diagnostic Tests Pending * Urine Culture 12/19/22 [facility]10-22-2023 Hospital Discharge instructions Patient Education 12/19/2022 09:51:09 Urinary Tract Infection, Adult, Lpes-ia-Xohr Urinary Tract Infection, Adult A urinary tract [...] Follow these instructions at home: Medicines Take wafb-slb-aeajvqp and prescription medicines only as told by [...] provider. Document Revised: 09/26/2020 Document Reviewed: 09/26/2020 [employer] Patient Education 2022 BlogRadio. 12/19/2022 09:51:09 Abdominal Pain, Adult, Elxy-dp-Rjhw Abdominal Pain, Adult Many things can cause belly (abdominal) pain. Most times, belly pain is not dangerous. Many cases of belly pain can be watched and treated at home. Sometimes, though, belly pain is serious. Your doctor will try to find the cause of your belly pain. Follow these instructions at home: Medicines Take qtsq-gir-sglqxhz and prescription medicines only as told by [...] your belly pain for any changes. Take rosa-gsu-wzejxpr and prescription medicines only as told by [...] provider. Document Revised: 06/25/2019 Document Reviewed: 06/25/2019 [employer] Patient Education 2022 BlogRadio. Follow Up Care 12/19/2022 07:41:07 With:Carlitos Baird Address: [address], [facility] [address] [place] [address] Business (1) When:12/22/2022 09:15:26 Comments:Follow-up with your INDUSTRIAL MAINTENANCE MECHANIC for further evaluation of your thickening of your endometrial complex. If you not have a INDUSTRIAL MAINTENANCE MECHANIC, you may follow-up with Dr. Baird for further evaluation. With:Johanny Harmon Address: [address] [place] [place] [address] Business (1) When:12/22/2022 09:15:16 Comments:Follow-up with your primary care provider in 3 to 5 days. If symptoms worsen, do not improve, or new symptoms arise please report back to emergency department for further evaluation. [facility]05-31-2023 Evaluation + Plan noteExtracted from: Title:ED Note Author:Rishi Toro PA-C Keron e:07/28/22 Fracture of ulnar styloid (S 52.613A: Displaced fracture of unspecified ulna styloid process, initial encounter for closed fracture) Orders: acetaminophen-oxycodone, 1 EA, Tab, Oral, Once, Stop date 07/27/22 23:04:00 EDT, STAT, Start date 07/27/22 23:04:00 EDT acetaminophen-oxycodone, 1 tab(s), Oral, q4hr for pain, 8 tab(s), Refill(s) 0, [facility], [facility], cm, 07/27/22 22:23:00 EDT, Height/Length Dosing, 91.6, kg, 07/27/22 22:23:00 EDT, Weight Dosing [facility]05-31-2023 Hospital Discharge instructions Patient Education 07/27/2022 [...] is stable enough for you to begin ryhnt-ax-xrlkkz exercises. You may also be prescribed pain [...] cast, splint, or sling on yourwrist. Do kzzjo-qm-xcmnkl exercises only as told by your health care provider or physical therapist. Medicines Take eeks-lpl-arweitq and prescription medicines only as told by your health care provider. Ask your health care provider if the medicine prescribed to you: ?Requires you to avoid driving or using machinery. ?Can cause constipation. You may need to take these actions to prevent or treat constipation: ?Drink enough fluid to keep your urine pale yellow. ?Take axei-mqh-zgvzogo or prescription medicines. ?Eat foods that are [...] provider. Document Revised: 05/27/2020 Document Reviewed: 05/27/2020 [employer] Patient Education 2022 [employer] Follow Up Care 07/27/2022 22:19:07 With:Malu Cuellar Address: [address] [place], [place] [id number] [employer] (1) When:07/30/2022 Comments:Follow-up for evaluation and management of ulnar styloid fracture of indeterminate age With:XXXX NONE Address: [place] When:Within 3 Day(s) [facility]05-28-2023 Hospital Discharge instructions Patient Education 07/25/2022 20:19:04 Contusion, Wjji-mx-Renc Contusion A contusion is a deep bruise. [...] sitting or lying down. General instructions Take xurn-bgx-lhbewtg and prescription medicines only as told by [...] is also called RICE. Youmay be given dnry-jlz-cdgsbjl medicines for pain. Contact a doctor if [...] provider. Document Revised: 12/10/2021 Document Reviewed: 12/10/2021 [employer] Patient Education 2022 BlogRadio. Follow Up Care 07/25/2022 19:36:42 With:Angel Luis SEWELL DO, [place] Address: [address] [place] [phone]- When:2 to 4 days [facility]05-28-2023 Evaluation + Plan noteExtracted from: Title:ED [...] EDT, 07/25/22 20:14:00 EDT Splint Application Wrist [facility]12-05-2022 Evaluation + Plan noteExtracted from: Title:ED Note Author:Kenneth Vick DO Date :02/01/22 Hematoma (T14.8XXA: Other in jury of unspecified body region, initial encounter) [facility]12-05-2022 Hospital Discharge instructions Patient Education 02/01/2022 [...] your health care provider. General instructions Take ikpp-ysz-cotkkrf and prescription medicines only as told by [...] 09/28/2004 Document Revised: 07/11/2019 Document Reviewed: 07/20/2018 [employer] Patient Education 2020 [employer]. Follow Up Care 02/01/2022 03:06:07 With:Srikanth WALTON Address: [address] [place], [place] [id number] Business (1) When:02/08/2022 only if needed [facility]09-01-2022 Hospital Discharge instructions Patient Education 10/29/2021 [...] medicines to help relieve symptoms, such as: Kjwm-dhl-gsmmugz cold medicines. Cough suppressants. Coughing is a [...] and other clear broths. General instructions Take usty-ymd-gcpapiu and prescription medicines only as told by [...] and water are not available, use hand books salesperson. ?Avoid touching your mouth, face, eyes, or [...] 08/10/2001 Document Revised: 02/22/2019 Document Reviewed: 09/30/2017 [employer] Patient Education 2020 [employer]. Follow Up Care 10/29/2021 18:40:12 With:Srikanth WALTON Address: [address] [place] [address] Business (1) When:11/01/2021 19:47:53 Comments:Call the office of [...] you develop any new or worsening symptoms. [facility]09-01-2022 Evaluation + Plan noteExtracted from: Title:ED Note Author:Adrian Potter DO Date: Acute upper respiratory infe ction (J06.9: Acute upper respiratory infection, unspecified) Orders: brompheniramine/dextromethorphan/PSE, 5 mL, Oral, QID for cold symptoms, 200 mL, Refill(s) 0, [facility], 163, cm, 10/29/21 18:48:00 EDT, Height/Length Dosing, 93, kg, 10/29/21 18:48:00 EDT, Weight Dosing methylPREDNISolone, = 1 packet(s), Oral, As Directed, as directed on package labeling, X 6 day(s), # 21 tab(s), Refills(s) 0, Pharmacy: [facility] 1985, 163, cm, 10/29/21 18:48:00 EDT, Height/Length Dosing, 93, kg, 10/29/21 18:48:00 EDT, Weight Dosing ondansetron, 4 mg = 1 tab(s), Oral, q8hr, PRN Nausea/Vomiting, # 12 tab(s), Refills(s) 0, Pharmacy: [facility] 1985, 163, cm, 10/29/21 18:48:00 EDT, Height/Length Dosing, 93, kg, 10/29/21 18:48:00 EDT, Weight Dosing COVID-19 ([facility]) Diagnostic Tests Pending * COVID-19 ([facility]) 10/29/21 [facility]08-14-2022 Hospital Discharge instructions Patient Education 10/11/2021 16:09:43 Contusion, Paks-bi-Guvm Contusion A contusion is a deep bruise. [...] sitting or lying down. General instructions Take nrvm-psx-hzmrjoh and prescription medicines only as told by [...] is also called RICE. Youmay be given nypd-nfu-qkpespt medicines for pain. Contact a doctor if [...] 08/02/2008 Document Revised: 10/06/2018 Document Reviewed: 10/06/2018 [employer] Patient Education 2020 [employer]. Follow Up Care 10/11/2021 13:05:01 With:Malu Cuellar Address: [address] [place] [phone] Business (1) When:10/14/2021 15:44:52 With:Patricia Pollock Address: [address] [place] [phone] Business (1) When:Within 3 Day(s) [facility]07-10-2022 Hospital Discharge instructions Patient Education 09/06/2021 [...] sling or splint to support your injury. Scuf-ndn-ggmivhy anti-inflammatory medicines, such as ibuprofen, for pain control. Wkqja-sp-lfutcd exercises. Follow these instructions at home: RICE [...] bath or a shower. General instructions Take nzan-sit-hdawuvf and prescription medicines only as told by your health care provider. Return to your normal activities as told by your health care provider. Ask your health care provider what activities are safe for you. Do yfnfe-wl-osqtta exercises only as told by your health [...] 01/23/2007 Document Revised: 08/17/2018 Document Reviewed: 08/17/2018 [employer] Patient Education [employer]. Follow Up Care 09/06/2021 16:10:00 With:Luan Sellers Address: [address] [place] [address] [facility] (1) When:09/09/2021 17:07:08 Comments:Call the office of [...] stronger pain medicine for pain not controlled. [facility]07-10-2022 Evaluation + Plan noteExtracted from: Title:ED Note Author:Adrian Potter DO Date: Contusion of elbow (S50.00XA : Contusion of unspecified elbow, initial encounter) Ordered: acetaminophen-hydrocodone, 1 tab(s), Oral, q4hr for pain, 3 tab(s), Refill(s) 0, [facility], 162, cm, 09/06/21 16:13:00 EDT, Height/Length Dosing, 95, kg, 09/06/21 16:13:00 EDT, Weight Dosing Orders: Sling Apply XR Elbow 3+ Views Right [facility] Future App[facility]ments Appointment Date:12/07/2023 08:20:00 AM Scheduled Provider:Aditi Patten Location:[facility] Appointment Type: Open Future Scheduled Tests Laboratory* U Protein/Creat Ratio 11/02/23 * HgbA1c 11/02/23 * Microalbumin Level Urine 11/02/23 * TIBC Calculated 11/02/23 * Vitamin D 25 Hydroxy 11/02/23 * CBC w/ Auto Diff 11/02/23 * Comprehensive Metabolic Panel 11/02/23 * Ferritin 11/02/23 * Folate Level 11/02/23 * Iron Level 11/02/23 * Iron Percent Saturation 11/02/23 * Lipid Panel 11/02/23 * Reticulocyte Count 11/02/23 * Thyroid Stimulating Hormone 11/02/23 * Free T4 11/02/23 * Vitamin B12 Level 11/02/23 [facility] Hospital course Narrative No data available for this section [facility] No data available for this section [facility] (narrative) Referred by: Aditi Patten [facility] Summary Purpose Family History No Family History Records Found Advance Directives No Advanced Directives Records FoundNo Advanced Directives Records Found Additional Source Comments Care Team (unrecognized sect ion and content) Personnel Name: Patricia Pollock NP Address: [address] [place] [address] [place] [phone] Personnel Name: Srikanth WALTON MD Address: [address] [place] [address] Personnel Name: Srikanth WALTON MD Address: Address: [address] [place] [address] Personnel Name: NONE, XXXX Address: Address: [facility] Personnel Name: NONE, XXXX Address: Address: [facility] Personnel Name: NONE, XXXX Address: Address: [facility] Personnel Name: LLC, GENERIC Personnel Name: LLC, GENERIC INFORMATION SOURCE (unrecogn ized section and content) DATE CREATED AUTHOR 11/03/2023 [facility] DATE CREATED AUTHOR AUTHOR'S ORGANIZ ATION 11/04/2023 [employer] [facility] EPIC FOR RECORDS PERTAINING TO PATIENTS WHO ARE [...] BE BASED ON THE PRIMARY CLINICAL RECORDS. [facility] [employer] [facility]. provides no warranty or guarantee of the accuracy or completeness of information in this document.
--- NOTE | 2023-11-04 09:52 | XR_ITS ---
The [address] [address] Patient Name: DEB WOODS MRN: [id number] date: 1985 Sex: F Assigned Patient Location: [facility] Current Patient Location: Accession/Order Number: [id number] Exam Date: 11/04/2023 09:45 Report Date: 11/05/2023 08:01 At the request of: TANYA SCHULTE Procedure: XR chest 2V EXAMINATION: XR chest 2V HISTORY: E-CIGARETTE USE ; presurgical evaluation COMPARISON: No relevant comparison available. FINDINGS: LUNGS: No significant pulmonary parenchymal abnormalities. VASCULATURE: No increased pulmonary vasculature. PLEURA: No pneumothorax, effusion, or pleural thickening. CARDIAC: No cardiomegaly or cardiac silhouette abnormality. MEDIASTINUM: No visible mass or adenopathy. BONES: No fracture or visible bone lesion. OTHER: Negative. XR/XR chest 2V IMPRESSION: 1. No acute infiltrates or suspicious findings. Electronically authenticated by: VIRIDIANA RIOS Date: 11/05/2023 08:01
[2023-11-04 11:04] LABS: Anion Gap 12.4; BUN Creatinine Ratio 23.4; Calcium 9.3 mg/dL (8.5-10.1); Carbon Dioxide 28.8 mmol/L (21.0-32.0); Chloride 104 mmol/L (98-107); Estimated GFR (African America >60 (>=60); Estimated GFR (Non-African Ame >60 (>=60); Glucose 115 mg/dL (74-106); Potassium 4.2 mmol/L (3.5-5.1); Sodium 141 mmol/L (136-145)
== END 2023-11-04 08:47 | disposition home or self-care (01) ==
PROVIDERS: Visit Provider Obstetrics & Gynecology
DX: Z01.810 Encounter for preprocedural cardiovascular examination (principal); Z01.812 Encounter for preprocedural laboratory examination; N92.0 Excessive and frequent menstruation with regular cycle; N93.9 Abnormal uterine and vaginal bleeding, unspecified; R10.2 Pelvic and perineal pain
CPT/HCPCS: 36415; 71046; 80048

== ENCOUNTER 2023-11-18 07:05 | Day surgery (SDC) | payer OTHER, SELFPAY ==
[2023-11-04 09:33] VITALS: BP 111/68; PULSE 64; TEMP 36.3; O2SAT 99; BMI 32.3
[2023-11-18] VITALS (16 sets, daily range): BP systolic 101–135; BP diastolic 62–84; PULSE 56–90; TEMP 36.1–36.4; O2SAT 95–100; BMI 29.9
--- OUTSIDE RECORDS SUMMARY | 2023-11-18 07:08 | XMS_ITS | CCD ---
Author Organization [facility] [address] ion [facility] Care Team Providers Care Office Machine Servicer Name Role Phone Patricia Pollock Primary Care Physician Srikanth WALTON Primary Care Physician [phone] NONE, XXXX Primary Care Physician Nataliya Mitchell, GENERIC Primary Care Physician Adrian James Attending Unavailable Aditi Vargas Attending Unavailable Aditi Vargas Attending Unavailable Pocos, Malu Lacy Attending Unavailable PocMalu casarez Referring Unavailable HajdWinsome harrison Attending Unavailable KEISHAFUENTES Dick Attending Unavailable POCOS, MALU Lacy Referring Unavailable POCOS, MALU Lacy Attending Unavailable MICHEL FOX Referring Unavailable KEISHAFUENTES Dick Attending Unavailable POCOS, MALU Lacy Referring Unavailable POCOS, MALU Lacy Attending Unavailable KEISHAFUENTES Attending Unavailable KEISHAFUENTES Attending Unavailable POCOS, MALU Lacy Referring Unavailable Allergies Allergy Classification Reported Allergen(s) Allergy Type Date of Onset Reaction(s) Facility (10 sources) empagliflozin; Translations: [empagliflozin] Drug Allergy Nausea (finding), Weal (disorder) [facility] (10 sources) glipiZIDE; Translations: [glipizide] Drug Allergy Diarrhea (finding) [facility] (10 sources) SITagliptin; Translations: [sitagliptin] Drug Allergy Mycosis (disorder), Vomiting (disorder) [facility] Medications Current Medications Medication Drug Class(es) Dates Sig (Normalized) Sig (Original) acetaminophen 325 mg / HYDROcodone bitartrate 5 mg oral tablet (8 sources) Opioid Agonist Start: 09-06-2021 take 1 tablet by mouth every four hours for pain [place] 325 mg-5 mg oral tablet 1 tab(s), Oral, q4hr for pain, 3 tab(s), Refill(s) 0, [facility], 162, cm, 09/06/21 16:13:00 EDT, Height/Length Dosing, 95, kg, 09/06/21 16:13:00 EDT, Weight Dosing Start Date: 09/06/21 Status: Ordered acetaminophen 325 mg / oxyCODONE hydrochloride 5 mg oral tablet (3 sources) Opioid Agonist Start: 07-27-2022 take 1 tablet by mouth every four hours for pain acetaminophen-oxy codone 325 mg-5 mg Tab 1 tab(s), Oral, q4hr for pain, 8 tab(s), Refill(s) 0, [facility], 162, cm, 07/27/22 22:23:00 EDT, Height/Length Dosing, 91.6, kg, 07/27/22 22:23:00 EDT, Weight Dosing Start Date: 07/27/22 Status: Ordered Ascorbic Acid (1 source) Vitamin C Start: 11-02-2023 Vitamin C Refills(s) 0 Start Date: 11/02/23 Status: Ordered brompheniramine maleate 0.4 mg/ml / dextromethorphan hydrobromide 2 mg/ml / pseudoephedrine hydrochloride 6 mg/ml oral solution (6 sources) alpha-Adrenergic Agonist, Uncompetitive M-vtjeug-L-aspartat e Receptor Antagonist, Sigma-1 Agonist Start: 10-29-2021 take 5 mL by mouth four times daily Bromfed DM oral syrup 5 mL, Oral, QID for cold symptoms, 200 mL, Refill(s) 0, [facility], 163, cm, 10/29/21 18:48:00 EDT, Height/Length Dosing, 93, kg, 10/29/21 18:48:00 EDT, Weight Dosing Start Date: 10/29/21 Status: Ordered 12 hr buPROPion hydrochloride 150 mg extended release oral tablet (8 sources) Aminoketone Start: 01-30-2020 take 1 tablet by mouth twice daily Wellbutrin SR 150 mg Tab-ER 150 mg = 1 tab(s), Oral, BID, # 30 tab(s), Refills(s) 5, Pharmacy: [facility], 163, cm, 01/30/20 10:40:00 EST, Height/Length Dosing, 105, kg, 01/30/20 10:40:00 EST, Weight Dosing Start Date: 01/30/20 Status: Ordered cephalexin 500 mg oral capsule (1 source) Cephalosporin Antibacterial Start: 12-19-2022 End: 12-26-2022 take 1 capsule by mouth every six hours Keflex 500 mg Cap 500 mg = 1 cap(s), Oral, q6hr, X 7 day(s), # 28 cap(s), Refills(s) 0, Pharmacy: [facility] 1985, 162, cm, 12/19/22 7:51:00 EDT, Height/Length Dosing, 85, kg, 12/19/22 7:51:00 EDT, Weight Dosing Start Date: 12/19/22 Stop Date: 12/26/22 Status: Ordered esomeprazole 20 mg delayed release oral capsule (8 sources) Proton Pump Inhibitor Start: 01-30-2020 take 1 capsule by mouth once daily Nexium 20 mg Cap-DR 20 mg = 1 cap(s), Oral, Daily, # 30 cap(s), Refills(s) 5, Pharmacy: [facility] 1985, 163, cm, 01/30/20 10:40:00 EST, [...] Daily, # 90 cap(s), Refills(s) 0, Pharmacy: [facility], 162, cm, 11/02/23 8:04:00 EDT, Height/Length Dosing, 83.6, kg, 11/02/23 8:04:00 EDT, Weight Dosing Start Date: 11/02/23 Status: Ordered Start: 01-30-2020 take 1 capsule by [facility] twice daily FLUoxetine 40 mg Cap 40 mg = 1 cap(s), Oral, BID, # 30 cap(s), Refills(s) 5, Pharmacy: [facility] 1986, 163, cm, 01/30/20 10:40:00 EST, Height/Length Dosing, 105, kg, 01/30/20 10:40:00 EST, Weight Dosing Start Date: 01/30/20 Status: Ordered fluticasone propionate 0.05 mg/actuat metered dose nasal spray (3 sources) Corticosteroid Start: 01-30-2020 fluticasone 0.05 mg/inh Nasal [place] 100 mcg, 2 spray(s), Nasal, Daily Allergy symptoms, 16 gm, Refill(s) 5, [facility], 163, cm, 01/30/20 10:40:00 EST, Height/Length Dosing, 105, kg, 01/30/20 10:40:00 EST, Weight Dosing Start Date: 01/30/20 Status: Ordered fluticasone 0.05 mg/inh Nasal [place] (5 sources) Start: 01-30-2020 fluticasone 0.05 mg/inh Nasal [place] 100 mcg, 2 spray(s), Nasal, Daily Allergy symptoms, 16 gm, Refill(s) 5, [facility], 163, cm, 01/30/20 10:40:00 EST, Height/Length Dosing, 105, kg, 01/30/20 10:40:00 EST, Weight Dosing Start Date: 01/30/20 Status: Ordered Hydrocortisone (8 sources) Corticosteroid Start: 03-05-2020 apply 30 g rectal route twice daily Proctosol HC 2.5% Cream See Instructions, 30 gm, Refill(s) 0, Rectal BID, [facility], 163, cm, 03/05/20 10:32:00 EST, [...] day(s), # 21 tab(s), Refills(s) 0, Pharmacy: [facility], 162, cm, 03/27/23 18:39:00 EST, Height/Length Dosing, 85, kg, 03/27/23 18:39:00 EST, Weight Dosing Start Date: 03/27/23 Stop Date: 04/02/23 Status: Ordered Start: 10-29-2021 End: 11-04-2021 Medrol 4 mg Tab = 1 packet(s ), Oral, As Directed, as directed on package labeling, X 6 day(s), # 21 tab(s), Refills(s) 0, Pharmacy: [facility] 1985, 163, cm, 10/29/21 18:48:00 EDT, [...] pain, # 20 tab(s), Refills(s) 0, Pharmacy: [facility], 162, cm, 12/19/22 7:51:00 EDT, Height/Length Dosing, 85, kg, 12/19/22 7:51:00 EDT, Weight Dosing Start Date: 12/19/22 Status: Ordered nystatin 404381 unt/ml topical cream (3 sources) Polyene Antifungal Start: 03-05-2020 Nystatin Topical Cream 100,000 units/g Cream 1 deb, Topical, BID, 30 gram, Refill(s) 0, [facility], 163, cm, 03/05/20 10:32:00 EST, Height/Length Dosing, 107.6, kg, 03/05/20 10:32:00 EST, Weight Dosing Start Date: 03/05/20 Status: Ordered traMADol hydrochloride 50 mg oral tablet (1 source) Opioid Agonist Start: 03-27-2023 End: 03-30-2023 traMADOL 50 mg Tab 50 mg = 1 tab(s), Oral, q4hr, PRN Pain 8-10, X 3 day(s), # 18 tab(s), Refills(s) 0, Pharmacy: [facility] 1985, 162, cm, 03/27/23 18:39:00 EST, [...] Nausea/Vomiting, # 12 tab(s), Refills(s) 0, Pharmacy: [facility], 163, cm, 10/29/21 18:48:00 EDT, [...] remain, # 2 tab(s), Refills(s) 0, Pharmacy: [facility], 163, cm, 03/05/20 10:32:00 EST, [...] Test Name Value Interpretation Reference Range Facility MR WRIST RIGHT WO IV CONTRAS Ton 11-09-2023 MR WRIST RIGHT WO IV CONTRAST EXAM: MR WRIST RIGHT WO IV CONTRAST HISTORY: Recent wrist fracture. Limited range of motion. Wrist pain. TECHNIQUE: Multiplanar multisequence MRI of the wrist was performed without contrast COMPARISON: Radiographs radiographs dating back to August 02, 2022 FINDINGS: Scapholunate and lunotriquetral ligaments are intact. Articular disc and styloid and foveal components of the triangular fibrocartilage complex are intact. Visualized flexor and extensor tendons are intact. Median nerve is of normal signal and morphology. A few tiny scattered foci of subcortical bone marrow edema of the carpals are most compatible with degenerative changes. No significant bone marrow edema. There is a chronic curvilinear ossicle along the tip of the ulnar styloid process measuring approximately 7 mm. Mild soft tissue edema surrounds this ossicle. IMPRESSION: Mild soft tissue edema surrounds a chronic 7 mm curvilinear ossicle located along the distal aspect of the ulnar styloid process. No significant bone marrow edema. Ligaments and myotendinous structures appear intact. Mild degenerative changes of the wrist. ELECTRONICALLY SIGNED BY: Chava Schmid, DO Normal Not Available Ambulatory Visit Summaryon 0 11-02-2023 Ambulatory Visit [...] calories Your Care Team Attending Physician - Sam DELA CRUZ, Aditi Unger Primary Care Physician - [facility], GENERIC This Is Your Medications List fluoxetine [...] Following Appointments Follow Up with Aditi Patten [facility] When: In 6 months 05/04/2023 EST Comments: for f/u Where: [address], [address] [place] [address]- Business (1) Follow Up with Aditi Patten [facility] When: In 3 months Comments: 3 mo f/u for DM Where: [address] [place] [address] [place] [address]- Business (1) Someone Will Contact You Regarding These Appointments [facility] External Ambulatory Referral, Psychiatry, 11/02/23 8:40:00 EDT, Generalized anxiety disorder Mild recurrent major depression Family history of bipolar disorder Medications What How Much When Why Instructions New fluoxetine (FLUoxetine 10 mg Cap) 1 Capsules By Mouth Every day Generalized anxiety disorder Pickup at [facility] Unchanged ascorbic acid (Vitamin C) Contact prescribing physician if questions or concerns Unchanged carbonyl iron (Iron Chews) Contact prescribing physician if questions or concerns Unchanged cholecalciferol (Vitamin D3 400 intl units oral capsule) 1 Capsules By Mouth Every day Contact prescribing physician if questions or concerns Pharmacy Information [facility]: [address], [place] [id number] [phone] Medications and Immunizations Administered Not Given influenza [...] eating plan (more content not included)... Normal [facility] Family Medicine Office/Clini c Noteon 11-02-2023 Family Medicine Office/Clinic Note Family Medicine Office/Clinic Note Chief Complaint Est Care HPI Staff Patient is a 38 y.o. female presenting [facility]- lost her home, now she has a stable place to live and is working on getting back to seeing Drs, getting her meds and health conditions under control. [facility] Care: History: Last provider: KEVIN [facility] [place] [facility] Any recent labs: 03/27/23 Health Conditions: Anxiety, Arthritis, DM II, Depression, PTSD Health Maintenance UTD: Colonoscopy: 2006 [place], [place] per patient Mammogram: AGE Pelvic/Pap: Dr. Valdes a week and a half ago- no previous abnormals but states this last PAP as abnormal one of elevels was high. Flu: Medicaid ALEXANDER-14 positive [...] visit for right wrist sprain followed by [facility] claim and Ortho follow-up Past Surgical History: In 2019 patient had bilateral salpingectomy and D&C Past family History: Mother and father with asthma Mother with diabetes, many allergies, ROSC, arrest Father- cancer, lung kidney, colon grandmother with cancer, lung kidney Mother and grandparent with endometriosis Her children with ADHD, bipolar History (0,0,0,5) Found a lump- endometriosis- LOAN SERVICING REPRESENTATIVE- Keisha Abnormal Pap- getting more testing and biopsies done. 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 [facility] Comment on above: Result Comment: Elec tronically Signed By: Aditi Patten.paulina\Date and Time Signed: 11/02/23 09:00 EDT Nonvisit Note - OTon 024 Nonvisit Note - OT Nonvisit Note - OT Pt cancelled today and re-scheduled for tomorrow 10/18/[address] [facility] C Urineon 03-29-2023 Bacteria identified Cx Nom [...] Locations R1: This test was performed at: [facility], [address] [place] [address], [address]- , , Normal [facility] Comment on above: Performed By: #### 1 [id number] ####[facility] [address] [place] [address] CT Head or Brain w/o Contras ton [...] MD Transcribed by: SIERRA Technologist: CRISTOFER Normal [facility] Discharge Instructionson Discharge Instructions [id number] 1.00TIFF Normal [facility] ED Note-Physicianon 03-28-19 ED Note-Physician Basic Information Time Seen: Adrian Potter DOAnselmo 03/27/2023 18:44 Chief Complaint pt states 1030 [...] day(s), # 18 tab(s), Refills(s) 0, Pharmacy: [facility], 162, cm, 03/27/23 18:39:00 EST, Height/Length Dosing, 85, kg, 03/27/23 18:39:00 EST, Weight Dosing Orders: methylPREDNISolone, = 1 packet(s), Oral, As Directed, as directed on package labeling, X 6 day(s), # 21 tab(s), Refills(s) 0, Pharmacy: [facility] 1985, 162, cm, 03/27/23 18:39:00 EST, [...] Beta hCG Qual CBC w/ Auto Diff Freeborn Stroke Scale CT Head or Brain w/o [...] Home Discha (more content not included)... Normal [facility] Comment on above: Result Comment: Elec tronically Signed By: Adrian Potter DO.br\Date and Time Signed: 03/28/23 03:33 EST XR [...] mGy = na DAP = na Normal [facility] B hCG Qualon 03-27-2023 Beta HCG ( test) Ql Negative Normal [facility] Comment on above: Performed By: #### 2 [id number] ####[facility] [address] [place] [address] BMPon 03-27-2023 Anion gap [Moles/Vol] 10 mmol/L Normal 6-16 [facility] Comment on above: Performed By: #### 2 771393, [id number], 65193296, 5578535, 74074667 ####[facility] [address] [place] [address] BUN/Creat Ratio 20 No Units Normal 10-20 [facility] Comment on above: Performed By: #### 2 213774, 51804180, 83076853, 6616181, 54471984 ####[facility] [address] [place] [address] Calcium [Mass/Vol] 9.1 mg/dL Normal 8.9-11.1 [facility] Comment on above: Performed By: #### 2 526943, 94707955, 24106918, 7262526, 31954890 ####[facility] [address] [place] [address] Chloride [Moles/Vol] 105 mmol/L Normal 101-111 [facility] Comment on above: Performed By: #### 2 392011, 05988911, 17230305, 9628596, 78915530 ####[facility] [address] [place] [address] CO2 [Moles/Vol] 28 mmol/L Normal 21-31 [facility] Comment on above: Performed By: #### 2 495227, 64855816, 05797076, 2817900, 96904950 ####[facility] [address] [place] [address] Creatinine [Mass/Vol] 0.8 mg/dL Normal 0.5-1.3 [facility] Comment on above: Performed By: #### 2 817059, 85422849, 42870365, 6979339, 23055938 ####[facility] [address] [place] [address] Glucose [Mass/Vol] 106 mg/dL Normal 55-199 [facility] Comment on above: Performed By: #### 2 777733, 59847218, 32795521, 0273403, 82806423 ####[facility] [address] [place] [address] Potassium [Moles/Vol] 3.6 mmol/L Normal 3.5-5.3 [facility] Comment on above: Performed By: #### 2 184269, 92973496, 70550966, 0710565, 97457983 ####[facility] [address] [place] [address] Sodium [Moles/Vol] 139 mmol/L Normal 135-145 [facility] Comment on above: Performed By: #### 2 020141, 99449666, 54945740, 0761772, 67236250 ####[facility] [address] [place] [address] Urea nitrogen [Mass/Vol] 16 mg/dL Normal 5-21 [facility] Comment on above: Performed By: #### 2 733707, 65401576, 51766367, 2322179, 35279727 ####[facility] [address] [place] [address] CBC w/ Auto Diffon 4 Basophil Absolute 0.1 E9/L Normal 0.0-0.2 [facility] Comment on above: Performed By: #### 2 441598, 07332317, 62159652, 2529884, 14406729 ####[facility] [address] [place] [address] Basophils/100 WBC (Bld) 0.6 % Normal 0.0-2.0 [facility] Comment on above: Performed By: #### 2 437260, 92220753, 58124661, 8787564, 94683124 ####[address] [place] [address] Eos Absolute 0.2 E9/L Normal 0.0-0.5 [facility] Comment on above: Performed By: #### 2 292119, 36004039, 27684713, 3872577, 97891710 ####[address] [address] Eosinophils/100 WBC (Bld) 1.8 % Normal 0.0-8.0 [facility] Comment on above: Performed By: #### 2 774578, 68082298, 56606327, 5011103, 12009778 ####[address] [address] Erythrocyte distribution width (RBC) [Ratio] 17.0 % High 10.9-14.2 [facility] Comment on above: Performed By: #### 2 200201, 75237963, 57835930, 1931357, 72376138 ####[address] [place] [address] Hematocrit (Bld) [Volume fraction] 34.0 % Normal 34.0-46.0 [facility] Comment on above: Performed By: #### 2 035714, 76338362, 31522796, 0341192, 15968080 ####[address] [place] [address] Hemoglobin (Bld) [Mass/Vol] 10.9 g/dL Low 12.0-16.0 [facility] Comment on above: Performed By: #### 2 902599, 59519883, 84756306, 5982756, 22027892 ####[facility] [address] [place] [address] Lymph Absolute 3.1 E9/L Normal 1.0-4.0 [facility] Comment on above: Performed By: #### 2 485784, 88890185, 78439120, 2044351, 34098082 ####[address] [address] Lymphocytes/100 WBC (Bld) 36.1 % Normal 14.0-50.0 [facility] Comment on above: Performed By: #### 2 192361, 17458430, 74511992, 7118597, 74192348 ####[address] [address] MCH (RBC) [Entitic mass] 26.1 pg Low 27.0-34.0 [facility] Comment on above: Performed By: #### 2 012347, 94736400, 78889940, 3980145, 37896042 ####[address] [address] MCHC (RBC) [Mass/Vol] 32.1 g/dL Normal 31.4-36.0 [facility] Comment on above: Performed By: #### 2 545342, 79876990, 23190284, 0169103, 95887799 ####[address] [address] MCV (RBC) [Entitic vol] 81.3 fL Normal 80.0-100.0 [facility] Comment on above: Performed By: #### 2 635035, 55023235, 72859034, 0523505, 83707049 ####[facility] [address] [place] [address] [place] Absolute 0.8 E9/L Normal 0.2-1.0 [facility] Comment on above: Performed By: #### 2 266419, 17167600, 74791710, 8554644, 30989797 ####[facility] [address] [place] [address] Monocytes/100 WBC (Bld) 8.7 % Normal 4.0-14.0 [facility] Comment on above: Performed By: #### 2 403713, 20987001, 43209214, 0091310, 85238027 ####[facility] [address] [place] [address] Neutro Absolute 4.6 E9/L Normal 2.0-7.5 [facility] Comment on above: Performed By: #### 2 837909, 61773069, 90952581, 7187845, 17697708 ####[address] [address] Neutro Auto 52.8 % Normal 36.0-75.0 [facility] Comment on above: Performed By: #### 2 755649, 56024659, 24446128, 3836989, 89040431 ####[address] [place] [address] Platelet 333.0 E9/L Normal 150.0-500.0 [facility] Comment on above: Performed By: #### 2 819532, 24970776, 54916022, 0136474, 75655648 ####[address] [place] [address] Platelet mean volume (Bld) [Entitic vol] 7.0 fL Normal 6.4-10.8 [facility] Comment on above: Performed By: #### 2 528883, 05836506, 32806551, 5288133, 08075224 ####[facility] [address] [place] [address] RBC 4.2 E12/L Low 4.3-5.9 [facility] Comment on above: Performed By: #### 2 414652, 53043759, 36827050, 6958379, 17396379 ####[facility] [address] [place] [address] WBC 8.7 E9/L Normal 4.0-11.0 [facility] Comment on above: Performed By: #### 2 288253, 62265711, 81141022, 8672377, 43568467 ####[facility] [address] [place] [address] CHEMISTRYOrdered By: SYSTEM SYSTEM on 03-27-2023 Anion [...] Sensitivity Troponin I Instructions For Use, Chriss Grace, September 2017) Urea nitrogen [Mass/Vol] 16 mg/dL Normal 5 - 21 mg/dL Remisol Chem Urea nitrogen/Creatinine [Mass ratio] 20 mg/mg Normal 10 - 20 Remisol Chem CHEMISTRYOrdered By: Lab ROP User on 03-27-2023 Glucose [Mass/Vol] 120 mg/dL High 55 - 99 mg/dL [facility] POC Subsection POC Device SN [id number] 1 Invalid Interpretation Code [facility] POC Subsection POC User ID [id number] 1 Invalid Interpretation Code [facility] POC Subsection POC Username HERMANN VALENZUELA Invalid Interpretation Code [facility] POC Subsection COAGULATIONOrdered By: Jose Diallo on 03-27-2023 aPTT Coag (PPP) [Time] 34.7 s Normal 25.1 - 36.5 second(s) [facility] Auto Coag Comment on above: Interpretive Data: [...] the same coagulation reagent and instrumentation as [facility]. Currently there are no coagulation studies available worldwide for children to 14 days, and no normal ranges. Heparin therapeutic range (represented by Anti-Factor Xa activity of 0.2 - 0.4 U/mL) corresponds to PTT of 56.6 - 109.0 sec. INR Coag (PPP) [Relative time] 1.1 {INR} Invalid Interpretation Code [facility] Auto Coag Comment on above: Interpretive Data: I NR results are specifically intended to assess patients stabilized on long-term Anticoagulation therapy suggested INR s Less Intensive Anticoagulation 2.0 3.0 Conventional Range 3.0 4.5 PT Coag (PPP) [Time] 12.4 s Normal 9.4 - 1 2.5 second(s) [facility] Auto Coag Comment on above: Interpretive Data: [...] the same coagulation reagent and instrumentation as [facility]. Currently there are no coagulation studies available worldwide for children to 14 days, and no normal ranges. Capillary Glucose POCon 03-01 Glucose [Mass/Vol] 120 mg/dL High 55-99 [facility] Comment on above: Performed By: #### 2 [id number] ####[facility] [address] [place] [address] Consent for Treatmenton 03-01 Consent for Treatment [id number] .00TIFF Normal [facility] ED Clinical Summaryon 2023 ED Clinical Summary [address] [address] ED Clinical Summary Person Information Name: DEB WOODS [facility] Age: 38 Years : 1985 Sex: Female Language: Japanese PCP: MELA BORJA Marital Status: Single Visit [...] 03/27/2023 21:28:23 03/27/2023 21:28:23 03/27/2023 21:28:23 ADDRESS: [address] [place] [address] [facility] [id number] PHYS DOC NOTES: MEDICAL INFORMATION: Prescriptions Given: New Medications [facility], [address] [facility] [place], [place] [id number], [phone] methylPREDNISolone (Medrol 4 mg Tab) 1 Packets By Mouth As Directed for 6 Days. as directed on package labeling. Refills: 0. tramadol (traMADOL 50 mg Tab) 1 Tablets By Mouth every 4 hours as needed Pain 8-10 for 3 Days. Refills: 0. Medications to Continue with No Changes Other Medications acetaminophen-hydroco done ([place] 325 mg-5 mg oral tablet) 1 Tablets [...] 5. fluticasone nasal (fluticasone 0.05 mg/inh Nasal [place]) 2 Sprays Nasal Inhalation every day as [...] up: With (more content not included)... Normal [facility] ED Patient Education Noteon 03-27-2023 ED Patient [...] mouth or applied to the skin. Take hmoo-vkx-hfdsisx and prescription medicines only as told by [...] provider. Document Revised: 06/19/2020 Document Reviewed: 05/28/2020 [employer] Patient Education ? 2022 [employer] Normal [facility] ED Patient Summaryon 024 ED Patient Summary [address] [address] Patient Discharge Instructions Person Information Name: DEB WOODS Age: 38 Years Arrival Date: 03/27/2023 18:27:29 Discharge Diagnosis: Arm pain Primary Care Physician: MELA BORJA Provider Information Primary Provider: Adrian Potter DO Advanced Attending Ambulatory Care:[facility] The exam and treatment you received in the Emergency Department were for an urgent problem and are not intended as complete care. It is important that you follow up with a doctor, nurse practitioner, or physician?s certified surgical assistant for ongoing care. If your symptoms [...] Instructions: With: Address: When: Malu Cuellar [address] [place], [place] [id number] Business (1) In 3 days 03/30/2023 Comments: [...] opioids can be used to help relieve fvcswkho-ea-rhqkzx pain and are often prescribed following a [...] include visitors, (more content not included)... Normal [facility] HEMATOLOGYOrdered By: SYSTEM SYSTEM on 03-27-2023 Basophil [...] Normal 80.0 - 100.0 fL Remisol Heme [place] Absolute 0.8 E9/L Normal 0.2 - 1.0 [...] Remisol Heme Monitor Recordon 03-27-2023 Monitor Record [id number]# 1.00TIFF Normal [facility] Monitor Record [id number]# 1.00TIFF Normal [facility] PT & PTTon 03-27-2023 aPTT Coag (PPP) [Time] 34.7 second(s) Normal 25.1-36.5 [facility] Comment on above: Result Comment: Para meter [...] the same coagulation reagent and instrumentation as [facility]. Currently there are no coagulation studies available worldwide for children to 14 days, and no normal ranges. Heparin therapeutic range (represented by Anti-Factor Xa activity of 0.2 - 0.4 U/mL) corresponds to PTT of 56.6 - 109.0 sec. Performed By: #### 2 914562, 46669694, 40781364, 9814104, 72688049 ####[facility] [address] [place] [address] INR Coag (PPP) [Relative time] 1.1 {INR} Invalid Interpretation Code [facility] Comment on above: Result Comment: INR results are specifically intended to assess patients stabilized on long-term Anticoagulation therapy suggested INR?s ?Less Intensive Anticoagulation? 2.0 ? 3.0 Conventional Range 3.0 ? 4.5 Performed By: #### 2 953617, 67942805, 01409424, 7484315, 10209942 ####[facility] [address] [place] [address] PT Coag (PPP) [Time] 12.4 second(s) Normal 9.4-12.5 [facility] Comment on above: Result Comment: 15 d [...] the same coagulation reagent and instrumentation as [facility]. Currently there are no coagulation studies available worldwide for children to 14 days, and no normal ranges. Performed By: #### 2 995898, 37686168, 30705901, 6325034, 76649108 ####[facility] [address] [place] [address] RAD - Preliminary Cat Scan R eporton 03-27-2023 RAD - Preliminary Cat Scan Report [id number]# 1.00TIFF Normal [facility] SEROLOGYOrdered By: Jose Tremaine jarod on 03-27-2023 Beta HCG ( test) Ql Negative (03/27/23 6:55 PM) Normal [facility] Man Sero Troponin 0 Hr.on 03-27-2023 Troponin I.cardiac [Mass/Vol] ng/mL Low 10.10-27.10 [facility] Comment on above: Result Comment: The 95% CI (Confidence Interval) PPV (Positive Predictive Value) for myocardial infarction in females is 38 pg/mL, in males 51 pg/mL. The results should be used in conjunction with clinical conditions of myocardial infarction. (Access High Sensitivity Troponin I Instructions For Use, Chriss Tangled, September 2017) Performed By: #### 2 918571, 28778126, 49237410, 7024850, 93599486 ####[facility] [address] [place] [address] UA With Cult Reflexon 2023 Bacteria LM Ql (Urine sed) 1+ /HPF Abnormal Trace [facility] Comment on above: Performed By: #### 1 3137811, 7504485 ####[facility] [address] [place] [address] Bilirubin Ql (U) Negative Normal Negative [facility] Comment on above: Performed By: #### 1 4454716, 0485156 ####[facility] [address] [place] [address] Clarity (U) CLOUDY Abnormal Clear [facility] Comment on above: Performed By: #### 1 5924202, 5658595 ####[facility] [address] [place] [address] Color (U) YELLOW Normal Yellow [facility] Comment on above: Performed By: #### 1 8934426, 1731848 ####[facility] [address] [place] [address] Crystals LM Ql (Urine sed) Present Normal [facility] Comment on above: Performed By: #### 1 1408508, 7653048 ####[address] [address] Epithelial cells.squamous LM.HPF (Urine sed) [#/Area] 5-8 Normal 0-2 [facility] Comment on above: Performed By: #### 1 5851273, 8957040 ####[place] [address] Glucose Test strip (U) [Mass/Vol] Negative Normal Negative [facility] Comment on above: Performed By: #### 1 8680562, 1176509 ####[address] [address] Hemoglobin Ql (U) 1+ Abnormal Negative [facility] Comment on above: Performed By: #### 1 7151212, 5891249 ####[place] [address] Ketones (U) [Mass/Vol] Negative Normal Negative [facility] Comment on above: Performed By: #### 1 5443655, 8630664 ####[place] [address] [place].plasma/[place] .RBC (Bld) [Mass ratio] 0-3 Normal 0-3 [facility] Comment on above: Performed By: #### 1 0283643, 4726327 ####[address] [address] Mucus Ql (Urine sed) 3+ Normal [facility] Comment on above: Performed By: #### 1 7125633, 0586556 ####[address] [address] Nitrite Ql (U) Positive Abnormal Negative [facility] Comment on above: Performed By: #### 1 3599976, 4638009 ####[address] [address] pH (U) 6.0 [pH] Invalid Interpretation Code 5.0-9.0 [facility] Comment on above: Performed By: #### 1 3014174, 2208954 ####[address] [address] Protein (U) [Mass/Vol] Negative Normal Negative [facility] Comment on above: Performed By: #### 1 4138176, 6078227 ####[place] [address] Specific gravity (U) [Rel density] >=1.030 Invalid Interpretation Code 1.005-1.030 [facility] Comment on above: Performed By: #### 1 2329036, 7956783 ####[address] [address] Type of Urine collection method Clean Catch Normal [facility] Comment on above: Performed By: #### 1 3313721, 8706404 ####[place] [address] Urobilinogen Qn (U) 0.2 {Qiana'U}/dL Normal 0.0-1.0 [facility] Comment on above: Performed By: #### 1 0493403, 6204503 ####[address] [address] WBC Auto Ql (U) Negative Normal Negative [facility] Comment on above: Performed By: #### 1 3530670, 4789599 ####[address] [address] WBC LM.HPF (Urine sed) [#/Area] 0-5 Normal 0-5 [facility] Comment on above: Performed By: #### 1 2453244, 1789247 ####[address] [address] URINALYSISOrdered By: Jose Diallo on 03-27-2023 Bacteria LM Ql (Urine sed) 1+ /HPF Invalid Interpretation Code Trace/HPF [facility] UA Auto SS Bilirubin Ql (U) Negative [...] PM) Normal Negative [facility] UA Auto SS [place].plasma/[place] .RBC (Bld) [Mass ratio] 0-3 /HPF Normal [...] Desc Clean Catch (03/27/23 7:37 PM) Normal [facility] UA Auto SS Urobilinogen Qn (U) 0.5985780 {Qiana'U}/dL Normal 0.0 - 1.0 EU/dL [facility] UA Auto SS WBC Auto Ql (U) Negative (03/27/23 7:37 PM) Normal Negative [facility] UA Auto SS WBC LM.HPF (Urine sed) [#/Area] 0-5 /HPF Normal 0-5/HPF [facility] UA Auto SS eGFRon 03-27-2023 eGFR 96 mL/min/1.73 m2 Normal >=59 [facility] Comment on above: Order Comment: Order added by Discern Expert. Performed By: #### 2 974212, 59484230, 04126354, 7650343, 97317125 ####[facility] [address] [place] [address] C Urineon 12-21-2022 Bacteria identified Cx Nom (U) Microbiology PROCEDURE: Urine Culture [R1] SOURCE: U CleanCatch BODY SITE: COLLECTED DATE/TIME: 12/19/2022 08:15 EDT RECEIVED DATE/TIME: 12/19/2022 16:15 EDT START DATE/TIME: 12/19/2022 16:15 EDT FREE TEXT SOURCE: Noel [place], aZna Valencia. Noel [place], Zana Valencia. FINAL REPORTS [...] Locations R1: This test was performed at: [facility], [address] [place] [address], [address], Normal [facility] Comment on above: Performed By: #### 1 9835030, 4755231 ####[address] [address] Auto Diffon 12-19-2022 Basophils/100 WBC (Bld) 1.0 % Normal 0.0-2.0 [facility] Comment on above: Order Comment: Order Added by Discern Expert. Performed By: #### 2 396636, 9606407, 6647728, 1291111, 4516808, 75392352 ####[address] [address] Basophils/Leukocytes Auto (Bld) [Pure # fraction] 0.1 E9/L Normal 0.0-0.2 [facility] Comment on above: Order Comment: Order Added by Discern Expert. Performed By: #### 2 042849, 8961445, 9150973, 4216579, 7685053, 33539468 ####[address] [address] Eosinophils/100 WBC (Bld) 2.6 % Normal 0.0-8.0 [facility] Comment on above: Order Comment: Order Added by Discern Expert. Performed By: #### 2 045700, 2822589, 1931349, 9268573, 9436447, 97563700 ####[place] [address] [place] [address] Eosinophils/Leukocytes Auto (Bld) [Pure # fraction] 0.3 E9/L Normal 0.0-0.5 [facility] Comment on above: Order Comment: Order Added by Discern Expert. Performed By: #### 2 351896, 5110601, 2722371, 0048228, 5997647, 96397919 ####[address] [address] Lymphocytes/100 WBC (Bld) 31.2 % Normal 14.0-50.0 [facility] Comment on above: Order Comment: Order Added by Discern Expert. Performed By: #### 2 921500, 9993358, 3130732, 2254899, 9840500, 35064461 ####[address] [address] Lymphocytes/Leukocytes Auto (Bld) [Pure # fraction] 3.5 E9/L Normal 1.0-4.0 [facility] Comment on above: Order Comment: Order Added by Discern Expert. Performed By: #### 2 463714, 2864009, 6069972, 0181988, 7639830, 31978938 ####[place] [address] [place] [address] Monocytes/100 WBC (Bld) 8.1 % Normal 4.0-14.0 [facility] Comment on above: Order Comment: Order Added by Discern Expert. Performed By: #### 2 186521, 3507328, 1320487, 3366845, 2895654, 90979430 ####[place] [address] [place] [address] Monocytes/Leukocytes Auto (Bld) [Pure # fraction] 0.9 E9/L Normal 0.2-1.0 [facility] Comment on above: Order Comment: Order Added by Discern Expert. Performed By: #### 2 655204, 8768941, 0194619, 6629395, 8860164, 12271254 ####[facility] [address] [place] [address] Neutrophils/100 WBC (Bld) 57.1 % Normal 36.0-75.0 [facility] Comment on above: Order Comment: Order Added by Discern Expert. Performed By: #### 2 653088, 7473612, 2628267, 0728453, 0071534, 45527073 ####[facility] [address] [place] [address] Neutrophils/Leukocytes Auto (Bld) [Pure # fraction] 6.4 E9/L Normal 2.0-7.5 [facility] Comment on above: Order Comment: Order Added by Discern Expert. Performed By: #### 2 612305, 0443875, 1140552, 6603309, 5002063, 71224357 ####[facility] [address] [place] [address] BMPon 12-19-2022 Creatinine [Mass/Vol] 0.6 mg/dL Normal 0.5-1.3 [facility] Comment on above: Performed By: #### 2 073226, 9946851, 3574831, 5910181, 9112701, 86460511 ####[facility] [address] [place] [address] Urea nitrogen [Mass/Vol] 15 mg/dL Normal 5-21 [facility] Comment on above: Performed By: #### 2 381519, 8573984, 9978130, 6801600, 2613387, 48000598 ####[facility] [address] [place] [address] Urea nitrogen/Creatinine [Mass ratio] 25 No Units High 10-20 [facility] Comment on above: Performed By: #### 2 286022, 9364670, 1634434, 7571328, 7396346, 90679649 ####[facility] [address] [place] [address] Anion gap [Moles/Vol] 9 mmol/L Normal 6-16 [facility] Comment on above: Performed By: #### 2 762996, 9273287, 2285856, 9314385, 3717332, 51717134 ####[facility] [address] [place] [address] Calcium [Mass/Vol] 8.6 mg/dL Low 8.9-11.1 [facility] Comment on above: Performed By: #### 2 782910, 3763075, 1292377, 4249713, 9544544, 64673994 ####[facility] [address] [place] [address] Chloride [Moles/Vol] 106 mmol/L Normal 101-111 [facility] Comment on above: Performed By: #### 2 047639, 7375570, 6136000, 2798677, 3124549, 98293220 ####[facility] [address] [place] [address] CO2 [Moles/Vol] 25 mmol/L Normal 21-31 [facility] Comment on above: Performed By: #### 2 738286, 9064394, 3799309, 7443969, 1569259, 48578687 ####[facility] [address] [place] [address] Glucose [Mass/Vol] 123 mg/dL Normal 55-199 [facility] Comment on above: Result Comment: If t his glucose result represents a fasting glucose, interpretation should refer to the following reference range: 55-99 mg/dL Performed By: #### 2 938889, 2148605, 1931027, 8518373, 7760935, 47546594 ####[facility] [address] [place] [address] Potassium [Moles/Vol] 4.4 mmol/L Normal 3.5-5.3 [facility] Comment on above: Performed By: #### 2 365528, 9120011, 3693486, 2288046, 1497083, 97615885 ####[facility] [address] [place] [address] Sodium [Moles/Vol] 136 mmol/L Normal 135-145 [facility] Comment on above: Performed By: #### 2 202579, 5581649, 2385322, 6538022, 7950053, 02607532 ####[address] [address] CBC w/ Auto Diffon Erythrocyte distribution width (RBC) [Ratio] 16.2 % High 10.9-14.2 [facility] Comment on above: Performed By: #### 2 716509, 4692374, 3511196, 6968761, 9917593, 73291782 ####[address] [address] Hematocrit (Bld) [Volume fraction] 36.5 % Normal 34.0-46.0 [facility] Comment on above: Performed By: #### 2 042382, 9948565, 7969842, 6899302, 4654758, 45648044 ####[address] [address] Hemoglobin (Bld) [Mass/Vol] 11.5 g/dL Low 12.0-16.0 [facility] Comment on above: Performed By: #### 2 950118, 8259852, 3661853, 4063708, 8404473, 49965358 ####[place] [address] [place] [address] MCH (RBC) [Entitic mass] 26.3 pg Low 27.0-34.0 [facility] Comment on above: Performed By: #### 2 486193, 1505950, 7697794, 0704078, 4325690, 97656463 ####[address] [address] MCHC (RBC) [Mass/Vol] 31.5 g/dL Normal 31.4-36.0 [facility] Comment on above: Performed By: #### 2 351537, 9700027, 3577583, 9353517, 8858603, 92611044 ####[address] [address] MCV (RBC) [Entitic vol] 83.5 fL Normal 80.0-100.0 [facility] Comment on above: Performed By: #### 2 645008, 6708613, 1922320, 2034172, 1309709, 82033113 ####[address] [address] Platelet mean volume (Bld) [Entitic vol] 7.4 fL Normal 6.4-10.8 [facility] Comment on above: Performed By: #### 2 407007, 9168759, 8222873, 0033333, 4490896, 18269188 ####[address] [address] Platelets (Bld) [#/Vol] 294.0 E9/L Normal 150.0-500.0 [facility] Comment on above: Performed By: #### 2 363370, 5223403, 4595812, 9784103, 0207372, 20245302 ####[address] [address] RBC (Bld) [#/Vol] 4.4 E12/L Normal 4.3-5.9 [facility] Comment on above: Performed By: #### 2 146125, 4537809, 0465381, 8245162, 5828741, 36497399 ####[address] [address] WBC corrected for nucl RBC Auto (Bld) [#/Vol] 11.1 E9/L High 4.0-11.0 [facility] Comment on above: Performed By: #### 2 047429, 4243324, 8492235, 2004077, 8742088, 44970444 ####[address] [place] [address] CHEMISTRYOrdered By: SYSTEM SYSTEM on 12-19-2022 Albumin [...] 0.6 mg/dL Normal 0.5 - 1.3 mg/dL [facility] Remisol GFR/1.73 sq M.predicted among non-blacks MDRD (S/P/Bld) [Vol rate/Area] 118 mL/min/1.73 m2 Normal >=59mL/min/1 .73 m2 [facility] Chem S Comment on above: Interpretive Data: [...] 300 Contrast amount in ml's: 100 Normal [facility] Consent for Treatmenton 11-29 Consent for Treatment [id number]#1 .00TIFF Normal [facility] Discharge Instructionson Discharge Instructions [id number]# 1.00TIFF Normal [facility] ED Clinical Summaryon 2022 ED Clinical Summary [place] [address] ED Clinical Summary Person Information Name: DEB WOODS [facility] Age: 37 Years : 1985 Sex: Female Language: Japanese PCP: NONE, XXXX Marital Status: Single Visit [...] 12/19/2022 09:51:09 12/19/2022 09:51:09 12/19/2022 09:51:09 ADDRESS: [address] [place] [address] [place] [id number] PHYS DOC NOTES: MEDICAL INFORMATION: Prescriptions Given: New Medications [facility], [address] [place], [place] [id number], [phone] cephalexin (Keflex 500 mg Cap) 1 Capsules By Mouth every 6 hours for 7 Days. Refills: 0. naproxen (naproxen 500 mg Tab) 1 Tablets By Mouth 2 times a day as needed for pain. Refills: 0. Medications to Continue with No Changes Other Medications acetaminophen-hydroco done ([place] 325 mg-5 mg oral tablet) 1 Tablets [...] 5. fluticasone nasal (fluticasone 0.05 mg/inh Nasal [place]) 2 Sprays Nasal Inhalation every day as [...] EDUCATION INFORMATION: Instructions: Urinary Tract Infection, Adult, Caem-yu-Jskc; Abdominal Pain, Adult, Vcid-yg-Gudi Follow up: With: Address: When: Carlitos Loya [facility], [facility] [address], [facility] (more content not included)... Normal [facility] ED Note-Physicianon 10-22-20 23 ED Note-Physician Basic Information Time Seen: Noel [...] her back, as well as to her bellybutton lower. Reports that this been going on [...] and Complexity of Problems Differential Diagnosis: [] [facility] Data External documents reviewed: [] My [...] as well as Keflex. Discussed follow-up with [employer] for ultrasound. Discussed return precautions. Follow-up with [...] day(s), # 28 cap(s), Refills(s) 0, Pharmacy: [facility] 1985, 162, cm, 12/19/22 7:51:00 EDT, Height/Length Dosing, 85, kg, 12/19/22 7:51:00 EDT, Weight Dosing ketorolac, 30 mg = 1 mL, Injection, IV Push, Once, Stop date 12/19/22 8:19:00 EDT, STAT, Start date 12/19/22 8:19:00 EDT, 12/19/22 8:19:00 EDT naproxen, 500 mg = 1 tab(s), Oral, BID, PRN for pain, # 20 tab(s), Refills(s) 0, Pharmacy: [facility] 1985, 162, cm, 12/19/22 7:51:00 EDT, [...] Administered Given (more content not included)... Normal [facility] Comment on above: Result Comment: Elec tronically [...] these instructions at home: Medicines ? Take vmqn-grr-kaquodf and prescription medicines only as told by [...] belly pain for any changes. ? Take desl-yvh-giikfgw and prescription medicines only as told by [...] provider. Document Revised: 06/25/2019 Document Reviewed: 06/25/2019 [employer] Patient Education ? 2022 [employer] Obstetrics and Gynecology Urinary Tract Infection, Adult [...] Take over-the (more content not included)... Normal [facility] ED Patient Summaryon 023 ED Patient Summary [address] [address] Patient Discharge Instructions Person Information Name: DEB WOODS Age: 37 Years Arrival Date: 12/19/2022 07:39:34 Discharge Diagnosis: Abdominal pain; UTI (urinary tract infection) Primary Care Physician: NONE, XXXX Provider Information Primary Provider: Adrian Potter DO Advanced Attending Ambulatory Care:None The exam and treatment you received in the Emergency Department were for an urgent problem and are not intended as complete care. It is important that you follow up with a doctor, nurse practitioner, or physician?s certified surgical assistant for ongoing care. If your symptoms [...] Instructions: With: Address: When: Carlitos [address] [address] [employer], [address], [place] [address] Business (1) In 3 days 12/22/2022 Comments: Follow-up with your [employer] for further evaluation of your thickening of your endometrial complex. If you not have a [employer], you may follow-up with Dr. Baird for further evaluation. With: Address: When: Johanny Harmon [address] [place] [address], [address] [place] [address] Business (1) In 3 days [...] Patient Education Materials: Urinary Tract Infection, Adult, Hwcq-dy-Zmtl; Abdominal Pain, Adult, Hvyh-wf-Tkms A MESSAGE TO ALL PATIENTS REGARDING OPIOIDS PRESCRIPTION OPIOIDS: WHAT YOU NEED TO KNOW Prescription opioids can be used to help relieve hlnmvfmx-qh-mvgllc pain and are often prescribed following a [...] of r (more content not included)... Normal [facility] HEMATOLOGYOrdered By: SYSTEM SYSTEM on 12-19-2022 Basophils/100 WBC (Bld) 1.0 % Normal 0.0 - 2.0 % [facility] HemeAutoSS Basophils/Leukocytes Auto (Bld) [Pure # fraction] [...] 26.3 pg Low 27.0 - 34.0 pg FT HemeAutoSS MCHC (RBC) [Mass/Vol] 31.5 g/dL Normal 31.4 - 36.0 gm/dL FT HemeAutoSS MCV (RBC) [Entitic vol] 83.5 fL Normal 80.0 - 100.0 fL FT HemeAutoSS Platelet mean volume (Bld) [Entitic vol] 7.4 fL Normal 6.4 - 10.8 fL FT HemeAutoSS Platelets (Bld) [#/Vol] 294.0 E9/L Normal 150.0 - 500.0 E9/L FT HemeAutoSS RBC (Bld) [#/Vol] 4.4 E12/L Normal 4.3 - 5.9 E12/L FT HemeAutoSS WBC corrected for nucl RBC Auto (Bld) [#/Vol] 11.1 E9/L High 4.0 - 11.0 E9/L [facility] HemeAutoSS Hep Func Panelon 12-19-2022 Albumin [Mass/Vol] 3.5 g/dL Normal 3.3-5.0 [facility] Comment on above: Performed By: #### 2 965464, 9275980, 3587123, 3746430, 3242435, 60140080 ####[facility] [address] [place] [address] Albumin/Globulin (S) [Mass conc ratio] 1.1 Normal 1.1-2.2 [facility] Comment on above: Performed By: #### 2 699944, 3052263, 9869092, 0529127, 7341288, 28258839 ####[facility] [address] [place] [address] ALP [Catalytic activity/Vol] 49 Int._Unit/L Normal 21-98 [facility] Comment on above: Performed By: #### 2 733694, 0408165, 4597100, 2969954, 9138263, 52968670 ####[facility] [address] [place] [address] ALT No additional P-5'-P [Catalytic activity/Vol] 12 Int._Unit/L Normal 6-46 [facility] Comment on above: Performed By: #### 2 884305, 8814813, 8816093, 3372865, 1330980, 89741607 ####[facility] [address] [place] [address] AST [Catalytic activity/Vol] 16 Int._Unit/L Normal 5-43 [facility] Comment on above: Performed By: #### 2 135986, 6656036, 3670859, 1713440, 9504968, 49187472 ####[facility] [address] [place], [place] [address] Bilirubin [Mass/Vol] 0.3 mg/dL Normal 0.0-1.1 [facility] Comment on above: Performed By: #### 2 047247, 0357213, 2970773, 7664227, 5841568, 67724907 ####[place] [address] Bilirubin.direct [Mass/Vol] 0.1 mg/dL Normal 0.1-0.4 [facility] Comment on above: Performed By: #### 2 309887, 0078621, 2781329, 1219334, 1348537, 01573004 ####[place] [address] Bilirubin.indirect [Mass or moles/Vol] 0.2 mg/dL Normal 0.1-0.9 [facility] Comment on above: Performed By: #### 2 080742, 9808255, 4722020, 9114961, 9182462, 04829221 ####[facility] [address] [place] [address] Globulin (S) [Mass/Vol] 3.3 g/dL Normal 1.4-4.0 [facility] Comment on above: Performed By: #### 2 410309, 9818041, 3059624, 5981970, 6371113, 57926193 ####[address] [address] Protein [Mass/Vol] 6.8 g/dL Normal 6.0-7.8 [facility] Comment on above: Performed By: #### 2 986650, 3472163, 7124047, 5286537, 0174174, 89693437 ####[facility] [address] [place] [address] Lipase Levelon 12-19-2022 Lipase [Catalytic activity/Vol] 38 U/L Normal 13-58 [facility] Comment on above: Performed By: #### 2 880908, 7759775, 6075764, 0302574, 3799118, 44783767 ####[facility] [address] [place] [address] UA With Cult Reflexon 2022 Bacteria LM Ql (Urine sed) 3+ /HPF Abnormal [facility] Comment on above: Performed By: #### 1 [id number], [id number] ####[address] [address] Bilirubin Ql (U) Negative Normal Negative [facility] Comment on above: Performed By: #### 1 [id number], [id number] ####[address] [address] Clarity (U) CLEAR Normal Clear [facility] Comment on above: Performed By: #### 1 [id number], [id number] ####[facility] [address] [place] [address] Color (U) YELLOW Normal Yellow [facility] Comment on above: Performed By: #### 1 [id number], [id number] ####[address] [address] Epithelial cells.squamous LM.HPF (Urine sed) [#/Area] /[HPF] Normal 0-2 [facility] Comment on above: Performed By: #### 1 [id number], [id number] ####[facility] [address] [place] [address] Glucose Test strip (U) [Mass/Vol] Negative Normal Negative [facility] Comment on above: Performed By: #### 1 [id number], [id number] ####[facility] [address] [place] [address] Hemoglobin Ql (U) Negative Normal Negative [facility] Comment on above: Performed By: #### 1 [id number], [id number] ####[address] [address] Ketones (U) [Mass/Vol] Negative Normal Negative [facility] Comment on above: Performed By: #### 1 [id number], [id number] ####[address] [address] [place].plasma/[place] .RBC (Bld) [Mass ratio] 0-3 Normal 0-3 [facility] Comment on above: Performed By: #### 1 [id number], [id number] ####[address] [address] Nitrite Ql (U) Positive Abnormal Negative [facility] Comment on above: Performed By: #### 1 [id number], [id number] ####[address] [address] pH (U) 6.0 [pH] Invalid Interpretation Code 5.0-9.0 [facility] Comment on above: Performed By: #### 1 [id number], [id number] ####[address] [address] Protein (U) [Mass/Vol] Negative Normal Negative [facility] Comment on above: Performed By: #### 1 [id number], [id number] ####[address] [address] Specific gravity (U) [Rel density] >=1.030 Invalid Interpretation Code 1.005-1.030 [facility] Comment on above: Performed By: #### 1 [id number], [id number] ####[address] [address] Trichomonas sp LM.HPF (Urine sed) [#/Area] Present Normal [facility] Comment on above: Performed By: #### 1 [id number], [id number] ####[facility] [address] [place] [address] Type of Urine collection method Clean Catch Normal [facility] Comment on above: Performed By: #### 1 [id number], [id number] ####[facility] [address] [place] [address] Urobilinogen Qn (U) 0.2 {Qiana'U}/dL Normal 0.0-1.0 [facility] Comment on above: Performed By: #### 1 [id number], [id number] ####[facility] [address] [place] [address] WBC Auto Ql (U) 1+ Abnormal Negative [facility] Comment on above: Performed By: #### 1 [id number], [id number] ####[facility] [address] [place] [address] WBC LM.HPF (Urine sed) [#/Area] 6-15 Abnormal 0-5 [facility] Comment on above: Performed By: #### 1 [id number], [id number] ####[facility] [address] [place], [place] [id number] URINALYSISOrdered By: Mehdi Friend on 12-19-2022 Bacteria LM Ql (Urine sed) 3+ /HPF Invalid Interpretation Code Trace/HPF [facility] UA Auto SS Bilirubin Ql (U) Negative (12/19/22 8:15 AM) Normal Negative [facility] UA Auto SS Clarity (U) Clear (12/19/22 8:15 AM) Normal Clear [facility] UA Auto SS Color (U) Yellow (12/19/22 8:15 AM) Normal Yellow [facility] UA Auto SS Epithelial cells.squamous LM.HPF (Urine sed) [#/Area] /[HPF] Normal 0-2/HPF [facility] UA Aut o SS Glucose Test strip (U) [Mass/Vol] Negative (12/19/22 8:15 AM) Normal Negative [facility] UA Auto SS Hemoglobin Ql (U) Negative (12/19/22 8:15 AM) Normal Negative [facility] UA Auto SS Ketones (U) [Mass/Vol] Negative (12/19/22 8:15 AM) Normal Negative [facility] UA Auto SS [place].plasma/[place] .RBC (Bld) [Mass ratio] 0-3 /HPF Normal [...] [facility] UA Auto SS Urobilinogen Qn (U) 0.0720509 {Qiana'U}/dL Normal 0.0 - 1.0 EU/dL [facility] UA Auto SS WBC Auto Ql (U) 1+ *ABN* (12/19/22 8:15 AM) Invalid Interpretation Code Negative [facility] UA Auto SS WBC LM.HPF (Urine sed) [#/Area] 6-15 /HPF Invalid Interpretation Code 0-5/HPF [facility] UA Auto SS eGFRon 12-19-2022 GFR/1.73 sq M.predicted among non-blacks MDRD (S/P/Bld) [Vol rate/Area] 118 mL/min/1.73 m2 Normal >=59 [facility] Comment on above: Order Comment: Order added by Discern Expert. Result Comment: Snipper jewel kidney disease could be indicated at eGFR's of less than 60 mL/min/1.73m2. Kidney failure is indicated at less than 15 mL/min/1.73m2. Performed By: #### 2 [id number], [id number], [id number], [id number], [id number], [id number] ####[id number] [place] [address] Vital Signs Date Time Vital Sign Value Performing Clinician Mari pimentel 11-02-2023 07:41-0400 Blood Pressure Location Aditi Vargas [facility] 11-02-2023 07:41-0400 Diastolic blood pressure 72 mm[Hg] Aditi Vargas [facility] 11-02-2023 07:41-0400 Heart rate 80 /min Aditi Vargas [facility] 11-02-2023 07:41-0400 Respiratory rate 16 /min Aditi Vargas [facility] 11-02-2023 07:41-0400 SaO2% (BldA) [Mass fraction] 99 % Aditi Vargas [facility] 11-02-2023 07:41-0400 Systolic blood pressure 106 mm[Hg] Aditi Vargas [facility] 03-27-2023 21:16-0500 Diastolic blood pressure 86 mm[Hg] [facility] 03-27-2023 21:16-0500 Heart rate 61 /min [facility] 03-27-2023 21:16-0500 Mean blood pressure 104 mm[Hg] [facility] 03-27-2023 21:16-0500 Respiratory rate 15 /min [facility] 03-27-2023 21:16-0500 SaO2% (BldA) [Mass fraction] 100 % [facility] 03-27-2023 21:16-0500 Systolic blood pressure 140 mm[Hg] [facility] 03-27-2023 20:35-0500 Diastolic blood pressure 80 mm[Hg] [facility] 03-27-2023 20:35-0500 Heart rate 56 /min [facility] 03-27-2023 20:35-0500 Mean blood pressure 100 mm[Hg] [facility] 03-27-2023 20:35-0500 Respiratory rate 16 /min [facility] 03-27-2023 20:35-0500 SaO2% (BldA) [Mass fraction] 100 % [facility] 03-27-2023 20:35-0500 Systolic blood pressure 140 mm[Hg] [facility] 03-27-2023 19:39-0500 Diastolic blood pressure 80 mm[Hg] [facility] 03-27-2023 19:39-0500 Heart rate 67 /min [facility] 03-27-2023 19:39-0500 Mean blood pressure 90 mm[Hg] [facility] 03-27-2023 19:39-0500 Respiratory rate 18 /min [facility] 03-27-2023 19:39-0500 SaO2% (BldA) [Mass fraction] 97 % [facility] 03-27-2023 19:39-0500 Systolic blood pressure 109 mm[Hg] [facility] 03-27-2023 18:59-0500 gluc 120 mg/dL [facility] 03-27-2023 18:59-0500 gluc [facility] 03-27-2023 18:35-0500 Body temperature 98.24 [degF] [facility] 03-27-2023 18:35-0500 Heart rate 56 /min [facility] 03-27-2023 18:35-0500 Respiratory rate 16 /min [facility] 12-19-2022 09:00-0400 Heart rate 76 /min Adrian Potter [facility] 12-19-2022 09:00-0400 Systolic blood pressure 117 mm[Hg] Adrian Tariq [facility] 12-19-2022 08:00-0400 Diastolic blood pressure 78 mm[Hg] Adrian Tariq [facility] 12-19-2022 08:00-0400 Heart rate 73 /min Adrian Tariq [facility] 12-19-2022 08:00-0400 Respiratory rate 20 /min Adrian Tariq [facility] 12-19-2022 08:00-0400 SaO2% (BldA) [Mass fraction] 98 % Adrian Tariq [facility] 12-19-2022 08:00-0400 Systolic blood pressure 123 mm[Hg] Adrian Tariq [facility] 12-19-2022 07:46-0400 Body temperature 98.24 [degF] Adrian Tariq [facility] 12-19-2022 07:46-0400 Diastolic blood pressure 71 mm[Hg] Adrian Tariq [facility] 12-19-2022 07:46-0400 Heart rate 89 /min Adrian Tariq [facility] 12-19-2022 07:46-0400 Respiratory rate 18 /min Adrian Tariq [facility] 12-19-2022 07:46-0400 SaO2% (BldA) [Mass fraction] 99 % Adrian Tariq [facility] 12-19-2022 07:46-0400 Systolic blood pressure 127 mm[Hg] Adrian Tariq [facility] 07-27-2022 22:20-0400 Body temperature 98.06 [degF] Kaylinn Dokken [facility] 07-27-2022 22:20-0400 Diastolic blood pressure 83 mm[Hg] Nelsonylinn Dokken [facility] 07-27-2022 22:20-0400 Heart rate 88 /min Juanitoinn Dokken [facility] 07-27-2022 22:20-0400 Respiratory rate 16 /min Katherinen Dokken [facility] 07-27-2022 22:20-0400 SaO2% (BldA) [Mass fraction] 99 % Katherinen Dokken [facility] 07-27-2022 22:20-0400 Systolic blood pressure 124 mm[Hg] Juanitoinn Dokken [facility] 07-25-2022 20:35-0400 Body temperature 97.7 [degF] Kenneth Nava [facility] 07-25-2022 20:35-0400 Diastolic blood pressure 77 mm[Hg] Kenneth Nava [facility] 07-25-2022 20:35-0400 Heart rate 87 /min Kenneth Nava [facility] 07-25-2022 20:35-0400 Mean blood pressure 98 mm[Hg] Kenneth Nava [facility] 07-25-2022 20:35-0400 Respiratory rate 17 /min Kenneth Nava [facility] 07-25-2022 20:35-0400 SaO2% (BldA) [Mass fraction] 100 % Kenneth Nava [facility] 07-25-2022 20:35-0400 Systolic blood pressure 140 mm[Hg] Kenneth Nava [facility] 07-25-2022 20:00-0400 Diastolic blood pressure 82 mm[Hg] Kenneth Nava [facility] 07-25-2022 20:00-0400 Heart rate 82 /min Kenneth Nava [facility] 07-25-2022 20:00-0400 Mean blood pressure 100 mm[Hg] Kenneth Nava [facility] 07-25-2022 20:00-0400 SaO2% (BldA) [Mass fraction] 99 % Kenneth Nava [facility] 07-25-2022 20:00-0400 Systolic blood pressure 135 mm[Hg] Kenneth Nava [facility] 07-25-2022 19:40-0400 Body temperature 96.98 [degF] Kenneth Nava [facility] 07-25-2022 19:40-0400 Diastolic blood pressure 83 mm[Hg] Kenneth Nava [facility] 07-25-2022 19:40-0400 Heart rate 88 /min Kenneth Nava [facility] 07-25-2022 19:40-0400 Respiratory rate 16 /min Kenneth Nava [facility] 07-25-2022 19:40-0400 SaO2% (BldA) [Mass fraction] 100 % Kenneth Nava [facility] 07-25-2022 19:40-0400 Systolic blood pressure 136 mm[Hg] Kenneth Nava [facility] 02-01-2022 03:06-0500 Body temperature 98.42 [degF] Kenneth Nava [facility] 02-01-2022 03:06-0500 Diastolic blood pressure 78 mm[Hg] Kenneth Nava [facility] 02-01-2022 03:06-0500 Heart rate 89 /min Kenneth Nava [facility] 02-01-2022 03:06-0500 Respiratory rate 18 /min Kenneth Vick [facility] 02-01-2022 03:06-0500 SaO2% (BldA) [Mass fraction] 99 % Kenneth Vick [facility] 02-01-2022 03:06-0500 Systolic blood pressure 131 mm[Hg] Kenneth Vick [facility] 10-29-2021 18:44-0400 Body temperature 97.7 [degF] Adrian Potter [facility] 10-29-2021 18:44-0400 Diastolic blood pressure 92 mm[Hg] Adrian Tariq [facility] 10-29-2021 18:44-0400 Heart rate 90 /min Adrian Potter [facility] 10-29-2021 18:44-0400 Respiratory rate 16 /min Adrian Potter [facility] 10-29-2021 18:44-0400 SaO2% (BldA) [Mass fraction] 95 % Adrian Tariq [facility] 10-29-2021 18:44-0400 Systolic blood pressure 137 mm[Hg] Adrian Tariq [facility] 10-11-2021 15:54-0400 Diastolic blood pressure 75 mm[Hg] Abdi Restrepo [facility] 10-11-2021 15:54-0400 Heart rate 77 /min Abdi Lauro [facility] 10-11-2021 15:54-0400 Respiratory rate 20 /min Abdi Lauro [facility] 10-11-2021 15:54-0400 SaO2% (BldA) [Mass fraction] 100 % Abdi Lauro [facility] 10-11-2021 15:54-0400 Systolic blood pressure 116 mm[Hg] Abdi Lauro [facility] 10-11-2021 13:08-0400 Body temperature 98.06 [degF] Abdi Lauro [facility] 10-11-2021 13:08-0400 Diastolic blood pressure 75 mm[Hg] Abdi Lauro [facility] 10-11-2021 13:08-0400 Heart rate 94 /min Abdi Lauro [facility] 10-11-2021 13:08-0400 Respiratory rate 16 /min Abdi Lauro [facility] 10-11-2021 13:08-0400 SaO2% (BldA) [Mass fraction] 99 % Abdi Lauro [facility] 10-11-2021 13:08-0400 Systolic blood pressure 113 mm[Hg] Abdi Lauro [facility] 09-06-2021 16:11-0400 Body temperature 98.06 [degF] Adrian Potter [facility] 09-06-2021 16:11-0400 Diastolic blood pressure 81 mm[Hg] Adrian Potter [facility] 09-06-2021 16:11-0400 Heart rate 78 /min Adrian Potter [facility] 09-06-2021 16:11-0400 Respiratory rate 14 /min Adrian Potter [facility] 09-06-2021 16:11-0400 SaO2% (BldA) [Mass fraction] 99 % Adrian Potter [facility] 09-06-2021 16:11-0400 Systolic blood pressure 135 mm[Hg] Adrian Potter [facility] Encounters Encounter Date Encounter Type Care Provider Facility Start: 12-07-2023 ambulatory Aditi Lai ity:Addie WOMACK Start: 11-09-2023 End: 11-09-2023 ambulatory ERNIE POCOS Not Available Start: 11-02-2023 End: 11-02-2023 ambulatory FUENTES KEISHA Not Available Start: 11-02-2023 End: 11-02-2023 ambulatory Aditi Vargas Facility:Addie WOMACK Start: 11-02-2023 End: 11-02-2023 Patient encounter procedure Aditi Vargas [facility] Start: 11-02-2023 End: 11-02-2023 Well adult monitoring check done Aditi Vargas [facility] Start: 10-12-2023 ambulatory Ernie Pocos Facility: [facility] Start: 10-10-2023 End: 10-10-2023 ambulatory FUENTES KEISHA Not Available Start: 10-05-2023 End: 10-05-2023 ambulatory ERNIE POCOS Not Available Start: 10-05-2023 End: 10-05-2023 ambulatory ERNIE POCOS Not Available Start: 10-03-2023 End: 10-03-2023 ambulatory FUENTES KEISHA Not Available Start: 09-21-2023 End: 09-21-2023 ambulatory ERNIE POCOS Not Available Start: 09-19-2023 ambulatory Adrian Potter Facility:Diann WOMACK Start: 09-12-2023 End: 09-12-2023 ambulatory FUENTES VALDES Not Available Start: 03-27-2023 End: 03-27-2023 Emergency department patient visit Winsome Andino [facility] Start: 12-19-2022 End: 12-19-2022 Emergency department patient visit Adrian Potter [facility] Start: 07-27-2022 End: 07-28-2022 Emergency department patient visit Juanitobeverleydiann Lacy Greg [facility] Start: 07-25-2022 End: 07-25-2022 Emergency department patient visit Kenneth Vick [facility] Start: 02-01-2022 End: 02-01-2022 Emergency department patient visit Kenneth Vick [facility] Start: 10-29-2021 End: 10-29-2021 Emergency department patient visit Adrian Potter [facility] Start: 10-11-2021 End: 10-11-2021 Emergency department patient visit Abdi Restrepo [facility] Start: 09-06-2021 End: 09-06-2021 Emergency department patient visit Adrian Potter [facility] Procedures Date Procedure Procedure Detail Performing Clinician Start: 08-20-2019 Dilation and curettage Adrian Potter Start: 08-20-2019 Hysteroscopy Adrian valdivia Start: 08-20-2019 Ligation of fallopia n tube Adrian Potter section Adrian Potter H/O: section ( Confirmed ) Adrian Potter wrist surgery Adrian Potter Immunizations Immunization Date Immunization Notes Care Provider Fa cility 04-30-2021 SARS-CoV-2 (COVID-19 ) Ad26 vaccine, recombinant Aditi Vargas [facility] NEGATED: Highlighted row has not occurred!11-02-2023 influenza virus vaccine, unspecified formulation Aditi Vargas [facility] NEGATED: Highlighted row has not occurred!05-08-2019 influenza virus vaccine, live, attenuated, for intranasal use Adrian Potter [facility] Payers Date Payer Category Payer Unknown [id number] 2022 Worker's Compensation [id number] 2022 Unknown [id number] 1984 Unknown [id number] 2.16.8 [id number] 1984 Unknown [id number] 2.16.8 40.1.900947.3.579.2.727 1984 Unknown [id number] 2.16.8 40.1.996010.3.579.2.727 1984 Unknown [id number] 2.16.8 40.1.826474.3.579.2.727 1984 Unknown [id number] 2.16.8 40.1.716709.3.579.2.727 1984 Unknown [id number] 2.16.8 40.1.943487.3.579.2.727 1984 Unknown [id number] 2.16.84 0.1.193216.3.579.2.9 1984 Unknown [id number] 2.16.84 0.1.019006.3.579.2.1258 1984 Unknown [id number] 2.16.84 0.1.666659.3.579.2.1258 1984 Unknown [id number] 2.16.84 0.1.291135.3.579.2.1258 1984 Unknown [id number] 2.16.84 0.1.836441.3.579.2.1258 1984 Unknown [id number] 2.16.84 0.1.781009.3.579.2.1258 1984 Unknown [id number] 2.16.84 0.1.432982.3.579.2.1258 1984 Unknown [id number] 2.16.84 0.1.254574.3.579.2.1258 1984 Unknown [id number] 2.16.84 0.1.621760.3.579.2.1258 1984 Unknown [id number] 2.16.84 0.1.460941.3.579.2.1258 1984 Unknown [id number] 2.16.84 0.1.189215.3.579.2.1258 1984 Unknown [id number] 2.16.84 0.1.027590.3.579.2.1258 1984 Unknown [id number] 2.16.84 0.1.525135.3.579.2.1258 1984 Unknown [id number] 2.16.84 0.1.627724.3.579.2.1258 1984 Unknown [id number] 2.16.84 0.1.497722.3.579.2.1258 1984 Unknown [id number] 2.16.84 0.1.756170.3.579.2.1258 1984 Unknown [id number] 2.16.84 0.1.751344.3.579.2.1259 1984 Unknown [id number] 2.16.84 0.1.380176.3.579.2.1259 Social History Date Type Detail Facility Start: 07-22-2020 End: 11-02-2023 Tobacco smoking status Ex-smoker (finding) [facility] Comment on above: States she smoked ci garettes 2 PPD from about 15 y.o. to 21 y.o. Now Vapes nicotine. [facility] Sex Assigned At Female [facility] Medical Equipment Procedure Code Equipment Code Equipment Origin al Text Equipment Identifier Dates 1 deb, Topical, BID, 30 gram, Refill(s) 0, [facility], [facility], cm, 03/05/20 10:32:00 EST, Height/Length Dosing, 107.6, kg, 03/05/20 10:32:00 EST, Weight Dosing Start: 03-05-2020 1 deb, Topical, BID, 30 gram, Refill(s) 0, [facility], 163, cm, 03/05/20 10:32:00 EST, Height/Length Dosing, 107.6, kg, 03/05/20 10:32:00 EST, Weight Dosing Start: 03-05-2020 1 deb, Topical, BID, 30 gram, Refill(s) 0, [facility], 163, cm, 03/05/20 10:32:00 EST, Height/Length Dosing, 107.6, kg, 03/05/20 10:32:00 EST, Weight Dosing Start: 03-05-2020 1 deb, Topical, BID, 30 gram, Refill(s) 0, [facility], 163, cm, 03/05/20 10:32:00 EST, Height/Length Dosing, 107.6, kg, 03/05/20 10:32:00 EST, Weight Dosing Start: 03-05-2020 1 deb, Topical, BID, 30 gram, Refill(s) 0, [facility], 163, cm, 03/05/20 10:32:00 EST, Height/Length Dosing, 107.6, kg, 03/05/20 10:32:00 EST, Weight Dosing Start: 03-05-2020 lancets, See Instructions, 100 lancet(s), 1, Check BSS daily and prn., [facility], [facility], 162, cm, 11/02/23 8:04:00 EDT, Height/Length Dosing, 83.6, kg, 11/02/23 8:04:00 EDT, Weight Dosing Start: 11-02-2023 Functional Status Date Assessment Result Facility 11-02-2023 Functional Status N/A [facility] 03-27-2023 Functional Status N/A [facility] 12-19-2022 Functional Status N/A [facility] 07-27-2022 Functional Status N/A [facility] 07-25-2022 Functional Status N/A [facility] 02-01-2022 Functional Status N/A [facility] 10-29-2021 Functional Status N/A [facility] 10-11-2021 Functional Status N/A [facility] 09-06-2021 Functional Status N/A [facility] Clinical Notes 09-06-2021 to 11-02-2023 Note Date & Type Note Facility 11-02-2023 Hospital Discharg e instructions Patient Education 11/02/2023 08:59:05 Diabetes Mellitus and Foot Care Diabetes Mellitus and Foot Care Diabetes, also called diabetes mellitus, may cause problems with your feet and legs because of poor blood flow (circulation). 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 Break more easily. Heal more [...] right away. Where to find more information [place] Diabetes Association: diabetes.org Association of Diabetes Care [...] provider. Document Revised: 08/18/2022 Document Reviewed: 08/18/2022 [employer] Patient Education 2023 [employer]. 11/02/2023 08:59:04 Diabetes Mellitus and Exercise Diabetes [...] or an expert trained in diabetes care (certified appliance service technician) can help you make an activity [...] (heat stroke). Where to find more information [place] Diabetes Association: diabetes.org Association of Diabetes Care & Education Specialists: diabeteseducator.org This information is not intended to replace advice given to you by your health care provider. Make sure you discuss any questions you have with your health care provider. Document Revised: 08/04/2022 Document Reviewed: 08/04/2022 [employer] Patient Education 2023 [employer]. 11/02/2023 08:59:03 Carbohydrate Counting for Diabetes Mellitus, [...] 1.Identify the foods that contain carbohydrates: Rice. [place]. Milk. Strawberries. 2.Calculate how many servings you [...] and snacks. Where to find more information [place] [employer] Association: diabetes.org Centers for Disease Control [...] provider. Document Revised: 09/17/2020 Document Reviewed: 09/17/2020 [employer] Patient Education 2023 [employer]. 11/02/2023 06:08:32 Heart Disease Prevention Heart Disease [...] of hard liquor (44 mL). Medicines Take rtdu-wbd-tqzafqb and prescription medicines only as told by [...] Centers for Disease Control and Prevention: www.cdc.gov/heartdisease [place] [employer] Association: www.heart.org Summary Heart disease is [...] provider. Document Revised: 10/14/2021 Document Reviewed: 10/14/2021 [employer] Patient Education 2023 [employer]. 11/02/2023 06:08:29 Dyslipidemia Dyslipidemia Dyslipidemia is an [...] quitting, ask your health care provider. Take izig-kbd-kasfvic and prescription medicines only as told by [...] provider. Document Revised: 09/17/2022 Document Reviewed: 04/20/2021 [employer] Patient Education 2023 [employer] 11/02/2023 06:08:26 BMI for Adults BMI for [...] Centers for Disease Control and Prevention: cdc.gov [place] Heart Association: heart.org National Heart, Lung, and Blood [place]: nhlbi.nih.gov This information is not intended to replace advice given to you by your health care provider. Make sure you discuss any questions you have with your health care provider. Document Revised: 11/04/2022 Document Reviewed: 10/28/2022 [employer] Patient Education 2023 [employer]. 11/02/2023 06:08:24 Preventing Vitamin D Deficiency Preventing [...] Dietary supplements. Direct exposure to natural sunlight. Infant formula, for infants. Knowing how much vitamin [...] such as almond, soy, or oat milks. ?[place] juice. ?Margarine. When choosing foods, check the [...] including vitamins, herbs, eye drops, creams, and veqa-gcq-fqlfvah medicines. Take tvhg-ayk-bbdrguc and prescription medicines only as told by [...] provider. Document Revised: 11/20/2021 Document Reviewed: 11/20/2021 [employer] Patient Education 2023 [employer]. 11/02/2023 06:08:22 Managing Anxiety, Adult Managing Anxiety, [...] your provider. Avoid caffeine, alcohol, and certain lces-fpd-xtwodpe cold medicines. These may make you feel worse. Ask your pharmacist which medicines to avoid. General instructions Take pqin-uon-frxxtim and prescription medicines only as told by [...] Depression Association of [place] (ADAA): adaa.org National [place] on Mental Illness (LUPE): lupe.org Contact a [...] the National Suicide Prevention Lifeline at or 998. This is open 24 hours a day. Text the Crisis Text Line at 943326. This information is not intended to replace advice given to you by your health care provider. Make sure you discuss any questions you have with your health care provider. Document Revised: 11/23/2022 Document Reviewed: 06/07/2021 [employer] Patient Education 2023 [employer] 11/02/2023 06:08:20 Preventive Care 21-39 Years Old, [...] glass of hard liquor (44 mL). Lifestyle [place] your teeth every morning and night with [...] provider. Document Revised: 08/12/2021 Document Reviewed: 08/12/2021 [employer] Patient Education 2023 [employer]. 11/02/2023 06:08:10 Health Maintenance, Female Health Maintenance, [...] provider. Document Revised: 07/06/2021 Document Reviewed: 07/06/2021 [employer] Patient Education 2023 [employer]. Follow Up Care 09/19/2023 11:51:32 With:Aditi Patten FAM, MED Address: [address], [address] [facility] [address] [place] [address]- When:Within 1 Month(s) Comments:f/u labs, HTN, With:Aditi Patten FAM, MED Address: [address], [address] [address]- Business (1) When:05/04/2023 Comments:for f/u With:Aditi Patten FAM, MED Address: [address], [address] [address]- Business (1) When:Within 3 Month(s) Comments:3 mo f/u for DM [facility] 11-02-2023 Note Patient Education Endocrinology Diabetes Mellitus and Foot Care Diabetes, also called diabetes mellitus, may cause problems with your feet and legs because of poor blood flow (circulation). 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 ? Break more easily. ? [...] away. Where to find more information ? [place] [employer]: diabetes.org ? Association of Diabetes [...] provider. Document Revised: 08/18/2022 Document Reviewed: 08/18/2022 [employer] Patient Education ? 2023 [employer]. Diabetes Mellitus and Exercise Regular exercise is [...] my activity plan? (more content not included)... [facility] 03-27-2023 Hospital Discharg e instructions Patient Education [...] mouth or applied to the skin. Take xuhs-alw-ndvjntw and prescription medicines only as told by [...] provider. Document Revised: 06/19/2020 Document Reviewed: 05/28/2020 [employer] Patient Education 2022 [employer]. Follow Up Care 03/27/2023 18:29:44 With:Malu Cuellar Address: [address] [place] [address] [facility] (1) When:03/30/2023 21:10:33 Comments:Call the office of [...] you develop any new or worsening symptoms. [facility] 03-27-2023 Evaluation + Plan note Diagnostic Tests PendingUrine Culture 03/27/23 [facility] 12-19-2022 Evaluation + Plan note Extrac maggie from: Title:ED Note Author:Zana Cohen PA-C te:12/19/22 Abdominal pain (R10.9: Unspe cified abdominal pain) UTI (urinary tract infection) (N39.0: Urinary tract infection, site not specified) Orders: cephalexin, 500 mg = 1 cap(s), Oral, q6hr, X 7 day(s), # 28 cap(s), Refills(s) 0, Pharmacy: [facility], 162, cm, 12/19/22 7:51:00 EDT, Height/Length Dosing, 85, kg, 12/19/22 7:51:00 EDT, Weight Dosing ketorolac, 30 mg = 1 mL, Injection, IV Push, Once, Stop date 12/19/22 8:19:00 EDT, STAT, Start date 12/19/22 8:19:00 EDT, 12/19/22 8:19:00 EDT naproxen, 500 mg = 1 tab(s), Oral, BID, PRN for pain, # 20 tab(s), Refills(s) 0, Pharmacy: [facility], 162, cm, 12/19/22 7:51:00 EDT, [...] Diagnostic Tests Pending * Urine Culture 12/19/22 [facility]10-22-2023 Hospital Discharge instructions Patient Education 12/19/2022 09:51:09 Urinary Tract Infection, Adult, Rnjw-qk-Lqot Urinary Tract Infection, Adult A urinary tract [...] Follow these instructions at home: Medicines Take cfal-sir-iiukyhm and prescription medicines only as told by [...] provider. Document Revised: 09/26/2020 Document Reviewed: 09/26/2020 [employer] Patient Education 2022 [employer]. 12/19/2022 09:51:09 Abdominal Pain, Adult, Mywg-st-Wano Abdominal Pain, Adult Many things can cause belly (abdominal) pain. Most times, belly pain is not dangerous. Many cases of belly pain can be watched and treated at home. Sometimes, though, belly pain is serious. Your doctor will try to find the cause of your belly pain. Follow these instructions at home: Medicines Take uanu-ngo-rwfiykv and prescription medicines only as told by [...] your belly pain for any changes. Take seto-lro-ukenjoz and prescription medicines only as told by [...] provider. Document Revised: 06/25/2019 Document Reviewed: 06/25/2019 [employer] Patient Education 2022 [employer]. Follow Up Care 12/19/2022 07:41:07 With:Carlitos Baird Address: [address], [facility] [address] [place] [address] Business (1) When:12/22/2022 09:15:26 Comments:Follow-up with your [employer] for further evaluation of your thickening of your endometrial complex. If you not have a [employer], you may follow-up with Dr. Baird for further evaluation. With:Johanny Harmon Address: [address] [place] [address] [place] [address] Business (1) When:12/22/2022 09:15:16 Comments:Follow-up with your primary care provider in 3 to 5 days. If symptoms worsen, do not improve, or new symptoms arise please report back to emergency department for further evaluation. [facility]05-31-2023 Evaluation + Plan noteExtracted from: Title:ED Note Author:Muna [place], Rishi Cabrales e:07/28/22 Fracture of ulnar styloid (S 52.613A: Displaced fracture of unspecified ulna styloid process, initial encounter for closed fracture) Orders: acetaminophen-oxycodone, 1 EA, Tab, Oral, Once, Stop date 07/27/22 23:04:00 EDT, STAT, Start date 07/27/22 23:04:00 EDT acetaminophen-oxycodone, 1 tab(s), Oral, q4hr for pain, 8 tab(s), Refill(s) 0, [facility], 162, cm, 07/27/22 22:23:00 EDT, Height/Length Dosing, 91.6, kg, 07/27/22 22:23:00 EDT, Weight Dosing [facility]05-31-2023 Hospital Discharge instructions Patient Education 07/27/2022 23:06:21 [...] is stable enough for you to begin ughxl-zj-dsbbcl exercises. You may also be prescribed pain [...] cast, splint, or sling on yourwrist. Do nlmdq-ni-phvuwo exercises only as told by your health care provider or physical therapist. Medicines Take abxz-yyk-ulunrrb and prescription medicines only as told by your health care provider. Ask your health care provider if the medicine prescribed to you: ?Requires you to avoid driving or using machinery. ?Can cause constipation. You may need to take these actions to prevent or treat constipation: ?Drink enough fluid to keep your urine pale yellow. ?Take ieqj-atr-faaghqb or prescription medicines. ?Eat foods that are [...] provider. Document Revised: 05/27/2020 Document Reviewed: 05/27/2020 [employer] Patient Education 2022 [employer]. Follow Up Care 07/27/2022 22:19:07 With:Malu Cuellar Address: [address] [place], [place] [id number]- [facility] (1) When:07/30/2022 Comments:Follow-up for evaluation and management of ulnar styloid fracture of indeterminate age With:XXXX NONE Address: [place] When:Within 3 Day(s) [facility]05-28-2023 Hospital Discharge instructions Patient Education 07/25/2022 20:19:04 Contusion, Lnoz-sp-Kcdr Contusion A contusion is a deep bruise. [...] sitting or lying down. General instructions Take xhsl-kkp-daqraky and prescription medicines only as told by [...] is also called RICE. Youmay be given rlak-jbr-zhsvizs medicines for pain. Contact a doctor if [...] provider. Document Revised: 12/10/2021 Document Reviewed: 12/10/2021 [employer] Patient Education 2022 [employer]. Follow Up Care 07/25/2022 19:36:42 With:Len Hein III, DO, FAM Address: [address] [place] [address] [facility] [address] When:2 to 4 days [facility]05-28-2023 Evaluation + Plan noteExtracted from: Title:ED Note [...] EDT, 07/25/22 20:14:00 EDT Splint Application Wrist [facility]12-05-2022 Evaluation + Plan noteExtracted from: Title:ED Note Author:Kenneth Vick DO Date :02/01/22 Hematoma (T14.8XXA: Other in jury of unspecified body region, initial encounter) [facility]12-05-2022 Hospital Discharge instructions Patient Education 02/01/2022 03:27:26 [...] your health care provider. General instructions Take lupw-ujk-zipwgwz and prescription medicines only as told by [...] 09/28/2004 Document Revised: 07/11/2019 Document Reviewed: 07/20/2018 [employer] Patient Education 2019 [employer] Follow Up Care 02/01/2022 03:06:07 With:Srikanth WALTON Address: [address] [place], [place] [id number] Business (1) When:02/08/2022 only if needed [facility]09-01-2022 Hospital Discharge instructions Patient Education 10/29/2021 19:49:17 [...] medicines to help relieve symptoms, such as: Ohba-ehu-qdnpirm cold medicines. Cough suppressants. Coughing is a [...] and other clear broths. General instructions Take miuh-ksg-rjusnwt and prescription medicines only as told by [...] and water are not available, use hand boiler service technician. ?Avoid touching your mouth, face, eyes, or [...] 08/10/2001 Document Revised: 02/22/2019 Document Reviewed: 09/30/2017 [employer] Patient Education 2020 [employer]. Follow Up Care 10/29/2021 18:40:12 With:Srikanth WALTON Address: [address] [place], [place] [id number] [facility] (1) When:11/01/2021 19:47:53 Comments:Call the office of [...] you develop any new or worsening symptoms. [facility]09-01-2022 Evaluation + Plan noteExtracted from: Title:ED Note Author:Adrian Potter DO Date: Acute upper respiratory infe ction (J06.9: Acute upper respiratory infection, unspecified) Orders: brompheniramine/dextromethorphan/PSE, 5 mL, Oral, QID for cold symptoms, 200 mL, Refill(s) 0, [facility], 163, cm, 10/29/21 18:48:00 EDT, Height/Length Dosing, 93, kg, 10/29/21 18:48:00 EDT, Weight Dosing methylPREDNISolone, = 1 packet(s), Oral, As Directed, as directed on package labeling, X 6 day(s), # 21 tab(s), Refills(s) 0, Pharmacy: [facility], 163, cm, 10/29/21 18:48:00 EDT, Height/Length Dosing, 93, kg, 10/29/21 18:48:00 EDT, Weight Dosing ondansetron, 4 mg = 1 tab(s), Oral, q8hr, PRN Nausea/Vomiting, # 12 tab(s), Refills(s) 0, Pharmacy: [facility], 163, cm, 10/29/21 18:48:00 EDT, Height/Length Dosing, 93, kg, 10/29/21 18:48:00 EDT, Weight Dosing COVID-19 ([facility]) Diagnostic Tests Pending * COVID-19 ([facility]) 10/29/21 [facility]08-14-2022 Hospital Discharge instructions Patient Education 10/11/2021 16:09:43 Contusion, Ziaw-pu-Jrph Contusion A contusion is a deep bruise. [...] sitting or lying down. General instructions Take fjfk-aex-xztpdnc and prescription medicines only as told by [...] is also called RICE. Youmay be given zzmd-bdm-xxzljhu medicines for pain. Contact a doctor if [...] 08/02/2008 Document Revised: 10/06/2018 Document Reviewed: 10/06/2018 [employer] Patient Education 2020 [employer] Follow Up Care 10/11/2021 13:05:01 With:Malu Cuellar Address: [address] [place] [address]- Business (1) When:10/14/2021 15:44:52 With:Patricia Pollock Address: [address] [place] [id number] Business (1) When:Within 3 Day(s) [facility]07-10-2022 Hospital Discharge instructions Patient Education 09/06/2021 17:08:26 [...] sling or splint to support your injury. Endb-itv-owuszun anti-inflammatory medicines, such as ibuprofen, for pain control. Oaxrs-ba-ufvwzc exercises. Follow these instructions at home: RICE [...] bath or a shower. General instructions Take kece-yyp-nookclb and prescription medicines only as told by your health care provider. Return to your normal activities as told by your health care provider. Ask your health care provider what activities are safe for you. Do wexxv-hx-cckbcn exercises only as told by your health [...] 01/23/2007 Document Revised: 08/17/2018 Document Reviewed: 08/17/2018 [employer] Patient Education 2020 [employer]. Follow Up Care 09/06/2021 16:10:00 With:Luan Sellers Address: [address] [place], [place] [id number] Business (1) When:09/09/2021 17:07:08 Comments:Call the office of [...] stronger pain medicine for pain not controlled. [facility]07-10-2022 Evaluation + Plan noteExtracted from: Title:ED Note Author:Adrian Potter DO Date: Contusion of elbow (S50.00XA : Contusion of unspecified elbow, initial encounter) Ordered: acetaminophen-hydrocodone, 1 tab(s), Oral, q4hr for pain, 3 tab(s), Refill(s) 0, [facility], 162, cm, 09/06/21 16:13:00 EDT, Height/Length Dosing, 95, kg, 09/06/21 16:13:00 EDT, Weight Dosing Orders: Sling Apply XR Elbow 3+ Views Right [facility] App[facility]ments Appointment Date:12/07/2023 08:20:00 AM Scheduled Provider:Aditi Patten Location:[facility] Appointment Type: Open Future Scheduled Tests [...] T4 11/02/23 * Vitamin B12 Level 11/02/23 [facility] Hospital course Narrative No data available for this section [facility] No data available for this section [facility]ative) Referred by: Aditi Patten [facility] Summary Purpose Family History No Family History Records Found Advance Directives No Advanced Directives Records FoundNo Advanced Directives Records Found Additional Source Comments Care Team (unrecognized sect ion and content) Personnel Name: Patricia Pollock NP Address: [address] [address] Personnel Name: Srikanth WALTON MD Address: [address] [place] [address] Personnel Name: Srikanth WALTON MD Address: Address: [address] [place] [address] Personnel Name: NONE, XXXX Address: Address: [facility] Personnel Name: NONE, XXXX Address: Address: [facility] Personnel Name: NONE, XXXX Address: Address: [facility] Personnel Name: LLC, GENERIC Personnel Name: LLC, GENERIC INFORMATION SOURCE (unrecogn ized section and content) DATE CREATED AUTHOR 11/03/2023 [facility] DATE CREATED AUTHOR AUTHOR'S ORGANIZ ATION 11/14/2023 [facility] EPIC FOR RECORDS PERTAINING TO PATIENTS [...] BE BASED ON THE PRIMARY CLINICAL RECORDS. [employer] [facility]. provides no warranty or guarantee of the accuracy or completeness of information in this document.
[2023-11-18 07:15] LABS: Basophils Percent Auto 0.4 % (0.2-2.0); Eosinophils Absolute Auto 0.3 10^3/uL (0.0-0.7); Eosinophils Percent Auto 2.4 % (0.9-7.0); Hematocrit 37.2 % (36.0-48.0); Hemoglobin 11.7 g/dL (12.0-16.0); Immature Granulocytes Abs Auto 0.03 10^3/uL (0.00-0.03); Immature Granulocytes Pct Auto 0.3 % (0.0-0.5); Lymphocytes Absolute Auto 3.8 10^3/uL (1.2-3.8); Lymphocytes Percent Auto 35.2 % (20.5-60.0); Mean Corpuscular HGB Conc 31.5 g/dL (29.9-35.2); Mean Corpuscular Hemoglobin 26.7 pg (26.7-34.0); Mean Corpuscular Volume 84.7 fL (81.0-99.0); Mean Platelet Volume 8.6 fL (9.5-13.5); Monocytes Absolute Auto 0.8 10^3/uL (0.3-0.8); Monocytes Percent Auto 7.6 % (1.7-12.0); Neutrophils Absolute Auto 5.8 10^3/uL (1.4-6.5); Neutrophils Percent Auto 54.1 % (43.0-75.0); Platelet Count 321 10^3/uL (150-450); Red Blood Count 4.39 10^6/uL (4.20-5.40); Red Cell Distribution Width 18.3 % (11.0-15.0); White Blood Count 10.7 10^3/uL (4.0-11.0)
[2023-11-18 07:27] LABS: Cannabinoid Screen Urine POSITIVE (NEGATIVE); Phencyclidine Screen Urine NEGATIVE (NEGATIVE)
[2023-11-18 07:28] LABS: Amphetamine Screen Urine NEGATIVE (NEGATIVE); Barbiturates Screen Urine NEGATIVE (NEGATIVE); Benzodiazepines Screen Urine NEGATIVE (NEGATIVE); Buprenorphine Screen Urine NEGATIVE (NEGATIVE); Cocaine Screen Urine NEGATIVE (NEGATIVE); Methadone Screen Urine NEGATIVE (NEGATIVE); Methamphetamines Screen Urine NEGATIVE (NEGATIVE); Opiate Screen Urine NEGATIVE (NEGATIVE); Oxycodone Screen Urine NEGATIVE (NEGATIVE); Tricyclic Antidepressant Urine NEGATIVE (NEGATIVE)
[2023-11-18 07:33] LABS: Glucometer 105 mg/dL (74-106)
[2023-11-18 07:44] LABS: HCG Quantitative <1 mIU/mL
[2023-11-18] MEDS: LACTATED RINGER'S SOLUTION 1,000 ML 50 ML IV (07:50)
[2023-11-18] MEDS: FERRIC SUBSULFATE 8 ML SOLUTION TOPICAL (09:30)
--- NOTE | 2023-11-18 09:37 | PM.ONB ---
Brief Operative Note Date of procedure: 11/18/23 Pre-op diagnosis general: uterine polyp, cervical dysplasia Post-op diagnosis: same as pre-op Procedure: NAME OF PROCEDURE: [ D&c hysteroscopy with myosure, leep] PROCEDURE: The patient was taken back to the Operating Room where she was prepped and draped in normal sterile fashion after being placed under general anesthesia without difficulty. She was also placed in the dorsal lithotomy position. A weighted speculum was placed in the patient?s vagina. The anterior lip of the cervix was identified and grasped with a single tooth tenaculum. a mass extruding from the cervix, suspect uterine polyp vs fibroid. The patient?s uterus was then sounded roughly to [? 8] cm. The patient was then gently dilated using Hegar dilators. The hysteroscope was passed through the patient?s cervix into the uterus. Both ostia were identified. fluffy appearing endometrium. No gross evidence of malignancy, no gross evidence of polyps or fibroids. The myosure apparatus was placed through the scope, The myosure was engaged and endometrial curretting were removed along with endometrial polyp, The hysteroscope was then removed from the uterus. The endometrial curettings were sent out to pathology. The single tooth tenaculum was then removed from the patient's anterior lip of the cervix where excellent hemostasis was noted. . The patient's cervix was then copiously irrigated using vinegar.? Then, a Lugol Solution was also placed onto the patient's cervix which demonstrated increased uptake of the Lugol solution at the [3? ] o?clock and [?10 ] o?clock positions.? At that time, the LEEP portion of the procedure was performed, including both the [? ] o?clock and [? ] o?clock positions. The ectocervix was sent out to Pathology. The patient's cervix was then coagulated using suction cautery. Excellent hemostasis was assured.? Monsel Solution was then placed onto the patient's cervix to help maintain adequate hemostasis. All instruments were removed from the patient's vagina. The anterior lip of the cervix demonstrated excellent hemostasis.? The patient tolerated the procedure well. Sponge, lap, and needle counts were correct x 2. The patient was taken to Recovery Room in stable condition. Anesthesia: MAC Surgeon: Chetan Valdes Estimated blood loss (mL): 100 Pathology: other (polyp and currettings, ectocervical tissue) Condition: stable Disposition: PACU Urinary Catheter Management Urinary Catheter Management Urethral: Cath placed during this visit: no
[2023-11-18] MEDS: MEPERIDINE HCL/PF 25 MG/ML VIAL 12.5 MG IVP (10:05)
== END 2023-11-18 13:00 | disposition home or self-care (01) ==
PROVIDERS: Visit Provider Obstetrics & Gynecology
PROC: (CPT 00940; principal; 2023-11-18 07:30)
DX: N84.1 Polyp of cervix uteri (principal); N87.9 Dysplasia of cervix uteri, unspecified; N93.9 Abnormal uterine and vaginal bleeding, unspecified; N84.0 Polyp of corpus uteri; Z98.51 Tubal ligation status; F17.290 Nicotine dependence, other tobacco product, uncomplicated; K21.9 Gastro-esophageal reflux disease without esophagitis; E11.9 Type 2 diabetes mellitus without complications; F43.10 Post-traumatic stress disorder, unspecified
CPT/HCPCS: 00940; 00952; 57522; 58558; 36415; 80307; 82948; 84702; 85025; 88305; 88307; J1100; J1885; J2175; J2250; J2405; J2704; J3010

== ENCOUNTER 2023-11-25 17:52 | Emergency (ER) | payer OTHER, SELFPAY ==
[2023-11-25 17:58] VITALS: BP 121/77; PULSE 79; TEMP 36.8; O2SAT 99; BMI 31.6
--- OUTSIDE RECORDS SUMMARY | 2023-11-25 17:58 | XMS_ITS | CCD ---
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 Name Role Phone Patricia Pollock Primary Care Physician Srikanth WALTON Primary Care Physician [phone] NONE, XXXX Primary Care Physician [employer], GENERIC Primary Care Physician [employer] Malu Cuellar Attending Unavailable Pochermelindo, Malu Lacy Referring Unavailable Aditi Vargas Admitting Unavailable Aditi Vargas Attending Unavailable Adrian Potter Attending Unavailable Winsome Andino Attending Unavailable Aditi Vargas Attending Unavailable Aditi Vargas Attending Unavailable DO Chetan Valdes Attending Provider [phone] Chetan Valdes Attending Unavailable Chetan Valdes Admitting Unavailable Aditi Vargas Attending Unavailable Aditi Vargas Admitting Unavailable CHETAN VALDES Attending Unavailable POCMALU ESCOBEDO Referring Unavailable POCOS, MALU Lacy Attending Unavailable MICHEL FOX Referring Unavailable KEISHACHETAN CUMMINGS Attending Unavailable POCOS, MALU Lacy Referring Unavailable POCOS, MALU Lacy Attending Unavailable KEISHACHETAN Attending Unavailable KEISHACHETAN Dick Attending Unavailable POCOS, MALU Lacy Referring Unavailable POCOS, MALU Lacy Attending Unavailable DOROTHEAANSON BENNETT Attending Unavailable Allergies Allergy Classification Reported Allergen(s) Allergy Type Date of Onset Reaction(s) Facility (10 sources) empagliflozin; Translations: [empagliflozin] Drug Allergy Nausea (finding), Weal (disorder) [facility] (10 sources) glipiZIDE; Translations: [glipizide] Drug Allergy Diarrhea (finding) [facility] (10 sources) SITagliptin; Translations: [sitagliptin] Drug Allergy Mycosis (disorder), Vomiting (disorder) [facility] Medications Current Medications Medication Drug Class(es) Dates Sig (Normalized) Sig (Original) acetaminophen 325 mg / HYDROcodone bitartrate 5 mg oral tablet (8 sources) Opioid Agonist Start: 09-06-2021 take 1 tablet by mouth every four hours for pain [place] 325 mg-5 mg oral tablet 1 tab(s), Oral, q4hr for pain, 3 tab(s), Refill(s) 0, [facility], 162, cm, 09/06/21 16:13:00 EDT, Height/Length Dosing, 95, kg, 09/06/21 16:13:00 EDT, Weight Dosing Start Date: 09/06/21 Status: Ordered acetaminophen 325 mg / oxyCODONE hydrochloride 5 mg oral tablet (3 sources) Opioid Agonist Start: 07-27-2022 take 1 tablet by mouth every four hours for pain acetaminophen-oxy codone 325 mg-5 mg Tab 1 tab(s), Oral, q4hr for pain, 8 tab(s), Refill(s) 0, [facility] 1985, 162, cm, 07/27/22 22:23:00 EDT, Height/Length Dosing, 91.6, kg, 07/27/22 22:23:00 EDT, Weight Dosing Start Date: 07/27/22 Status: Ordered Ascorbic Acid (1 source) Vitamin C Start: 11-02-2023 Vitamin C Refills(s) 0 Start Date: 11/02/23 Status: Ordered brompheniramine maleate 0.4 mg/ml / dextromethorphan hydrobromide 2 mg/ml / pseudoephedrine hydrochloride 6 mg/ml oral solution (6 sources) alpha-Adrenergic Agonist, Uncompetitive V-wdnzvz-L-aspartat e Receptor Antagonist, Sigma-1 Agonist Start: 10-29-2021 take 5 mL by mouth four times daily Bromfed DM oral syrup 5 mL, Oral, QID for cold symptoms, 200 mL, Refill(s) 0, [facility] 1985, 163, cm, 10/29/21 18:48:00 EDT, Height/Length Dosing, 93, kg, 10/29/21 18:48:00 EDT, Weight Dosing Start Date: 10/29/21 Status: Ordered 12 hr buPROPion hydrochloride 150 mg extended release oral tablet (8 sources) Aminoketone Start: 01-30-2020 take 1 tablet by mouth twice daily Wellbutrin SR 150 mg Tab-ER 150 mg = 1 tab(s), Oral, BID, # 30 tab(s), Refills(s) 5, Pharmacy: [facility], 163, cm, 01/30/20 10:40:00 EST, Height/Length Dosing, 105, kg, 01/30/20 10:40:00 EST, Weight Dosing Start Date: 01/30/20 Status: Ordered cephalexin 500 mg oral capsule (1 source) Cephalosporin Antibacterial Start: 12-19-2022 End: 12-26-2022 take 1 capsule by mouth every six hours Keflex 500 mg Cap 500 mg = 1 cap(s), Oral, q6hr, X 7 day(s), # 28 cap(s), Refills(s) 0, Pharmacy: [facility] 1985, 162, cm, 12/19/22 7:51:00 EDT, Height/Length Dosing, 85, kg, 12/19/22 7:51:00 EDT, Weight Dosing Start Date: 12/19/22 Stop Date: 12/26/22 Status: Ordered esomeprazole 20 mg delayed release oral capsule (8 sources) Proton Pump Inhibitor Start: 01-30-2020 take 1 capsule by mouth once daily Nexium 20 mg Cap-DR 20 mg = 1 cap(s), Oral, Daily, # 30 cap(s), Refills(s) 5, Pharmacy: [facility] 1985, 163, cm, 01/30/20 10:40:00 [...] Daily, # 90 cap(s), Refills(s) 0, Pharmacy: [facility], 162, cm, 11/02/23 8:04:00 EDT, Height/Length Dosing, 83.6, kg, 11/02/23 8:04:00 EDT, Weight Dosing Start Date: 11/02/23 Status: Ordered Start: 01-30-2020 take 1 capsule by [facility] twice daily FLUoxetine 40 mg Cap 40 mg = 1 cap(s), Oral, BID, # 30 cap(s), Refills(s) 5, Pharmacy: [facility], 163, cm, 01/30/20 10:40:00 EST, Height/Length Dosing, 105, kg, 01/30/20 10:40:00 EST, Weight Dosing Start Date: 01/30/20 Status: Ordered fluticasone propionate 0.05 mg/actuat metered dose nasal spray (3 sources) Corticosteroid Start: 01-30-2020 fluticasone 0.05 mg/inh Nasal [place] 100 mcg, 2 spray(s), Nasal, Daily Allergy symptoms, 16 gm, Refill(s) 5, [facility], 163, cm, 01/30/20 10:40:00 EST, Height/Length Dosing, 105, kg, 01/30/20 10:40:00 EST, Weight Dosing Start Date: 01/30/20 Status: Ordered fluticasone 0.05 mg/inh Nasal [place] (5 sources) Start: 01-30-2020 fluticasone 0.05 mg/inh [place] 100 mcg, 2 spray(s), Nasal, Daily Allergy symptoms, 16 gm, Refill(s) 5, [facility], 163, cm, 01/30/20 10:40:00 EST, Height/Length Dosing, 105, kg, 01/30/20 10:40:00 EST, Weight Dosing Start Date: 01/30/20 Status: Ordered Hydrocortisone (8 sources) Corticosteroid Start: 03-05-2020 apply 30 g rectal route twice daily Proctosol HC 2.5% Cream See Instructions, 30 gm, Refill(s) 0, Rectal BID, [facility], 163, cm, 03/05/20 10:32:00 [...] day(s), # 21 tab(s), Refills(s) 0, Pharmacy: [facility], 162, cm, 03/27/23 18:39:00 EST, Height/Length Dosing, 85, kg, 03/27/23 18:39:00 EST, Weight Dosing Start Date: 03/27/23 Stop Date: 04/02/23 Status: Ordered Start: 10-29-2021 End: 11-04-2021 Medrol 4 mg Tab = 1 packet(s ), Oral, As Directed, as directed on package labeling, X 6 day(s), # 21 tab(s), Refills(s) 0, Pharmacy: [facility] 1985, 163, cm, 10/29/21 18:48:00 [...] pain, # 20 tab(s), Refills(s) 0, Pharmacy: [facility], 162, cm, 12/19/22 7:51:00 EDT, Height/Length Dosing, 85, kg, 12/19/22 7:51:00 EDT, Weight Dosing Start Date: 12/19/22 Status: Ordered nystatin [id number] unt/ml topical cream (3 sources) Polyene Antifungal Start: 03-05-2020 Nystatin Topical Cream 100,000 units/g Cream 1 deb, Topical, BID, 30 gram, Refill(s) 0, [facility], 163, cm, 03/05/20 10:32:00 EST, Height/Length Dosing, 107.6, kg, 03/05/20 10:32:00 EST, Weight Dosing Start Date: 03/05/20 Status: Ordered traMADol hydrochloride 50 mg oral tablet (1 source) Opioid Agonist Start: 03-27-2023 End: 03-30-2023 traMADOL 50 mg Tab 50 mg = 1 tab(s), Oral, q4hr, PRN Pain 8-10, X 3 day(s), # 18 tab(s), Refills(s) 0, Pharmacy: [facility], 162, cm, 03/27/23 18:39:00 [...] Nausea/Vomiting, # 12 tab(s), Refills(s) 0, Pharmacy: [facility], 163, cm, 10/29/21 18:48:00 [...] remain, # 2 tab(s), Refills(s) 0, Pharmacy: [facility], 163, cm, 03/05/20 10:32:00 [...] Test Name Value Interpretation Reference Range Facility CBC w/ Auto Diffon 4 Basophils/100 WBC (Bld) 0.6 % Normal 0.0-2.0 [facility] Comment on above: Performed By: #### 2 [id number] #### [facility] [address] [place] [address] Basophils/Leukocytes Auto (Bld) [Pure # fraction] 0.0 E9/L Normal 0.0-0.2 [facility] Comment on above: Performed By: #### 2 [id number] #### [facility] [address] [place] [address] Eosinophils (Bld) [#/Vol] 0.2 E9/L Normal 0.0-0.5 [facility] Comment on above: Performed By: #### 2 [id number] #### [facility] [address] [place] [address] Eosinophils/100 WBC (Bld) 1.9 % Normal 0.0-8.0 [facility] Comment on above: Performed By: #### 2 [id number] #### [facility] [address] [place] [address] Erythrocyte distribution width (RBC) [Ratio] 19.6 % High 10.9-14.2 [facility] Comment on above: Performed By: #### 2 [id number] #### [facility] [address] [place] [address] Hematocrit (Bld) [Volume fraction] 35.9 % Normal 34.0-46.0 [facility] Comment on above: Performed By: #### 2 [id number] #### [facility] [address] [place] [address] Hemoglobin (Bld) [Mass/Vol] 11.4 g/dL Low 12.0-16.0 [facility] Comment on above: Performed By: #### 2 [id number] #### [facility] [address] [place] [address] Lymphocytes (Bld) [#/Vol] 2.8 E9/L Normal 1.0-4.0 [facility] Comment on above: Performed By: #### 2 [id number] #### [facility] [address] [place] [address] Lymphocytes/100 WBC (Bld) 32.8 % Normal 14.0-50.0 [facility] Comment on above: Performed By: #### 2 [id number] #### [facility] [address] [place] [address] MCH (RBC) [Entitic mass] 26.5 pg Low 27.0-34.0 [facility] Comment on above: Performed By: #### 2 [id number] #### [facility] [address] [place] [address] MCHC (RBC) [Mass/Vol] 31.9 g/dL Normal 31.4-36.0 [facility] Comment on above: Performed By: #### 2 [id number] #### [facility] [address] [place] [address] MCV (RBC) [Entitic vol] 83.2 fL Normal 80.0-100.0 [facility] Comment on above: Performed By: #### 2 [id number] #### [facility] [address] [place] [address] Monocytes (Bld) [#/Vol] 0.7 E9/L Normal 0.2-1.0 [facility] Comment on above: Performed By: #### 2 [id number] #### [facility] [address] [place] [address] Neutrophils (Bld) [#/Vol] 4.7 E9/L Normal 2.0-7.5 [facility] Comment on above: Performed By: #### 2 [id number] #### [facility] [address] [place] [address] Neutrophils/100 WBC (Bld) 56.1 % Normal 36.0-75.0 [facility] Comment on above: Performed By: #### 2 [id number] #### [facility] [address] [place] [address] Platelet mean volume (Bld) [Entitic vol] 7.2 fL Normal 6.4-10.8 [facility] Comment on above: Performed By: #### 2 [id number] #### [facility] [address] [place] [address] Platelets (Bld) [#/Vol] 313.0 E9/L Normal 150.0-500.0 [facility] Comment on above: Performed By: #### 2 [id number] #### [facility] [address] [place] [address] RBC (Bld) [#/Vol] 4.3 E12/L Normal 4.3-5.9 [facility] Comment on above: Result Comment: Pippa pheral smear review performed. Performed By: #### 2 [id number] #### [facility] [address] [place] [address] RBC size Nom (Bld) NORMAL Invalid Interpretation Code [facility] Comment on above: Performed By: #### 2 [id number] #### [facility] [address] [place] [address] WBC corrected for nucl RBC Auto (Bld) [#/Vol] 8.4 E9/L Normal 4.0-11.0 [facility] Comment on above: Performed By: #### 2 [id number] #### [facility] [address] [place] [address] CMPon 11-16-2023 Albumin [Mass/Vol] 4.2 g/dL Normal 3.3-5.0 [facility] Comment on above: Performed By: #### 2 [id number] #### [facility] [address] [place] [address] Albumin/Globulin (S) [Mass conc ratio] 1.5 Normal 1.1-2.2 [facility] Comment on above: Performed By: #### 2 [id number] #### [facility] [address] [place] [address] ALP [Catalytic activity/Vol] 57 Int._Unit/L Normal 21-98 [facility] Comment on above: Performed By: #### 2 [id number] #### [facility] [address] [place] [address] ALT No additional P-5'-P [Catalytic activity/Vol] 10 Int._Unit/L Normal 6-46 [facility] Comment on above: Performed By: #### 2 [id number] #### [facility] [address] [place] [address] Anion gap [Moles/Vol] 10 mmol/L Normal 6-16 [facility] Comment on above: Performed By: #### 2 [id number] #### [facility] [address] [place] [address] AST [Catalytic activity/Vol] 13 Int._Unit/L Normal 5-43 [facility] Comment on above: Performed By: #### 2 [id number] #### [facility] [address] [place] [address] Bilirubin [Mass/Vol] 0.4 mg/dL Normal 0.0-1.1 [facility] Comment on above: Performed By: #### 2 [id number] #### [facility] [address] [place] [address] Calcium [Mass/Vol] 8.9 mg/dL Normal 8.9-11.1 [facility] Comment on above: Performed By: #### 2 [id number] #### [facility] [address] [place] [address] Chloride [Moles/Vol] 106 mmol/L Normal 101-111 [facility] Comment on above: Performed By: #### 2 [id number] #### [facility] [address] [place] [address] CO2 [Moles/Vol] 26 mmol/L Normal 21-31 [facility] Comment on above: Performed By: #### 2 [id number] #### [facility] [address] [place] [address] Creatinine [Mass/Vol] 0.6 mg/dL Normal 0.5-1.3 [facility] Comment on above: Performed By: #### 2 [id number] #### [facility] [address] [place] [address] Globulin (S) [Mass/Vol] 2.8 g/dL Normal 1.4-4.0 [facility] Comment on above: Performed By: #### 2 [id number] #### [facility] [address] [place] [address] Glucose [Mass/Vol] 126 mg/dL Normal 55-199 [facility] Comment on above: Performed By: #### 2 [id number] #### [facility] [address] [place] [address] Potassium [Moles/Vol] 4.0 mmol/L Normal 3.5-5.3 [facility] Comment on above: Performed By: #### 2 [id number] #### [facility] [address] [place] [address] Protein [Mass/Vol] 7.0 g/dL Normal 6.0-7.8 [facility] Comment on above: Performed By: #### 2 [id number] #### [facility] [address] [place] [address] Sodium [Moles/Vol] 138 mmol/L Normal 135-145 [facility] Comment on above: Performed By: #### 2 [id number] #### [facility] [address] [place] [address] Urea nitrogen [Mass/Vol] 12 mg/dL Normal 5-21 [facility] Comment on above: Performed By: #### 2 [id number] #### [facility] [address] [place] [address] Urea nitrogen/Creatinine [Mass ratio] 20 No Units Normal 10-20 [facility] Comment on above: Performed By: #### 2 [id number] #### [facility] [address] [place] [address] Ferritinon 11-16-2023 Ferritin [Mass/Vol] 6 ng/mL Low 11-307 [facility] Comment on above: Performed By: #### 2 [id number] #### [facility] [address] [place] [address] Folateon 11-16-2023 Folate [Mass/Vol] 9.9 ng/mL Normal >=6.7 [facility] Comment on above: Performed By: #### 2 [id number] #### [facility] [address] [place] [address] Free T4on 11-16-2023 Free T4 [Mass/Vol] 0.73 ng/dL Normal 0.58-1.64 [facility] Comment on above: Performed By: #### 2 [id number] #### [facility] [address] [place] [address] [id number] 11-16-2023 HbA1c (Bld) [Mass fraction] 6.2 % High <=5.9 [facility] Comment on above: Performed By: #### 7 [id number] #### [facility] [address] [place] [address] Ironon 11-16-2023 Iron [Mass/Vol] 38 microgram/dL Normal 35-153 [facility] Comment on above: Performed By: #### 2 [id number] #### [facility] [address] [place] [address] Iron Saturationon 11-16-2023 Iron binding capacity [Mass/Vol] 405 microgram/dL High 250-400 [facility] Comment on above: Performed By: #### 2 [id number] #### [facility] [address] [place] [address] Iron saturation [Mass fraction] 9 % Low 20-50 [facility] Comment on above: Performed By: #### 2 [id number] #### [facility] [address] [place] [address] Lipid Panelon 11-16-2023 Cholesterol [Mass/Vol] 144 mg/dL Normal 120-200 [facility] Comment on above: Performed By: #### 2 [id number] #### [facility] [address] [place] [address] Cholesterol in HDL [Mass/Vol] 59 mg/dL Invalid Interpretation Code [facility] Comment on above: Result Comment: '>= 60 LOW RISK' '<= 40 HIGH RISK' Performed By: #### 2 [id number] #### [facility] [address] [place] [address] Cholesterol in LDL [Mass/Vol] 71 mg/dL Normal <=129 [facility] Comment on above: Performed By: #### 2 [id number] #### [facility] [address] [place] [address] Cholesterol in VLDL [Mass/Vol] 9 mg/dL Normal 7-40 [facility] Comment on above: Performed By: #### 2 [id number] #### [facility] [address] [place] [address] Triglyceride [Mass/Vol] 44 mg/dL Normal <=149 [facility] Comment on above: Performed By: #### 2 [id number] #### [facility] [address] [place] [address] Retic Counton 11-16-2023 Reticulocytes/100 RBC (Bld) 0.8 % Normal 0.5-2.2 [facility] Comment on above: Performed By: #### 2 [id number] #### [facility] [address] [place] [address] TSHon 11-16-2023 TSH Qn 1.54 m[IU]/L Normal 0.34-5.60 [facility] Comment on above: Performed By: #### 2 [id number] #### [facility] [address] [place] [address] Transferrinon 11-16-2023 Transferrin [Mass/Vol] 289 mg/dL Normal 200-370 [facility] Comment on above: Order Comment: Trans feli order added by Discern Rule: gl_ftmc_add_iron_trans . Performed By: #### 2 [id number] #### [facility] [address] [place] [address] U Microalbon 11-16-2023 Albumin DL <= 20 mg/L (U) [Mass/Vol] 2.7 mg/dL High 0.0-1.9 [facility] Comment on above: Performed By: #### 1 [id number] #### [facility] [address] [place] [address] U Protein/Creat Ratioon 10-29 Protein/Creatinine (U) [Ratio] 8.40 mg/gm Cr Normal .00-200.00 [facility] Comment on above: Performed By: #### 1 [id number] #### [facility] [address] [place] [address] U Creatinine 185.8 mg/dL Invalid Interpretation Code [facility] Comment on above: Performed By: #### 1 [id number] #### [facility] [address] [place] [address] Ur Total Protein 15.7 mg/dL Invalid Interpretation Code [facility] Comment on above: Performed By: #### 1 [id number] #### [facility] [address] [place] [address] Vit B12on 11-16-2023 Cobalamin (Vitamin B12) [Mass/Vol] 244 pg/mL Normal 50-1500 [facility] Comment on above: Performed By: #### 2 [id number] #### [facility] [address] [place] [address] Vitamin D 25 Hydroxyon 11-15 25-hydroxyvitamin D3 [Mass/Vol] 14.5 ng/mL Low 30.0-100.0 [facility] Comment on above: Performed By: #### 5 [id number] #### [facility] [address] [place] [address] eGFRon 11-16-2023 eGFR 116 mL/min/1.73 m2 Normal >=59 [facility] Comment on above: Order Comment: Order added by Discern Expert. Performed By: #### 1 [id number] #### [facility] [address] [place] [address] MR WRIST RIGHT WO IV CONTRAS Ton [...] CRUZ, Aditi Unger Primary Care Physician - HUONG, GENERIC This Is Your Medications List fluoxetine (FLUoxetine 10 mg Cap) Contact prescribing physician if questions or concerns ascorbic acid (Vitamin C) carbonyl iron (Iron Chews) cholecalciferol (Vitamin D3 400 intl units oral capsule) Procedures Performed Dilation and curettage (08/20/2019), Hysteroscopy (08/20/2019), Tubal ligation (08/20/2019), C section 4/21/10, wrist surgery. Discharge Vitals Heart Rate (Peripheral) 80 Respiratory Rate 16 Blood Pressure 106/72 Height 162 cm Height 64 in Weight 83.6 kg Weight 183.92 lb BMI 31.85 What to do next You Need to Schedule the Following Appointments Follow Up with Aditi Patten FAM, MED When: In 6 months 05/04/2023 EST Comments: for f/u Where: [address], [facility] [address] [address]- Business (1) Follow Up with Aditi Patten FAM MED When: In 3 months Comments: 3 mo f/u for DM Where: [address], [facility] [address] [address] Business (1) Someone Will Contact You Regarding These Appointments [facility] [place]ulatory Referral, Psychiatry, 11/02/23 8:40:00 EDT, Generalized anxiety disorder Mild recurrent major depression Family history of bipolar disorder Medications What How Much When Why Instructions New fluoxetine (FLUoxetine 10 mg Cap) 1 Capsules By Mouth Every day Generalized anxiety disorder Pickup at [facility] Unchanged ascorbic acid (Vitamin C) Contact prescribing physician if questions or concerns Unchanged carbonyl iron (Iron Chews) Contact prescribing physician if questions or concerns Unchanged cholecalciferol (Vitamin D3 400 intl units oral capsule) 1 Capsules By Mouth Every day Contact prescribing physician if questions or concerns Pharmacy Information [facility]: [address] [place] [id number] [phone] Medications and Immunizations Administered Not Given influenza [...] eating plan (more content not included)... Normal [facility] Family Medicine Office/Clini c Erikaon 11-02-2023 Family Medicine Office/Clinic Note Family Medicine Office/Clinic Note Chief Complaint Est Care HPI Staff Patient is a 38 y.o. female presenting to [facility]- lost her home, now she has a stable place to live and is working on getting back to seeing Drs, getting her meds and health conditions under control. Establish Care: History: Last provider: [facility] Any recent labs: 03/27/23 Health Conditions: Anxiety, Arthritis, DM II, Depression, PTSD Health Maintenance UTD: Colonoscopy: 2006 [place], [place] per patient Mammogram: AGE Pelvic/Pap: Dr. Valdes [...] visit for right wrist sprain followed by [facility] claim and Ortho follow-up Past Surgical History: In 2019 patient had bilateral salpingectomy and D&C Past family History: Mother and father with asthma Mother with diabetes, many allergies, ROSC, arrest Father- cancer, lung kidney, colon grandmother with cancer, lung kidney Mother and grandparent with endometriosis Her children with ADHD, bipolar History (0,0,0,5) Found a lump- endometriosis- [employer]- Keisha Abnormal Pap- getting more testing and biopsies done. 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 Normal [facility] Comment on above: Result Comment: Elec tronically Signed By: Sam DELA CRUZ, Aditi L\.br\Date and Time Signed: 11/02/23 09:00 EDT Nonvisit Note - OTon 024 Nonvisit Note - OT Nonvisit Note - OT Pt cancelled today and re-scheduled for tomorrow 10/18/2023 [facility] C Urineon 03-29-2023 Bacteria identified Cx Nom (U) Microbiology PROCEDURE: Urine Culture [R1] SOURCE: U CleanCatch BODY SITE: COLLECTED DATE/TIME: 03/27/2023 19:37 EST RECEIVED DATE/TIME: 03/27/2023 20:21 EST START DATE/TIME: 03/27/2023 20:21 EST FREE TEXT SOURCE: Tariq JOHNSON, Adrian Potter DO, Adrian Salmeron FINAL REPORTS Final Report [...] Locations R1: This test was performed at: [facility], [address] [place] [address], [facility] , , [facility] Comment on above: Performed By: #### 1 8347545, 7235621 ####[facility] [address] [place] [address] CT Head or Brain w/o Contras ton [...] MD Transcribed by: SIERRA Technologist: CRISTOFER Normal [facility] Discharge Instructionson Discharge Instructions [id number]# 1.00TIFF Normal [facility] ED Note-Physicianon 03-28-19 ED Note-Physician Basic Information [...] day(s), # 18 tab(s), Refills(s) 0, Pharmacy: [facility], 162, cm, 03/27/23 18:39:00 EST, Height/Length Dosing, 85, kg, 03/27/23 18:39:00 EST, Weight Dosing Orders: methylPREDNISolone, = 1 packet(s), Oral, As Directed, as directed on package labeling, X 6 day(s), # 21 tab(s), Refills(s) 0, Pharmacy: [facility], 162, cm, 03/27/23 18:39:00 [...] Beta hCG Qual CBC w/ Auto Diff [place] Stroke Scale CT Head or Brain w/o [...] Home Discha (more content not included)... Normal [facility] Comment on above: Result Comment: Elec tronically [...] mGy = na DAP = na Normal [facility] B hCG Qualon 03-27-2023 Beta HCG ( test) Ql Negative Normal [facility] Comment on above: Performed By: #### 2 [id number] ####[facility] [address] [place] [address] BMPon 03-27-2023 Anion gap [Moles/Vol] 10 mmol/L Normal 6-16 [facility] Comment on above: Performed By: #### 2 029448, 74615162, 04909816, 7053145, 18230955 ####[facility] [address] [place] [address] BUN/Creat Ratio 20 No Units Normal 10-20 [facility] Comment on above: Performed By: #### 2 327242, 79367520, 16023286, 2667597, 14334234 ####[facility] [address] [place] [address] Calcium [Mass/Vol] 9.1 mg/dL Normal 8.9-11.1 [facility] Comment on above: Performed By: #### 2 266463, 64633642, 85640858, 8700612, 55972968 ####[facility] [address] [place] [address] Chloride [Moles/Vol] 105 mmol/L Normal 101-111 [facility] Comment on above: Performed By: #### 2 207290, 93698755, 89523073, 9135230, 23225895 ####[facility] [address] [place] [address] CO2 [Moles/Vol] 28 mmol/L Normal 21-31 [facility] Comment on above: Performed By: #### 2 575449, 33919440, 94271276, 8387453, 42074960 ####[facility] [address] [place] [address] Creatinine [Mass/Vol] 0.8 mg/dL Normal 0.5-1.3 [facility] Comment on above: Performed By: #### 2 302786, 10314080, 79759981, 3552524, 55075431 ####[facility] [address] [place] [address] Glucose [Mass/Vol] 106 mg/dL Normal 55-199 [facility] Comment on above: Performed By: #### 2 047919, 04672656, 63430875, 2057864, 74776491 ####[facility] [address] [address] Potassium [Moles/Vol] 3.6 mmol/L Normal 3.5-5.3 [facility] Comment on above: Performed By: #### 2 666047, 22140249, 93511567, 2427631, 55339389 ####[facility] [address] [address] Sodium [Moles/Vol] 139 mmol/L Normal 135-145 [facility] Comment on above: Performed By: #### 2 382204, 73788349, 61119987, 3055418, 19755271 ####[facility] [address] [place] [address] Urea nitrogen [Mass/Vol] 16 mg/dL Normal 5-21 [facility] Comment on above: Performed By: #### 2 259546, 40316119, 51077948, 5523207, 86009569 ####[place] [address] [place] [address] CBC w/ Auto Diffon 4 Basophil Absolute 0.1 E9/L Normal 0.0-0.2 [facility] Comment on above: Performed By: #### 2 673771, 10147806, 82338645, 3631502, 93460204 ####[address] [address] Basophils/100 WBC (Bld) 0.6 % Normal 0.0-2.0 [facility] Comment on above: Performed By: #### 2 619541, 50977356, 09669625, 7449281, 43545483 ####[address] [address] Eos Absolute 0.2 E9/L Normal 0.0-0.5 [facility] Comment on above: Performed By: #### 2 484443, 60691377, 65920170, 4671007, 91233078 ####[place] [address] Eosinophils/100 WBC (Bld) 1.8 % Normal 0.0-8.0 [facility] Comment on above: Performed By: #### 2 027918, 95859961, 61089869, 1874227, 49933804 ####[place] [address] Erythrocyte distribution width (RBC) [Ratio] 17.0 % High 10.9-14.2 [facility] Comment on above: Performed By: #### 2 130715, 41853052, 81619779, 0149849, 11489007 ####[address] [address] Hematocrit (Bld) [Volume fraction] 34.0 % Normal 34.0-46.0 [facility] Comment on above: Performed By: #### 2 408485, 54296399, 76722147, 7898230, 00212268 ####[facility] [address] [place] [address] Hemoglobin (Bld) [Mass/Vol] 10.9 g/dL Low 12.0-16.0 [facility] Comment on above: Performed By: #### 2 272713, 22658923, 87777263, 3555205, 06233488 ####[facility] [address] [place] [address] Lymph Absolute 3.1 E9/L Normal 1.0-4.0 [facility] Comment on above: Performed By: #### 2 189673, 16071158, 17379569, 5400199, 49784246 ####[place] [address] [place] [address] Lymphocytes/100 WBC (Bld) 36.1 % Normal 14.0-50.0 [facility] Comment on above: Performed By: #### 2 511124, 54905458, 42077068, 4402073, 45139107 ####[facility] [address] [place] [address] MCH (RBC) [Entitic mass] 26.1 pg Low 27.0-34.0 [facility] Comment on above: Performed By: #### 2 631689, 30077404, 95067897, 4177960, 72920420 ####[facility] [address] [place] [address] MCHC (RBC) [Mass/Vol] 32.1 g/dL Normal 31.4-36.0 [facility] Comment on above: Performed By: #### 2 591541, 91016945, 55485930, 4869108, 95096801 ####[facility] [address] [place] [address] MCV (RBC) [Entitic vol] 81.3 fL Normal 80.0-100.0 [facility] Comment on above: Performed By: #### 2 837544, 64570464, 97520711, 9849556, 53362531 ####[facility] [address] [place] [address] Coffee Absolute 0.8 E9/L Normal 0.2-1.0 [facility] Comment on above: Performed By: #### 2 577579, 40524034, 40633545, 4492253, 86985320 ####[facility] [address] [place] [address] Monocytes/100 WBC (Bld) 8.7 % Normal 4.0-14.0 [facility] Comment on above: Performed By: #### 2 486882, 33482063, 64610838, 6648258, 03743493 ####[facility] [address] [place] [address] Neutro Absolute 4.6 E9/L Normal 2.0-7.5 [facility] Comment on above: Performed By: #### 2 714741, 94943328, 66022760, 5038004, 94423332 ####[facility] [address] [place] [address] Neutro Auto 52.8 % Normal 36.0-75.0 [facility] Comment on above: Performed By: #### 2 160574, 44603263, 58236833, 2288981, 46101096 ####[place] [address] [place] [address] Platelet 333.0 E9/L Normal 150.0-500.0 [facility] Comment on above: Performed By: #### 2 819589, 98887016, 30674202, 5385710, 96800480 ####[facility] [address] [place] [address] Platelet mean volume (Bld) [Entitic vol] 7.0 fL Normal 6.4-10.8 [facility] Comment on above: Performed By: #### 2 814471, 23098884, 97534520, 2214929, 00382506 ####[facility] [address] [place] [address] RBC 4.2 E12/L Low 4.3-5.9 [facility] Comment on above: Performed By: #### 2 471119, 42629869, 11499353, 7870861, 38662640 ####[facility] [address] [place] [address] WBC 8.7 E9/L Normal 4.0-11.0 [facility] Comment on above: Performed By: #### 2 474503, 36980842, 94232444, 5158117, 58315535 ####[facility] [address] [place] [address] CHEMISTRYOrdered By: SYSTEM SYSTEM on 03-27-2023 Anion [...] Sensitivity Troponin I Instructions For Use, Chriss [place], September 2017) Urea nitrogen [Mass/Vol] 16 mg/dL Normal 5 - 21 mg/dL Remisol Chem Urea nitrogen/Creatinine [Mass ratio] 20 mg/mg Normal 10 - 20 Remisol Chem CHEMISTRYOrdered By: Larissa ROP User on 03-27-2023 Glucose [Mass/Vol] 120 mg/dL High 55 - 99 mg/dL [facility] POC Subsection POC Device SN [id number] 1 Invalid Interpretation Code [facility] P[facility] Subsection POC User ID [id number] 1 Invalid Interpretation Code [facility] P[facility] Subsection POC Username HERMANN VALENZUELA Invalid Interpretation Code [facility] P[facility] Subsection COAGULATIONOrdered By: Jose Diallo on 03-27-2023 aPTT Coag (PPP) [Time] 34.7 s Normal 25.1 - 36.5 second(s) [facility] Auto Coag Comment on above: Interpretive Data: [...] the same coagulation reagent and instrumentation as [facility]. Currently there are no coagulation studies available worldwide for children to 14 days, and no normal ranges. Heparin therapeutic range (represented by Anti-Factor Xa activity of 0.2 - 0.4 U/mL) corresponds to PTT of 56.6 - 109.0 sec. INR Coag (PPP) [Relative time] 1.1 {INR} Invalid Interpretation Code [facility] Auto Coag Comment on above: Interpretive Data: I NR results are specifically intended to assess patients stabilized on long-term Anticoagulation therapy suggested INR s Less Intensive Anticoagulation 2.0 3.0 Conventional Range 3.0 4.5 PT Coag (PPP) [Time] 12.4 s Normal 9.4 - 1 2.5 second(s) [facility] Auto Coag Comment on above: Interpretive Data: [...] the same coagulation reagent and instrumentation as [facility]. Currently there are no coagulation studies available worldwide for children to 14 days, and no normal ranges. Capillary Glucose POCon 03-01 Glucose [Mass/Vol] 120 mg/dL High 55-99 [facility] Comment on above: Performed By: #### 2 [id number] ####[facility] [address] [place] [address] Consent for Treatmenton 03-01 Consent for Treatment [id number]#1 .00TIFF Normal [facility] ED Clinical Summaryon 2023 ED Clinical Summary [address] [address] ED Clinical Summary Person Information Name: DEB WOODS [facility] Age: 38 Years : 1985 Sex: Female Language: Taiwanese PCP: MELA BORJA Marital Status: Single Visit [...] 03/27/2023 21:28:23 03/27/2023 21:28:23 03/27/2023 21:28:23 ADDRESS: [address] [place] [id number] PHYS DOC NOTES: MEDICAL INFORMATION: Prescriptions Given: New Medications [facility], [address] [place], [place] [id number], [phone] methylPREDNISolone (Medrol 4 mg Tab) 1 Packets By Mouth As Directed for 6 Days. as directed on package labeling. Refills: 0. tramadol (traMADOL 50 mg Tab) 1 Tablets By Mouth every 4 hours as needed Pain 8-10 for 3 Days. Refills: 0. Medications to Continue with No Changes Other Medications acetaminophen-hydroco done (York 325 mg-5 mg oral tablet) 1 Tablets [...] 5. fluticasone nasal (fluticasone 0.05 mg/inh Nasal [place]) 2 Sprays Nasal Inhalation every day as [...] up: With (more content not included)... Normal [facility] ED Patient Education Noteon 03-27-2023 ED Patient [...] mouth or applied to the skin. Take wejs-iky-ctsmvfo and prescription medicines only as told by [...] provider. Document Revised: 06/19/2020 Document Reviewed: 05/28/2020 [employer] Patient Education ? 2022 [employer] Normal [facility] ED Patient Summaryon 024 ED Patient Summary [place] [id number] Patient Discharge Instructions Person Information Name: DEB WOODS Age: 38 Years Arrival Date: 03/27/2023 18:27:29 Discharge Diagnosis: Arm pain Primary Care Physician: MELA BORJA Provider Information Primary Provider: Adrian Potter DO Advanced [employer] Developer:Emory The exam and treatment you received in the Emergency Department were for an urgent problem and are not intended as complete care. It is important that you follow up with a doctor, nurse practitioner, or physician?s social worker assistant for ongoing care. If your symptoms become worse or you do not improve as expected and you are unable to reach your usual health care provider, you should return to the Emergency Department. We are available 24 hours a day. CHUCK DEB Keshia has been given the following list of patient education materials, prescriptions and follow-up instructions: Follow-up Instructions: With: Address: When: Malu Cuellar [address] [place], [place] [id number] [employer] (1) In 3 days 03/30/2023 Comments: Call [...] opioids can be used to help relieve hstexcpa-dh-ljxxau pain and are often prescribed following a [...] include visitors, (more content not included)... Normal [facility] HEMATOLOGYOrdered By: SYSTEM SYSTEM on 03-27-2023 Basophil [...] Normal 80.0 - 100.0 fL Remisol Heme Coffee Absolute 0.8 E9/L Normal 0.2 - 1.0 [...] Remisol Heme Monitor Recordon 03-27-2023 Monitor Record [id number]# 1.00TIFF Normal [facility] Monitor Record [id number]# 1.00TIFF Normal [facility] PT & PTTon 03-27-2023 aPTT Coag (PPP) [Time] 34.7 second(s) Normal 25.1-36.5 [facility] Comment on above: Result Comment: Para meter 15 days - 4 weeks 1 - 5 months 6 - 11 months 1 - 5 years 6 - 10 years 11 - 17 years PTT Mean: 35.4 (27.6-45.6) Mean: 33.5 (24.8-40.7) Mean: 32.4 (25.1-40.7) Mean: 31.6 (24.0-39.2) Mean: 31.6 (26.9-38.7) Mean: 31.0 (24.6-38.4) Pediatric Reference ranges were obtained from a study by humberto Moore prepared from 1437 samples obtained at 7 different centers using the same coagulation reagent and instrumentation as [facility]. Currently there are no coagulation studies available worldwide for children to 14 days, and no normal ranges. Heparin therapeutic range (represented by Anti-Factor Xa activity of 0.2 - 0.4 U/mL) corresponds to PTT of 56.6 - 109.0 sec. Performed By: #### 2 267183, 18886446, 13886617, 6012022, 75639929 ####[facility] [address] [place] [address] INR Coag (PPP) [Relative time] 1.1 {INR} Invalid Interpretation Code [facility] Comment on above: Result Comment: INR results are specifically intended to assess patients stabilized on long-term Anticoagulation therapy suggested INR?s ?Less Intensive Anticoagulation? 2.0 ? 3.0 Conventional Range 3.0 ? 4.5 Performed By: #### 2 601009, 89443066, 42207888, 8390997, 49431550 ####[facility] [address] [place] [address] PT Coag (PPP) [Time] 12.4 second(s) Normal 9.4-12.5 [facility] Comment on above: Result Comment: 15 d [...] ranges were obtained from a study by humberto Moore prepared from 1437 samples obtained at 7 different centers using the same coagulation reagent and instrumentation as [facility]. Currently there are no coagulation studies available worldwide for children to 14 days, and no normal ranges. Performed By: #### 2 940505, 78243621, 08488454, 1568163, 42555070 ####[facility] [address] [place] [address] RAD - Preliminary Cat Scan R eporton 03-27-2023 RAD - Preliminary Cat Scan Report [id number]# 1.00TIFF Normal [facility] SEROLOGYOrdered By: Jose olivera on 03-27-2023 Beta HCG ( test) Ql Negative (03/27/23 6:55 PM) Normal [facility] Man Sero Troponin 0 Hr.on 03-27-2023 Troponin I.cardiac [Mass/Vol] ng/mL Low 10.10-27.10 [facility] Comment on above: Result Comment: The 95% CI (Confidence Interval) PPV (Positive Predictive Value) for myocardial infarction in females is 38 pg/mL, in males 51 pg/mL. The results should be used in conjunction with clinical conditions of myocardial infarction. (Access High Sensitivity Troponin I Instructions For Use, Chriss [place], September 2017) Performed By: #### 2 779547, 59271632, 67635116, 2006075, 44509798 ####[facility] [address] [place] [address] UA With Cult Reflexon 2023 Bacteria LM Ql (Urine sed) 1+ /HPF Abnormal Trace [facility] Comment on above: Performed By: #### 1 6603116, 2323579 ####[facility] [address] [place] [address] Bilirubin Ql (U) Negative Normal Negative [facility] Comment on above: Performed By: #### 1 8561227, 3644429 ####[facility] [address] [place] [address] Clarity (U) CLOUDY Abnormal Clear [facility] Comment on above: Performed By: #### 1 5866806, 2113788 ####[facility] [address] [place] [address] Color (U) YELLOW Normal Yellow [facility] Comment on above: Performed By: #### 1 8443913, 7411729 ####[facility] [address] [place] [address] Crystals LM Ql (Urine sed) Present Normal [facility] Comment on above: Performed By: #### 1 9459041, 9369078 ####[address] [address] Epithelial cells.squamous LM.HPF (Urine sed) [#/Area] 5-8 Normal 0-2 [facility] Comment on above: Performed By: #### 1 7363652, 2843156 ####[address] [address] Glucose Test strip (U) [Mass/Vol] Negative Normal Negative [facility] Comment on above: Performed By: #### 1 1556280, 9929053 ####[address] [address] Hemoglobin Ql (U) 1+ Abnormal Negative [facility] Comment on above: Performed By: #### 1 8741622, 5116993 ####[address] [address] Ketones (U) [Mass/Vol] Negative Normal Negative Fi [facility] Comment on above: Performed By: #### 1 5967860, 4786712 ####[address] [address] [place].plasma/[place] .RBC (Bld) [Mass ratio] 0-3 Normal 0-3 [facility] Comment on above: Performed By: #### 1 1602726, 6699714 ####[address] [address] Mucus Ql (Urine sed) 3+ Normal Fish [facility] Comment on above: Performed By: #### 1 0528918, 3889749 ####[address] [address] Nitrite Ql (U) Positive Abnormal Negative [facility] Comment on above: Performed By: #### 1 9894976, 9852769 ####[place] [address] pH (U) 6.0 [pH] Invalid Interpretation Code 5.0-9.0 [facility] Comment on above: Performed By: #### 1 4026219, 9651553 ####[place] [address] Protein (U) [Mass/Vol] Negative Normal Negative [facility] Comment on above: Performed By: #### 1 3880256, 6812898 ####[place] [address] Specific gravity (U) [Rel density] >=1.030 Invalid Interpretation Code 1.005-1.030 [facility] Comment on above: Performed By: #### 1 0551059, 3671045 ####[place] [address] Type of Urine collection method Clean Catch Normal [facility] Comment on above: Performed By: #### 1 3471894, 1268741 ####[place] [address] Urobilinogen Qn (U) 0.2 {Qiana'U}/dL Normal 0.0-1.0 [facility] Comment on above: Performed By: #### 1 6349070, 0665597 ####[place] [address] WBC Auto Ql (U) Negative Normal Negative [facility] Comment on above: Performed By: #### 1 7743541, 6066185 ####[place] [address] WBC LM.HPF (Urine sed) [#/Area] 0-5 Normal 0-5 [facility] Comment on above: Performed By: #### 1 0466001, 5717582 ####[address] [address] URINALYSISOrdered By: Jose Diallo on 03-27-2023 Bacteria [...] PM) Normal Negative [facility] UA Auto SS [place].plasma/[place] .RBC (Bld) [Mass ratio] 0-3 /HPF Normal [...] [facility] UA Auto SS Urobilinogen Qn (U) 0.9243187 {Qiana'U}/dL Normal 0.0 - 1.0 EU/dL [facility] UA Auto SS WBC Auto Ql (U) Negative (03/27/23 7:37 PM) Normal Negative [facility] UA Auto SS WBC LM.HPF (Urine sed) [#/Area] 0-5 /HPF Normal 0-5/HPF [facility] UA Auto SS eGFRon 03-27-2023 eGFR 96 mL/min/1.73 m2 Normal >=59 [facility] Comment on above: Order Comment: Order added by Discern Expert. Performed By: #### 2 147172, 41028360, 59212238, 7376601, 87273088 ####[facility] [address] [place] [address] C Urineon 12-21-2022 Bacteria identified Cx Nom [...] Locations R1: This test was performed at: [facility], [address] [place] [address], [address] , , Normal [facility] Comment on above: Performed By: #### 1 0739155, 7920985 ####[address] [address] Auto Diffon 12-19-2022 Basophils/100 WBC (Bld) 1.0 % Normal 0.0-2.0 [facility] Comment on above: Order Comment: Order Added by Discern Expert. Performed By: #### 2 154739, 7737340, 6249308, 5388905, 5967269, 60706336 ####[address] [address] Basophils/Leukocytes Auto (Bld) [Pure # fraction] 0.1 E9/L Normal 0.0-0.2 [facility] Comment on above: Order Comment: Order Added by Matilde Expert. Performed By: #### 2 334046, 3540042, 7511645, 4234334, 9344720, 66212583 ####[facility] [address] [place] [address] Eosinophils/100 WBC (Bld) 2.6 % Normal 0.0-8.0 [facility] Comment on above: Order Comment: Order Added by Discern Expert. Performed By: #### 2 680020, 9390419, 0033998, 8430033, 2104805, 80026744 ####[facility] [address] [place] [address] Eosinophils/Leukocytes Auto (Bld) [Pure # fraction] 0.3 E9/L Normal 0.0-0.5 [facility] Comment on above: Order Comment: Order Added by Matilde Expert. Performed By: #### 2 399153, 7092862, 8783273, 8130413, 7999632, 23686761 ####[place] [address] [place] [address] Lymphocytes/100 WBC (Bld) 31.2 % Normal 14.0-50.0 [facility] Comment on above: Order Comment: Order Added by Matilde Expert. Performed By: #### 2 869500, 5503586, 2062754, 1917112, 3556540, 38651519 ####[place] [address] [place] [address] Lymphocytes/Leukocytes Auto (Bld) [Pure # fraction] 3.5 E9/L Normal 1.0-4.0 [facility] Comment on above: Order Comment: Order Added by Matilde Expert. Performed By: #### 2 917808, 8614760, 8831777, 8736820, 4553532, 49210385 ####[place] [address] [place] [address] Monocytes/100 WBC (Bld) 8.1 % Normal 4.0-14.0 [facility] Comment on above: Order Comment: Order Added by Matilde Expert. Performed By: #### 2 241889, 3535828, 9765056, 8969248, 8206836, 80873817 ####[address] [address] Monocytes/Leukocytes Auto (Bld) [Pure # fraction] 0.9 E9/L Normal 0.2-1.0 [facility] Comment on above: Order Comment: Order Added by Discern Expert. Performed By: #### 2 477108, 5582719, 6691614, 3262312, 5878717, 43345145 ####[place] [address] [place] [address] Neutrophils/100 WBC (Bld) 57.1 % Normal 36.0-75.0 [facility] Comment on above: Order Comment: Order Added by Discern Expert. Performed By: #### 2 163503, 3696767, 3515464, 9958317, 2720746, 64825845 ####[address] [address] Neutrophils/Leukocytes Auto (Bld) [Pure # fraction] 6.4 E9/L Normal 2.0-7.5 [facility] Comment on above: Order Comment: Order Added by Discern Expert. Performed By: #### 2 852934, 1927693, 0975015, 0946449, 7785706, 41400900 ####[address] [place] [address] BMPon 12-19-2022 Creatinine [Mass/Vol] 0.6 mg/dL Normal 0.5-1.3 [facility] Comment on above: Performed By: #### 2 663374, 0109284, 4869361, 2254306, 3248677, 01120818 ####[address] [place] [address] Urea nitrogen [Mass/Vol] 15 mg/dL Normal 5-21 [facility] Comment on above: Performed By: #### 2 750963, 7697635, 4836070, 2994045, 4822802, 00436443 ####[address] [place] [address] Urea nitrogen/Creatinine [Mass ratio] 25 No Units High 10-20 [facility] Comment on above: Performed By: #### 2 141500, 5721253, 8200403, 8318845, 5029236, 67138542 ####[facility] [address] [place] [address] Anion gap [Moles/Vol] 9 mmol/L Normal 6-16 [facility] Comment on above: Performed By: #### 2 072504, 8253662, 5448039, 7919611, 9804959, 24297054 ####[facility] [address] [place] [address] Calcium [Mass/Vol] 8.6 mg/dL Low 8.9-11.1 [facility] Comment on above: Performed By: #### 2 007263, 5801687, 6461171, 8370967, 3353054, 18194946 ####[facility] [address] [place] [address] Chloride [Moles/Vol] 106 mmol/L Normal 101-111 [facility] Comment on above: Performed By: #### 2 451245, 3060687, 4343904, 9191021, 9545617, 35980867 ####[facility] [address] [place] [address] CO2 [Moles/Vol] 25 mmol/L Normal 21-31 [facility] Comment on above: Performed By: #### 2 922256, 5687955, 2118197, 1029310, 7701510, 64835996 ####[facility] [address] [place] [address] Glucose [Mass/Vol] 123 mg/dL Normal 55-199 [facility] Comment on above: Result Comment: If t his glucose result represents a fasting glucose, interpretation should refer to the following reference range: 55-99 mg/dL Performed By: #### 2 874604, 8503742, 0426608, 0709415, 5981999, 32134603 ####[facility] [address] [place] [address] Potassium [Moles/Vol] 4.4 mmol/L Normal 3.5-5.3 [facility] Comment on above: Performed By: #### 2 073898, 7885372, 0012310, 2703469, 2212572, 30262652 ####[address] [place] [address] Sodium [Moles/Vol] 136 mmol/L Normal 135-145 [facility] Comment on above: Performed By: #### 2 077969, 0496323, 1762506, 0279980, 0799807, 18294847 ####[address] [address] CBC w/ Auto Diffon Erythrocyte distribution width (RBC) [Ratio] 16.2 % High 10.9-14.2 [facility] Comment on above: Performed By: #### 2 539296, 3404028, 5056509, 0564803, 1634456, 44263682 ####[address] [place] [address] Hematocrit (Bld) [Volume fraction] 36.5 % Normal 34.0-46.0 [facility] Comment on above: Performed By: #### 2 994857, 2066832, 0359251, 3490484, 3658159, 74086833 ####[address] [address] Hemoglobin (Bld) [Mass/Vol] 11.5 g/dL Low 12.0-16.0 [facility] Comment on above: Performed By: #### 2 895738, 9466227, 7448755, 5993416, 4893480, 69997546 ####[facility] [address] [place] [address] MCH (RBC) [Entitic mass] 26.3 pg Low 27.0-34.0 [facility] Comment on above: Performed By: #### 2 330206, 3500553, 4982304, 1577412, 0753116, 60616828 ####[address] [address] MCHC (RBC) [Mass/Vol] 31.5 g/dL Normal 31.4-36.0 [facility] Comment on above: Performed By: #### 2 351692, 4607094, 1274097, 4465845, 9447944, 77943742 ####[address] MCV (RBC) [Entitic vol] 83.5 fL Normal 80.0-100.0 [facility] Comment on above: Performed By: #### 2 017028, 4403818, 0209707, 0805412, 2508054, 82673537 ####[address] [address] Platelet mean volume (Bld) [Entitic vol] 7.4 fL Normal 6.4-10.8 [facility] Comment on above: Performed By: #### 2 585506, 1821294, 4667147, 3300837, 6886398, 86683670 ####[address] [address] Platelets (Bld) [#/Vol] 294.0 E9/L Normal 150.0-500.0 [facility] Comment on above: Performed By: #### 2 680525, 9174131, 5549090, 1417803, 1586305, 42694711 ####[address] [address] RBC (Bld) [#/Vol] 4.4 E12/L Normal 4.3-5.9 [facility] Comment on above: Performed By: #### 2 260581, 0663219, 3134804, 1885112, 2949317, 03574983 ####[address] [address] WBC corrected for nucl RBC Auto (Bld) [#/Vol] 11.1 E9/L High 4.0-11.0 [facility] Comment on above: Performed By: #### 2 471019, 0542929, 9783142, 5372390, 4890724, 61354444 ####[facility] [address] [place] [address] CHEMISTRYOrdered By: SYSTEM SYSTEM on 12-19-2022 Albumin [...] 118 mL/min/1.73 m2 Normal >=59mL/min/1 .73 m2 [facility] Comment on above: Interpretive Data: [...] 15 mg/dL Normal 5 - 21 mg/dL [facility] Remisol Urea nitrogen/Creatinine [Mass ratio] 25 mg/mg [...] 300 Contrast amount in ml's: 100 Normal [facility] Consent for Treatmenton 11-29 Consent for Treatment [id number] .00TIFF Normal [facility] Discharge Instructionson Discharge Instructions [id number] 1.00TIFF Normal [facility] ED Clinical Summaryon 2022 ED Clinical Summary [place] [address] [address] ED Clinical Summary Person Information Name: DEB WOODS [facility] Age: 37 Years : 1985 Sex: Female Language: Taiwanese PCP: NONE, XXXX Marital Status: Single Visit [...] 12/19/2022 09:51:09 12/19/2022 09:51:09 12/19/2022 09:51:09 ADDRESS: [address] [place] [address] [place] [id number] PHYS DOC NOTES: MEDICAL INFORMATION: Prescriptions Given: New Medications [facility], [address] [place], [place] [id number], [phone] cephalexin (Keflex 500 mg Cap) 1 Capsules By Mouth every 6 hours for 7 Days. Refills: 0. naproxen (naproxen 500 mg Tab) 1 Tablets By Mouth 2 times a day as needed for pain. Refills: 0. Medications to Continue with No Changes Other Medications acetaminophen-hydroco done (York 325 mg-5 mg oral tablet) 1 Tablets [...] 5. fluticasone nasal (fluticasone 0.05 mg/inh Nasal [place]) 2 Sprays Nasal Inhalation every day as [...] EDUCATION INFORMATION: Instructions: Urinary Tract Infection, Adult, Ysty-ja-Pxwk; Abdominal Pain, Adult, Jjyo-ly-Ehse Follow up: With: Address: When: Carlitos Baird [address], [place], [place] (more content not included)... Normal [facility] ED Note-Physicianon 12-20-19 ED Note-Physician Basic Information Time Seen: Noel [place], Zana Esqueda 12/19/2022 08:05 Chief Complaint pt to ed [...] and Complexity of Problems Differential Diagnosis: [] [facility] Data External documents reviewed: [] My EKG [...] as well as Keflex. Discussed follow-up with MANAGER OF TRANSPORTATION for ultrasound. Discussed return precautions. Follow-up with [...] day(s), # 28 cap(s), Refills(s) 0, Pharmacy: [facility], 162, cm, 12/19/22 7:51:00 EDT, Height/Length Dosing, 85, kg, 12/19/22 7:51:00 EDT, Weight Dosing ketorolac, 30 mg = 1 mL, Injection, IV Push, Once, Stop date 12/19/22 8:19:00 EDT, STAT, Start date 12/19/22 8:19:00 EDT, 12/19/22 8:19:00 EDT naproxen, 500 mg = 1 tab(s), Oral, BID, PRN for pain, # 20 tab(s), Refills(s) 0, Pharmacy: [facility], 162, cm, 12/19/22 7:51:00 [...] Administered Given (more content not included)... Normal [facility] Comment on above: Result Comment: Elec tronically Signed By: Zana Cohen PA-C\.br\Date and Time Signed: 12/19/22 09:29 EDT\.br\Electronically Co-Signed By: Adrian Potter DO.br\Date and Time Co-Signed: 12/19/22 13:24 EDT ED [...] these instructions at home: Medicines ? Take utes-eux-xenejee and prescription medicines only as told by [...] belly pain for any changes. ? Take tosr-yjq-wpmzutv and prescription medicines only as told by [...] provider. Document Revised: 06/25/2019 Document Reviewed: 06/25/2019 [place] Patient Education ? 2022 [employer]. Obstetrics and Gynecology Urinary Tract Infection, Adult [...] Take over-the (more content not included)... Normal [facility] ED Patient Summaryon 023 ED Patient Summary [address] [address] Patient Discharge Instructions Person Information Name: DEB WOODS Age: 37 Years Arrival Date: 12/19/2022 07:39:34 Discharge Diagnosis: Abdominal pain; UTI (urinary tract infection) Primary Care Physician: NONE, XXXX Provider Information Primary Provider: Adrian Potter DO Advanced Hyperion Developer:None The exam and treatment you received in the Emergency Department were for an urgent problem and are not intended as complete care. It is important that you follow up with a doctor, nurse practitioner, or physician?s social worker assistant for ongoing care. If your symptoms [...] Instructions: With: Address: When: Carlitos Baird [address], [place] [address] Business (1) In 3 days 12/22/2022 Comments: Follow-up with your MANAGER OF TRANSPORTATION for further evaluation of your thickening of your endometrial complex. If you not have a MANAGER OF TRANSPORTATION, you may follow-up with Dr. Baird for further evaluation. With: Address: When: Johanny Harmon [address] [place] [address] Business (1) In 3 days [...] Patient Education Materials: Urinary Tract Infection, Adult, Ajuw-zf-Zmoh; Abdominal Pain, Adult, Vmla-xw-Lokf A MESSAGE TO ALL PATIENTS REGARDING OPIOIDS PRESCRIPTION OPIOIDS: WHAT YOU NEED TO KNOW Prescription opioids can be used to help relieve klqsqxfq-xz-ormfsd pain and are often prescribed following a [...] of r (more content not included)... Normal [facility] HEMATOLOGYOrdered By: SYSTEM SYSTEM on 12-19-2022 Basophils/100 [...] 11.1 E9/L High 4.0 - 11.0 E9/L FT HemeAutoSS Hep Func Panelon 12-19-2022 Albumin [Mass/Vol] 3.5 g/dL Normal 3.3-5.0 [facility] Comment on above: Performed By: #### 2 513635, 0989493, 5751944, 1171774, 6378018, 36174902 ####[facility] [address] [place] [address] Albumin/Globulin (S) [Mass conc ratio] 1.1 Normal 1.1-2.2 [facility] Comment on above: Performed By: #### 2 715106, 5733579, 9899657, 9503049, 1832638, 48567083 ####[facility] [address] [place] [address] ALP [Catalytic activity/Vol] 49 Int._Unit/L Normal 21-98 [facility] Comment on above: Performed By: #### 2 472395, 5646912, 4104038, 7056695, 2435041, 79454451 ####[facility] [address] [place] [address] ALT No additional P-5'-P [Catalytic activity/Vol] 12 Int._Unit/L Normal 6-46 [facility] Comment on above: Performed By: #### 2 299739, 7982212, 1948906, 7258075, 7746143, 62911558 ####[facility] [address] [place] [address] AST [Catalytic activity/Vol] 16 Int._Unit/L Normal 5-43 [facility] Comment on above: Performed By: #### 2 541509, 0637204, 9731841, 3571518, 6951930, 27711021 ####[place] [address] Bilirubin [Mass/Vol] 0.3 mg/dL Normal 0.0-1.1 [facility] Comment on above: Performed By: #### 2 386095, 7192822, 9499030, 6144941, 0386587, 66227858 ####[place] [address] Bilirubin.direct [Mass/Vol] 0.1 mg/dL Normal 0.1-0.4 [facility] Comment on above: Performed By: #### 2 260729, 0900291, 8525813, 1093650, 9466441, 37333077 ####[place] [address] Bilirubin.indirect [Mass or moles/Vol] 0.2 mg/dL Normal 0.1-0.9 [facility] Comment on above: Performed By: #### 2 999093, 3951177, 3803641, 2216569, 2314032, 34384327 ####[facility] [address] [place] [address] Globulin (S) [Mass/Vol] 3.3 g/dL Normal 1.4-4.0 [facility] Comment on above: Performed By: #### 2 702701, 4236962, 3044456, 9394760, 1313470, 00197397 ####[address] [address] Protein [Mass/Vol] 6.8 g/dL Normal 6.0-7.8 [facility] Comment on above: Performed By: #### 2 884151, 3674090, 5099542, 3610464, 6249030, 03458183 ####[address] [address] Lipase Levelon 12-19-2022 Lipase [Catalytic activity/Vol] 38 U/L Normal 13-58 [facility] Comment on above: Performed By: #### 2 679441, 6192165, 5989145, 1880055, 3024220, 26149046 ####[address] [address] UA With Cult Reflexon 2022 Bacteria LM Ql (Urine sed) 3+ /HPF Abnormal Trace [facility] Comment on above: Performed By: #### 1 0187955, 8813140 ####[address] [address] Bilirubin Ql (U) Negative Normal Negative [facility] Comment on above: Performed By: #### 1 2955798, 5153070 ####[address] [address] Clarity (U) CLEAR Normal Clear [facility] Comment on above: Performed By: #### 1 6446624, 3915183 ####[address] [address] Color (U) YELLOW Normal Yellow [facility] Comment on above: Performed By: #### 1 8585604, 6370970 ####[address] [address] Epithelial cells.squamous LM.HPF (Urine sed) [#/Area] /[HPF] Normal 0-2 [facility] Comment on above: Performed By: #### 1 4877963, 7312524 ####[facility] [address] [place] [address] Glucose Test strip (U) [Mass/Vol] Negative Normal Negative [facility] Comment on above: Performed By: #### 1 1817608, 0009545 ####[facility] [address] [place] [address] Hemoglobin Ql (U) Negative Normal Negative [facility] Comment on above: Performed By: #### 1 4434562, 5230910 ####[facility] [address] [place] [address] Ketones (U) [Mass/Vol] Negative Normal Negative [facility] Comment on above: Performed By: #### 1 0913561, 4769827 ####[facility] [address] [place] [address] [place].plasma/[place] .RBC (Bld) [Mass ratio] 0-3 Normal 0-3 [facility] Comment on above: Performed By: #### 1 6596869, 5351846 ####[facility] [address] [place] [address] Nitrite Ql (U) Positive Abnormal Negative [facility] Comment on above: Performed By: #### 1 7165926, 3517612 ####[facility] [address] [place] [address] pH (U) 6.0 [pH] Invalid Interpretation Code 5.0-9.0 [facility] Comment on above: Performed By: #### 1 7424218, 6081799 ####[facility] [address] [place] [address] Protein (U) [Mass/Vol] Negative Normal Negative [facility] Comment on above: Performed By: #### 1 0093130, 4348025 ####[address] [place] [address] Specific gravity (U) [Rel density] >=1.030 Invalid Interpretation Code 1.005-1.030 [facility] Comment on above: Performed By: #### 1 5396996, 9002354 ####[facility] [address] [place] [address] Trichomonas sp LM.HPF (Urine sed) [#/Area] Present Normal [facility] Comment on above: Performed By: #### 1 3973736, 2107281 ####[facility] [address] [place] [address] Type of Urine collection method Clean Catch Normal [facility] Comment on above: Performed By: #### 1 9084668, 8421127 ####[facility] [address] [place] [address] Urobilinogen Qn (U) 0.2 {Qiana'U}/dL Normal 0.0-1.0 [facility] Comment on above: Performed By: #### 1 8001927, 7128683 ####[facility] [address] [place] [address] WBC Auto Ql (U) 1+ Abnormal Negative [facility] Comment on above: Performed By: #### 1 0132167, 0613902 ####[facility] [address] [place] [address] WBC LM.HPF (Urine sed) [#/Area] 6-15 Abnormal 0-5 [facility] Comment on above: Performed By: #### 1 2487045, 2051989 ####[facility] [address] [place] [address] URINALYSISOrdered By: Mehdi Friend on 12-19-2022 Bacteria [...] AM) Normal Negative [facility] UA Auto SS [place].plasma/[place] .RBC (Bld) [Mass ratio] 0-3 /HPF Normal [...] [facility] UA Auto SS Urobilinogen Qn (U) 0.4370239 {Qiana'U}/dL Normal 0.0 - 1.0 EU/dL [facility] UA Auto SS WBC Auto Ql (U) 1+ *ABN* (12/19/22 8:15 AM) Invalid Interpretation Code Negative [facility] UA Auto SS WBC LM.HPF (Urine sed) [#/Area] 6-15 /HPF Invalid Interpretation Code 0-5/HPF [facility] UA Auto SS eGFRon 12-19-2022 GFR/1.73 sq M.predicted among non-blacks MDRD (S/P/Bld) [Vol rate/Area] 118 mL/min/1.73 m2 Normal >=59 [facility] Comment on above: Order Comment: Order added by Discern Expert. Result Comment: Gas Engineer jewel kidney disease could be indicated at eGFR's of less than 60 mL/min/1.73m2. Kidney failure is indicated at less than 15 mL/min/1.73m2. Performed By: #### 2 396570, 7759715, 1653590, 5509062, 3567306, 31777521 ####[facility] [address] [place] [address] Vital Signs Date Time Vital Sign Value Performing Clinician Mari pimentel 11-02-2023 07:41-0400 Blood Pressure Location Aditi Vargas [facility] 11-02-2023 07:41-0400 Diastolic blood pressure 72 mm[Hg] Aditi Vargas [facility] 11-02-2023 07:41-0400 Heart rate 80 /min Aditi Vargas [facility] 11-02-2023 07:41-0400 Respiratory rate 16 /min Aditi Vargas [facility] 11-02-2023 07:41-0400 SaO2% (BldA) [Mass fraction] 99 % Aditi Vargas [facility] 11-02-2023 07:41-0400 Systolic blood pressure 106 mm[Hg] Aditi Vargas [facility] 03-27-2023 21:16-0500 Diastolic blood pressure 86 mm[Hg] [facility] 03-27-2023 21:16-0500 Heart rate 61 /min [facility] 03-27-2023 21:16-0500 Mean blood pressure 104 mm[Hg] [facility] 03-27-2023 21:16-0500 Respiratory rate 15 /min [facility] 03-27-2023 21:16-0500 SaO2% (BldA) [Mass fraction] 100 % [facility] 03-27-2023 21:16-0500 Systolic blood pressure 140 mm[Hg] [facility] 03-27-2023 20:35-0500 Diastolic blood pressure 80 mm[Hg] [facility] 03-27-2023 20:35-0500 Heart rate 56 /min [facility] 03-27-2023 20:35-0500 Mean blood pressure 100 mm[Hg] [facility] 03-27-2023 20:35-0500 Respiratory rate 16 /min [facility] 03-27-2023 20:35-0500 SaO2% (BldA) [Mass fraction] 100 % [facility] 03-27-2023 20:35-0500 Systolic blood pressure 140 mm[Hg] [facility] 03-27-2023 19:39-0500 Diastolic blood pressure 80 mm[Hg] [facility] 03-27-2023 19:39-0500 Heart rate 67 /min [facility] 03-27-2023 19:39-0500 Mean blood pressure 90 mm[Hg] [facility] 03-27-2023 19:39-0500 Respiratory rate 18 /min [facility] 03-27-2023 19:39-0500 SaO2% (BldA) [Mass fraction] 97 % [facility] 03-27-2023 19:39-0500 Systolic blood pressure 109 mm[Hg] [facility] 03-27-2023 18:59-0500 gluc 120 mg/dL [facility] 03-27-2023 18:59-0500 gluc [facility] 03-27-2023 18:35-0500 Body temperature 98.24 [degF] [facility] 03-27-2023 18:35-0500 Heart rate 56 /min [facility] 03-27-2023 18:35-0500 Respiratory rate 16 /min Winsome Andino [facility] 12-19-2022 09:00-0400 Heart rate 76 /min Adrian Tariq [facility] 12-19-2022 09:00-0400 Systolic blood pressure 117 mm[Hg] Adrian Tariq [facility] 12-19-2022 08:00-0400 Diastolic blood pressure 78 mm[Hg] Adrian Tariq [facility] 12-19-2022 08:00-0400 Heart rate 73 /min Adrian Tariq [facility] 12-19-2022 08:00-0400 Respiratory rate 20 /min Adrian Tariq [facility] 12-19-2022 08:00-0400 SaO2% (BldA) [Mass fraction] 98 % Adrian Tariq [facility] 12-19-2022 08:00-0400 Systolic blood pressure 123 mm[Hg] Adrian Tariq [facility] 12-19-2022 07:46-0400 Body temperature 98.24 [degF] Adrian Tariq [facility] 12-19-2022 07:46-0400 Diastolic blood pressure 71 mm[Hg] Adrian Tariq [facility] 12-19-2022 07:46-0400 Heart rate 89 /min Adrian Tariq [facility] 12-19-2022 07:46-0400 Respiratory rate 18 /min Adrian Tariq [facility] 12-19-2022 07:46-0400 SaO2% (BldA) [Mass fraction] 99 % Adrian Tariq [facility] 12-19-2022 07:46-0400 Systolic blood pressure 127 mm[Hg] Adrian Potter [facility] 07-27-2022 22:20-0400 Body temperature 98.06 [degF] Kaylinn Dokken [facility] 07-27-2022 22:20-0400 Diastolic blood pressure 83 mm[Hg] Kaylinn Dokken [facility] 07-27-2022 22:20-0400 Heart rate 88 /min Kaylinn Dokken [facility] 07-27-2022 22:20-0400 Respiratory rate 16 /min Nelsonylinn Dokken [facility] 07-27-2022 22:20-0400 SaO2% (BldA) [Mass fraction] 99 % Juanitoinn Dokken [facility] 07-27-2022 22:20-0400 Systolic blood pressure 124 mm[Hg] Kaylinn Dokken [facility] 07-25-2022 20:35-0400 Body temperature 97.7 [degF] Kenneth Nava [facility] 07-25-2022 20:35-0400 Diastolic blood pressure 77 mm[Hg] Kenneth Nava [facility] 07-25-2022 20:35-0400 Heart rate 87 /min Kenneth Nava [facility] 07-25-2022 20:35-0400 Mean blood pressure 98 mm[Hg] Kenneth Nava [facility] 07-25-2022 20:35-0400 Respiratory rate 17 /min Kenneth Nava [facility] 07-25-2022 20:35-0400 SaO2% (BldA) [Mass fraction] 100 % Kenneth Nava [facility] 07-25-2022 20:35-0400 Systolic blood pressure 140 mm[Hg] Kenneth Nava [facility] 07-25-2022 20:00-0400 Diastolic blood pressure 82 mm[Hg] Kenneth Nava [facility] 07-25-2022 20:00-0400 Heart rate 82 /min Kenneth Nava [facility] 07-25-2022 20:00-0400 Mean blood pressure 100 mm[Hg] Kenneth Nava [facility] 07-25-2022 20:00-0400 SaO2% (BldA) [Mass fraction] 99 % Kenneth Nava [facility] 07-25-2022 20:00-0400 Systolic blood pressure 135 mm[Hg] Kenneth Nava [facility] 07-25-2022 19:40-0400 Body temperature 96.98 [degF] Kenneth Nava [facility] 07-25-2022 19:40-0400 Diastolic blood pressure 83 mm[Hg] Kenneth Nava [facility] 07-25-2022 19:40-0400 Heart rate 88 /min Kenneth Nava [facility] 07-25-2022 19:40-0400 Respiratory rate 16 /min Kenneth Nava [facility] 07-25-2022 19:40-0400 SaO2% (BldA) [Mass fraction] 100 % Kenneth Nava [facility] 07-25-2022 19:40-0400 Systolic blood pressure 136 mm[Hg] Kenneth Nava [facility] 02-01-2022 03:06-0500 Body temperature 98.42 [degF] Kenneth Nava [facility] 02-01-2022 03:06-0500 Diastolic blood pressure 78 mm[Hg] Kenneth Nava [facility] 02-01-2022 03:06-0500 Heart rate 89 /min Kenneth Nava [facility] 02-01-2022 03:06-0500 Respiratory rate 18 /min Kenneth Nava [facility] 02-01-2022 03:06-0500 SaO2% (BldA) [Mass fraction] 99 % Kenneth Nava [facility] 02-01-2022 03:06-0500 Systolic blood pressure 131 mm[Hg] Kenneth Nava [facility] 10-29-2021 18:44-0400 Body temperature 97.7 [degF] Adrian Potter [facility] 10-29-2021 18:44-0400 Diastolic blood pressure 92 mm[Hg] Adrian Potter [facility] 10-29-2021 18:44-0400 Heart rate 90 /min Adrian Tariq [facility] 10-29-2021 18:44-0400 Respiratory rate 16 /min Adrian Tariq [facility] 10-29-2021 18:44-0400 SaO2% (BldA) [Mass fraction] 95 % Adrian Potter [facility] 10-29-2021 18:44-0400 Systolic blood pressure 137 mm[Hg] Ardian Potter [facility] 10-11-2021 15:54-0400 Diastolic blood pressure 75 mm[Hg] Abdi Lauro [facility] 10-11-2021 15:54-0400 Heart rate 77 /min Abdi Lauro [facility] 10-11-2021 15:54-0400 Respiratory rate 20 /min Abdi Lauro [facility] 10-11-2021 15:54-0400 SaO2% (BldA) [Mass fraction] 100 % Abdi Lauro [facility] 10-11-2021 15:54-0400 Systolic blood pressure 116 mm[Hg] Abdi Lauro [facility] 10-11-2021 13:08-0400 Body temperature 98.06 [degF] Abdi Lauro [facility] 10-11-2021 13:08-0400 Diastolic blood pressure 75 mm[Hg] Abdi Lauro [facility] 10-11-2021 13:08-0400 Heart rate 94 /min Abdi Lauro [facility] 10-11-2021 13:08-0400 Respiratory rate 16 /min Abdi Lauro [facility] 10-11-2021 13:08-0400 SaO2% (BldA) [Mass fraction] 99 % Abdi Lauro [facility] 10-11-2021 13:08-0400 Systolic blood pressure 113 mm[Hg] Abdi Lauro [facility] 09-06-2021 16:11-0400 Body temperature 98.06 [degF] Adrian Potter [facility] 09-06-2021 16:11-0400 Diastolic blood pressure 81 mm[Hg] Adrian Potter [facility] 09-06-2021 16:11-0400 Heart rate 78 /min Adrian Tariq [facility] 09-06-2021 16:11-0400 Respiratory rate 14 /min Adrian Tariq [facility] 09-06-2021 16:11-0400 SaO2% (BldA) [Mass fraction] 99 % Adrian Potter [facility] 09-06-2021 16:11-0400 Systolic blood pressure 135 mm[Hg] Adrian Tariq [facility] Encounters Encounter Date Encounter Type Care Provider Facility Start: 12-07-2023 ambulatory Aditi Vargas Facil ity:[facility] Start: 11-24-2023 End: 11-24-2023 ambulatory ANSON GOREEY Not Available Start: 11-23-2023 End: 11-23-2023 ambulatory ERNIE POCOS Not Available Start: 11-18-2023 End: 11-18-2023 ambulatory Chetan Valdes [facility] Work Phone: Start: 11-18-2023 End: 11-18-2023 Departed Referred DO Chetan Valdes Work Phone: [facility] Start: 11-16-2023 End: 11-16-2023 ambulatory Aditi Vargas Facility[place] Start: 11-09-2023 End: 11-09-2023 ambulatory ERNIE POCOS Not Available Start: 11-02-2023 End: 11-02-2023 ambulatory CHETAN FELICIANOO Not Available Start: 11-02-2023 End: 11-02-2023 ambulatory Aditi Vargas Facility:[facility] Start: 11-02-2023 End: 11-02-2023 Patient encounter procedure Aditi Vargas [facility] Start: 11-02-2023 End: 11-02-2023 Well adult monitoring check done Aditi Vargas [facility] Start: 10-12-2023 ambulatory Ernie Pocos Facility: [facility] Start: 10-10-2023 End: 10-10-2023 ambulatory CHETAN KEISHA Not Available Start: 10-05-2023 End: 10-05-2023 ambulatory ERNIE POCOS Not Available Start: 10-05-2023 End: 10-05-2023 ambulatory ERNIE POCOS Not Available Start: 10-03-2023 End: 10-03-2023 ambulatory CHETAN KEISHA Not Available Start: 09-21-2023 End: 09-21-2023 ambulatory ERNIE POCOS Not Available Start: 09-19-2023 ambulatory Malu Pocos Facility:[facility] Start: 09-12-2023 End: 09-12-2023 ambulatory CHETAN KEISHA Not Available Start: 03-27-2023 End: 03-27-2023 Emergency department patient visit Winsome Martínez Sina [facility] Start: 12-19-2022 End: 12-19-2022 Emergency department patient visit Adrian Potter [facility] Start: 07-27-2022 End: 07-28-2022 Emergency department patient visit Blanca Garza [facility] Start: 07-25-2022 End: 07-25-2022 Emergency department patient visit Kenneth Vick [facility] Start: 02-01-2022 End: 02-01-2022 Emergency department patient visit Kenneth Vick [facility] Start: 10-29-2021 End: 10-29-2021 Emergency department patient visit Adrian Potter [facility] Start: 10-11-2021 End: 10-11-2021 Emergency department patient visit Abdi Restrepo [facility] Start: 09-06-2021 End: 09-06-2021 Emergency department patient visit Adrian Potter [facility] Procedures Date Procedure Procedure Detail Performing Clinician Start: 08-20-2019 Dilation and curettage Adrian Potter Start: 08-20-2019 Hysteroscopy Adrian valdivia Start: 08-20-2019 Ligation of fallopia n tube Adrian Potter section Adrian Potter H/O: section ( Confirmed ) Adrian Potter wrist surgery Adrian Potter Immunizations Immunization Date Immunization Notes [facility] Provider [facility] SARS-CoV-2 (COVID-19 ) Ad26 vaccine, recombinant Aditi Vargas [facility] NEGATED: Highlighted row has not occurred!11-02-2023 influenza virus vaccine, unspecified formulation Aditi Vargas [facility] NEGATED: Highlighted row has not occurred!05-08-2019 influenza virus vaccine, live, attenuated, for intranasal use Adrian Potter [facility] Payers Date Payer Category Payer Self-pay 2023 Unknown [id number] 2022 Worker's Compensation [id number] 2022 Unknown [id number] 1984 Unknown [id number] 2.16.8 40.1.849330.3.579.2.727 1984 Unknown [id number] 2.16.8 40.1.909233.3.579.2.727 1984 Unknown [id number] 2.16.8 40.1.188847.3.579.2.727 1984 Unknown [id number] 2.16.8 40.1.303131.3.579.2.727 1984 Unknown [id number] 2.16.8 40.1.909321.3.579.2.727 1984 Unknown [id number] 2.16.8 40.1.369916.3.579.2.727 1984 Unknown [id number] 2.16.8 40.1.607141.3.579.2.727 1984 Unknown [id number] 2.16.84 0.1.539319.3.579.2.9 1984 Unknown [id number] 2.16.84 0.1.985580.3.579.2.1258 1984 Unknown [id number] 2.16.84 0.1.533014.3.579.2.9 1984 Unknown [id number] 2.16.84 0.1.437776.3.579.2.9 1984 Unknown [id number] 2.16.84 0.1.430608.3.579.2.9 1984 Unknown [id number] 2.16.84 0.1.265694.3.579.2.1258 1984 Unknown [id number] 2.16.84 0.1.268614.3.579.2.9 1984 Unknown [id number] 2.16.84 0.1.122363.3.579.2.1258 1984 Unknown [id number] 2.16.84 0.1.942668.3.579.2.9 1984 Unknown [id number] 2.16.84 0.1.056519.3.579.2.1258 1984 Unknown [id number] 2.16.84 0.1.341496.3.579.2.1258 1984 Unknown [id number] 2.16.84 0.1.532008.3.579.2.1258 1984 Unknown [id number] 2.16.84 0.1.855246.3.579.2.1258 1984 Unknown [id number] 2.16.84 0.1.687544.3.579.2.1258 1984 Unknown [id number] 2.16.84 0.1.687272.3.579.2.1258 1984 Unknown [id number] 2.16.84 0.1.983967.3.579.2.1258 1984 Unknown [id number] 2.16.84 0.1.747021.3.579.2.1258 1984 Unknown [id number] 2.16.84 0.1.456489.3.579.2.1258 1984 Unknown [id number] 2.16.84 0.1.531202.3.579.2.1258 1984 Unknown [id number] 2.16.84 0.1.151568.3.579.2.1258 1984 Unknown [id number] 2.16.84 0.1.039144.3.579.2.1258 1984 Unknown [id number] 2.16.84 0.1.512308.3.579.2.1259 Unknown [id number] 2.16.8 40.1.180280.3.579.2.531 Social History Date Type Detail Facility Start: 07-22-2020 End: 11-02-2023 Tobacco smoking status Ex-smoker (finding) [facility] Comment on above: States she smoked ci garettes 2 PPD from about 15 y.o. to 21 y.o. Now Vapes nicotine. Tobacco smoking status Never [facility] Sex Assigned At Female [facility] Start: 1985 Sex Assigned At Female [facility] Medical Equipment Procedure Code Equipment Code Equipment Origin al Text Equipment Identifier Dates 1 deb, Topical, BID, 30 gram, Refill(s) 0, [facility], 163, cm, 03/05/20 10:32:00 EST, Height/Length Dosing, 107.6, kg, 03/05/20 10:32:00 EST, Weight Dosing Start: 03-05-2020 1 deb, Topical, BID, 30 gram, Refill(s) 0, [facility] 1985, 163, cm, 03/05/20 10:32:00 EST, Height/Length Dosing, 107.6, kg, 03/05/20 10:32:00 EST, Weight Dosing Start: 03-05-2020 1 deb, Topical, BID, 30 gram, Refill(s) 0, [facility] 1985, 163, cm, 03/05/20 10:32:00 EST, Height/Length Dosing, 107.6, kg, 03/05/20 10:32:00 EST, Weight Dosing Start: 03-05-2020 1 deb, Topical, BID, 30 gram, Refill(s) 0, [facility] 1985, 163, cm, 03/05/20 10:32:00 EST, Height/Length Dosing, 107.6, kg, 03/05/20 10:32:00 EST, Weight Dosing Start: 03-05-2020 1 deb, Topical, BID, 30 gram, Refill(s) 0, [facility] 1985, 163, cm, 03/05/20 10:32:00 EST, Height/Length Dosing, 107.6, kg, 03/05/20 10:32:00 EST, Weight Dosing Start: 03-05-2020 lancets, See Instructions, 100 lancet(s), 1, Check BSS daily and prn., [facility] 1985, Supply, 162, cm, 11/02/23 8:04:00 EDT, Height/Length Dosing, 83.6, kg, 09/04/24 8:04:00 EDT, Weight Dosing Start: 11-02-2023 Functional Status Date Assessment Result Facility 11-02-2023 Functional Status N/A [facility] 03-27-2023 Functional Status N/A [facility] 12-19-2022 Functional Status N/A [facility] 07-27-2022 Functional Status N/A [facility] 07-25-2022 Functional Status N/A [facility] 02-01-2022 Functional Status N/A [facility] 10-29-2021 Functional Status N/A [facility] 10-11-2021 Functional Status N/A [facility] 09-06-2021 Functional Status N/A [facility] Clinical Notes 09-06-2021 to 11-02-2023 Note Date & Type Note Facility 11-02-2023 Hospital Discharg e instructions Patient Education 11/02/2023 08:59:05 Diabetes Mellitus and Foot Care Diabetes Mellitus and Foot Care Diabetes, also called diabetes mellitus, may cause problems with your feet and legs because of poor blood flow (circulation). 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 Break more easily. Heal more slowly. [...] right away. Where to find more information [place] Diabetes Association: diabetes.org Association of Diabetes Care [...] provider. Document Revised: 08/18/2022 Document Reviewed: 08/18/2022 [place] Patient Education 2023 [employer]. 11/02/2023 08:59:04 Diabetes Mellitus and Exercise Diabetes [...] an expert trained in diabetes care (certified dialysis technician) can help you make an activity [...] (heat stroke). Where to find more information [place] Diabetes Association: diabetes.org Association of Diabetes Care & Education Specialists: diabeteseducator.org This information is not intended to replace advice given to you by your health care provider. Make sure you discuss any questions you have with your health care provider. Document Revised: 08/04/2022 Document Reviewed: 08/04/2022 [place] Patient Education 2023 [employer]. 11/02/2023 08:59:03 Carbohydrate Counting for Diabetes Mellitus, [...] 1.Identify the foods that contain carbohydrates: Rice. Lyman. Milk. Strawberries. 2.Calculate how many servings you [...] and snacks. Where to find more information [place] Diabetes Association: diabetes.org Centers for Disease Control [...] provider. Document Revised: 09/17/2020 Document Reviewed: 09/17/2020 [place] Patient Education 2023 [employer]. 11/02/2023 06:08:32 Heart Disease Prevention Heart Disease [...] of hard liquor (44 mL). Medicines Take iskw-ehs-chyoyns and prescription medicines only as told by [...] Centers for Disease Control and Prevention: www.cdc.gov/heartdisease [place] Heart Association: www.heart.org Summary Heart disease is [...] provider. Document Revised: 10/14/2021 Document Reviewed: 10/14/2021 [place] Patient Education 2023 [employer]. 11/02/2023 06:08:29 Dyslipidemia Dyslipidemia Dyslipidemia is an [...] quitting, ask your health care provider. Take idcq-vpo-xgsnyuq and prescription medicines only as told by [...] provider. Document Revised: 09/17/2022 Document Reviewed: 04/20/2021 [place] Patient Education 2023 [employer]. 11/02/2023 06:08:26 BMI for Adults BMI for [...] Centers for Disease Control and Prevention: cdc.gov [place] Heart Association: heart.org National Heart, Lung, and Blood [place]: nhlbi.nih.gov This information is not intended to replace advice given to you by your health care provider. Make sure you discuss any questions you have with your health care provider. Document Revised: 11/04/2022 Document Reviewed: 10/28/2022 [place] Patient Education 2023 [employer]. 11/02/2023 06:08:24 Preventing Vitamin D Deficiency Preventing [...] such as almond, soy, or oat milks. ?Saunders juice. ?Margarine. When choosing foods, check the [...] including vitamins, herbs, eye drops, creams, and rwsd-smy-pohlcbv medicines. Take qcea-dhg-nwyojsc and prescription medicines only as told by [...] provider. Document Revised: 11/20/2021 Document Reviewed: 11/20/2021 [place] Patient Education 2023 [employer]. 11/02/2023 06:08:22 Managing Anxiety, Adult Managing Anxiety, [...] your provider. Avoid caffeine, alcohol, and certain vamg-zjp-rqybatz cold medicines. These may make you feel worse. Ask your pharmacist which medicines to avoid. General instructions Take saxt-gdv-bmirjiz and prescription medicines only as told by [...] Depression Association of [place] (ADAA): adaa.org National [place] on Mental Illness (LUPE): lupe.org Contact a [...] the National Suicide Prevention Lifeline at or 017. This is open 24 hours a day. Text the Crisis Text Line at 543362. This information is not intended to replace advice given to you by your health care provider. Make sure you discuss any questions you have with your health care provider. Document Revised: 11/23/2022 Document Reviewed: 06/07/2021 [place] Patient Education 2023 [employer]. 11/02/2023 06:08:20 Preventive Care 21-39 Years Old, [...] glass of hard liquor (44 mL). Lifestyle [place] your teeth every morning and night with [...] provider. Document Revised: 08/12/2021 Document Reviewed: 08/12/2021 [place] Patient Education 2023 [employer]. 11/02/2023 06:08:10 Health Maintenance, Female Health Maintenance, [...] provider. Document Revised: 07/06/2021 Document Reviewed: 07/06/2021 [place] Patient Education 2023 [employer]. Follow Up Care 09/19/2023 11:51:32 With:Aditi Patten FAM, MED [facility] [address] [facility] [address] [address]- When:Within 1 Month(s) Comments:f/u labs, HTN, With:Aditi Patten FAM, MED Address: [address], [address] [place] [address]- Business (1) When:05/04/2023 Comments:for f/u With:Aditi Patten FAM, [facility] Address: [address], [address] [facility] [address] [place] [address]- Business (1) When:Within 3 Month(s) Comments:3 mo f/u for DM [facility] 11-02-2023 Note Patient Education Endocrinology Diabetes Mellitus and Foot Care Diabetes, also called diabetes mellitus, may cause problems with your feet and legs because of poor blood flow (circulation). 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 ? Break more easily. ? Heal [...] away. Where to find more information ? [place] Diabetes Association: diabetes.org ? Association of Diabetes [...] provider. Document Revised: 08/18/2022 Document Reviewed: 08/18/2022 [place] Patient Education ? 2023 [employer] Diabetes Mellitus and Exercise Regular exercise is [...] my activity plan? (more content not included)... [facility] 03-27-2023 Hospital Discharg e instructions Patient Education [...] mouth or applied to the skin. Take sdgj-fey-unyrezg and prescription medicines only as told by [...] provider. Document Revised: 06/19/2020 Document Reviewed: 05/28/2020 [place] Patient Education 2022 [employer]. Follow Up Care 03/27/2023 18:29:44 With:Malu Cuellar Address: [address] [place] [address] Business (1) When:03/30/2023 21:10:33 Comments:Call the office [...] develop any new or worsening symptoms. [facility] 03-27-2023 Evaluation + Plan note Diagnostic Tests PendingUrine Culture 03/27/23 [facility] 12-19-2022 Evaluation + Plan note Extrac maggie from: Title:ED Note Author:Zana Cohen PA-C te:12/19/22 Abdominal pain (R10.9: Unspe cified abdominal pain) UTI (urinary tract infection) (N39.0: Urinary tract infection, site not specified) Orders: cephalexin, 500 mg = 1 cap(s), Oral, q6hr, X 7 day(s), # 28 cap(s), Refills(s) 0, Pharmacy: [facility], 162, cm, 12/19/22 7:51:00 EDT, Height/Length Dosing, 85, kg, 12/19/22 7:51:00 EDT, Weight Dosing ketorolac, 30 mg = 1 mL, Injection, IV Push, Once, Stop date 12/19/22 8:19:00 EDT, STAT, Start date 12/19/22 8:19:00 EDT, 12/19/22 8:19:00 EDT naproxen, 500 mg = 1 tab(s), Oral, BID, PRN for pain, # 20 tab(s), Refills(s) 0, Pharmacy: [facility], 162, cm, 12/19/22 7:51:00 EDT, Height/Length Dosing, [...] Tests Pending * Urine Culture 12/19/22 [facility]10-22-2023 Hospital Discharge instructions Patient Education 12/19/2022 09:51:09 Urinary Tract Infection, Adult, Tdsi-uh-Dxqz Urinary Tract Infection, Adult A urinary tract [...] Follow these instructions at home: Medicines Take fmkd-kpv-vlucwlt and prescription medicines only as told by [...] provider. Document Revised: 09/26/2020 Document Reviewed: 09/26/2020 [place] Patient Education 2022 [employer]. 12/19/2022 09:51:09 Abdominal Pain, Adult, Nkri-jg-Mkrs Abdominal Pain, Adult Many things can cause belly (abdominal) pain. Most times, belly pain is not dangerous. Many cases of belly pain can be watched and treated at home. Sometimes, though, belly pain is serious. Your doctor will try to find the cause of your belly pain. Follow these instructions at home: Medicines Take ywom-tzd-dbunynr and prescription medicines only as told by [...] your belly pain for any changes. Take rgsf-tdd-pgtvoxj and prescription medicines only as told by [...] provider. Document Revised: 06/25/2019 Document Reviewed: 06/25/2019 [place] Patient Education 2022 [employer]. Follow Up Care 12/19/2022 07:41:07 With:Carlitos Baird Address: [address], [facility] [address] [place] [address]- Business (1) When:12/22/2022 09:15:26 Comments:Follow-up with your MANAGER OF TRANSPORTATION for further evaluation of your thickening of your endometrial complex. If you not have a MANAGER OF TRANSPORTATION, you may follow-up with Dr. Baird for further evaluation. With:Johanny Harmon Address: [address] [place] [address]- Business (1) When:12/22/2022 09:15:16 Comments:Follow-up with your primary care provider in 3 to 5 days. If symptoms worsen, do not improve, or new symptoms arise please report back to emergency department for further evaluation. [facility]05-31-2023 Evaluation + Plan noteExtracted from: Title:ED Note Author:Muna [place], Rishi Gray Keron e:07/28/22 Fracture of ulnar styloid (S 52.613A: Displaced fracture of unspecified ulna styloid process, initial encounter for closed fracture) Orders: acetaminophen-oxycodone, 1 EA, Tab, Oral, Once, Stop date 07/27/22 23:04:00 EDT, STAT, Start date 07/27/22 23:04:00 EDT acetaminophen-oxycodone, 1 tab(s), Oral, q4hr for pain, 8 tab(s), Refill(s) 0, [facility], 162, cm, 07/27/22 22:23:00 EDT, Height/Length Dosing, 91.6, kg, 07/27/22 22:23:00 EDT, Weight Dosing [facility]05-31-2023 Hospital Discharge instructions Patient Education 07/27/2022 [...] is stable enough for you to begin xgdmy-ds-dpzcpp exercises. You may also be prescribed pain [...] cast, splint, or sling on yourwrist. Do ynzzn-dp-siiqok exercises only as told by your health care provider or physical therapist. Medicines Take kgyj-iia-zxgbuxr and prescription medicines only as told by your health care provider. Ask your health care provider if the medicine prescribed to you: ?Requires you to avoid driving or using machinery. ?Can cause constipation. You may need to take these actions to prevent or treat constipation: ?Drink enough fluid to keep your urine pale yellow. ?Take aqld-iat-ysyfgoq or prescription medicines. ?Eat foods that are [...] provider. Document Revised: 05/27/2020 Document Reviewed: 05/27/2020 [place] Patient Education 2022 [employer]. Follow Up Care 07/27/2022 22:19:07 With:Malu Cuellar Address: [address] [place] [id number] [employer] (1) When:07/30/2022 Comments:Follow-up for evaluation and management of ulnar styloid fracture of indeterminate age With:XXXX NONE Address: [place] When:Within 3 Day(s) [facility]05-28-2023 Hospital Discharge instructions Patient Education 07/25/2022 20:19:04 Contusion, Omao-my-Ppkn Contusion A contusion is a deep bruise. [...] sitting or lying down. General instructions Take kicx-esp-sjihafq and prescription medicines only as told by [...] is also called RICE. Youmay be given zyai-kfn-lajbdea medicines for pain. Contact a doctor if [...] provider. Document Revised: 12/10/2021 Document Reviewed: 12/10/2021 [employer] Patient Education 2022 [employer]. Follow Up Care 07/25/2022 19:36:42 With:Len Hein III, DO, FAM Address: [address] [place] [address] [place] [address]- When:2 to 4 days [facility]05-28-2023 Evaluation + Plan noteExtracted from: Title:ED [...] 07/25/22 20:14:00 EDT Splint Application Wrist [facility]12-05-2022 Evaluation + Plan noteExtracted from: Title:ED Note Author:Kenneth Vick DO Date :02/01/22 Hematoma (T14.8XXA: Other in jury of unspecified body region, initial encounter) [facility]12-05-2022 Hospital Discharge instructions Patient Education 02/01/2022 [...] your health care provider. General instructions Take qgwa-zkj-zzaalqs and prescription medicines only as told by [...] 09/28/2004 Document Revised: 07/11/2019 Document Reviewed: 07/20/2018 [place] Patient Education 2019 [employer]. Follow Up Care 02/01/2022 03:06:07 With:Srikanth WALTON Address: [address] [place] [id number]- Business (1) When:02/08/2022 only if needed [facility]09-01-2022 Hospital Discharge instructions Patient Education 10/29/2021 [...] medicines to help relieve symptoms, such as: Gxtc-zby-pzduzxp cold medicines. Cough suppressants. Coughing is a [...] and other clear broths. General instructions Take fmdo-spm-gyflzkp and prescription medicines only as told by [...] and water are not available, use hand human resource intern. ?Avoid touching your mouth, face, eyes, or [...] 08/10/2001 Document Revised: 02/22/2019 Document Reviewed: 09/30/2017 [place] Patient Education 2020 [employer]. Follow Up Care 10/29/2021 18:40:12 With:Srikanth WALTON Address: [address] [place] [address] [facility] (1) When:11/01/2021 19:47:53 Comments:Call the office of [...] develop any new or worsening symptoms. [facility]09-01-2022 Evaluation + Plan noteExtracted from: Title:ED Note Author:Adrian Potter DO Date: Acute upper respiratory infe ction (J06.9: Acute upper respiratory infection, unspecified) Orders: brompheniramine/dextromethorphan/PSE, 5 mL, Oral, QID for cold symptoms, 200 mL, Refill(s) 0, [facility], 163, cm, 10/29/21 18:48:00 EDT, Height/Length Dosing, 93, kg, 10/29/21 18:48:00 EDT, Weight Dosing methylPREDNISolone, = 1 packet(s), Oral, As Directed, as directed on package labeling, X 6 day(s), # 21 tab(s), Refills(s) 0, Pharmacy: [facility], 163, cm, 10/29/21 18:48:00 EDT, Height/Length Dosing, 93, kg, 10/29/21 18:48:00 EDT, Weight Dosing ondansetron, 4 mg = 1 tab(s), Oral, q8hr, PRN Nausea/Vomiting, # 12 tab(s), Refills(s) 0, Pharmacy: [facility], 163, cm, 10/29/21 18:48:00 EDT, Height/Length Dosing, 93, kg, 10/29/21 18:48:00 EDT, Weight Dosing COVID-19 ([facility]) Diagnostic Tests Pending * COVID-19 ([facility]) 10/29/21 [facility]08-14-2022 Hospital Discharge instructions Patient Education 10/11/2021 16:09:43 Contusion, Abwr-ji-Tjio Contusion A contusion is a deep bruise. [...] sitting or lying down. General instructions Take kijv-sov-wdypskc and prescription medicines only as told by [...] is also called RICE. Youmay be given jqrm-yuw-jsjwzxy medicines for pain. Contact a doctor if [...] 08/02/2008 Document Revised: 10/06/2018 Document Reviewed: 10/06/2018 [place] Patient Education 2020 [employer]. Follow Up Care 10/11/2021 13:05:01 With:Malu Cuellar Address: [address] [place] [phone] Business (1) When:10/14/2021 15:44:52 With:Patricia Pollock Address: [address] [place] [phone] Business (1) When:Within 3 Day(s) [facility]07-10-2022 Hospital Discharge instructions Patient Education 09/06/2021 [...] sling or splint to support your injury. Qiox-cio-nbgcqwl anti-inflammatory medicines, such as ibuprofen, for pain control. Unprb-mw-uozxpo exercises. Follow these instructions at home: RICE [...] bath or a shower. General instructions Take vayg-kua-jslphpx and prescription medicines only as told by your health care provider. Return to your normal activities as told by your health care provider. Ask your health care provider what activities are safe for you. Do hhwrq-ud-osbkoq exercises only as told by your health [...] 01/23/2007 Document Revised: 08/17/2018 Document Reviewed: 08/17/2018 [employer] [place] Patient Education 2020 [employer] Follow Up Care 09/06/2021 16:10:00 With:Luan Sellers Address: [address] [place], [place] [id number] [facility] (1) When:09/09/2021 17:07:08 Comments:Call the office of [...] pain medicine for pain not controlled. [facility]07-10-2022 Evaluation + Plan noteExtracted from: Title:ED Note Author:Adrian Potter DO Date: Contusion of elbow (S50.00XA : Contusion of unspecified elbow, initial encounter) Ordered: acetaminophen-hydrocodone, 1 tab(s), Oral, q4hr for pain, 3 tab(s), Refill(s) 0, [facility], 162, cm, 09/06/21 16:13:00 EDT, Height/Length Dosing, 95, kg, 09/06/21 16:13:00 EDT, Weight Dosing Orders: Sling Apply XR Elbow 3+ Views Right [facility] Future Appointments Appointment Date:12/07/2023 08:20:00 AM Scheduled Provider:Aditi Patten Location:[facility] Appointment Type:FM Open Future Scheduled Tests Laboratory* U Protein/Creat [...] T4 11/02/23 * Vitamin B12 Level 11/02/23 [facility] Evaluation noteNo assessment information available [facility] Work Phone: Hospital course Narrative No data available for this section [facility] No data available for this section [facility] (narrative) Referred by: Aditi Patten [facility] Summary Purpose Family History No Family History Records Found Advance Directives No Advanced Directives Records Found Advance Directive Response Recorded Date/ Time Advance Directives No October 19, 2023 1:03pm Additional Source Comments Care Team (unrecognized sect ion and content) Team Status: Inactive Member Role Status Dates Chetan Valdes DO Attending Provider Active Start : November 18, 2023 End: November 18, 2023 INFORMATION SOURCE (unrecogn ized section and content) DATE CREATED AUTHOR 11/18/2023 [facility] DATE CREATED AUTHOR AUTHOR'S ORGANIZ ATION 11/19/2023 [facility] DATE CREATED AUTHOR AUTHOR'S ORGANIZ ATION 11/21/2023 [facility] DATE CREATED AUTHOR AUTHOR'S ORGANIZ ATION 11/25/2023 [facility] DATE CREATED AUTHOR AUTHOR'S ORGANIZ ATION 11/25/2023 [facility] EPIC Goals (unrecognized section and content) Goals may be documented in a n alternate section FOR RECORDS PERTAINING TO PATIENTS WHO ARE [...] BE BASED ON THE PRIMARY CLINICAL RECORDS. [facility] [employer] provides no warranty or guarantee of the accuracy or completeness of information in this document.
--- NOTE | 2023-11-25 18:27 | ED.ABDPAIN1 ---
HPI - Abdominal Pain General Chief Complaint: Abdominal Pain Stated Complaint: POSTOPERATIVE COMPLICATION Time Seen by Provider: 11/25/23 18:05 Source: patient Mode of arrival: walk-in History of Present Illness HPI narrative: 38-year-old female presented to the emergency department for left lower quadrant abdominal pain which started yesterday afternoon. She is postop day #7 from uterine ablation. She had a postop check yesterday with her it security project manager and she was not having this pain at that time. The post op check went well and she was told that everything looked the way it should. She has not been doing any heavy lifting and there was not any injury. The pain started yesterday after the appointment and has been there continuously since. No dysuria or hematuria or flank pain. No pain on the right side Related Data Home Medications ?Medication ?Instructions ?Recorded ?Confirmed fluoxetine 10 mg capsule 10 mg PO DAILY 11/04/23 11/18/23 loratadine 10 mg tablet (Claritin) 10 mg PO DAILY 11/04/23 11/18/23 Previous Rx's ?Medication ?Instructions ?Recorded ferrous sulfate 325 mg (65 mg 325 mg PO DAILY #30 tabs 07/29/23 iron) tablet (iron) Allergies Allergy/AdvReac Type Severity Reaction Status Date / Time empagliflozin Allergy Nausea Verified 11/04/23 09:10 [From Jardiance] sitagliptin [From Januvia] Allergy Rash Verified 11/04/23 09:10 Review of Systems ROS Narrative A ten point review of systems is negative except as noted above. [facility] Medical History (Updated 11/25/23 @ 18:41 by Ian Vasques MD) Arthritis ?M19.90 - Unspecified osteoarthritis, unspecified site (ICD-10) Insomnia ?G47.00 - Insomnia, unspecified (ICD-10) PTSD (post-traumatic stress disorder) ?F43.10 - Post-traumatic stress disorder, unspecified (ICD-10) Panic attacks ?F41.0 - Panic disorder [episodic paroxysmal anxiety] (ICD-10) Depression ?F32.A - Depression, unspecified (ICD-10) Bipolar disorder ?F31.9 - Bipolar disorder, unspecified (ICD-10) Anxiety ?F41.9 - Anxiety disorder, unspecified (ICD-10) COVID-19 ?U07.1 - COVID-19 (ICD-10) Asthma ?J45.909 - Unspecified asthma, uncomplicated (ICD-10) Migraine ?G43.909 - Migraine, unspecified, not intractable, without status migrainosus (ICD-10) Heartburn ?R12 - Heartburn (ICD-10) Seasonal allergies ?J30.2 - Other seasonal allergic rhinitis (ICD-10) Diabetes ?E11.9 - Type 2 diabetes mellitus without complications (ICD-10) Abnormal uterine bleeding (AUB) ?N93.9 - Abnormal uterine and vaginal bleeding, unspecified (ICD-10) Cervical dysplasia ?N87.9 - Dysplasia of cervix uteri, unspecified (ICD-10) Cervical polyp ?N84.1 - Polyp of cervix uteri (ICD-10) Surgical History (Updated 11/04/23 @ 09:19 by Georgette Lopez NP) H/O wrist surgery ?Z98.890 - Other specified postprocedural states (ICD-10) History of bilateral salpingectomy ?Z90.79 - Acquired absence of other genital organ(s) (ICD-10) History of section ?Z98.891 - History of uterine scar from previous surgery (ICD-10) Family History (Updated 11/04/23 @ 09:19 by Georgette Lopez NP) Other Cancer Family history of diabetes mellitus Family history of hypertension Family history of myocardial infarction Family history of pulmonary embolism Family history of seizures Family history of stroke Social History (Updated 11/18/23 @ 07:26 by Eolina Santana RN) Within the past year, how often did you have a drink containing alcohol: monthly or less Do you use any of these nicotine containing products: vaping products Non-prescribed substance use: cannabis (any form) 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 General: The patient appears well and in no apparent distress. Patient is resting comfortably on cart. Skin: Warm, dry, no pallor noted. There is no rash noted. Head: Normocephalic, atraumatic Eye: Normal conjunctiva, no drainage Ears, Nose, Mouth, and Throat: oral mucosa is moist. Nares patent. Cardiovascular: Regular Rate and Rhythm Respiratory: Patient is in no distress, no accessory muscle use, lungs are clear to auscultation, no wheezing, rales or rhonchi Back: non-tender GI: No tenderness in the right lower quadrant, right upper quadrant, or left upper quadrant. She has some tenderness in the left lower quadrant without mass or distention. Musculoskeletal: The patient has no evidence of calf tenderness, no pitting edema, symmetrical pulses noted bilaterally Neurological: A&O, normal speech Psychiatric: Cooperative Constitutional Vital Signs, click to edit/add: Last Vital Signs Temp 98.3 F 11/25/23 17:58 Pulse 79 11/25/23 17:58 Resp 16 11/25/23 17:58 BP 121/77 11/25/23 17:58 Pulse Ox 99 11/25/23 17:58 O2 Del Method Room Air 11/25/23 17:58 Course Vital Signs Vital signs: Vital Signs Temperature 98.3 F 11/25/23 17:58 Pulse Rate 79 11/25/23 17:58 Respiratory Rate 16 11/25/23 17:58 Blood Pressure 121/77 11/25/23 17:58 Pulse Oximetry 99 11/25/23 17:58 Oxygen Delivery Method Room Air 11/25/23 17:58 Temperature 98.3 F 11/25/23 17:58 Pulse Rate 79 11/25/23 17:58 Respiratory Rate 16 11/25/23 17:58 Blood Pressure 121/77 11/25/23 17:58 Pulse Oximetry 99 11/25/23 17:58 Oxygen Delivery Method Room Air 11/25/23 17:58 MDM - Abdominal Pain MDM Narrative Medical decision making narrative: WBC is elevated at 17,000. CT scan is ordered and pending and the patient is signed out to Dr. Villalba. test also pending. Differential Diagnosis Differential diagnosis: Likely abdominal pain, calculus of kidney, constipation and diverticulitis Lab Data Attestation: I reviewed the patient's lab results. Labs: Lab Results 11/25/23 Range/Units 18:23 WBC 17.6 H (4.0-11.0) 10^3/uL RBC 4.00 L (4.20-5.40) 10^6/uL Hgb 10.5 L (12.0-16.0) g/dL Hct 34.0 L (36.0-48.0) % MCV 85.0 (81.0-99.0) fL MCH 26.3 L (26.7-34.0) pg MCHC 30.9 (29.9-35.2) g/dL RDW 17.5 H (11.0-15.0) % Plt Count 274 (150-450) 10^3/uL MPV 8.7 L (9.5-13.5) fL Discharge Plan Discharge Patient Disposition: Still a Patient
[2023-11-25 18:31] LABS: Hemoglobin 10.5 g/dL (12.0-16.0); Mean Corpuscular HGB Conc 30.9 g/dL (29.9-35.2); Mean Corpuscular Hemoglobin 26.3 pg (26.7-34.0); Mean Platelet Volume 8.7 fL (9.5-13.5); Platelet Count 274 10^3/uL (150-450); Red Cell Distribution Width 17.5 % (11.0-15.0); White Blood Count 17.6 10^3/uL (4.0-11.0)
--- NOTE | 2023-11-25 18:40 | CT_ITS ---
The [address] [address] Patient Name: DEB WOODS MRN: [id number] date: 1985 Sex: F Assigned Patient Location: ER Current Patient Location: ER Accession/Order Number: [id number] Exam Date: 11/25/2023 19:14 Report Date: 11/25/2023 20:26 At the request of: VESTA HOLLINGSWORTH Procedure: CT abdomen pelvis w con EXAM: CT abdomen pelvis w con HISTORY: LL pain, postop day #7 from uterine ablation COMPARISON: None. TECHNIQUE: CT abdomen pelvis with Omnipaque 300 IV contrast. Axial scans with reformatted coronal and sagittal images. Individualized radiation dose reduction used for this exam. FINDINGS: Lower chest: Lung bases clear, no pleural effusion. No acute process. ABDOMEN: Liver enhancement normal without focal lesion. Normal fluid-filled gallbladder. No biliary dilatation. Adrenal glands, pancreas unremarkable. 18 mm low-attenuation lesion in the spleen higher density than cyst possible hemangioma. Normal size spleen. No ascites or free fluid. No adenopathy. Normal enhancement aorta and branches. Normal venous enhancement. Normal renal enhancement without hydronephrosis or ureteral calculus. No bowel dilatation, ileus or obstruction. Pancreas not well visualized probably normal. Moderate gas stool ascending transverse colon, large amount of stool descending colon and proximal sigmoid. Pelvis: 3 cm cystic structure along the right side uterus probable ovarian cyst. Left adnexa unremarkable. Slightly heterogeneous central uterus endometrial area without gas or enhancing collection or other findings suggesting endometritis or abscess. Slightly heterogeneous cervical with punctate gas. No free fluid or adenopathy. Normal fluid-filled bladder. MUSCULOSKELETAL: No inguinal adenopathy fluid collection or hernia. No suspicious bone lesion. CT/CT abdomen pelvis w con IMPRESSION: 1. No findings suggesting endometritis or abscess within the body of the uterus. Possible 3 cm right ovarian cyst. Free fluid in the adnexa or pelvic area. 2. Heterogeneous cervical or with punctate gas.. 3. No abnormality lower chest abdomen. 4. Moderate to large amount of gas and stool throughout the colon especially descending colon and proximal sigmoid. Electronically authenticated by: MARCIAL HOFFMAN Date: 11/25/2023 20:26
[2023-11-25 18:42] LABS: Anion Gap 8.9; BUN Creatinine Ratio 14.7; Calcium 8.9 mg/dL (8.5-10.1); Carbon Dioxide 30.1 mmol/L (21.0-32.0); Chloride 100 mmol/L (98-107); Estimated GFR (African America >60 (>=60); Estimated GFR (Non-African Ame >60 (>=60); Glucose 116 mg/dL (74-106); Sodium 135 mmol/L (136-145)
[2023-11-25 18:48] LABS: Lymphocytes Absolute Manual 2.11 10^3/uL (1.20-3.80); Monocytes Absolute Manual 1.05 10^3/uL (0.30-0.80); Segmented Neut Absolute Manual 14.43 10^3/uL (1.4-6.5)
[2023-11-25 18:49] VITALS: BP 112/69; PULSE 74; O2SAT 100
[2023-11-25 18:49] LABS: Anisocytosis 1+; HCG Qualitative NEGATIVE (NEGATIVE); Internal Control Within Normal Limits; Microcytosis 1+
[2023-11-25 23:31] LABS: Bilirubin Urine NEGATIVE (NEGATIVE); Blood Urine MODERATE (NEGATIVE); Clarity Urine CLEAR (CLEAR); Color Urine LT. YELLOW (YELLOW); Glucose Urine UA NEGATIVE (NEGATIVE); Ketones Urine NEGATIVE (NEGATIVE); Leukocyte Esterase Urine TRACE (NEGATIVE); Nitrite Urine NEGATIVE (NEGATIVE); Protein Urine NEGATIVE (NEG/TRACE); Urobilinogen Urine 0.2 EU/dL (0.2-1.0); pH Urine 7.5 (5.0-9.0)
[2023-11-25 23:33] LABS: Urine Microscopic Indicated YES
[2023-11-25 23:41] LABS: Bacteria Urine TRACE #/HPF (NONE SEEN); Cast Seen? NONE SEEN #/LPF (NONE SEEN); Crystals Seen? None Seen #/HPF (None Seen); Mucus Urine NONE SEEN (NONE SEEN); RBC Urine 0-2 #/HPF (0-2); Squamous Epithelial Cell Urine FEW #/LPF (NONE/RARE); Urine Culture Indicated NO
[2023-11-26] MEDS: HYDROCODONE/ACET 5-325 MG TABLET 4 TAB PO (00:06)
[2023-11-26 00:14] VITALS: BP 111/69; PULSE 79; O2SAT 97
== END 2023-11-26 00:16 | disposition home or self-care (01) ==
PROVIDERS: Emergency Medicine; Emergency Provider Internal Medicine
DX: R10.9 Unspecified abdominal pain (principal); N83.202 Unspecified ovarian cyst, left side; Z98.890 Other specified postprocedural states; F17.290 Nicotine dependence, other tobacco product, uncomplicated
CPT/HCPCS: 36415; 74177; 80048; 81001; 84703; 85007; 85027; 99284; Q9967